=== PATIENT | male | born 1970 | race Caucasian/White ===

== ENCOUNTER 2019-09-17 13:46 | Inpatient (IN) | payer MEDICAID, SELFPAY ==
[2019-09-17] VITALS (8 sets, daily range): BP systolic 117–150; BP diastolic 64–104; PULSE 65–84; RESP 18–21; TEMP 36.4; O2SAT 92–99; BMI 21.2
--- NOTE | 2019-09-17 14:33 | XR_ITS ---
WS: [id number] PORTABLE CHEST HISTORY: chest pain COMPARISON: 06/18/[address] 09/17/2019 Mild pulmonary hyperexpansion. Changes of emphysema with mild thickening of the interstitium which is progressed since prior studies. Suspect pneumonitis or mild fluid overload. No nodule or pneumonia. No pleural effusion or pneumothorax. Cardiac size: Normal. Mediastinum/Aorta: Normal mediastinum. No osseous abnormality seen. XR/XR chest 1V portable [id number] IMPRESSION: 1. Mild interstitial edema versus pneumonitis. 2. No pneumonia. 3. Chronic emphysema.
--- NOTE | 2019-09-17 14:33 | CTR_ITS ---
PROCEDURE INFORMATION: Exam: CT Angiography Chest With Contrast Exam date and time: 09/17/2019 2:55 PM Age: 49 years old Clinical indication: Left-sided chest pain TECHNIQUE: Imaging protocol: Computed tomographic angiography of the chest with intravenous contrast. 3D rendering: MIP and/or 3D reconstructed images were created by the technologist. Radiation optimization: All CT scans at this facility use at least one of these dose optimization techniques: automated exposure control; mA and/or kV adjustment per patient size (includes targeted exams where dose is matched to clinical indication); or iterative reconstruction. Contrast material: OMNI 350; Contrast volume: 95 ml; Contrast route: LT AC; COMPARISON: No relevant prior studies available. RADIATION DOSE METRICS: Total DLP: 597.09 mGy-cm FINDINGS: Pulmonary arteries: There is no pulmonary embolus. Aorta: Unremarkable. No aortic aneurysm. No aortic dissection. Inferior vena cava: An enlarged lymph node anterior to the inferior vena cava image 535 measures 1.9 cm in short axis. Lungs: Nonspecific bibasilar consolidation is present, consistent with atelectasis, edema, or pneumonia. There is also interstitial and ground-glass prominence in the lungs compatible with mild diffuse pneumonitis or interstitial CHF. There are uugw-ni-yxikgzzx emphysematous changes. Pleural space: There are small to moderate size bilateral pleural effusions. Heart: Unremarkable. No cardiomegaly. No pericardial effusion. Mediastinum: A small hiatal hernia is present. Lymph nodes: There is adenopathy in the aortopulmonary window with a lymph node measuring 1.6 cm in short axis image 194. There is a precarinal lymph node that measures 1.8 cm in short axis. A subcarinal lymph node measures 2.5 cm in short axis. There is a 1.2 cm right infrahilar lymph node image 289. There is adenopathy in the upper abdomen including a 1.9 cm short axis lymph node anterior to the pancreas image 519. Multiple subcentimeter lymph nodes are noted in the visualized retroperitoneum. There is no axillary adenopathy. Spleen: The spleen is normal in size. Bones/joints: There is no acute fracture. There is coarsening of the bony trabecular pattern. This appearance is most typically identified with renal osteodystrophy. There are Schmorl's nodes and moderate degenerative changes in the spine. Soft tissues: Unremarkable. CT/CT angio chest PE protcl [id number] IMPRESSION: 1. There are small to moderate size bilateral pleural effusions. 2. There is no pulmonary embolus. 3. Nonspecific bibasilar consolidation is present, consistent with atelectasis, edema, or pneumonia. 4. There is also interstitial and ground-glass prominence in the lungs compatible with mild diffuse pneumonitis or interstitial CHF. 5. Mediastinal adenopathy. Adenopathy in the kilo hepatis. Radiation Dose CTDIVOL = (mGy): DLP = 597.09 (mGy-cm)
--- NOTE | 2019-09-17 14:34 | ECG_ITS ---
Measurements Intervals [place] Rate: 75 P: 64 VA: 145 QRS: 67 QRSD: 159 T: 244 QT: 449 QTc: 504 SINUS RHYTHM LEFT BUNDLE BRANCH BLOCK [120+ ms QRS DURATION, 80+ ms Q/S IN V1/V2, 85+ ms R IN I/aVL/V5/V6] INTERPRETATION BASED ON A DEFAULT AGE OF 40 YEARS No previous ECG available for comparison Electronically Signed On 09-17-2019 20:06:21 CDT by Jesse Galicia M.D. [id number]
--- NOTE | 2019-09-17 14:36 | ED_ITS ---
HPI - Chest Pain General: Chief Complaint: Shortness of Breath/Dyspnea Stated Complaint: cp,sob Time Seen by Provider: 09/17/19 14:23 History of Present Illness: HPI narrative: Patient reports episodic chest pain for the past 10 or 11 months. He says the pain feels like someone is pushing heavily down on his chest. There is no radiation. He gets short of breath and diaphoretic but has no nausea. MD complaint: chest pain, chest heaviness and chest discomfort Onset (ago): year(s) (1) Timing of current episode: episodic Prior episodes: Yes Onset: during rest and during exertion Pain location: substernal, left chest and parasternal Pain radiation: none Quality: tightness and heaviness Relieving factors: nothing Exacerbating factors: exertion Associated symptoms: Reports diaphoresis and dyspnea; Deny nausea or vomiting Treatment prior to arrival: none Review of Systems General: Reports: 10 or more systems reviewed and unremarkable except in HPI and below Const: Reports: diaphoresis Card: Reports: chest pain Resp: Reports: shortness of breath GI: Denies: nausea or vomiting PFS ED PFSH: Social History Smoking and tobacco status: current every day smoker Physical Exam Const: COMMON NORMALS: no apparent distress, average body habitus, oriented x3 and well nourished GENERAL APPEARANCE: cooperative and well developed HENMT: COMMON NORMALS: normocephalic HEAD & SCALP: normocephalic Neck/C-Spine: COMMON NORMALS: full ROM and no JVD Resp: COMMON NORMALS: normal respiratory effort, no retractions, no use of accessory muscles and clear to auscultation bilaterally AUSCULTATION: clear to auscultation bilaterally Cardio: COMMON NORMALS: no JVD, regular rate and regular rhythm RATE: regular rate RHYTHM: regular rhythm HEART SOUNDS: murmur systolic Extremity: COMMON NORMALS: normal to inspection and no clubbing, cyanosis or edema Neuro: COMMON NORMALS: oriented x3, CN's II-XII intact bilaterally, moves all extremities, no focal motor deficits and no sensory deficits noted Skin: COMMON NORMALS: no rashes or lesions noted, skin turgor normal and no jaundice GENERAL SKIN EXAM: no rashes or lesions noted and turgor normal Course Vital Signs: Vital signs: Vital Signs Temperature 97.6 F 09/17/19 13:51 Pulse Rate 66 09/17/19 14:46 Respiratory Rate 21 H 09/17/19 14:46 Blood Pressure 117/79 09/17/19 14:46 Pulse Oximetry 93 09/17/19 14:46 MDM - Chest Pain Lab Data: Labs: Lab Results 09/17/19 09/17/19 09/17/19 Range/Units 14:34 15:12 15:12 WBC 8.1 (4.0-10.0) 10^3/ uL RBC 5.47 H (4.1-5.3) 10^6/u L Hgb 14.9 (11.7-16.6) g/dL Hct 47.0 (42.0-52.0) % MCV 85.9 (80-94) fL MCH 27.2 L (28.0-34.0) pg MCHC 31.7 (30.0-36.0) g/dL RDW 14.0 (12.1-15.1) % Plt Count 258 (130-400) 10^3/c mm MPV 11.6 H (7.4-10.4) fL Neut % (Auto) 60.6 % Lymph % (Auto) 29.1 % [place] % (Auto) 6.7 % Eos % (Auto) 2.8 % Baso % (Auto) 0.6 % Neut # (Auto) 4.9 (1.8-7.7) 10^3/u L Lymph # (Auto) 2.4 (0.8-4.8) 10^3/u L [place] # (Auto) 0.5 (0.2-0.9) 10^3/u L Eos # (Auto) 0.2 (0.0-0.8) 10^3/u L Baso # (Auto) 0.1 (0.0-0.1) 10^3/u L Nucleated RBC % (a uto) 0 % Nucleated RBCs # 0.0 /100WBC PT (10.5-13.3) SECO NDS INR (0.8-1.2) Sodium 137 (136-145) mmol/L Potassium 4.4 (3.5-5.1) mmol/L Chloride 104 (98-107) mmol/L Carbon Dioxide 24 (22-29) mmol/L Anion Gap 13.4 (5-19) BUN 15 (6-20) mg/dL Creatinine 1.0 (0.7-1.2) mg/dL GFR Calculation 79.8 L (90-130) mL/min Glucose 93 (65-115) mg/dL Calculated Osmolal ity 280 L (285-295) mOsm/k g Calcium 9.0 (8.5-10.5) mg/dL Total Bilirubin 0.5 (0.15-1.2) mg/dL AST 34 (0-40) U/L ALT 79 H (0-41) U/L Alkaline Phosphata se 228 H (40-130) IU/L Troponin T Baselin e 21 H (0-15) ng/mL NT-Pro-B Natriuret Pep 3259 H (0-125) pg/mL Total Protein 6.4 L (6.6-8.7) g/dL Albumin 3.8 (3.5-5.2) g/dL Globulin 2.6 (1.3-4.6) g/dL /02/26 Range/Units 15:12 WBC (4.0-10.0) 10^3/ uL RBC (4.1-5.3) 10^6/u L Hgb (11.7-16.6) g/dL Hct (42.0-52.0) % MCV (80-94) fL MCH (28.0-34.0) pg MCHC (30.0-36.0) g/dL RDW (12.1-15.1) % Plt Count (130-400) 10^3/c mm MPV (7.4-10.4) fL Neut % (Auto) % Lymph % (Auto) % [place] % (Auto) % Eos % (Auto) % Baso % (Auto) % Neut # (Auto) (1.8-7.7) 10^3/u L Lymph # (Auto) (0.8-4.8) 10^3/u L [place] # (Auto) (0.2-0.9) 10^3/u L Eos # (Auto) (0.0-0.8) 10^3/u L Baso # (Auto) (0.0-0.1) 10^3/u L Nucleated RBC % (a uto) % Nucleated RBCs # /100WBC PT 14.50 H (10.5-13.3) SECO NDS INR 1.10 (0.8-1.2) Sodium (136-145) mmol/L Potassium (3.5-5.1) mmol/L Chloride (98-107) mmol/L Carbon Dioxide (22-29) mmol/L Anion Gap (5-19) BUN (6-20) mg/dL Creatinine (0.7-1.2) mg/dL GFR Calculation (90-130) mL/min Glucose (65-115) mg/dL Calculated Osmolal ity (285-295) mOsm/k g Calcium (8.5-10.5) mg/dL Total Bilirubin (0.15-1.2) mg/dL AST (0-40) U/L ALT (0-41) U/L Alkaline Phosphata se (40-130) IU/L Troponin T Baselin e (0-15) ng/mL NT-Pro-B Natriuret Pep (0-125) pg/mL Total Protein (6.6-8.7) g/dL Albumin (3.5-5.2) g/dL Globulin (1.3-4.6) g/dL Discharge Plan Discharge Patient Disposition: Admitted As Inpatient Clinical Impression: Unstable angina pectoris, Left bundle branch block Condition: Fair Coding Level of Care Code ED Supply Crib Attendant for Ren Fwd Exam Comprehensive
[2019-09-17 14:45] LABS: Basophils # 0.1 10^3/uL (0.0-0.1); Basophils % 0.6 %; Eosinophils # 0.2 10^3/uL (0.0-0.8); Eosinophils % 2.8 %; Hemoglobin 14.9 g/dL (11.7-16.6); Lymphocytes # 2.4 10^3/uL (0.8-4.8); Lymphocytes % 29.1 %; Mean Corpuscular HGB Conc 31.7 g/dL (30.0-36.0); Mean Corpuscular Hemoglobin 27.2 pg (28.0-34.0); Mean Corpuscular Volume 85.9 fL (80-94); Mean Platelet Volume 11.6 fL (7.4-10.4); Monocytes # 0.5 10^3/uL (0.2-0.9); Monocytes % 6.7 %; Neutrophils # 4.9 10^3/uL (1.8-7.7); Neutrophils % 60.6 %; Nucleated Red Blood Cells % 0 %; Platelet Count 258 10^3/cmm (130-400); Red Blood Count 5.47 10^6/uL (4.1-5.3); White Blood Count 8.1 10^3/uL (4.0-10.0)
[2019-09-17] MEDS: iohexol 350 mg/mL 100 mL Btl IV (14:56)
[2019-09-17 15:35] LABS: Troponin(5th) Baseline 21 ng/mL (0-15)
[2019-09-17 15:44] LABS: Alanine Aminotransferase 79 U/L (0-41); Albumin Level 3.8 g/dL (3.5-5.2); Alkaline Phosphatase 228 IU/L (40-130); Anion Gap 13.4 (5-19); Aspartate Amino Transferase 34 U/L (0-40); Blood Urea Nitrogen 15 mg/dL (6-20); Carbon Dioxide 24 mmol/L (22-29); Chloride 104 mmol/L (98-107); Globulin 2.6 g/dL (1.3-4.6); Glomerular Filtration Rate 79.8 mL/min (90-130); Glucose 93 mg/dL (65-115); NT Pro B Type Natriuretic Pept 3259 pg/mL (0-125); Osmolality Calculated 280 mOsm/kg (285-295); Potassium 4.4 mmol/L (3.5-5.1); Sodium 137 mmol/L (136-145); Total Bilirubin 0.5 mg/dL (0.15-1.2); Total Protein 6.4 g/dL (6.6-8.7)
[2019-09-17] MEDS: nitroglycerin 0.4 mg sublingual Tablet (16:06)
[2019-09-17 16:56] LABS: Troponin 5 2HR 22.62 ng/mL (0-15); Troponin 5 2HR Delta 1.62 ABS# (0-10)
--- NOTE | 2019-09-17 19:00 | PM.HP ---
Providers/Chief Complaint Admitting Physician: Kenia Loja MD Chief Complaint: cp,sob History of Present Illness Emory Real is a 49 year old male with no known past medical history is, does not really see medical practitioners in the past. He presents today complaining of chest pain that has worsened since yesterday evening. 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 He describes this as substernal to left-sided chest discomfort without any radiation. Describes intensity as 8 on 10 at its peak and 06/10/2009 at a minimum. States it is intermittent, though he is unable to state any exacerbating or relieving factors in particular. He complains of shortness of breath during episodes of chest pain, however states at other times he does not experience this. No history of orthopnea. He states that similar pain has been ongoing on and off for the past year or so, occurs at fairly frequent intervals of about once every month, however he has not sought any evaluation for this in the past. He is also noted to be coughing up on interview. He states that the cough has been going on at least several weeks. He is a chronic smoker but does not know if he has any history of COPD. He attributed this chronic cough to his smoking. He states that his pointed out to him he felt warm yesterday, however he has not checked his temperature. There is no his recent history of travel. 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 He is not aware of being in touch with anyone who has been sick or tested positive for COVID-19 recently. Diagnostics in the ER are notable for EKG with normal sinus rhythm LBBB of unclear chronicity, baseline troponin not elevated, CTA of the chest shows interstitial Ground-glass prominence in the lungs compatible with mild diffuse pneumonitis or interstitial CHF. There are [id number] emphysematous changes.P There are small to moderate size bilateral pleural effusions.and incidental note made of abdominal lymphadenopathy. Review of Systems General: Reports: 10 or more systems reviewed and unremarkable except in HPI and below Const: Denies: fever, chills or body aches Eyes: Denies: change in vision, blurry vision or photophobia ENMT: Denies: throat pain, enlarged tonsils, painful swallowing, hoarseness or nasal congestion Card: Reports: chest pain; Denies: palpitations, irregular heart rhythm, edema, swelling of feet/ankles, lightheadedness, pre-syncope, shortness of breath on exertion or shortness of breath when lying down Resp: Denies: shortness of breath, productive cough, non-productive cough, wheezing, stridor, pain on inspiration, change in phlegm color, coughing up blood or chest congestion GI: Denies: abdominal pain, nausea, vomiting, vomiting blood, coffee grounds in vomit, difficulty swallowing, heartburn/indigestion, diarrhea, constipation, cramping, change in stool character, blood in stool or black tarry stool : Denies: flank pain, painful urination, urinary frequency, urinary urgency, urinary hesitancy or blood in urine Musc: Denies: neck pain, back pain, extremity pain, joint swelling, joint warmth or deformity Neuro: Denies: headache, numbness in extremities, weakness in extremities, changes in sensation, difficulty walking, frequent falls, dizziness, vertigo, behavioral changes, slurred speech or seizure-like activity Psych: Denies: anxiety, depression, suicidal ideation or homicidal ideation Endo: Denies: excessive urination, excessive thirst, tired all the time, cold intolerance or hot flashes Luís/Lymph: Denies: easy bruising or easy bleeding Medications/Allergies Home Medications Medication Instructions Recorded Confirmed Last Taken Type No Known Home Medications 09/17/19 09/17/19 Unknown History Allergies Allergy/AdvReac Type Severity Reaction Status Date / Time No Known Allergies Allergy Verified 09/17/19 13:54 PFSH Acute PFSH: Social History Smoking and tobacco status: current every day smoker Vitals/I&O/Wt Last Vital Signs Temp 97.6 F 09/17/19 13:51 Pulse 65 09/17/19 18:58 Resp 18 09/17/19 18:58 BP 118/64 09/17/19 18:58 Pulse Ox 98 09/17/19 18:58 Weight last 48 hrs Weight 63.503 kg Physical Exam Narrative: EXAM NARRATIVE: GEN: Awake, alert and oriented, no acute distress CVS: S1S2 N RS: CTA B/L except few scattered crackles over bilateral lung bases. Abd: Soft, nt/nd , bs+ HOSPITAL MEDICAL BILLER: no focal neuro deficits Data : 09/17/19 14:34 09/17/19 15:12 A&P Assessment and plan (1) Unstable angina pectoris: Status: Acute (2) Left bundle branch block: Status: Acute (3) Pulmonary edema cardiac cause: Status: Acute (4) Nicotine dependence: Status: Acute (5) Suspected COVID-19 virus infection: Status: Acute Additional A&P Information Admit to CSU level of care. 1. Unstable angina pectoris Patient currently reports being chest pain-free, however states that chest pain has been ongoing for about a year now with some worsening since yesterday. Overall given that EKG shows LBBB pattern along with troponins that are not currently elevated on unremarkable delta's, suspect angina pectoris to be the most likely cause of chest pain. Patient will require a stress test to further work this up. However given that he is complaining of cough lasting the past few weeks along with possible fever yesterday and he is continuing to work and interact with other persons, who would be prudent to rule out COVID first. Once COVID is ruled out, we will go ahead and put in patient for a stress test. Will start patient on aspirin and atorvastatin for now along with nitroglycerin as needed. Avoiding beta-blockers for now given heart rate of 66 bpm. We will obtain echocardiogram Check HbA1c, lipid panel, TSH. #2 interstitial prominence noted on CTA chest together with crepitation on clinical exam appears to be consistent with pulmonary edema. Lasix 20 mg IV push x1. Since patient is Lasix na?ve would like to give a small dose first and then monitor KEI and renal function before proceeding any further. 3. Nicotine dependence patient has been counseled to cut back on smoking. Will offer nicotine patch while he is here in the hospital. Patient is full code DVT prophylaxis Lovenox. Attestations Medical Necessity Statement*: Anticipate greater than 2 midnight stay for COVID-19 rule out, stress test, management of pulmonary edema. 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
[2019-09-17 19:33] LABS: Chol HDL Ratio 6.35 mg/dL (1.0-5.00); Cholesterol 197 mg/dL (0-200); HDL Cholesterol 31 mg/dL (60-100); LDL Cholesterol Calculated 140 mg/dL (50-129); LDL HDL Ratio 4.52 RATIO (0.00-3.22); Thyroid Stimulating Hormone 1.76 uIU/mL (0.27-4.20); Triglycerides 128 mg/dL (0-150)
[2019-09-17 19:38] LABS: Estmated Average Glucose 143; Hemoglobin A1C 6.6 % (4.0-6.0)
[2019-09-17] MEDS: FUROsemide 10 mg/mL SDV 2mL 20 MG IVP (19:42)
[2019-09-17] MEDS: enoxaparin 40 mg/0.4 mL Syringe SUBCUT (19:44)
[2019-09-17] MEDS: morphine 4 mg/mL SDV 1 mL 2 MG IVP (19:44)
[2019-09-17] MEDS: aspirin 325 mg Tablet PO (19:44)
--- NOTE | 2019-09-17 20:34 | ECG_ITS ---
Measurements Intervals [place] Rate: 66 P: 53 NE: 145 QRS: 60 QRSD: 162 T: 228 QT: 463 QTc: 488 SINUS RHYTHM POSSIBLE LEFT ATRIAL ENLARGEMENT [-0.1mV P WAVE IN V1/V2] LEFT BUNDLE BRANCH BLOCK [120+ ms QRS DURATION, 80+ ms Q/S IN V1/V2, 85+ ms R IN I/aVL/V5/V6] No previous ECG available for comparison Electronically Signed On 09-17-2019 20:17:13 CDT by Jesse Galicia M.D. [email or web address]
[2019-09-17] MEDS: atorvastatin 40 mg Tablet PO (21:08)
[2019-09-18] VITALS (12 sets, daily range): BP systolic 101–134; BP diastolic 69–91; PULSE 62–80; RESP 13–20; TEMP 37; O2SAT 90–100
[2019-09-18] MEDS: aspirin 81 mg EC Tablet PO (09:15)
[2019-09-18 15:39] LABS: Coronavirus Lab Test PTC NOT DETECTED
--- NOTE | 2019-09-18 17:59 | PC.NURSE ---
TRANSFER TO ROOM 253-1 PERSONAL BELONGINGS WITH PT. DENIES ANY C/O REPORT CALLED TO [facility]RUFF
--- NOTE | 2019-09-18 20:42 | PM.PN ---
Subjective Subjective: Interval history: Patient has had a little bit of discomfort and some wheezing in his chest but not as bad as it had been. COVID testing did come back negative this afternoon. No other complaints Vitals/I&O/Wt Last Vital Signs Temp 98.6 F 09/18/19 20:00 Pulse 66 09/18/19 20:00 Resp 20 H 09/18/19 20:00 BP 124/79 09/18/19 20:00 Pulse Ox 98 09/18/19 20:00 09/18/19 09/18/19 09/18/19 06:59 14:59 22:59 Intake Total 480 / 480 360 / 840 Output Total 400 / 400 400 / 800 Balance 80 / 80 -40 / 40 Weight last 48 hrs Weight 63.503 kg Physical Exam Const: OTHER: Alert, oriented x3, cooperative HENMT: OTHER: Normocephalic atraumatic, mucous membranes moist Eye: OTHER: Pupils equally round and reactive to light Neck/C-Spine: OTHER: Supple Resp: OTHER: Clear to auscultation bilaterally no rales rhonchi or wheezes noted, no accessory muscle use noted Cardio: OTHER: Regular rate and rhythm, no murmurs gallops or rubs. Pulses 2+ and equal at both feet. GI: OTHER: Abdomen soft, nontender, nondistended, positive bowel sounds : OTHER: Deferred Extremity: NARRATIVE EXTREMITY EXAM: No cyanosis clubbing or edema Neuro: OTHER: Face symmetric, speech clear, handgrip equal, strength equal both feet Skin: NARRATIVE SKIN EXAM: Patient with multiple sores on both arms in different stages of healing but not appear to be infected Data : 09/17/19 14:34 09/19/19 03:20 A&P Assessment and plan (1) Suspected COVID-19 virus infection: Ruled out Status: Ruled-out (2) Unstable angina pectoris: Persistent reports of chest pain them starting to wonder if is not more from undiagnosed COPD Status: Acute (3) Left bundle branch block: New Status: Acute (4) Pulmonary edema cardiac cause: Presumptive diagnosis at the time of admission Status: Acute (5) Wheezing: Suspect he has some COPD related to tobacco use Status: Acute (6) Elevated hemoglobin A1c: Without a known history of diabetes Status: Acute (7) Dyslipidemia: With high LDL Status: Acute (8) Nicotine dependence: Status: Acute Qualifiers: Nicotine product type: cigarettes Substance use status: uncomplicated Qualified Code(s): F17.210 - Nicotine dependence, cigarettes, uncomplicated Additional A&P Information For stress test tomorrow We will check BNP as well as a repeat BMP Add albuterol Continue current aspirin, statin and as needed nitroglycerin Follow-up echocardiogram report Add sliding scale insulin and serial Accu-Cheks, to consider treatment regimens upon discharge Supportive care otherwise Full code Plans discussed with patient and he was given an opportunity to ask questions Attestations Medical Necessity Statement*: Requires ongoing inpatient stay post COVID testing so we can continue cardiac evaluation Coding Level of Care Code Acute Software Development Specialist for g Fwd Diagnoses Suspected COVID-19 virus infection Z20.828 Unstable angina pectoris I20.0 Left bundle branch block I44.7 Pulmonary edema cardiac cause I50.1 Wheezing R06.2 Elevated hemoglobin A1c R73.09 Dyslipidemia E78.5 Nicotine dependence F17.210 Nicotine product type: cigarettes Substance use status: uncomplicated
[2019-09-18] MEDS: enoxaparin 40 mg/0.4 mL Syringe SUBCUT (20:59)
[2019-09-18] MEDS: atorvastatin 40 mg Tablet PO (20:59)
[2019-09-18 21:38] LABS: Glucose Point of Care 100 mg/dL (70-110)
[2019-09-19] VITALS (9 sets, daily range): BP systolic 116–145; BP diastolic 71–87; PULSE 59–84; RESP 16–20; TEMP 36.3–37; O2SAT 95–97
[2019-09-19 05:05] LABS: Anion Gap 14.3 (5-19); Blood Urea Nitrogen 15 mg/dL (6-20); Calcium 9.6 mg/dL (8.5-10.5); Carbon Dioxide 25 mmol/L (22-29); Chloride 102 mmol/L (98-107); Glomerular Filtration Rate 71.4 mL/min (90-130); Glucose 109 mg/dL (65-115); Osmolality Calculated 281 mOsm/kg (285-295); Potassium 4.3 mmol/L (3.5-5.1); Sodium 137 mmol/L (136-145)
[2019-09-19 05:09] LABS: NT Pro B Type Natriuretic Pept 2811 pg/mL (0-125)
--- NOTE | 2019-09-19 06:00 | ECG_ITS ---
NAME OF STUDY: LEXISCAN SESTAMIBI STRESS TEST INDICATION: Chest Pain, PROCEDURE: At the baseline, the EKG revealed normal sinus rhythm with a left bundle branch block. Diffuse ST-T changes, possibly secondary to the LBBB. The baseline blood pressure was 115/57 mm Hg with a heart rate of 74 beats/min. Lexiscan was infused over a period of 20 seconds. A total of 0.4 milligrams of Lexiscan was infused. The stress phase was continued for a total of 5 minutes. Heart rate at the end of the stress phase was 86 with a blood pressure 114/84. The EKG at the peak infusion revealed no significant changes. Sestamibi was injected 20 seconds after the Lexiscan infusion. Blood pressure at the end of the recovery phase was 116/82 with a heart rate of 91 per minute. CONCLUSION: 1.The EKG changes with the Lexiscan infusion is uninterpretable due to baseline changes . 2. No LexiScan induced chest pain or cardiac arrhythmia 3. Normal blood pressure and heart rate response 4. Sestamibi/sestamibi perfusion scan pending; see separate report. Electronically Signed On 09-19-2019 13:20:32 CDT by Jesse Galicia M.D. [email or web address]
[2019-09-19 06:32] LABS: Glucose Point of Care 96 mg/dL (70-110)
--- NOTE | 2019-09-19 07:00 | NMCV_ITS ---
NM ifeanyi perf SPECT r/s* [id number] Emory Real Age: 49 Gender: M : 1970 Exam Date: 09/19/2019 07:28 Ordering Phys: Kenia Loja MD Technologist: ASHWIN Sanchez Exam Location: [facility] Indications: Chest pain, SOB STRESS TEST Please see separate stress test report in [facility] for full findings IMAGE PROTOCOL Rest/Stress 1 Lexiscan Day Radiopharmaceutical Dose (mCi) Administration Site Administered by Rest: Tc-99m 10.5 IV ASHWIN Muller Sestamibi Stress:Tc-99m 32.4 IV ASHWIN Sanchez Sestamisusan Rest: 19-Sep-2019 60 Discovery 630 Stress: 19-Sep-2019 45 Discovery 630 0.4mg Lexiscan. Images obtained in supine and prone position. SPECT RESULTS Technical Quality: Good Raw Data Analysis: Subdiaphragmatic activity Image Corrections: No attenuation or motion correction applied Summed Stress Score: 17 Summed Rest Score: 11 Summed Difference Score: 7 PERFUSION FINDINGS A moderate area of moderate to severely decreased tracer uptake was noted in the mid and apical anterior, mid and apical inferior, mid inferoseptal and all the apical segments. Some reversibility was noted in all the segments. FUNCTIONAL RESULTS (calculated via Gated SPECT) Stress Image LV EF (%): 15 Stress EDV (mL):243 TID: 1.09 Stress ESV (mL):206 FUNCTIONAL FINDINGS: Segmental wall motion analysis revealed severe diffuse hypokinesia of the anterior wall, apex and the septum. IMPRESSIONS 1. Myocardial perfusion imaging revealing a moderate area of moderate to severely decreased tracer uptake in the mid inferior, inferoseptal, mid anterior and all the apical segments with some reversibility, suggestive of myocardial scarring with ischemia in the distribution of all the 3 coronary arteries. 2. Markedly diminished LV ejection fraction of 15%. 3. Wall motion abnormalities as mentioned above. 4. Markedly dilated LV cavity. No similar previous studies are available for comparison Dr Jesse Galicia MD [facility] (Electronically Signed) Final Date: 19 Sep 2019 11:19 S
[2019-09-19] MEDS: regadenoson 0.4 Mg/5 ml Syringe IVP (08:19)
[2019-09-19] MEDS: aspirin 81 mg EC Tablet PO (09:41)
[2019-09-19 10:44] LABS: Glucose Point of Care 114 mg/dL (70-110)
--- NOTE | 2019-09-19 12:45 | PM.PN ---
Subjective Subjective: Interval history: Patient without any further episodes of chest pain. His breathing is better. Not coughing as much. Stress testing was done today. Unfortunately it has shown evidence of likely three-vessel disease and a significantly decreased ejection fraction. Further, patient has evidence of aortic stenosis on echocardiogram. Case was discussed with Dr. Galicia who will see him in consultation. I reviewed all of this with the patient himself. He does indicate that all of his brothers have a history of heart problems including stents. Vitals/I&O/Wt Last Vital Signs Temp 97.4 F L 09/19/19 11:00 Pulse 78 09/19/19 12:10 Resp 18 09/19/19 12:10 BP 121/75 09/19/19 11:00 Pulse Ox 96 09/19/19 12:10 09/18/19 09/19/19 09/19/19 22:59 06:59 14:59 Intake Total 600 / 1080 360 / 360 Output Total 400 / 800 Balance 200 / 280 360 / 360 Weight last 48 hrs Weight 63.503 kg Physical Exam Const: OTHER: Alert, oriented x3, cooperative HENMT: OTHER: Normocephalic atraumatic, mucous membranes moist Eye: OTHER: Pupils equally round and reactive to light Neck/C-Spine: OTHER: Supple Resp: OTHER: Clear to auscultation today anteriorly. No wheezes noted. Continues to have some crackles. Cardio: OTHER: Regular rate and rhythm, holosystolic murmur noted today on the right sternal border, pulses are equal GI: OTHER: Abdomen soft, nontender, nondistended, positive bowel sounds Extremity: NARRATIVE EXTREMITY EXAM: No pitting edema Neuro: OTHER: Face symmetric, speech clear, moves all extremities Psych: OTHER: Overall affect appears improved today Skin: NARRATIVE SKIN EXAM: Patient with multiple sores on both arms in different stages of healing but not appear to be infected Data : 09/17/19 14:34 09/19/19 03:20 A&P Assessment and plan (1) Abnormal nuclear stress test: Status: Acute (2) Critical aortic valve stenosis: Valve area of 0.45 cm? Status: Acute (3) Acute on chronic congestive heart failure: Ejection fraction 15% new finding and diagnosis for patient Status: Acute Qualifiers: Heart failure type: systolic Qualified Code(s): I50.23 - Acute on chronic systolic (congestive) heart failure (4) Unstable angina pectoris: Persistent reports of chest pain them and dyspnea prior to admission Status: Acute (5) Left bundle branch block: New Status: Acute (6) Wheezing: Suspect he has some COPD related to tobacco use, improved today without focused intervention Status: Acute (7) Elevated hemoglobin A1c: Without a known history of diabetes. Given comorbid conditions necessitates treatment for maximizing management of potentially modifiable risk factors. Suspect he will be able to be on an oral medication Status: Acute (8) Dyslipidemia: With high LDL, new diagnosis Status: Acute (9) Nicotine dependence: Educated on the importance of smoking cessation related to cardiac health Status: Chronic Qualifiers: Nicotine product type: cigarettes Substance use status: uncomplicated Qualified Code(s): F17.210 - Nicotine dependence, cigarettes, uncomplicated (10) Suspected COVID-19 virus infection: Ruled out Status: Ruled-out Additional A&P Information Appreciate Dr. Galicia's input, consult was obtained after results of stress testing Plan is for cardiac catheterization tomorrow Continue current aspirin, statin and as needed nitroglycerin Currently no IRIS inhibitor nor ARB secondary to severe aortic stenosis Status post 1 dose of IV Lasix this morning which does seem to have helped him clinically Currently will hold any further medication changes until we get a bit more information from cardiac cath On prophylactic dose Lovenox On sliding scale insulin and serial Accu-Cheks currently, given comorbid conditions elevated A1C necessitates treatment for maximizing management of potentially modifiable risk factors. Would likely benefit from oral medication while lifestyle modifications are instituted under the circumstances Continue PRN albuterol, has not required a dose thus far Supportive care otherwise Discussed with patient that he will be on multiple medications at the time of discharge which we will review with him. He said he was not surprised by this with everything that is been going on in his family history. Plans discussed with patient and he was given an opportunity to ask questions. I explained the possibility of having significant cardiovascular disease that may require further intervention. At the time I spoke with him I was not fully aware of the aortic stenosis. Dr. Galicia did review this with him. He will most likely require evaluation by cardiothoracic surgery in the very near future, and even possibly urgently, depending on what Dr. Galicia finds. Full code Attestations Medical Necessity Statement*: Requires ongoing inpatient stay secondary to significant cardiac issues as noted above. Requires further cardiac evaluation and will likely need additional invasive management on top of medication adjustments after results of cardiac catheterization tomorrow. At high risk of rapid clinical decline up to and including the possibility of . 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
[2019-09-19 16:29] LABS: Glucose Point of Care 81 mg/dL (70-110)
--- NOTE | 2019-09-19 17:43 | P.CONIM_ITS ---
Providers/Reason For Consult Consulting Physican/Specialty*: STEVEN Galicia MD/cardiology Reason for Consult*: Patient with abnormal stress test Attending Physician: Annia Beckham MD History of Present Illness History of Present Illness Emory Real is a 49 year old male with no significant past medical history is presenting with complaints of chest pain and shortness of breath. Patient apparently has been having episodes of chest pain since summer of last year. He has been having these episodes once or twice a month to begin with. But lately he has been having episodes of chest pain 2 or 3 times a week, depends on the level of activities. It usually last area from 10 to 15 minutes and then goes away by itself. Yesterday he was while working on his car, started having chest pain, described as pressure-like in nature on the left side of the chest. He had associated shortness of breath and radiation of pain to the left arm. The pain apparently persisted for more than an hour. At this point, he decided to come to the hospital. He did not have any associated nausea vomiting. No sweating, dizziness or syncopal episodes. He has no fever or chills. No significant cough. At the time of my examination, patient is pain-free. He has not had a recurrence of chest pain, since the hospital admission. Patient has no previous history for any coronary disease, myocardial infarction or congestive heart failure. He hardly goes to the doctor. 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 For the last several months, he has been having some amount of dyspnea on exertion. No orthopnea or PND. No significant leg swelling. He has not been taking medications on a long-term basis. Review of Systems Narrative: CONSTITUTIONAL: No fever or chills. Has been having some easy fatigability and dyspnea on exertion lately EYES: No blurring of vision or other visual disturbances lately. ENT: No hoarseness of voice, auditory disturbances or sore throat. CARDIOVASCULAR: Dyspnea on exertion and chest pain RESPIRATORY: No significant cough. GASTROINTESTINAL: No hematemesis or melena. GENITOURINARY: No dysuria or hematuria. INTEGUMENTARY: No skin rashes or history of skin cancer. NEURO: No transient ischemic attacks or amaurosis. PSYCHIATRIC: No history of psychosis or major depression. HEMATOLOGIC: No bleeding disorders or significant anemia. ENDOCRINE: No history of polyuria or polydipsia. MUSCULOSKELETAL: No recent joint pain or swelling. ALLERGY/IMMUNOLOGY: As mentioned above. Meds/Allergies Home Medications and Allergies Home Medications Medication Instructions Recorded Confirmed Last Taken Type No Known Home Medications 09/17/19 09/17/19 Unknown History Allergies Allergy/AdvReac Type Severity Reaction Status Date / Time No Known Allergies Allergy Verified 09/17/19 13:54 Current Medications Current Medications Generic Name Dose Route Start Last Admin Trade Name Freq PRN Reason Stop Dose Admin Aspirin 81 mg 09/18/19 09:00 09/19/19 09:41 Aspirin Ec PO 81 mg DAILY KELSIE Administration Atorvastatin Calcium 40 mg 09/17/19 21:00 09/18/19 20:59 Lipitor PO 40 mg BEDTIME KELSIE Administration Enoxaparin Sodium 40 mg 09/17/19 19:00 09/18/19 20:59 Lovenox SUBCUT 40 mg Q24H KELSIE Administration Insulin Aspart 0 unit 09/18/19 21:00 09/19/19 02:19 Novolog SUBCUT Not Given BEDTIME KELSIE Protocol Insulin Aspart 0 unit 09/19/19 08:00 09/19/19 17:06 Novolog SUBCUT Not Given TIDWM KELSIE Protocol Morphine Sulfate 2 mg 09/17/19 16:50 09/17/19 19:44 Morphine IVP 2 mg Q4H PRN Administration SEVERE PAIN PFSH Acute PFSH: Medical History (Updated 09/19/19 @ 19:08 by Jesse Galicia MD) Abnormal nuclear stress test Acute on chronic congestive heart failure Critical aortic valve stenosis Ischemic cardiomyopathy No pertinent past medical history Surgical History (Updated 09/18/19 @ 20:46 by Annia Beckham MD) No pertinent past surgical history Family History (Updated 09/19/19 @ 19:02 by Jesse Galicia MD) Father CAD (coronary artery disease), Onset Age: 32 His father of myocardial infarction in his 70s. He had open heart surgery. Brother CAD (coronary artery disease), Onset Age: 40 Patient has 4 brothers and all of them had a heart attack in their 40s and 50s. Grandfather Stroke Had a CVA? Social History (Updated 09/19/19 @ 19:02 by Jesse Galicia MD) Smoking and tobacco status: current every day smoker cigarettes Packs smoked per day: 1 Years cigarettes smoked: 20 Vitals/I&O/Wt Last Vital Signs Temp 98.3 F 09/19/19 15:24 Pulse 64 09/19/19 15:24 Resp 18 09/19/19 15:24 BP 117/79 09/19/19 15:24 Pulse Ox 95 09/19/19 15:24 09/19/19 09/19/19 09/19/19 06:59 14:59 22:59 Intake Total 360 / 360 360 / 720 Balance 360 / 360 360 / 720 Physical Exam Narrative: EXAM NARRATIVE: GENERAL: The patient is alert and oriented times three. Not in any acute distress. HEENT: No significant pallor, icterus or lymphadenopathy. The pupils are reactant to light. Oral cavity: There are no mucous membrane lesions. Funduscopic examination: The fundus is not visualized NECK: Trachea appears to be central. No masses noted. No JVD or thyromegaly appreciated. No carotid bruit. RESPIRATORY: Chest is symmetrical. No intercostals muscle retraction or any accessory muscle activation. There is no chest wall tenderness. Breath sounds are heard bilaterally. No rales or rhonchi heard. No evidence of any consolidation. BREASTS: Deferred. HEART: The PMI is in the 5th left intercostals space just inside the midclavicular line. No palpable precordial events. The S1 is normal. S2 is muffled. Ejection systolic murmur of grade 4/6 in the aortic area. No diastolic murmurs. No pericardial rub. ABDOMEN: No vessel pulsations or distention. No tenderness. No organomegaly appreciated. No abdominal bruit. Bowel sounds are normally heard. : Deferred. RECTAL: Deferred. LYMPHATIC: No lymphadenopathy noted in the neck or groin. EXTREMITIES: No edema or cyanosis. No clubbing. The pulses are symmetrical bilaterally. The radial, femoral, dorsalis pedis and the posterior tibial pulses are palpated and found to be in fairly good volume and amplitude. MUSCULOSKELETAL: No acute joint deformities or swelling SKIN: There are no significant scars or skin rash noted. NEUROPSYCHIATRIC: The patient is alert and oriented x3. Appears to be in a good mood. The higher functions are grossly within normal limits. No tremors or rigidity noted. Data Labs: Other Labs: Abnormal lab results 09/19/19 09/19/19 Range/Units 03:20 03:20 GFR Calculation 71.4 L (90-130) mL/min Calculated Osmolal ity 281 L (285-295) mOsm/k g NT-Pro-B Natriuret Pep 2811 H (0-125) pg/mL Imaging^: CT Chest: Radiologist's impression: 1. There are small to moderate size bilateral pleural effusions. 2. There is no pulmonary embolus. 3. Nonspecific bibasilar consolidation is present, consistent with atelectasis, edema, or pneumonia. 4. There is also interstitial and ground-glass prominence in the lungs compatible with mild diffuse pneumonitis or interstitial CHF. 5. Mediastinal adenopathy. Adenopathy in the kilo hepatis. Myocardial perfusion imaging: My impression: 1. Myocardial perfusion imaging revealing a moderate area of moderate to severely decreased tracer uptake in the mid inferior, inferoseptal, mid anterior and all the apical segments with some reversibility, suggestive of myocardial scarring with ischemia in the distribution of all the 3 coronary arteries. 2. Markedly diminished LV ejection fraction of 15%. 3. Wall motion abnormalities as mentioned above. 4. Markedly dilated LV cavity. No similar previous studies are available for comparison Echo: My impression: 1. Mildly dilated LV cavity with a diminished ejection fraction of 30 to 35%. 2. Multiple wall motion normalities as mentioned above. Features of grade 3 left ventricular diastolic dysfunction 3. Moderately dilated left atrium. 4. Critical aortic valve stenosis with a valve area of 0.45 cm squared.(Peak velocity of 4.69 m/s with a peak gradient of 84 and a mean gradient of 43 mmHg) 5. Mild aortic and mitral regurgitation. 6. Estimated pulmonary artery peak systolic pressure 25 mmHg 7. No intracardiac masses or any pericardial effusion 8. Normal RV size and ejection fraction. No similar previous studies are available for comparison CXR: My impression: Borderline cardiac silhouette. Increased interstitial markings in both lung rolon. Emphysematous appearance. EKG^: EKG 1: My Interpretation: The EKG showed sinus rhythm with a left bundle branch block pattern. Secondary ST-T changes. Possible left atrial enlargement. EKG 2: My Interpretation: Normal sinus rhythm with a left bundle branch block. Possible left atrial enlargement. Secondary ST-T changes. A&P Assessment and plan (1) Abnormal nuclear stress test: The abnormal myocardial perfusion imaging is suggestive of ischemia in the distribution of all the 3 coronary arteries. The multiple wall motion normalities and the diminished elevation fraction by echocardiogram also may suggest underlying coronary ischemia. For further evaluation of the patient's coronary status, she requires a cardiac catheterization. This was discussed with the patient in detail. The risk of bleeding, hematoma, vascular injury, myocardial infarction, CVA, renal failure and other concomitant complications were explained in detail. Patient understood this well and consented to proceed. We may go ahead and schedule the procedure as early as possible. In the meanwhile, he may continue on the current medications. Status: Acute (2) Critical aortic valve stenosis: Status: Acute (3) Ischemic cardiomyopathy: Patient appears to have severe LV systolic dysfunction. Coronary ischemia and severe aortic valve stenosis are contributing factors. He has stage II failure symptoms at this time. He may be carefully treated with diuretics. No previous studies are available. Status: Acute (4) Dyslipidemia: Patient may be continued with her medications. Status: Acute (5) Acute on chronic congestive heart failure: Patient may be carefully treated with IV diuretics. I may give him IV Lasix 20 mg now. Potassium 10 mg p.o. We will repeat the BMP in the morning. Status: Acute Qualifiers: Heart failure type: systolic Qualified Code(s): I50.23 - Acute on chronic systolic (congestive) heart failure Additional A&P Information History of smoking abuse After reviewing the results of the above test and also based on the patient clinical progress, further recommendations will be made. 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
--- NOTE | 2019-09-19 19:18 | USCV_ITS ---
Emory Real Age: 49 Gender: M : 1970 Exam Date: 09/19/2019 06:27 Ordering Phys: Kenia Loja MD Technologist: Angie Portillo [place] [facility] [place]: UNSTABLE ANGINA BP: 123 / 77 HR: 68 Rhythm: Sinus Technical Quality: Good MEASUREMENTS (Male / Female) Normal Values 2D ECHO LV Diastolic Diameter PLAX 5.1 cm 4.2 - 5.9 / 3.9 - 5.3 cm LV Systolic Diameter PLAX 4.0 cm LV Chamber Size 4.1 cm IVS Diastolic Thickness 1.2 cm 0.6 - 1.0 / 0.6 - 0.9 cm IVS Systolic Thickness 1.6 cm LVPW Diastolic Thickness 1.3 cm 0.6 - 1.0 / 0.6 - 0.9 cm LVPW Systolic Thickness 1.8 cm RV Chamber Size 2.6 cm LVOT Diameter 2.0 cm LV Ejection Fraction 2D Teich 42.0 % LV Ejection Fraction MOD 2C 44.5 % LV Ejection Fraction 2C AL 43.6 % LA Diameter 3.4 cm LA Width 3.4 cm LA Height 4.0 cm RA Width 3.3 cm RA Height 4.0 cm Aorta at Sinotubular Diameter 2.6 cm M-MODE LV Diastolic Diameter MM 5.8 cm 4.2 - 5.9 / 3.9 - 5.3 cm LV Systolic Diameter MM 4.5 cm LV Ejection Fraction MM Teich 44.6 % IVS Diastolic Thickness MM 1.0 cm 0.6 - 1.0 / 0.6 - 0.9 cm IVS Systolic Thickness MM 0.8 cm LVPW Diastolic Thickness MM 0.9 cm 0.6 - 1.0 / 0.6 - 0.9 cm LVPW Systolic Thickness MM 1.4 cm RV Diastolic Diameter MM 1.1 cm Aortic Annulus Diameter 2.8 cm LA Ao Ratio MM 1.2 MV E Point Septal Separation 1.4 cm DOPPLER AV Peak Velocity 459.0 cm/s LVOT Peak Velocity 70.0 cm/s AV Area Cont Eq vti 0.4 cm squared AV Area Cont Eq pk 0.5 cm squared MV Area PHT 5.0 cm squared Mitral E to A Ratio 1.3 MV E' Velocity 6.0 cm/s Mitral E to MV E' Ratio 15.7 Mitral E to LV E' Lateral Ratio 16.6 Mitral E to LV E' Septal Ratio 15.2 TR Peak Velocity 249.2 cm/s TR Peak Gradient 24.8 mmHg TR Mean Velocity 189.9 cm/s TR Mean Gradient 15.4 mmHg TR Velocity Time Integral 63.3 cm TV Peak E Velocity 55.0 cm/s Right Atrial Pressure 3.0 mmHg Pulmonary Artery Systolic Pressu 27.8 mmHg PV Peak Velocity 68.0 cm/s RV Acceleration Time 0.1 s RV Ejection Time 0.3 s RV AcT/ET 0.3 FINDINGS Left Ventricle Severe diffuse hypokinesia of the LV apex and inferior wall region. Mild concentric left renal hypertrophy. Moderate hypokinesia of the mid and apical anteroseptal and inferolateral wall segments. Features of grade 3 left ventricular diastolic dysfunction. Mildly dilated LV cavity. LV ejection fraction estimated to be around 30 to 35% Right Ventricle Normal right ventricular size and systolic function. Right Atrium Normal right atrial size. Left Atrium Moderately increased left atrial size. Mitral Valve Thickened mitral valve. Mild mitral valve regurgitation. Aortic Valve Thickened aortic valve. Mild aortic valve regurgitation. Critical aortic valve stenosis with a valve area of 0.45 cm squared. Peak velocity of 4.6 m/s with a peak gradient of 84 mmHg and a mean gradient of 43 mmHg. Tricuspid Valve No gross abnormalities noted Pulmonic Valve No gross abnormalities noted Pericardium No pericardial effusion. Aorta Normal aortic annulus size. CONCLUSIONS 1. Mildly dilated LV cavity with a diminished ejection fraction of 30 to 35%. 2. Multiple wall motion normalities as mentioned above. Features of grade 3 left ventricular diastolic dysfunction 3. Moderately dilated left atrium. 4. Critical aortic valve stenosis with a valve area of 0.45 cm squared.(Peak velocity of 4.69 m/s with a peak gradient of 84 and a mean gradient of 43 mmHg) 5. Mild aortic and mitral regurgitation. 6. Estimated pulmonary artery peak systolic pressure 25 mmHg 7. No intracardiac masses or any pericardial effusion 8. Normal RV size and ejection fraction. No similar previous studies are available for comparison Dr Jesse Galicia MD [facility] (Electronically Signed) Final Date: 19 Sep 2019 14:19 S
[2019-09-19] MEDS: enoxaparin 40 mg/0.4 mL Syringe SUBCUT (20:39)
[2019-09-19] MEDS: atorvastatin 40 mg Tablet PO (20:39)
[2019-09-19 21:15] LABS: Glucose Point of Care 102 mg/dL (70-110)
[2019-09-19] MEDS: FUROsemide 10 mg/mL SDV 2mL 20 MG IVP (21:43)
[2019-09-19] MEDS: sodium chloride 0.9% 1,000 ML 50 ML IV (22:55)
[2019-09-20] VITALS (27 sets, daily range): BP systolic 99–141; BP diastolic 68–107; PULSE 52–77; RESP 12–20; TEMP 36.4–36.9; O2SAT 93–100
[2019-09-20 06:51] LABS: Glucose Point of Care 95 mg/dL (70-110)
[2019-09-20] MEDS: diphenhydrAMINE 50 mg Capsule PO (07:42)
[2019-09-20] MEDS: aspirin 81 mg EC Tablet PO (07:42)
[2019-09-20] MEDS: sodium chloride 0.9% 1,000 ML 50 ML IV (07:44)
--- NOTE | 2019-09-20 08:12 | P.PN_ITS ---
Subjective Subjective: Interval history: Patient is feeling okay with no chest pain or chest tightness. No unusual shortness of breath. His vital signs are remaining stable. Denies any new symptoms. Medications: Reviewed: Yes Medication Review Details: Current Medications Acetaminophen (Tylenol) 650 mg PO Q6H PRN PRN Reason: Mild/Mod Pain Or Temp >/= 101 Albuterol Sulfate (Ventolin) 2 puff INHALATION Q4H.RESPIRATORY PRN PRN Reason: SHORTNESS OF BREATH Aspirin (Aspirin Ec) 81 mg PO DAILY [facility] Last Admin: 09/20/19 07:42 Dose: 81 mg Documented by: Atorvastatin Calcium (Lipitor) 40 mg PO BEDTIME KELSIE Last Admin: 09/19/19 20:39 Dose: 40 mg Documented by: Benzonatate (Tessalon Pearls) 100 mg PO TID PRN PRN Reason: COUGH Dextrose (D50w) 25 ml IVP ONCE PRN; Protocol PRN Reason: hypoglycemia protocol Dextrose (D50w) 50 ml IVP PRN PRN; Protocol PRN Reason: hypoglycemia protocol Enoxaparin Sodium (Lovenox) 40 mg SUBCUT Q24H [facility] Last Admin: 09/19/19 20:39 Dose: 40 mg Documented by: Glucagon (Glucagen) 1 mg IM ONCE PRN; Protocol PRN Reason: Adult Acute Hypoglycemia Prot. Dextrose (D5w) 500 mls @ 100 mls/hr IV ONCE PRN; Protocol PRN Reason: Adult Acute Hypoglycemia Prot Sodium Chloride (Sodium Chloride 0.9%) 1,000 mls @ 50 mls/hr IV .Q20H [facility] Last Admin: 09/20/19 07:44 Dose: 50 mls/hr Documented by: Sodium Chloride (Sodium Chloride 0.9%) 1,000 mls @ 50 mls/hr IV .Q20H ONE Stop: 09/20/19 15:10 Last Admin: 09/19/19 22:55 Dose: 50 mls/hr Documented by: Insulin Aspart (Novolog) 0 unit SUBCUT BEDTIME KELSIE; Protocol Last Admin: 09/19/19 22:41 Dose: Not Given Documented by: Insulin Aspart (Novolog) 0 unit SUBCUT TIDWM KELSIE; Protocol Last Admin: 09/20/19 07:40 Dose: Not Given Documented by: Morphine Sulfate (Morphine) 2 mg IVP Q4H PRN PRN Reason: SEVERE PAIN Last Admin: 09/17/19 19:44 Dose: 2 mg Documented by: Nicotine (Nicoderm 14 Mg Patch) 1 patch TRANSDERMA DAILY PRN PRN Reason: nicotine withdrawal Nitroglycerin (Nitrostat) 0.4 mg SUBLINGUAL Q5M PRN PRN Reason: CHEST PAIN Ondansetron HCl (Zofran) 4 mg IVP Q6H PRN PRN Reason: NAUSEA AND VOMITING Ondansetron HCl (Zofran) 4 mg IVP Q2M PRN PRN Reason: NAUSEA PT 14.50 SECONDS (10 .5-13.3) H 09/17/19 15:12 Vitals/I&O/Wt Last Vital Signs Temp 98.0 F 09/20/19 07:29 Pulse 77 09/20/19 07:29 Resp 18 09/20/19 07:29 BP 113/72 09/20/19 07:29 Pulse Ox 98 09/20/19 07:29 09/19/19 09/20/19 09/20/19 22:59 06:59 14:59 Intake Total 720 / 1080 Output Total 650 / 650 Balance 720 / 1080 -650 / 430 Physical Exam Narrative: EXAM NARRATIVE: GENERAL: The patient is alert and oriented times three. Not in any acute distress. HEENT: No significant pallor, icterus or lymphadenopathy. The pupils are reactant to light. Oral cavity: There are no mucous membrane lesions. NECK: Trachea appears to be central. No masses noted. No JVD or thyromegaly appreciated. No carotid bruit. RESPIRATORY: Chest is symmetrical. No intercostals muscle retraction or any accessory muscle activation. There is no chest wall tenderness. Breath sounds are heard bilaterally. No rales or rhonchi heard. No evidence of any consolidation. BREASTS: Deferred. HEART: The PMI is in the 5th left intercostals space just inside the midclavicular line. No palpable precordial events. The S1 is normal. S2 is muffled. Ejection systolic murmur of grade 4/6 in the aortic area. No diastolic murmurs. No pericardial rub. ABDOMEN: No vessel pulsations or distention. No tenderness. No organomegaly appreciated. No abdominal bruit. Bowel sounds are normally heard. : Deferred. RECTAL: Deferred. LYMPHATIC: No lymphadenopathy noted in the neck or groin. EXTREMITIES: No edema or cyanosis. No clubbing. The pulses are symmetrical bilaterally. The radial, femoral, dorsalis pedis and the posterior tibial pulses are palpated and found to be in fairly good volume and amplitude. MUSCULOSKELETAL: No acute joint deformities or swelling SKIN: There are no significant scars or skin rash noted. NEUROPSYCHIATRIC: The patient is alert and oriented x3. Appears to be in a good mood. The higher functions are grossly within normal limits. No tremors or rigidity noted. Data : 09/17/19 14:34 09/19/19 03:20 A&P Assessment and plan (1) Abnormal nuclear stress test: The abnormal myocardial perfusion imaging is suggestive of ischemia in the distribution of all the 3 coronary arteries. The multiple wall motion normalities and the diminished elevation fraction by echocardiogram also may suggest underlying coronary ischemia. For further evaluation of the patient's coronary status, she requires a cardiac catheterization. This was discussed with the patient in detail. The risk of bleeding, hematoma, vascular injury, myocardial infarction, CVA, renal failure and other concomitant complications were explained in detail. Patient understood this well and consented to proceed. Patient is scheduled for the cardiac authorization today. Based on the results, further recommendations will be made Status: Acute (2) Critical aortic valve stenosis: May continue on the current medications Status: Acute (3) Ischemic cardiomyopathy: Patient appears to have severe LV systolic dysfunction. Coronary ischemia and severe aortic valve stenosis are contributing factors. He has class II heart failure symptoms at this time. He may be carefully treated with diuretics. No previous studies are available. Status: Acute (4) Dyslipidemia: Patient may be continued with her medications. Status: Acute (5) Acute on chronic congestive heart failure: Clinically he seems to be compensated. Will check on the BMP today. Status: Acute Qualifiers: Heart failure type: systolic Qualified Code(s): I50.23 - Acute on chronic systolic (congestive) heart failure Additional A&P Information History of smoking abuse-patient is strongly advised to quit smoking After reviewing the results of the above test and also based on the patient clinical progress, further recommendations will be made. Thank you for the opportunity to evaluate this patient make these recommendations Attestations Medical Necessity Statement*: Patient requires continued hospital stay for close monitoring and further management Coding Level of Care Code Acute Precision Machine Operator for Rne Marquis Diagnoses Abnormal nuclear stress test R94.39 Critical aortic valve stenosis I35.0 Ischemic cardiomyopathy I25.5 Dyslipidemia E78.5 Acute on chronic congestive heart failure I50.23 Heart failure type: systolic
--- NOTE | 2019-09-20 08:30 | XACV_ITS ---
Exam Room: [facility] Ht: 173 cm Wt: 64 kg BSA: 1.74 m2 Gender: Male : 1970 Any Known Allergies: No known allergies Exam Priority: Routine Procedure(s): Procedure Description: Diagnostic procedure Procedure Description: PCI procedure Procedure Description: Right Heart Catheterization Procedure Description: O2 saturation Procedure Description: Drug Eluting Coronary Stent Procedure Description: Coronary Angiography Procedure Description: Pressure Wire Diagnostic Cath Status: Urgent Diagnostic Findings Proximal Left Anterior Descending Coronary Artery: Severe 75% stenosis, 12.00 mm in length, minimally calcified, eccentric plaque, minimal proximal segment tortuosity, moderately angulated segment, IMMANUEL: 3 flow, high/c lesion, FFR performed: ratio is 0.59. LM: The left anterior descending artery and the circumflex artery were found to have separate ostia.The left main is nonexistent. The left anterior descending artery is a medium caliber elongated vessel, wrap around the LV apex. There is a 60 to 70% tubular lesion at the mid segment of the artery, right after the first septal car shifter. Rest of the vessel was found to have mild diffuse disease. The left circumflex artery is a medium caliber dominant vessel which gives off multiple obtuse marginal branches. Mild diffuse disease was noted in the first and second obtuse marginal branches. The third obtuse marginal branch appears to be trifurcating. One of the trifurcation branches was found to be subtotally occluded. Left to left collaterals were noted filling up this vessel. The right coronary artery is a small calibered nondominant vessel with a moderate to severe ostial narrowing. No other significant stenotic lesions were noted. PCI Status: Elective PCI LVEF Assessed: No PCI Indication: CAD (without Ischemic Sx) Interventional Findings Initially FFR of the mid LAD lesion was performed. The pressure wire pressure actually ventricularized and the systolic pressure damped. Without administering adenosine the FFR was 0.59. Therefore I simply stented the artery. It is small. Decision for PCI with Surgical Consult: No PCI for Multi-vessel Disease: No Conclusions There is severe coronary artery disease with one vessel disease. This is a 49-year-old white male with no significant past medical history, except for the history of smoking abuse and a strong family history for premature atherosclerotic heart disease, presented with unstable anginal symptoms and shortness of breath. He had echocardiographic evidence of a severe aortic valve stenosis with a valve area of 0.45 cm2. His LV ejection fraction was around 30%. He had a myocardial perfusion imaging which revealed small to moderate area of ischemia around the LV apex involving the distribution of all the 3 coronary arteries. In view of the patient's clinical presentation, abnormal echocardiographic and myocardial perfusion imaging findings, in order to further evaluate his coronary status as well as the hemodynamics, a right and left heart catheterization with right and left coronary angiogram was recommended. The findings are as follows. Separate ostia for the left anterior descending artery and the circumflex arteries. Moderately severe disease in the mid LAD. Subtotal occlusion in 1 of the distal branches of the third obtuse marginal artery. Moderately severe ostial stenosis in the nondominant right coronary artery. Mild pulmonary hypertension. The right heart catheterization revealed PA pressure of 41/19 with a mean of 27 meters of mercury. RV pressure 41 millimeters of mercury and a right atrial mean pressure of 11 mmHg. The pulmonary capillary wedge pressure was 21 mmHg. Cardiac output 3 L/min with an index of 2L/m2. Based on the above angiographic findings and also the myocardial perfusion imaging results, it was thought to be appropriate to consider FFR of the LAD lesion. At this point I discussed the cardiac catheterization data with Dr. Khanna. He concurred with this plan. At this point Dr. Khanna took over further management of this patient. Recommendations Continue current medical management and risk factor modification. Diagnostic RX Recommendation: PCI w/o planned CABG Pressures Phase:Rest AO : 121 mmHg / 85 mmHg ( 101 mmHg ) @ 4::00 AM 116 mmHg / 83 mmHg ( 97 mmHg ) @ ::00 AM 131 mmHg / 85 mmHg ( 103 mmHg ) @ ::00 AM 126 mmHg / 82 mmHg ( 99 mmHg ) @ 5::00 AM 133 mmHg / 87 mmHg ( 105 mmHg ) @ :33:00 AM RV : 41 mmHg / 3 mmHg / @ ::00 AM PA : 41 mmHg / 19 mmHg ( 27 mmHg ) @ ::00 AM RA : a wave = v wave = mean = 11 mmHg @ ::00 AM O2 Content Phase:Rest PA : O2 Content O2: 65.2 % @ ::00 AM Saturations Phase:Rest AO : 99 % @ 5::00 AM RA : 68 % @ ::00 AM RV : 67 % @ ::00 AM PA : 65 % @ ::00 AM Cardiac Output Phase:Rest David : 3 l/min @ ::00 AM David Cardiac Index: 2 L/min/m2 @ ::00 AM Clinical Evaluation EBL: 5mL-10mL Procedural Details Current Diagnosis : Chest Pain. Procedure Consent Obtained. Pre-Procedure Time Out. Identified patient by full name and date of as verbalized by the patient/guarantor. Correct patient, site and procedure confirmed by cath team. Does the consent match the physician's order: Yes. Accurate & Complete Informed Consent: Yes. Inpatient/Outpatient History & Physical on Chart: Yes. If H&P is completed, is and addenduem needed: N/A; If yes, is the addendum complete: N/A. Visualize and Verify Site with Patient/Guarantor: N/A. Relevant Radiology Images available: Yes. Pre-op teaching completed and patient verbalized understanding. The risks, benefits, and alternatives of sedation and/or procedure were discussed by physician. The patient agrees to continue. Procedure started. [facility] Clinical Fraility Score: 3: Managing Well. 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 Chest Pain Symptom Assessment: Typical Angina Symptoms. Correct patient, site and procedure confirmed by cath team. Current diagnosis: Chest Pain. PERRLA. Strong, equal hand sheriffs bilaterally. Lungs clear x 5 lobes. IV Site on Arrival: 18 gauge in the left anticubital. IV Site on Arrival: 18 gauge in the right anticubital. IV Fluids: 0.9% NaCl at KVO. 500 mL infused prior to livestock laborer. Pre Procedural Pulses: bilateral dorsalis pedis was 2+. Pre Procedural Pulses: bilateral posterior tibial was 3+. Oxygen started at 2liters/min via nasal canula. right radial was prepped with chloroprep then draped in the usual sterile fashion. right groin was prepped with chloroprep then draped in the usual sterile fashion. Physician notified. Baseline sample Acquired. HR: 72 BPM. Patient's family unavailable due to hospital visitor policy. Physician arrived. Physician scrubbed in. Immediate Pre-Procedure Time Out. Correct Patient: Yes; Correct Procedure: Yes; Correct Site: Yes; Correct Patient Position: Yes; Correct Supplies: Yes; Dried Flammable Prep: Yes; Blood Products Available: N/A;. Lidocaine 1% infiltrated to the right brachial. sheath wire inserted through the brachial vein IV catheter. IV catheter removed OTW. [place] MON catheter inserted. Oximetry samples were obtained. Normal venous range: 60-85%. Normal arterial range: 95-100%. Pressure measurements obtained. [place] out. Blood drawn for lab. Lidocaine 1% infiltrated to the right radial. Unable to obtain radial access. MD attempting to gain access in the Femoral artery. Lidocaine 1% infiltrated to the right groin. Arterial access obtained with micropuncture set. A 5 ir[place] JL4 catheter in over wire. Multiple views taken of left coronary artery. Physician review of cine films. Lab arrived to belt picker blood. Catheter removed over the standard wire. A 5 iranian JR4 catheter in over wire. Multiple views taken of right coronary artery. Dr. Khanna called to review films. Catheter removed over the standard wire. Physician scrubbed out. Dr. Khanna arrived. Dr. Khanna scrubbed in to perform intervention. 6 iranian XB 3 guide catheter was inserted over the wire. Guide catheter out. 6 iranian XB 3 SH guide catheter was inserted over the wire. Guide catheter out. 6 iranian JL 3.5 SH guide catheter was inserted over the wire. Pressure wire inserted through the catheter and advanced to the Prox LAD. Fractional flow reserve measurements obtained. Results: 0.59. Pressure wire out. Freer guidewire was advanced through the guide catheter to lesion in the prox LAD. Inflation Number : 1 Nithya Scott YOLANDA 2.5X15 GERARDO -Lot Number# [id number] Exp: 03/08/2021 was prepped and advanced across the Prox LAD. The stent was deployed at 12 SAUL for 0:46 seconds. Stent balloon and wire out. Guide catheter out. Physician scrubbed out. Sheath(s) sutured into position with 2-0 silk and sterile 4x4's and Op-site applied over the site. No oozing or signs and symptoms of hematoma noted. A Manual Compression was unsuccessful obtaining hemostatsis at the Right Brachial Vein insertion site. A Suture was successful obtaining hemostatsis at the Right Radial artery insertion site. Post Procedure: Pulses reassessed and unchanged. PERRLA. Strong, equal hand sheriffs bilaterally. No VTE prophylaxis required. Total IV fluids: 200 mL. Contrast type used: Omnipaque 300 mgI/mL, 500 mL bottle. PCI Indication: CAD (without ischemic symptoms). Post-op diagnosis: Stent to the LAD. Medication's Wasted: Lidocaine 1% = 4 mL. Medication's Wasted: Fentanyl = 100 mg Versed: 2mcg Adenosine:90mg Nitro: 50mcg Verapamil: 5 mg. Complications: None. Estimated blood loss: 5mL-10mL. Procedure completed. Site: Right Brachial Vein Sheath Size: 6 Fr Hemostasis Method: Manual Compression Hemostasis Success: Unsuccessful Site: Right Radial artery Sheath Size: 6 Fr Hemostasis Method: Suture Hemostasis Success: Successful Complication Findings: No complications occurred during the procedure. Intra/Post-Procedure Events Stroke - Undetermined: No Cardiac Arrest: No Transfusion PCI: No Transfusion Surgical: No Procedure Medications Start: 8:52 AM Stop: 8:52 AM Medication: Versed Amount: 1 mg Route: I.V. Start: 8:53 AM Stop: 8:53 AM Medication: Fentanyl Amount: 50 mcg Route: I.V. Start: 8:54 AM Stop: 8:54 AM Medication: Versed Amount: 1 mg Route: I.V. Start: 9:04 AM Stop: 9:04 AM Medication: Versed Amount: 1 mg Route: I.V. Start: 9:27 AM Stop: 9:27 AM Medication: Versed Amount: 1 mg Route: I.V. Start: 9:27 AM Stop: 9:27 AM Medication: Heparin Amount: 1500 units Route: I.V. Start: 9:48 AM Stop: 9:48 AM Medication: Versed Amount: 1 mg Route: I.V. Start: 10:17 AM Stop: 10:17 AM Medication: Versed Amount: 1 mg Route: I.V. Start: 10:17 AM Stop: 10:17 AM Medication: Fentanyl Amount: 50 mcg Route: I.V. Start: 10:25 AM Stop: 10:25 AM Medication: Heparin Amount: 3500 units Route: I.V. Start: 10:39 AM Stop: 10:39 AM Medication: Plavix Amount: 600 mg Route: P.O. I, the attending physician, have reviewed and verified all procedure medications. Yes, all medications given per verbal order History/Risk Factors Hypertension: No Dyslipidemia: No Peripheral Arterial Disease (PAD): No Myocardial Infarction (AK): No Obesity: No Renal Disease: No Tobacco Use: Current/Recent(w/in 1 year) Prior Interventions PCI: No CABG: No Valve Surgery: No Report Signatures Diagnostic Workflow - Finalized by:Dr Jesse Galicia MD [facility] on 09/20/2019 7:42:58 PM Interventional Workflow - Finalized by: Dr. Demar Khanna MD on 09/20/2019 10:56:42 AM
--- NOTE | 2019-09-20 08:34 | W.PM.OPSUD ---
Surgery/Procedure H&P Update DATE OF PROCEDURE: September 20, 2019 DATE H&P PERFORMED: 09/19/19 H&P UPDATE INFORMATION: I have reviewed H&P completed within last 30 days, I have examined patient prior to procedure and No changes to prior documentation PLANNED PROCEDURE: Operation Date: 09/20/19 08:30 Proposed Procedures p Cardiac Catheterization(Left) - Jesse Galicia MD PATIENT REASSESSED PRIOR TO SEDATION, WITH NO CHANGE NOTED: Yes PHYSICAL EXAM: alert, oriented x 3, clear to auscultation bilaterally and regular rate & rhythm AIRWAY EVAL/ANESTHESIA PLAN: ASA III, Local Anesthesia, Risks, benefits & alternatives of sedation and/or procedure discussed and Patient agrees to continue as planned
--- NOTE | 2019-09-20 09:25 | PC.RESP ---
Smoking Cessation information and a schedule of classes to patient.
[2019-09-20 09:42] LABS: Anion Gap 11.3 (5-19); Blood Urea Nitrogen 15 mg/dL (6-20); Calcium 9.2 mg/dL (8.5-10.5); Carbon Dioxide 25 mmol/L (22-29); Chloride 104 mmol/L (98-107); Glomerular Filtration Rate 79.8 mL/min (90-130); Glucose 104 mg/dL (65-115); Osmolality Calculated 279 mOsm/kg (285-295); Potassium 4.3 mmol/L (3.5-5.1); Sodium 136 mmol/L (136-145)
--- NOTE | 2019-09-20 13:23 | PC.NURSE ---
At 1255 the sheath was pulled. Pressure was held for 20 minutes with no changes to the vital signs. At 1215 pressure was released amd occlusive dressing with gauze was placed over sheath insertion site. No bleeding or swelling was noted. The patient coughed lightly at about 3 minutes post pull and a quarter sized hematoma was noted. Dressing was immediately removed and manual pressure was placed at the site and the hold was restarted. 1337. Hemostasis achieved dressing in place. The small hemotoma has been expressed . No bleeding or swelling noted.
--- NOTE | 2019-09-20 15:01 | PC.NURSE ---
recd. from label remover. sheath out. dressing in place. good dorsalis pulse,weak p.t. cap refil4 sec. alert and oriented.
--- NOTE | 2019-09-20 16:41 | PC.NURSE ---
1515 no change from previous assessment
--- NOTE | 2019-09-20 16:41 | PC.NURSE ---
1530 no change from previous assessment to right groin.
--- NOTE | 2019-09-20 16:42 | PC.NURSE ---
1545 no change to right groin
--- NOTE | 2019-09-20 16:42 | PC.NURSE ---
1600. no change to right groin
--- NOTE | 2019-09-20 16:43 | PC.NURSE ---
1630 resting quietly. no change to right groin
--- NOTE | 2019-09-20 17:58 | PM.PN ---
Subjective Subjective: Interval history: Patient seen after cardiac catheterization. He had a stent placed in the distal LAD. Post procedure he coughed and had some bleeding in the right groin where access was obtained. He has been monitored this afternoon and has had no further issues. He has some mild tenderness in the groin but is otherwise doing okay. Dr. Galicia has discussed with him consideration for LifeVest which is being ordered. I have been told that there are discussions about consideration for TAVR as well. Patient's breathing is better and he has not had any chest pain. Tolerating oral intake. Medications: Reviewed: Yes Vitals/I&O/Wt Last Vital Signs Temp 98.0 F 09/20/19 07:29 Pulse 63 09/20/19 16:30 Resp 12 09/20/19 16:30 BP 117/77 09/20/19 16:30 Pulse Ox 100 09/20/19 16:30 09/20/19 09/20/19 09/20/19 06:59 14:59 22:59 Output Total 650 / 650 Balance -650 / 430 Physical Exam Const: OTHER: Alert, oriented x3, cooperative Neck/C-Spine: OTHER: Supple Resp: OTHER: Clear to auscultation bilaterally, no rhonchi nor wheezes is appreciated, still crackles at bases Cardio: OTHER: Regular, murmur of aortic stenosis unchanged GI: OTHER: Abdomen soft, nontender, nondistended, positive bowel sounds Extremity: NARRATIVE EXTREMITY EXAM: No pitting edema Neuro: OTHER: Face symmetric, speech clear, moves all extremities Psych: OTHER: Overall affect appears improved today Skin: NARRATIVE SKIN EXAM: No change to sores on arms Right groin with clean dressing intact, mildly tender to palpation but no extensive bruising noted at this point in time. He does have some dried blood on his gown from where he coughed. Personally reviewed methods for covering the groin when he has to cough in the future. Data : 09/17/19 14:34 09/20/19 09:25 A&P Assessment and plan (1) CAD (coronary artery disease): Status: Acute Qualifiers: Coronary Disease-Associated Artery/Lesion type: [place] artery [place] vs. transplanted heart: [place] heart Associated angina: with unstable angina Qualified Code(s): I25.110 - Atherosclerotic heart disease of [place] coronary artery with unstable angina pectoris (2) Critical aortic valve stenosis: Valve area of 0.45 cm? Status: Acute (3) Acute on chronic congestive heart failure: Ejection fraction 15% new finding and diagnosis for patient Status: Acute Qualifiers: Heart failure type: systolic Qualified Code(s): I50.23 - Acute on chronic systolic (congestive) heart failure (4) Abnormal nuclear stress test: Status: Acute (5) Unstable angina pectoris: Persistent reports of chest pain them and dyspnea prior to admission Status: Acute (6) Left bundle branch block: New Status: Acute (7) Elevated hemoglobin A1c: Without a known history of diabetes. Given comorbid conditions necessitates treatment for maximizing management of potentially modifiable risk factors. Suspect he will be able to be on an oral medication Status: Acute (8) Dyslipidemia: With high LDL, new diagnosis Status: Acute (9) Nicotine dependence: Educated on the importance of smoking cessation related to cardiac health Status: Chronic Qualifiers: Nicotine product type: cigarettes Substance use status: uncomplicated Qualified Code(s): F17.210 - Nicotine dependence, cigarettes, uncomplicated (10) Wheezing: Suspect he has some COPD related to tobacco use, improved today without focused intervention Status: Resolved (11) Suspected COVID-19 virus infection: Ruled out Status: Ruled-out Additional A&P Information Continue aspirin, Plavix Continue statin therapy We will add oral Lasix at low-dose Further medication changes to be recommended by cardiology Routine post cardiac cath care, keeping an eye on the right groin for any signs of bleeding Lovenox has been held for this evening LifeVest has been requested Dr. Galicia has been communicating with cardiothoracic surgery Has sliding scale insulin ordered but has not required much, can consider oral medications potentially Nicotine patch if needed Supportive care otherwise Full code Reviewed with patient the findings from cardiac catheterization and tentative plans currently in place. Also reviewed the various medicines he may be on as well as the importance of smoking cessation in terms of his overall cardiac health. Attestations Medical Necessity Statement*: Patient requires ongoing inpatient care for stabilization after being identified as having new diagnoses of coronary artery disease, critical aortic stenosis and systolic CHF as noted above. Further he had some bleeding from arteriogram site secondary to coughing today and requires close monitoring while we continue to watch this and adjust medications. Coding Level of Care Code Acute On Site Property Manager for Ren Marquis Diagnoses CAD (coronary artery disease) I25.110 Coronary Disease-Associated Artery/Lesion type: [place] artery [place] vs. transplanted heart: [place] heart Associated angina: with unstable angina Critical aortic valve stenosis I35.0 Acute on chronic congestive heart failure I50.23 Heart failure type: systolic Abnormal nuclear stress test R94.39 Unstable angina pectoris I20.0 Left bundle branch block I44.7 Elevated hemoglobin A1c R73.09 Dyslipidemia E78.5 Nicotine dependence F17.210 Nicotine product type: cigarettes Substance use status: uncomplicated Wheezing R06.2 Suspected COVID-19 virus infection Z20.828
[2019-09-20 18:04] LABS: Glucose Point of Care 88 mg/dL (70-110)
--- NOTE | 2019-09-20 19:21 | PC.NURSE ---
Dr. Beckham ordered to not give Lovenox that is due now.
--- NOTE | 2019-09-20 21:04 | PC.NURSE ---
Patient ambulated in [place] with nurse. VSS. No bleeding or hematoma noted to right groin. Will continue to monitor.
[2019-09-20 21:25] LABS: Glucose Point of Care 140 mg/dL (70-110)
[2019-09-20] MEDS: atorvastatin 40 mg Tablet PO (21:27)
[2019-09-21] VITALS (9 sets, daily range): BP systolic 105–125; BP diastolic 67–85; PULSE 66–89; RESP 13–20; TEMP 36.6–37; O2SAT 93–98
[2019-09-21 05:26] LABS: Basophils % 0.3 %; Eosinophils # 0.3 10^3/uL (0.0-0.8); Eosinophils % 3.3 %; Hematocrit 46.6 % (42.0-52.0); Hemoglobin 15.2 g/dL (11.7-16.6); Lymphocytes # 2.4 10^3/uL (0.8-4.8); Lymphocytes % 23.3 %; Mean Corpuscular HGB Conc 32.6 g/dL (30.0-36.0); Mean Corpuscular Hemoglobin 27.8 pg (28.0-34.0); Mean Corpuscular Volume 85.3 fL (80-94); Mean Platelet Volume 10.8 fL (7.4-10.4); Monocytes # 0.7 10^3/uL (0.2-0.9); Monocytes % 6.8 %; Neutrophils # 6.7 10^3/uL (1.8-7.7); Neutrophils % 66.1 %; Nucleated Red Blood Cells % 0 %; Platelet Count 257 10^3/cmm (130-400); Red Blood Count 5.46 10^6/uL (4.1-5.3); Red Cell Distribution Width 13.2 % (12.1-15.1); White Blood Count 10.1 10^3/uL (4.0-10.0)
[2019-09-21 05:44] LABS: Anion Gap 16.4 (5-19); Blood Urea Nitrogen 16 mg/dL (6-20); Calcium 9.7 mg/dL (8.5-10.5); Carbon Dioxide 23 mmol/L (22-29); Chloride 103 mmol/L (98-107); Glomerular Filtration Rate 79.8 mL/min (90-130); Glucose 104 mg/dL (65-115); Osmolality Calculated 283 mOsm/kg (285-295); Potassium 4.4 mmol/L (3.5-5.1); Sodium 138 mmol/L (136-145)
[2019-09-21 06:39] LABS: Glucose Point of Care 106 mg/dL (70-110)
--- NOTE | 2019-09-21 08:51 | PM.PN ---
Subjective Subjective: Interval history: The patient is feeling better. He has no chest pain or palpitations. The vital signs remained stable. No arrhythmias on the monitor. The heart rate is in the normal range. He underwent a cardiac catheterization yesterday. He was found to have severe disease in the mid LAD which was intervened. 1 of the obtuse marginal artery branches were found to be totally occluded. Moderately severe disease is noted in the nondominant right coronary artery at the ostium. He was found to have mild pulmonary hypertension, based on the right heart catheterization. Currently he is doing okay with no new symptoms. Medications: Reviewed: Yes Medication Review Details: Current Medications Acetaminophen (Tylenol) 650 mg PO Q6H PRN PRN Reason: Mild/Mod Pain Or Temp >/= 101 Albuterol Sulfate (Ventolin) 2 puff INHALATION Q4H.RESPIRATORY PRN PRN Reason: SHORTNESS OF BREATH Aspirin (Aspirin Ec) 81 mg PO DAILY [facility] Last Admin: 09/20/19 07:42 Dose: 81 mg Documented by: Atorvastatin Calcium (Lipitor) 40 mg PO BEDTIME [facility] Last Admin: 09/20/19 21:27 Dose: 40 mg Documented by: Benzonatate (Tessalon Pearls) 100 mg PO TID PRN PRN Reason: COUGH Clopidogrel Bisulfate (Plavix) 75 mg PO DAILY [facility] Enoxaparin Sodium (Lovenox) 40 mg SUBCUT Q24H [facility] Last Admin: 09/20/19 19:21 Dose: Not Given Documented by: Fentanyl (Sublimaze) 50 mcg IVP PRN PRN PRN Reason: Prior to sheath removal Furosemide (Lasix) 20 mg PO DAILY@0800 [facility] Sodium Chloride (Sodium Chloride 0.9%) 1,000 mls @ 100 mls/hr IV .Q10H [facility] Last Admin: 09/20/19 21:25 Dose: Not Given Documented by: Insulin Aspart (Novolog) 0 unit SUBCUT BEDTIME [facility]; Protocol Last Admin: 09/20/19 21:26 Dose: Not Given Documented by: Insulin Aspart (Novolog) 0 unit SUBCUT TIDWM [facility]; Protocol Last Admin: 09/21/19 07:17 Dose: Not Given Documented by: Morphine Sulfate (Morphine) 2 mg IVP Q4H PRN PRN Reason: SEVERE PAIN Last Admin: 09/17/19 19:44 Dose: 2 mg Documented by: Nicotine (Nicoderm 14 Mg Patch) 1 patch TRANSDERMA DAILY PRN PRN Reason: nicotine withdrawal Nitroglycerin (Nitrostat) 0.4 mg SUBLINGUAL Q5M PRN PRN Reason: CHEST PAIN Ondansetron HCl (Zofran) 4 mg IVP Q6H PRN PRN Reason: NAUSEA AND VOMITING Ondansetron HCl (Zofran) 4 mg IVP Q2M PRN PRN Reason: NAUSEA Potassium Chloride (Klor-Con 10) 10 meq PO DAILY [facility] Vitals/I&O/Wt Last Vital Signs Temp 97.9 F 09/21/19 08:00 Pulse 86 09/21/19 08:00 Resp 13 09/21/19 08:00 BP 125/85 09/21/19 08:00 Pulse Ox 96 09/21/19 04:00 09/20/19 09/21/19 09/21/19 22:59 06:59 14:59 Intake Total 240 / 240 300 / 540 480 / 480 Output Total 400 / 400 Balance -160 / -160 300 / 140 480 / 480 Physical Exam Narrative: EXAM NARRATIVE: GENERAL: The patient is alert and oriented times three. Not in any acute distress. HEENT: No significant pallor, icterus or lymphadenopathy. The pupils are reactant to light. Oral cavity: There are no mucous membrane lesions. NECK: Trachea appears to be central. No masses noted. No JVD or thyromegaly appreciated. No carotid bruit. RESPIRATORY: Chest is symmetrical. No intercostals muscle retraction or any accessory muscle activation. There is no chest wall tenderness. Breath sounds are heard bilaterally. No rales or rhonchi heard. No evidence of any consolidation. BREASTS: Deferred. HEART: The PMI is in the 5th left intercostals space just inside the midclavicular line. No palpable precordial events. The S1 is normal. S2 is muffled. Ejection systolic murmur of grade 4/6 in the aortic area. No diastolic murmurs. No pericardial rub. ABDOMEN: No vessel pulsations or distention. No tenderness. No organomegaly appreciated. No abdominal bruit. Bowel sounds are normally heard. : Deferred. RECTAL: Deferred. LYMPHATIC: No lymphadenopathy noted in the neck or groin. EXTREMITIES: No edema or cyanosis. No clubbing. The pulses are symmetrical bilaterally. The radial, femoral, dorsalis pedis and the posterior tibial pulses are palpated and found to be in fairly good volume and amplitude. The right groin has no hematoma or bleeding. MUSCULOSKELETAL: No acute joint deformities or swelling SKIN: There are no significant scars or skin rash noted. NEUROPSYCHIATRIC: The patient is alert and oriented x3. Appears to be in a good mood. The higher functions are grossly within normal limits. No tremors or rigidity noted. Const: COMMON NORMALS: alert Resp: COMMON NORMALS: clear to auscultation bilaterally AUSCULTATION: clear to auscultation bilaterally Neuro: SENSORIUM/ORIENTATION: Yes alert Data : 09/21/19 04:41 09/21/19 04:41 Other Labs: Abnormal lab results 09/20/19 09/21/19 09/21/19 Range/Units 09:25 04:41 04:41 WBC 10.1 H (4.0-10.0) 10^3/uL RBC 5.46 H (4.1-5.3) 10^6/uL MCH 27.8 L (28.0-34.0) pg MPV 10.8 H (7.4-10.4) fL GFR Calculation 79.8 L 79.8 L (90-130) mL/min Calculated Osmolality 279 L 283 L (285-295) mOsm/kg A&P Assessment and plan (1) Atherosclerotic heart disease [place] coronary artery w/angina pectoris: Patient status post PCI of the LAD lesion. Currently he seems to be stable. Further details of the coronary angiogram findings, please refer the report from 09/20/2019. He may continue on the Plavix, aspirin, statin and beta-radha. Status: Acute Qualifiers: [place] vs. transplanted heart: [place] heart Qualified Code(s): I25.119 - Atherosclerotic heart disease of [place] coronary artery with unspecified angina pectoris (2) Critical aortic valve stenosis: Patient would be a candidate for TAVR. I discussed his case with Dr. Peralta at the [facility]. Dr. Peralta and his team will be contacting the patient at home and make arrangements for him to be evaluated at the [facility]. Patient may go home with the CD of the cath report and the echocardiogram and the other relevant medical records Status: Acute (3) Ischemic cardiomyopathy: Patient's heart failure is fairly compensated at this time. I also will start him on carvedilol 3.25 mg p.o. twice daily and Cozaar 25 mg p.o. daily. Patient apparently does not have insurance and may not be able to afford Entresto. Status: Acute (4) Dyslipidemia: Patient may be continued with her medications. Status: Acute (5) Acute on chronic congestive heart failure: Patient may be continued on the current dose of Lasix. Status: Acute Qualifiers: Heart failure type: systolic Qualified Code(s): I50.23 - Acute on chronic systolic (congestive) heart failure Additional A&P Information Patient need to be seen in the [facility] next week by the nurse practitioner. May continue on the current medications as it is. I will be seeing him in the office in 3 weeks. Attestations Medical Necessity Statement*: Possible discharge home today Coding Level of Care Code Acute Motorcycle Builder for Ren Fwd Diagnoses Atherosclerotic heart disease [place] coronary artery w/angina pectoris I25.119 [place] vs. transplanted heart: [place] heart Critical aortic valve stenosis I35.0 Ischemic cardiomyopathy I25.5 Dyslipidemia E78.5 Acute on chronic congestive heart failure I50.23 Heart failure type: systolic
[2019-09-21] MEDS: clopidogrel 75 mg Tablet PO (09:39)
[2019-09-21] MEDS: FUROsemide 20 mg Tablet PO (09:39)
[2019-09-21] MEDS: aspirin 81 mg EC Tablet PO (09:40)
--- NOTE | 2019-09-21 11:18 | PC.CHAP ---
Pastoral Care Encounter/Spiritual Assessment Type of Contact [] Declined apprentice painter brush visit [] Patient/Family/Request visit [] Outpatient visit [] Follow-up visit [] Physician referral [] Code/Alert [x] Routine visit [] Staff referral [] Actively dying [] Patient sleeping [] Family support [] [] Out of room [] Palliative care [] [] Receiving care in room [] Pre-surgical visit [] Trauma [] Long length of stay [] ICU visit [] Other: Relational/Emotional Strength [x] Patient feels connected with others/family/visitors/staff [] Distress [] Loneliness/isolation [] Abandonment Spirituality of Patient [x] Person of [place] [] Attends Nondenominational of their [place] [x] Believes in Prayer [] Reads Bible or Gnosticist materials [] There are Spiritual issues to be addressed Otorhinolaryngologist Interventions [x] Prayer [x] Active listening [x] Non-anxious presence x[] Spiritual/emotional support [] Crisis/trauma care [x] Spiritual counseling [] Bereavement support [] Provided bereavement packet [] Provided Bible/devotional materials [] Provided toy/stuffed animal, coloring book to patient or family member [] Provided Communion [] Anointing/[place] [] Salvation [x] Completed spiritual assessment [] Other: Impact on Illness or Injury [] Angry [] Fearful [] Anxious [] Often cries [] Exhaustion [] Unable to work [] Unable to attend lutheran [] Unable to walk/stand [] Unable to read [] Unable to drive [] Unable to eat/drink [] Unable to sleep [] Unable to be with family [] Patient intubated [x] Other: n/a Summary Time spent with patient 10 minutes
[2019-09-21 11:39] LABS: Glucose Point of Care 116 mg/dL (70-110)
--- NOTE | 2019-09-21 13:19 | P.PN_ITS ---
Subjective Subjective: Interval history: Discussed case with Dr. Galicia this morning. Patient is stable for discharge home once he has his LifeVest. The orders have been faxed and we are awaiting determination of if that will come today or another day. I have completed the discharge medications that they can be obtained from the pharmacy operation for possible discharge later today versus tomorrow. Full note to follow later today Vitals/I&O/Wt Last Vital Signs Temp 98.4 F 09/21/19 11:45 Pulse 78 09/21/19 11:45 Resp 15 09/21/19 11:45 BP 122/81 09/21/19 11:45 Pulse Ox 98 09/21/19 11:45 09/20/19 09/21/19 09/21/19 22:59 06:59 14:59 Intake Total 240 / 240 300 / 540 480 / 480 Output Total 400 / 400 Balance -160 / -160 300 / 140 480 / 480 Data : 09/21/19 04:41 09/21/19 04:41 Attestations Medical Necessity Statement*: not applicable to this note Coding Level of Care Code Acute Cut Off Saw Operator Pipe Blanks for Ren Marquis
[2019-09-21] MEDS: losartan 50 mg Tablet 25 MG PO (18:01)
[2019-09-21] MEDS: carvedilol 3.125 mg Tablet PO (18:02)
[2019-09-21 18:29] LABS: Glucose Point of Care 168 mg/dL (70-110)
[2019-09-21 20:44] LABS: Glucose Point of Care 100 mg/dL (70-110)
[2019-09-21] MEDS: atorvastatin 40 mg Tablet PO (20:57)
--- NOTE | 2019-09-21 21:39 | P.PN_ITS ---
Subjective Subjective: Interval history: Patient was seen a couple of times today. Also discussed the case with Dr. Galicia. He had an LAD stent placed yesterday. Arrangements are underway for patient to be seen in [place] for consideration of TAVR. Dr. Galicia is working on trying to arrange a LifeVest for him. He is at high risk of ventricular fibrillation. He is handling all of the new diagnoses well. Given an opportunity to ask questions today. He did really have any but he was able to provide to me information about what Dr. Galicia's plans were as described Vitals/I&O/Wt Last Vital Signs Temp 98.6 F 09/21/19 20:00 Pulse 69 09/21/19 20:00 Resp 19 H 09/21/19 20:00 BP 105/67 09/21/19 20:00 Pulse Ox 96 09/21/19 20:00 09/21/19 09/21/19 09/21/19 06:59 14:59 22:59 Intake Total 300 / 540 480 / 480 360 / 840 Output Total 250 / 250 Balance 300 / 140 480 / 480 110 / 590 Physical Exam Const: OTHER: Alert, oriented x3, cooperative Resp: OTHER: Clear to auscultation bilaterally Cardio: OTHER: Regular,murmur of aortic stenosis unchanged GI: OTHER: Abdomen soft, nontender, nondistended, positive bowel sounds Extremity: NARRATIVE EXTREMITY EXAM: No pitting edema Neuro: OTHER: Face symmetric, speech clear, moves all extremities Skin: NARRATIVE SKIN EXAM: Right groin with clean dressing intact, less tender on examination Data : 09/21/19 04:41 09/21/19 04:41 A&P Assessment and plan (1) CAD (coronary artery disease): Status post LAD stent placement 09/20/2019 Status: Acute Qualifiers: Coronary Disease-Associated Artery/Lesion type: [place] artery [place] vs. transplanted heart: [place] heart Associated angina: with unstable angina Qualified Code(s): I25.110 - Atherosclerotic heart disease of [place] coronary artery with unstable angina pectoris (2) Critical aortic valve stenosis: Valve area of 0.45 cm? Status: Acute (3) Acute on chronic congestive heart failure: Ejection fraction 15% new finding and diagnosis for patient Status: Acute Qualifiers: Heart failure type: systolic Qualified Code(s): I50.23 - Acute on chronic systolic (congestive) heart failure (4) Abnormal nuclear stress test: Status: Acute (5) Unstable angina pectoris: Persistent reports of chest pain them and dyspnea prior to admission Status: Acute (6) Left bundle branch block: New Status: Acute (7) Elevated hemoglobin A1c: Without a known history of diabetes. Given comorbid conditions necessitates treatment for maximizing management of potentially modifiable risk factors. Suspect he will be able to be on an oral medication. Since admission, blood sugars have actually been well controlled. He has received a total of 2 units thus far. Status: Acute (8) Dyslipidemia: With high LDL, new diagnosis Status: Acute (9) Nicotine dependence: Educated on the importance of smoking cessation related to cardiac health Status: Chronic Qualifiers: Nicotine product type: cigarettes Substance use status: uncomplicated Qualified Code(s): F17.210 - Nicotine dependence, cigarettes, uncomplicated (10) Wheezing: Suspect he has some COPD related to tobacco use, improved today without focused intervention Status: Resolved (11) Suspected COVID-19 virus infection: Ruled out Status: Ruled-out Additional A&P Information Continue aspirin, Plavix Continue statin therapy Started on oral l Lasix at low-dose Carvedilol and losartan started today Arrangements underway for [place] if we are able to arrange it for him Working on getting medications from pharmacy Routine post cardiac cath care Resume [place] Had been thinking patient would require management for diabetes but blood sugars have normalized. A1c was right at the cutoff. Can probably just monitor for now particularly in light of all of the other medications that he has been recently started on and will go home with, all of which are new for him. Will educate on a consistent carbohydrate diet Nicotine patch if needed Supportive care otherwise Patient will have outpatient follow-up with cardiology in [place] for consideration of TAVR Will need follow-up with Dr. Galicia Will need established with a PCP Full code Attestations Medical Necessity Statement*: Requires ongoing inpatient stay for continued management for issues noted above. Coding Level of Care Code Acute Hoop Punch And Coiler Operator Helper for Ren Marquis Diagnoses CAD (coronary artery disease) I25.110 Coronary Disease-Associated Artery/Lesion type: [place] artery [place] vs. transplanted heart: [place] heart Associated angina: with unstable angina Critical aortic valve stenosis I35.0 Acute on chronic congestive heart failure I50.23 Heart failure type: systolic Abnormal nuclear stress test R94.39 Unstable angina pectoris I20.0 Left bundle branch block I44.7 Elevated hemoglobin A1c R73.09 Dyslipidemia E78.5 Nicotine dependence F17.210 Nicotine product type: cigarettes Substance use status: uncomplicated Wheezing R06.2 Suspected COVID-19 virus infection Z20.828
[2019-09-22] VITALS (8 sets, daily range): BP systolic 93–106; BP diastolic 62–74; PULSE 58–69; RESP 15–19; TEMP 36.2–36.8; O2SAT 94–97
[2019-09-22] MEDS: aspirin 81 mg EC Tablet PO (08:50)
[2019-09-22] MEDS: losartan 50 mg Tablet 25 MG PO (08:50)
[2019-09-22] MEDS: carvedilol 3.125 mg Tablet PO ×2 (08:51→17:41)
[2019-09-22] MEDS: FUROsemide 20 mg Tablet PO (08:51)
[2019-09-22] MEDS: clopidogrel 75 mg Tablet PO (08:51)
--- NOTE | 2019-09-22 09:35 | PM.PN ---
Subjective Subjective: Interval history: Patient is feeling okay. He has no chest pain or palpitations. He has been tolerating the medications so far well. He was started on the carvedilol and losartan yesterday. The blood pressure dropped into the 90s yesterday but today it stays above 100. Patient denies any specific complaints. Medications: Reviewed: Yes Medication Review Details: Current Medications Acetaminophen (Tylenol) 650 mg PO Q6H PRN PRN Reason: Mild/Mod Pain Or Temp >/= 101 Albuterol Sulfate (Ventolin) 2 puff INHALATION Q4H.RESPIRATORY PRN PRN Reason: SHORTNESS OF BREATH Aspirin (Aspirin Ec) 81 mg PO DAILY [facility] Last Admin: 09/20/19 07:42 Dose: 81 mg Documented by: Atorvastatin Calcium (Lipitor) 40 mg PO BEDTIME [facility] Last Admin: 09/20/19 21:27 Dose: 40 mg Documented by: Benzonatate (Tessalon Pearls) 100 mg PO TID PRN PRN Reason: COUGH Clopidogrel Bisulfate (Plavix) 75 mg PO DAILY [facility] Enoxaparin Sodium (Lovenox) 40 mg SUBCUT Q24H [facility] Last Admin: 09/20/19 19:21 Dose: Not Given Documented by: Fentanyl (Sublimaze) 50 mcg IVP PRN PRN PRN Reason: Prior to sheath removal Furosemide (Lasix) 20 mg PO DAILY@0800 [facility] Sodium Chloride (Sodium Chloride 0.9%) 1,000 mls @ 100 mls/hr IV .Q10H [facility] Last Admin: 09/20/19 21:25 Dose: Not Given Documented by: Insulin Aspart (Novolog) 0 unit SUBCUT BEDTIME [facility]; Protocol Last Admin: 09/20/19 21:26 Dose: Not Given Documented by: Insulin Aspart (Novolog) 0 unit SUBCUT TIDWM [facility]; Protocol Last Admin: 09/21/19 07:17 Dose: Not Given Documented by: Morphine Sulfate (Morphine) 2 mg IVP Q4H PRN PRN Reason: SEVERE PAIN Last Admin: 09/17/19 19:44 Dose: 2 mg Documented by: Nicotine (Nicoderm 14 Mg Patch) 1 patch TRANSDERMA DAILY PRN PRN Reason: nicotine withdrawal Nitroglycerin (Nitrostat) 0.4 mg SUBLINGUAL Q5M PRN PRN Reason: CHEST PAIN Ondansetron HCl (Zofran) 4 mg IVP Q6H PRN PRN Reason: NAUSEA AND VOMITING Ondansetron HCl (Zofran) 4 mg IVP Q2M PRN PRN Reason: NAUSEA Potassium Chloride (Klor-Con 10) 10 meq PO DAILY KELSIE Vitals/I&O/Wt Last Vital Signs Temp 98.2 F 09/22/19 04:00 Pulse 66 09/22/19 08:45 Resp 16 09/22/19 08:45 BP 106/67 09/22/19 08:50 Pulse Ox 96 09/22/19 08:45 09/21/19 09/22/19 09/22/19 22:59 06:59 14:59 Intake Total 360 / 840 300 / 1140 Output Total 250 / 250 400 / 650 Balance 110 / 590 -100 / 490 Weight last 48 hrs Weight 133 lb 3.2 oz Physical Exam Narrative: EXAM NARRATIVE: GENERAL: The patient is alert and oriented times three. Not in any acute distress. HEENT: No significant pallor, icterus or lymphadenopathy. The pupils are reactant to light. Oral cavity: There are no mucous membrane lesions. NECK: Trachea appears to be central. No masses noted. No JVD or thyromegaly appreciated. No carotid bruit. RESPIRATORY: Chest is symmetrical. No intercostals muscle retraction or any accessory muscle activation. There is no chest wall tenderness. Breath sounds are heard bilaterally. No rales or rhonchi heard. No evidence of any consolidation. BREASTS: Deferred. HEART: The PMI is in the 5th left intercostals space just inside the midclavicular line. No palpable precordial events. The S1 is normal. S2 is muffled. Ejection systolic murmur of grade 4/6 in the aortic area. No diastolic murmurs. No pericardial rub. ABDOMEN: No vessel pulsations or distention. No tenderness. No organomegaly appreciated. No abdominal bruit. Bowel sounds are normally heard. : Deferred. RECTAL: Deferred. LYMPHATIC: No lymphadenopathy noted in the neck or groin. EXTREMITIES: No edema or cyanosis. The right groin has no hematoma or bleeding. MUSCULOSKELETAL: No acute joint deformities or swelling SKIN: There are no significant scars or skin rash noted. NEUROPSYCHIATRIC: The patient is alert and oriented x3. Appears to be in a good mood. The higher functions are grossly within normal limits. No tremors or rigidity noted. Const: COMMON NORMALS: alert Resp: COMMON NORMALS: clear to auscultation bilaterally AUSCULTATION: clear to auscultation bilaterally Neuro: SENSORIUM/ORIENTATION: Yes alert Data : 09/21/19 04:41 09/21/19 04:41 A&P Assessment and plan (1) Atherosclerotic heart disease [place] coronary artery w/angina pectoris: Patient status post PCI of the LAD lesion. Currently he seems to be stable. Further details of the coronary angiogram findings, please refer the report from 09/20/2019. May continue the current medications. Status: Acute Qualifiers: [place] vs. transplanted heart: [place] heart Qualified Code(s): I25.119 - Atherosclerotic heart disease of [place] coronary artery with unspecified angina pectoris (2) Critical aortic valve stenosis: Patient would be a candidate for TAVR. I discussed his case with Dr. Peralta at the [facility]. Dr. Peralta and his team will be contacting the patient at home and make arrangements for him to be evaluated at the [facility]. Patient may go home with the CD of the cath report , echocardiogram and the other relevant medical records Status: Acute (3) Ischemic cardiomyopathy: May continue on the current medications for the time being. We may gradually advance the dose of the Coreg and the losartan as an outpatient. Patient is awaiting life Vest. Status: Acute (4) Dyslipidemia: Patient may be continued with her medications. Status: Acute (5) Acute on chronic congestive heart failure: Patient may be continued on the current dose of Lasix. Status: Acute Qualifiers: Heart failure type: systolic Qualified Code(s): I50.23 - Acute on chronic systolic (congestive) heart failure Additional A&P Information Patient need to be seen in the [facility] next week by the nurse practitioner. May continue on the current medications as it is. I will be seeing him in the office in 3 weeks. Attestations Medical Necessity Statement*: Possible discharge home today. Disposition as per the primary Coding Level of Care Code Acute Surveillance Supervisor for g Fwd Exam Expanded Problem Focused Diagnoses Atherosclerotic heart disease [place] coronary artery w/angina pectoris I25.119 [place] vs. transplanted heart: [place] heart Critical aortic valve stenosis I35.0 Ischemic cardiomyopathy I25.5 Dyslipidemia E78.5 Acute on chronic congestive heart failure I50.23 Heart failure type: systolic
--- NOTE | 2019-09-22 10:00 | ECG_ITS ---
Measurements Intervals [place] Rate: 67 P: 61 MO: 145 QRS: 57 QRSD: 154 T: 225 QT: 461 QTc: 488 SINUS RHYTHM LEFT BUNDLE BRANCH BLOCK [120+ ms QRS DURATION, 80+ ms Q/S IN V1/V2, 85+ ms R IN I/aVL/V5/V6] Compared to ECG 09/17/2019 16:32:54 No significant changes Electronically Signed On 09-22-2019 13:09:49 CDT by Demar Khanna M.D. [email or web address]
--- NOTE | 2019-09-22 10:54 | PC.CHAP ---
Pastoral Care Encounter/Spiritual Assessment Type of Contact [] Declined portable router operator visit [] Patient/Family/Request visit [] Outpatient visit [] Follow-up visit [] Physician referral [] Code/Alert [] Routine visit [] Staff referral [] Actively dying [x] Patient sleeping [] Family support [] [] Out of room [] Palliative care [] [] Receiving care in room [] Pre-surgical visit [] Trauma [] Long length of stay [] ICU visit [x] Other: Follow up needed Relational/Emotional Strength [] Patient feels connected with others/family/visitors/staff [] Distress [] Loneliness/isolation [] Abandonment Spirituality of Patient [] Person of [place] [] Attends Evangelical of their [place] [] Believes in Prayer [] Reads Bible or Episcopal materials [] There are Spiritual issues to be addressed Explosives Operator Interventions [] Prayer [] Active listening [] Non-anxious presence [] Spiritual/emotional support [] Crisis/trauma care [] Spiritual counseling [] Bereavement support [] Provided bereavement packet [] Provided Bible/devotional materials [] Provided toy/stuffed animal, coloring book to patient or family member [] Provided Communion [] Anointing/[place] [] Salvation [] Completed spiritual assessment [] Other: Impact on Illness or Injury [] Angry [] Fearful [] Anxious [] Often cries [] Exhaustion [] Unable to work [] Unable to attend voodoo [] Unable to walk/stand [] Unable to read [] Unable to drive [] Unable to eat/drink [] Unable to sleep [] Unable to be with family [] Patient intubated [] Other: Summary Follow up needed Explosives Operator Nurys Sorto Time spent with patient 2 minutes
--- NOTE | 2019-09-22 11:12 | PM.PN ---
Subjective Subjective: Interval history: Patient seen and examined. No new complaints. He denies chest pain or shortness of breath or increasing pain in his right groin. No reported issues per nursing. We continue to try to make arrangements for LifeVest. The company is calling him today to discuss arrangements for this. Disposition at this point in time is pending final arrangements and delivery of the LifeVest versus a decision by him to not get a LifeVest. I talked to him for quite a while explaining the medical reasons behind it being due to his heart failure and high propensity to have a ventricular arrhythmia that could lead to . I described this as abnormal heart rhythm like he might see on TV shows where they have to shock somebody. Describe how the coronary artery disease and aortic stenosis increase the potential likelihood of him having 1 of these arrhythmias. I further explained that the LifeVest is a temporary measure rather than proceeding directly to placement of an implanted defibrillator. Described that the hope is that if we can repair the valve as well as the coronary arteries that he might have some improvement and heart function that would not necessitate the need for a defibrillator. I wanted him to be fully informed before making a decision after communicating with the [email or web address] today. He stated understanding of all of the above knowing that our recommendation is to have a LifeVest. I emphasized that if he chose not to have one we would still treat him and provide medications and other management to help him through this. He did express understanding of that, the potential for and the need to follow recommendations for all newly diagnosed medical problems identified during this hospital stay. Disposition plan is pending LifeAquarisPLUS Int decision Medications: Reviewed: Yes Vitals/I&O/Wt Last Vital Signs Temp 98.2 F 09/22/19 04:00 Pulse 62 09/22/19 09:57 Resp 16 09/22/19 09:57 BP 106/67 09/22/19 09:57 Pulse Ox 97 09/22/19 09:57 09/21/19 09/22/19 09/22/19 22:59 06:59 14:59 Intake Total 360 / 840 300 / 1140 240 / 240 Output Total 250 / 250 400 / 650 Balance 110 / 590 -100 / 490 240 / 240 Weight last 48 hrs Weight 60.419 kg Data : 09/21/19 04:41 09/21/19 04:41 Attestations Medical Necessity Statement*: to be determined Coding Level of Care Code Acute Office Bookkeeper for Ren Marquis
[2019-09-22 11:35] LABS: Glucose Point of Care 135 mg/dL (70-110)
--- NOTE | 2019-09-22 16:00 | PC.NURSE ---
reinforced education provided by Doctor Beckham about the risks of going home without life vest in place; patient verbalized understanding of all risk including . patient still wants to go home.
--- NOTE | 2019-09-22 17:19 | P.DS_ITS ---
Discharge Providers Date of Admission: 09/17/19 16:51 Date of Discharge: September 22, 2019 Attending Provider at Admission: Kenia Loja MD Attending Provider at Discharge: Annia Beckham MD Diagnoses at Discharge Discharge Diagnosis (1) Atherosclerotic heart disease [place] coronary artery w/angina pectoris: Status: Acute Qualifiers: [place] vs. transplanted heart: [place] heart Qualified Code(s): I25.119 - Atherosclerotic heart disease of [place] coronary artery with unspecified angina pectoris (2) Critical aortic valve stenosis: Status: Acute Problem details: Valve area 0.45 cm? on 09/19/2019 (3) Ischemic cardiomyopathy: Status: Acute (4) Dyslipidemia: Status: Acute (5) Acute on chronic congestive heart failure: Status: Resolved Qualifiers: Heart failure type: systolic Qualified Code(s): I50.23 - Acute on chronic systolic (congestive) heart failure (6) Elevated hemoglobin A1c: Status: Acute (7) Nicotine dependence: Status: Chronic Qualifiers: Nicotine product type: cigarettes Substance use status: uncomplicated Qualified Code(s): F17.210 - Nicotine dependence, cigarettes, uncomplicated (8) Left bundle branch block: Status: Chronic Reason for Visit Reason for Visit: Reason For Visit: cp,sob Hospital Course Hospital Course: Mr. Real is a pleasant gentleman who presented to the emergency room with difficulty breathing and chest discomfort. He was found to have left bundle branch block. He was felt to have unstable angina from the emergency room based on evaluation. He had evidence however of cough and possible fever and was tested for COVID-19. After this stress testing was done. Stress test showed suggestion of multivessel disease. Echocardiogram revealed evidence of aortic stenosis as well as an ejection fraction of 15%. Cardiology was consulted for cardiac catheterization. This was performed on September 19. He was found to have severe stenosis in the proximal LAD and underwent stent placement. Attempts were made to arrange LifeVest for the patient post procedure. This will end up being an ongoing effort in the outpatient setting. Dr. Galicia discussed the case with Dr. Peralta in [place]. Patient will be referred to him for consideration for TAVR. Multiple new medications were added and reviewed with Mr. Real. Educational handouts were also provided. He seemed to take the multiple new diagnoses well. He has a strong family history and was afraid something like this would happen. Much time was spent throughout the hospital stay educating him on the importance of smoking cessation. He was noted to have an elevated hemoglobin A1c. Blood sugars here were within an appropriate range and he did not require more than a couple of units of insulin. I do think we need to probably address maximizing blood sugar control in light of his other newly diagnosed medical problems but with the multitude of medicines that I have ordered for him that are all new I have not initiated any of these presently. He may do better just with a focus on a healthy diet. This will need to be followed up in the outpatient setting. Lipid panel did reveal some dyslipidemia. He has been started on statin therapy. Patient's vital signs remained stable with adjustments of medications and he was felt stable for discharge home. Again we had hoped to get LifeVest arranged for him but were not able to complete this process prior to that happening. Patient was offered the opportunity to stay but he wanted to leave Physical Exam Const: OTHER: Alert, oriented x3, cooperative HENMT: OTHER: Normocephalic atraumatic, mucous membranes moist Eye: OTHER: Pupils equally round and reactive to light Neck/C-Spine: OTHER: Supple Resp: OTHER: Clear to auscultation bilaterally Cardio: OTHER: Regular,murmur unchanged GI: OTHER: Abdomen soft, nontender, nondistended, positive bowel sounds Extremity: NARRATIVE EXTREMITY EXAM: No pitting edema Neuro: OTHER: Face symmetric, speech clear, moves all extremities Skin: NARRATIVE SKIN EXAM: Right groin intact Discharge Data Data Completed and Pending: Completed Studies During Hospitalization Category Date Time Status CT angio chest PE protcl [id number] Stat Cat Scan 09/17/19 14:33 Completed IMPLEMENTATION PROJECT COORDINATOR request for service Routin e Exams 09/20/19 08:30 Completed Sestamibi Stress Test Request Routi ne Exams 09/19/19 06:00 Completed XR chest 1V kilo ble [id number] Stat Exams 09/17/19 14:33 Completed NM ifeanyi perf SPECT r/s* [id number] Routin e Nuc Med 09/19/19 07:00 Completed CV echo complete* [id number] Routine Ultrasound 09/19/19 19:18 Completed Labs from last 24 hours 09/22/19 09/21/19 09/21/19 11:32 20:34 18:20 POC Glucose 135 100 168 Vitals: Last Vital Signs Temp 97.1 F L 05/15/20 14:43 Pulse 63 09/22/19 14:43 Resp 18 09/22/19 14:43 BP 98/62 09/22/19 14:43 Pulse Ox 97 09/22/19 14:43 Discharge Plan Discharge Patient Disposition: Home, Self-Care Condition: Stable Prescriptions: New atorvastatin 40 mg Tablet 40 mg PO BEDTIME Qty: 30 RF: 1 acetaminophen 325 mg Tablet 650 mg PO Q6H PRN (Reason: Mild/Mod Pain Or Temp >/= 101) Qty: 120 RF: 0 potassium chloride 10 mEq Tablet Extended Release 10 meq PO DAILY Qty: 30 RF: 0 clopidogrel 75 mg Tablet 75 mg PO DAILY Qty: 30 RF: 1 aspirin 81 mg Tablet,Delayed Release (Dr/Ec) 81 mg PO DAILY Qty: 30 RF: 1 Nitrostat 0.4 mg Tablet, Sublingual 0.4 mg sublingual Q5M PRN (Reason: Chest Pain) Qty: 1 RF: 0 furosemide 20 mg Tablet 20 mg PO DAILY@0800 Qty: 30 RF: 0 Ventolin HFA 90 mcg/actuation Hfa Aerosol Inhaler 2 puff inhalation Q6H PRN (Reason: Shortness Of Breath) Qty: 18 RF: 1 carvedilol 3.125 mg tablet 3.125 mg PO BID Qty: 60 RF: 1 losartan 25 mg tablet 25 mg PO DAILY Qty: 30 RF: 0 Discharge Orders: Discharge Order (Routine); Ordered 09/22/19 Ordered By: Annia Beckham Referrals: Jesse Galicia MD [Physician] - 2 weeks (You will have an appointment with Dr. Galicia within 2 weeks. [facility] will be calling to arrange an appointment date and time if you don't hear from them soon please call the office. ) Castro Peralta MD [Physician] - 7-10 days (You will have an appointment with Dr. Peralta within 7-10 days. His office will be calling you with an appointment date and time. If you don't hear from them please call their office. ) Discharge Diet: Cardiac Discharge Activity: Limit activity as instructed Patient Instructions: Metoprolol (By mouth), Lisinopril (By mouth), Furosemide (By mouth), Albuterol (By breathing), Potassium Chloride (By mouth), Aspirin (By mouth), Nitroglycerin, Rapid Release (By mouth), Atorvastatin (By mouth), Clopidogrel (By mouth), Heart Failure (DC), Coronary Artery Disease (DC), Left Heart Catheterization (DC), Right Heart Catheterization (DC), Coronary Angioplasty (DC), Aortic Stenosis (GEN), How to Stop Smoking (DC), Cigarette S moking and Your Health (GEN) Activity Restrictions/Additional Instructions: You were found to have several new medical problems related to your heart. First you were found to have Coronary Artery Disease. You did not have a heart attack this hospital stay, but stress test and then arteriogram showed blocked arteries around your heart. You had a stent placed in your LAD artery. You need to take aspirin and plavix without missing these medicines unless okayed by cardiology. Your cholesterol was abnormal so cholesterol medicine has been prescribed. You were found to have critical aortic stenosis with a valve area of 0.45 cm2. You will be referred to cardiology in [place] for consideration of TAVR (transcatheter aortic valve replacement). Lastly, you were found to have evidence of some heart failure, where your heart does not pump as good as it used to. This is being treated with several medications such as lisinopril, metoprolol. Read medication information and information on medical conditions as supplied. If you have questions, you can discuss with Dr Galicia or Dr Peralta at follow up or on follow up phone calls provided by the hospital. You are at risk of sudden from an abnormal heart rhythm called ventricular fibrillation. We are in the process of arranging Life Vest, an external way to shock your heart should you have this abnormal rhythm. You have requested discharge before this could be finalized, understanding the risks. The process for getting a Life Vest has been started. The company should call you at number provided. Should you have recurrent chest pain, shortness of breath or other concerning symptoms, return to the ER for evaluation. Discharge Date/Time: 09/22/19 18:17 Discharge Attestations Time Spent in Discharge Care*: greater than 30 min Specific Discharge Activities: Specific discharge activities: educating patient, discussing with pcp/other providers, discussing with briefcase sewer/social workers/dc planners, documenting/other paperwork and evaluating patient/reviewing data Quality Metrics Clinical Quality Measures During this hospital stay, did patient experience: AMI Clinical Trial Partic ipant: No Contraindication to aspirin (AMI): Aspirin given Contraindication to statin: Statin prescribed Coding Level of Care Code Acute Document Control Supervisor for Chg Fwd Diagnoses Atherosclerotic heart disease [place] coronary artery w/angina pectoris I25.119 [place] vs. transplanted heart: [place] heart Critical aortic valve stenosis I35.0 Ischemic cardiomyopathy I25.5 Dyslipidemia E78.5 Acute on chronic congestive heart failure I50.23 Heart failure type: systolic Elevated hemoglobin A1c R73.09 Nicotine dependence F17.210 Nicotine product type: cigarettes Substance use status: uncomplicated Left bundle branch block I44.7
== END 2019-09-22 18:17 | disposition home or self-care (01) | DRG 246 ==
LOC: ER 16:44 → MEDSURG 17:11 → ICU 17:49 → MEDSURG 09-18 19:15 → ICU 09-20 13:57 → MEDSURG 09-20 19:09 → CSU 09-21 16:48
PROVIDERS: Family Medicine; Internal Medicine Cardiovascular Disease; Admitting Provider Student in an Organized Health Care Education/Training Program; Visit Provider Hospitalist
PROC: 027034Z Dilation of Coronary Artery, One Artery with Drug-eluting Intraluminal Device, Percutaneous Approach (ICD-10-PCS; principal; 2019-09-20 08:30)
DX: I25.119 Atherosclerotic heart disease of native coronary artery with unspecified angina pectoris (principal); I50.23 Acute on chronic systolic (congestive) heart failure; I44.7 Left bundle-branch block, unspecified; F17.210 Nicotine dependence, cigarettes, uncomplicated; E78.5 Hyperlipidemia, unspecified; I25.5 Ischemic cardiomyopathy; I35.0 Nonrheumatic aortic (valve) stenosis; Z20.828 Contact with and (suspected) exposure to other viral communicable diseases
CPT/HCPCS: 12345; 36415; 36416; 71045; 71275; 78452; 80048; 80053; 80061; 82962; 83036; 83880; 84443; 84484; 85025; 85610; 87635; 93005; 93017; 93306; 93454; 93571; 96372; 96375; 99282; A9500; C1751; C1769; C1874; C1887; C1894; C9600; J0153; J1644; J1650; J1815; J1940; J2001; J2250; J2270; J2785; J3010; J3490; J7030; Q0163; Q9967

== ENCOUNTER 2019-11-29 01:36 | Inpatient (IN) | payer MEDICAID, SELFPAY ==
[2019-11-29] VITALS (57 sets, daily range): BP systolic 72–157; BP diastolic 57–117; PULSE 60–148; RESP 10–33; TEMP 37; O2SAT 91–100; BMI 22.8
--- NOTE | 2019-11-29 01:40 | ECG_ITS ---
[facility] Test Date: 2019-11-29 Pat Name: Emory Real Department: Room: Gender: Male Smooth Plater: : 1970 Requested By: Bryant Carey Order Number: [id number] Alex MD: Jesse Galicia M.D. Measurements Intervals [place] Rate: 147 P: PA: -1 QRS: 69 QRSD: 154 T: 259 QT: 309 QTc: 483 Interpretive Statements ATRIAL flutter/FIBRILLATION WITH RAPID VENTRICULAR RESPONSE LEFT BUNDLE BRANCH BLOCK [120+ ms QRS DURATION, 80+ ms Q/S IN V1/V2, 85+ ms R IN I/aVL/V5/V6] Compared to ECG 09/22/2019 10:21:31 Sinus rhythm no longer present Electronically Signed On 11-29-2019 20:28:33 CDT by Jesse Galicia M.D. [email or web address]
--- NOTE | 2019-11-29 01:40 | XRR_ITS ---
PROCEDURE INFORMATION: Exam: XR Chest, 1 View Exam date and time: 11/29/2019 1:42 AM Age: 49 years old Clinical indication: Type not specified; Prior surgery; Surgery date: 6+ months; Surgery type: Cardiac angioplasty; Patient HX: Chest pain/tachycardia/diapharesis; Additional info: Cp TECHNIQUE: Imaging protocol: XR of the chest Views: 1 view. COMPARISON: CR XR chest 1V portable [id number] 09/17/2019 2:44 PM FINDINGS: Lungs: COPD and interstitial disease. Pleural space: No pleural effusion. Heart/Mediastinum: No cardiomegaly. Bones/joints: Unremarkable. XR/XR chest 1V portable [id number] IMPRESSION: COPD and interstitial disease.
--- NOTE | 2019-11-29 01:55 | W.ED.CHESTPA ---
HPI - Chest Pain General: Chief Complaint: Chest Pain Stated Complaint: cp Time Seen by Provider: 11/29/19 01:44 Source: patient Mode of arrival: ambulatory Limitations: no limitations History of Present Illness: HPI narrative: 49-year-old male who has an extensive cardiac history who had an LAD stent placed back in September. Patient states he is supposed to follow-up with a CT surgeon in [place] for possible open heart surgery and LifeVest. Patient never followed up. He states that 2 hours ago he started having a chest pain along with diaphoresis. Patient is pain currently and diaphoretic. Patient appears to be in V. tach on the monitor. Patient's blood pressure here is stable currently at 155/117. He has had no vomiting. MD complaint: chest pain Associated symptoms: Deny abdominal pain, dyspnea, fever(s), nausea or vomiting Review of Systems Const: Denies: fever(s), chills, body aches or change in appetite Eyes: Denies: blurry vision or eye discomfort ENMT: Denies: throat pain or dental pain Card: Reports: chest pain Resp: Denies: dyspnea GI: Denies: abdominal pain, nausea, vomiting or diarrhea : Denies: dysuria Musc: Denies: neck pain or back pain Skin/Breast: Denies: rash Neuro: Denies: headache(s) Psych: Denies: depression Luís/Lymph: Denies: easy bruising All/Imm: Denies: urticaria PFSH ED PFSH: Medical History (Updated 11/29/19 @ 03:15 by Charan Hui MD) CAD (coronary artery disease) LAD stent placement 09/20/2019 Combined congestive systolic and diastolic heart failure Critical aortic valve stenosis Valve area 0.45 cm? on 09/19/2019 Elevated hemoglobin A1c Ischemic cardiomyopathy Left bundle branch block Nicotine dependence Surgical History (Updated 09/25/19 @ 04:31 by Annia Beckham MD) History of heart artery stent Distal LAD, 09/20/2019 Family History (Updated 09/19/19 @ 19:02 by Jesse Galicia MD) Father CAD (coronary artery disease), Onset Age: 32 His father of myocardial infarction in his 70s. He had open heart surgery. Brother CAD (coronary artery disease), Onset Age: 40 Patient has 4 brothers and all of them had a heart attack in their 40s and 50s. Grandfather Stroke Had a CVA? Social History (Updated 09/19/19 @ 19:02 by Jesse Galicia MD) Smoking and tobacco status: current every day smoker cigarettes Packs smoked per day: 1 Years cigarettes smoked: 20 Physical Exam Const: COMMON NORMALS: patient oriented x3 and healthy appearing GENERAL APPEARANCE: in distress, ill appearing and diaphoretic HENMT: COMMON NORMALS: normocephalic and atraumatic HEAD & SCALP: normocephalic and atraumatic Eye: COMMON NORMALS: Equal, round and reactive pupils present and EOMs intact bilaterally PUPIL: Yes Equal, round and reactive pupils present Neck/C-Spine: COMMON NORMALS: full ROM and supple Chest: COMMONS NORMALS: normal inspection of the chest and normal palpation of entire chest wall Resp: COMMON NORMALS: normal respiratory effort, No retractions, No use of accessory muscles and clear to auscultation bilaterally AUSCULTATION: clear to auscultation bilaterally Cardio: COMMON NORMALS: regular rhythm and No murmurs present (Cardio) RATE: tachycardic RHYTHM: regular rhythm GI: COMMON NORMALS: Normal to inspection, nondistended, normoactive bowel sounds present, Soft to palpation, non-tender and no masses PALPATION: Yes Soft to palpation Extremity: COMMON NORMALS: normal to inspection and full ROM Neuro: COMMON NORMALS: patient oriented x3, moves all extremities and no focal motor deficits Psych: COMMON NORMALS: mental status grossly normal, Normal thought process present and cooperative THOUGHT PROCESS: Normal thought process present Skin: COMMON NORMALS: no rashes or lesions noted and no wounds GENERAL SKIN EXAM: no rashes or lesions noted Course Reevaluation(s): Reevaluation #1: Patient is completely pain-free at this time and resting comfortably with BiPAP. EKG does show a left bundle branch block. He has no chest pain at this time and blood pressure is normal. Time: 02:15 Reevaluation #2: Patient started to have nausea had to take BiPAP off and he threw up once. He still denies any chest pain. Repeat EKG shows left bundle branch block with possible discordance in lead V3. I have sent images to Dr. Beach and spoke to him and he is going to review these images at this time. Time: 03:20 Vital Signs: Vital signs: Vital Signs Temperature 98.6 F 11/29/19 01:49 Pulse Rate 84 11/29/19 03:15 Respiratory Rate 27 H 11/29/19 03:15 Blood Pressure 127/91 11/29/19 03:15 Pulse Oximetry 100 11/29/19 03:15 MDM - Chest Pain MDM Narrative: Medical decision making narrative: Patient presents here with chest pain and was in V. tach. Patient given amnio bolus along with amiodarone drip and patient is now in normal sinus rhythm. His EKG showed a left bundle branch block that is unchanged from previous. Patient placed on BiPAP as he has pulmonary edema as well and he is improved on BiPAP. I spoke to hospitalist and will admit to ICU Dr. Galicia of cardiology is consulted as well. Patient is currently pain-free. Dr. Beach reviewed patient's EKGs did not believe he met STEMI criteria. Patient here is been pain-free and transferred to the ICU. Lab Data: Labs: Lab Results 11/29/19 11/29/19 11/29/19 Range/Units 01:50 01:50 01:50 WBC 14.9 H (4.0-10.0) 10^3/ uL RBC 5.74 H (4.1-5.3) 10^6/u L Hgb 16.3 (11.7-16.6) g/dL Hct 50.5 (42.0-52.0) % MCV 88.0 (80-94) fL MCH 28.4 (28.0-34.0) pg MCHC 32.3 (30.0-36.0) g/dL RDW 13.2 (12.1-15.1) % Plt Count 289 (130-400) 10^3/c mm MPV 11.0 H (7.4-10.4) fL Neut % (Auto) 77.4 % Lymph % (Auto) 15.6 % [place] % (Auto) 5.8 % Eos % (Auto) 0.5 % Baso % (Auto) 0.3 % Neut # (Auto) 11.52 H (1.8-7.7) 10^3/u L Lymph # (Auto) 2.3 (0.8-4.8) 10^3/u L [place] # (Auto) 0.9 (0.2-0.9) 10^3/u L Eos # (Auto) 0.1 (0.0-0.8) 10^3/u L Baso # (Auto) 0.0 (0.0-0.1) 10^3/u L Nucleated RBC % (a uto) 0 % Nucleated RBCs # 0.0 /100WBC Sodium 136 (136-145) mmol/L Potassium 4.7 (3.5-5.1) mmol/L Chloride 104 (98-107) mmol/L Carbon Dioxide 18 L (22-29) mmol/L Anion Gap 18.7 (5-19) BUN 31 H (6-20) mg/dL Creatinine 1.4 H (0.7-1.2) mg/dL GFR Calculation 54.1 L (90-130) mL/min Glucose 229 H (65-115) mg/dL Calculated Osmolal ity 286 (285-295) mOsm/k g Calcium 9.2 (8.5-10.5) mg/dL Total Bilirubin 0.5 (0.15-1.2) mg/dL AST 66 H (0-40) U/L ALT 100 H (0-41) U/L Alkaline Phosphata se 207 H (40-130) IU/L Troponin T Baselin e 74 H (0-15) ng/L NT-Pro-B Natriuret Pep (0-125) pg/mL Total Protein 8.3 (6.6-8.7) g/dL Albumin 4.4 (3.5-5.2) g/dL Globulin 3.9 (1.3-4.6) g/dL 11/29/19 Range/Units 01:50 WBC (4.0-10.0) 10^3/ uL RBC (4.1-5.3) 10^6/u L Hgb (11.7-16.6) g/dL Hct (42.0-52.0) % MCV (80-94) fL MCH (28.0-34.0) pg MCHC (30.0-36.0) g/dL RDW (12.1-15.1) % Plt Count (130-400) 10^3/c mm MPV (7.4-10.4) fL Neut % (Auto) % Lymph % (Auto) % [place] % (Auto) % Eos % (Auto) % Baso % (Auto) % Neut # (Auto) (1.8-7.7) 10^3/u L Lymph # (Auto) (0.8-4.8) 10^3/u L [place] # (Auto) (0.2-0.9) 10^3/u L Eos # (Auto) (0.0-0.8) 10^3/u L Baso # (Auto) (0.0-0.1) 10^3/u L Nucleated RBC % (a uto) % Nucleated RBCs # /100WBC Sodium (136-145) mmol/L Potassium (3.5-5.1) mmol/L Chloride (98-107) mmol/L Carbon Dioxide (22-29) mmol/L Anion Gap (5-19) BUN (6-20) mg/dL Creatinine (0.7-1.2) mg/dL GFR Calculation (90-130) mL/min Glucose (65-115) mg/dL Calculated Osmolal ity (285-295) mOsm/k g Calcium (8.5-10.5) mg/dL Total Bilirubin (0.15-1.2) mg/dL AST (0-40) U/L ALT (0-41) U/L Alkaline Phosphata se (40-130) IU/L Troponin T Baselin e (0-15) ng/L NT-Pro-B Natriuret Pep 3920 H (0-125) pg/mL Total Protein (6.6-8.7) g/dL Albumin (3.5-5.2) g/dL Globulin (1.3-4.6) g/dL Imaging Data^: CXR: My impression: pulmonary edema with cardiomegaly EKG Data^: EKG 1: Attestation: I personally reviewed and interpreted this EKG as follows: EKG interpretation date: 11/29/19 EKG interpretation time: 01:55 Interpretation: vtach hr 147 qrs 154 qtc 393 EKG 2: Attestation: I personally reviewed and interpreted this EKG as follows: EKG interpretation date: 11/29/19 EKG interpretation time: 02:09 Interpretation: nsr hr 93 lbbb qrs 166 qtc 442 unchanged from previous ekg EKG 3: Attestation: I personally reviewed and interpreted this EKG as follows: EKG interpretation date: 11/29/19 EKG interpretation time: 03:24 Interpretation: lbbb hr 82 st depression in V3 changed from previous Critical Care Time Critical Care Time: Critical Care Time: Yes Total Critical Care Time: 36 Attestation: This case had a high probability of a clinically significant, sudden, or life threatening deterioration of this patient's condition which required my full and direct attention, intervention and personal management. Discharge Plan Discharge Patient Disposition: Admitted As Inpatient Admit Provider: Charan Hui Clinical Impression: V-tach Chest pain Qualifiers: Chest pain type: unspecified Qualified Code(s): R07.9 - Chest pain, unspecified Pulmonary edema Qualifiers: Chronicity: acute Qualified Code(s): J81.0 - Acute pulmonary edema Condition: Stable Coding Level of Care Code ED Dietitian Chief for [facility] Fwd Exam Comprehensive
[2019-11-29] MEDS: aspirin 81 mg Chew Tablet 324 MG PO (01:58)
[2019-11-29] MEDS: nitroglycerin 0.4 mg sublingual Tablet SUBLINGUAL ×2 (02:01→02:08)
[2019-11-29] MEDS: morphine 4 mg/mL SDV 1 mL IVP (02:01)
[2019-11-29 02:06] LABS: Basophils % 0.3 %; Eosinophils # 0.1 10^3/uL (0.0-0.8); Eosinophils % 0.5 %; Hematocrit 50.5 % (42.0-52.0); Hemoglobin 16.3 g/dL (11.7-16.6); Lymphocytes # 2.3 10^3/uL (0.8-4.8); Lymphocytes % 15.6 %; Mean Corpuscular HGB Conc 32.3 g/dL (30.0-36.0); Mean Corpuscular Hemoglobin 28.4 pg (28.0-34.0); Monocytes # 0.9 10^3/uL (0.2-0.9); Monocytes % 5.8 %; Neutrophils # 11.52 10^3/uL (1.8-7.7); Neutrophils % 77.4 %; Nucleated Red Blood Cells % 0 %; Platelet Count 289 10^3/cmm (130-400); Red Blood Count 5.74 10^6/uL (4.1-5.3); Red Cell Distribution Width 13.2 % (12.1-15.1); White Blood Count 14.9 10^3/uL (4.0-10.0)
[2019-11-29] MEDS: sodium chloride 0.9% 1,000 ML 999 ML IV (02:09)
[2019-11-29 02:21] LABS: Alanine Aminotransferase 100 U/L (0-41); Albumin Level 4.4 g/dL (3.5-5.2); Alkaline Phosphatase 207 IU/L (40-130); Anion Gap 18.7 (5-19); Aspartate Amino Transferase 66 U/L (0-40); Blood Urea Nitrogen 31 mg/dL (6-20); Calcium 9.2 mg/dL (8.5-10.5); Carbon Dioxide 18 mmol/L (22-29); Chloride 104 mmol/L (98-107); Globulin 3.9 g/dL (1.3-4.6); Glomerular Filtration Rate 54.1 mL/min (90-130); Glucose 229 mg/dL (65-115); Osmolality Calculated 286 mOsm/kg (285-295); Potassium 4.7 mmol/L (3.5-5.1); Sodium 136 mmol/L (136-145); Total Bilirubin 0.5 mg/dL (0.15-1.2); Total Protein 8.3 g/dL (6.6-8.7)
[2019-11-29 02:23] LABS: Troponin(5th) Baseline 74 ng/L (0-15)
[2019-11-29] MEDS: nitroglycerin 1 gm/inch oint Pkt 1 INCH TOPICAL (02:27)
--- NOTE | 2019-11-29 02:41 | PM.HP ---
Providers/Chief Complaint Chief Complaint: cp History of Present Illness Emory Real is a 49 year old male who carries history of ischemic cardiomyopathy EF 30 to 35%, mid LAD PCI IN 09/26, Severe aortic valve stenosis, was recommended to go to [facility] for consideration of TAVR, on previous admission he left AGAINST MEDICAL ADVICE before we could arrange his lifeVest coming in today for chief complaint of shortness of breath and chest pain. Patient is stating that he was watching television around 8 PM last night when he started experiencing substernal chest pain which he described as heaviness, this chest pain was radiating towards his jaw and left arm, he felt nauseous, he waited until 2 AM to come to the hospital, he is endorsing shortness of breath, orthopnea, PND. He has not noticed any fever at home, he smokes 1 pack/day, denies alcohol or illicit drug use. He ran out of his medications for about 2 weeks. His last dose of aspirin Plavix was about 10 to 14 days ago. When I asked him about hisLifeVest, he stated that he is not able to afford it. He went to [facility] for TAVR evaluation, he still waiting for see his laboratory technology teacher for scheduling the procedure. On arrival to the ED patient had wide-complex tachycardia heart rate 160s, systolic blood pressure was ranging between 1 40-1 50s, he was pale, diaphoretic started experiencing nausea and vomiting, he received sublingual nitroglycerin by EMS which relieved his chest pain, in the ER he received 1 inch of nitroglycerin, couple of doses of Zofran and loading dose of Plavix, he was given loading dose of amiodarone After review EKG with the ER physician I decided to start heparin drip along amiodarone, EKG has been sent to Dr. Beach and Dr. Galicia as well who are not convinced regarding Sgarbosa criteria. Currently heart rate is in 80s, systolic blood pressure 130s Review of Systems Const: Reports: chills, body aches and fatigue Eyes: Denies: change in vision ENMT: Denies: throat pain Card: Reports: chest pain, palpitations, irregular heart rhythm, dyspnea on exertion and orthopnea; Denies: swelling of feet/ankles, syncope or pre-syncope Resp: Reports: dyspnea and productive cough GI: Reports: nausea and vomiting; Denies: abdominal pain : Denies: flank pain or difficulty urinating Musc: Denies: neck pain or back pain Skin/Breast: Denies: rash or pruritus Neuro: Denies: headache(s) or dizziness Psych: Denies: anxiety Endo: Denies: polyuria Luís/Lymph: Denies: easy bruising All/Imm: Denies: urticaria Medications/Allergies Home Medications Medication Instructions Recorded Confirmed Last Taken Type acetaminophen 650 mg PO Q6H PRN #120 tab 09/21/19 Unknown Rx albuterol sulfate [Ventolin HFA] 2 puff INHALATION Q6H PRN #18 gm 09/21/19 Unknown Rx aspirin 81 mg PO DAILY #30 tab 09/21/19 Unknown Rx atorvastatin 40 mg PO BEDTIME #30 tab 09/21/19 Unknown Rx carvedilol 3.125 mg PO BID #60 tab 09/21/19 Unknown Rx clopidogrel 75 mg PO DAILY #30 tab 09/21/19 Unknown Rx furosemide 20 mg PO DAILY@0800 #30 tab 09/21/19 Unknown Rx losartan 25 mg PO DAILY #30 tab 09/21/19 Unknown Rx nitroglycerin [Nitrostat] 0.4 mg SUBLINGUAL Q5M PRN #1 vial 09/21/19 Unknown Rx potassium chloride 10 meq PO DAILY #30 tab 09/21/19 Unknown Rx Allergies Allergy/AdvReac Type Severity Reaction Status Date / Time No Known Allergies Allergy Verified 11/29/19 02:13 PFSH Acute PFSH: Medical History CAD (coronary artery disease) LAD stent placement 09/20/2019 Combined congestive systolic and diastolic heart failure Critical aortic valve stenosis Valve area 0.45 cm? on 09/19/2019 Elevated hemoglobin A1c Ischemic cardiomyopathy Left bundle branch block Nicotine dependence Surgical History History of heart artery stent Distal LAD, 09/20/2019 Family History Father CAD (coronary artery disease), Onset Age: 32 His father of myocardial infarction in his 70s. He had open heart surgery. Brother CAD (coronary artery disease), Onset Age: 40 Patient has 4 brothers and all of them had a heart attack in their 40s and 50s. Grandfather Stroke Had a CVA? Social History (Updated 11/29/19 @ 03:51 by Charan Hui MD) Smoking and tobacco status: heavy tobacco smoker cigarettes [ Other cigarette details: 1 pack/day for last 20 years ] Household members: spouse Housing: House Vitals/I&O/Wt Last Vital Signs Temp 98.6 F 11/29/19 01:49 Pulse 86 11/29/19 02:35 Resp 26 H 11/29/19 02:35 BP 117/86 11/29/19 02:35 Pulse Ox 97 11/29/19 02:35 11/28/19 11/28/19 11/29/19 14:59 22:59 06:59 Intake Total 552.55 / 552.55 Balance 552.55 / 552.55 Weight last 48 hrs Weight 68.039 kg Physical Exam Narrative: EXAM NARRATIVE: Head to toe examination Appears more than stated age Pale complexion Cold extremities Currently having recurrent episode of emesis Chest pain-free Heart rate 80s with left bundle branch block, Systolic blood pressure ranging between 1 20-1 40s 1 inch Nitropaste on left side of his chest Systolic aortic murmur radiating towards his neck, grade 3/6, clinically no overt signs of heart failure Lung auscultation reveals bilateral basilar crackles no active wheezing, Abdomen soft nontender nondistended bowel sounds sluggish Neurologically nonfocal exam Irritable mood anxious Lower extremity cold without any sign of ischemia gangrene or ulcer Data : 11/29/19 01:50 11/29/19 01:50 A&P Assessment and plan (1) V-tach: Status: Acute (2) Pulmonary edema: Status: Acute Qualifiers: Chronicity: acute Qualified Code(s): J81.0 - Acute pulmonary edema (3) Wide-complex tachycardia: Status: Acute (4) Combined congestive systolic and diastolic heart failure: Status: Acute (5) ROBERT (acute kidney injury): Status: Acute (6) Unstable angina: Status: Acute (7) Critical aortic valve stenosis: Status: Acute Additional A&P Information Wide-complex tachycardia with underlying left bundle branch block normal hemodynamics, awake alert oriented x3, chest pain-free, no active shortness of breath Responded well to amiodarone push Started him on amiodarone drip, check mag level Patient has established coronary disease, high risk for malignant arrhythmia Combined systolic/diastolic CHF exacerbation BNP 4000, no overt clinical signs of CHF, however endorsing orthopnea and PND, chest x-ray consistent with pulmonary congestion, hepatic congestion with abnormal transaminases Patient has not taken his Lasix for about 2 weeks, I would increase his Lasix dose to 40 mg a day I would not repeat echo as it was done recently Unstable angina (recent PCI 09/26) Patient is noncompliant, has not taken his medications for last 2 weeks Non-ST segment elevation SC, does not meet sgarbossa criteria for left bundle branch block and SC I would start him on heparin drip, he already received loading dose of aspirin, continue beta-radha, Plavix and statin Patient is high risk for malignant arrhythmia, Dr. Galicia has been consulted who has reviewed his EKG as well Dr. Beach reviewed his EKG and agree with above-mentioned findings, no acute indication for activation of [employer] Critical aortic valve stenosis waiting for TAVR Limited history because of his above-mentioned symptoms however is stating that he still due to see his laboratory technology teacher at [facility] for TAVR ROBERT secondary to CHF exacerbation: Anticipating improvement with diuresis Full code N.p.o. in case he requires urgent intervention DVT prophylaxis not indicated currently on heparin drip Considering multiple comorbid conditions and active state he might need to be transferred to [facility] for higher level of care, awaiting cardiology input in the morning Attestations Medical Necessity Statement*: Anticipating stay in the hospital cross more than 2 midnights continued heparin and amiodarone drip for his active symptoms Time Spent in Patient Care: (>than 50% of time spent in counselling and/or direct pt care on unit). 60 minutes Coding Level of Care Code Acute Lowerator Operator for g Fwd Diagnoses V-tach I47.2 Pulmonary edema J81.0 Chronicity: acute Wide-complex tachycardia I47.2 Combined congestive systolic and diastolic heart failure I50.40 ROBERT (acute kidney injury) N17.9 Unstable angina I20.0 Critical aortic valve stenosis I35.0
[2019-11-29 02:47] LABS: NT Pro B Type Natriuretic Pept 3920 pg/mL (0-125)
[2019-11-29] MEDS: ondansetron 2 mg/ML SDV 2 mL 4 MG IVP (03:23)
--- NOTE | 2019-11-29 03:40 | ECG_ITS ---
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 Measurements Intervals [place] Rate: 91 P: 63 [place]: 136 QRS: 76 QRSD: 166 T: 256 QT: 404 QTc: 497 Interpretive Statements SINUS RHYTHM LEFT ATRIAL ENLARGEMENT [-0.15mV P WAVE IN V1/V2] LEFT BUNDLE BRANCH BLOCK [120+ ms QRS DURATION, 80+ ms Q/S IN V1/V2, 85+ ms R IN I/aVL/V5/V6] Compared to ECG 11/29/2019 01:57:01 Atrial abnormality now present Electronically Signed On 11-29-2019 20:36:55 CDT by Jesse Galicia M.D. [id number]
[2019-11-29] MEDS: heparin 5,000 unit/mL INJ 1 mL IV ×2 (03:51→15:07)
[2019-11-29] MEDS: heparin drip 25,000 UNIT/500 ML PREMIX 25.9 UNIT IV (03:52)
[2019-11-29] MEDS: clopidogrel 300 mg Tablet PO (05:01)
[2019-11-29 05:35] LABS: Platelet Count 279 10^3/cmm (130-400)
[2019-11-29] MEDS: metoclopramide 5 mg/mL SDV 2 mL 10 MG IVP (05:37)
[2019-11-29 05:58] LABS: Troponin 5 2HR 155.2 ng/L (0-15)
[2019-11-29 06:01] LABS: Magnesium 2.3 mg/dL (1.7-2.3)
--- NOTE | 2019-11-29 06:01 | PC.NURSE ---
DR SHAZIA PT [facility] CALLED TO DR. CROW 155.2, NO NEW ORDERS.
--- NOTE | 2019-11-29 07:14 | PC.NURSE ---
recd. in resp. distress, on 100% n.r.b. o2 sat. 100%.
--- NOTE | 2019-11-29 07:34 | PC.NURSE ---
now on bipap
--- NOTE | 2019-11-29 07:36 | PC.NURSE ---
denies any chest pain. states he is restless and feels short of breath.
--- NOTE | 2019-11-29 07:40 | ECG_ITS ---
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 Measurements Intervals [place] Rate: 147 P: 83 NE: 88 QRS: 73 QRSD: 154 T: 256 QT: 310 QTc: 485 Interpretive Statements POSSIBLE ATRIAL FLUTTER with rapid ventricular rate LEFT BUNDLE BRANCH BLOCK [120+ ms QRS DURATION, 80+ ms Q/S IN V1/V2, 85+ ms R IN I/aVL/V5/V6] Compared to ECG 11/29/2019 01:55:18 Atrial fibrillation no longer present Electronically Signed On 11-29-2019 20:36:46 CDT by Jesse Galicia M.D. [id number]
--- NOTE | 2019-11-29 08:46 | USCV_ITS ---
Emory Real Age: 49 Gender: M : 1970 Exam Date: 11/29/2019 09:10 Ordering Phys: JAYASHREE Technologist: Therese Bermeo [place] [facility] [place]: abnormal rhythm, + troponin BP: 139 / 107 HR: 71 Rhythm: Other Technical Quality: Good MEASUREMENTS (Male / Female) Normal Values 2D ECHO LV Diastolic Diameter PLAX 5.7 cm 4.2 - 5.9 / 3.9 - 5.3 cm LV Systolic Diameter PLAX 5.4 cm IVS Diastolic Thickness 0.9 cm 0.6 - 1.0 / 0.6 - 0.9 cm IVS Systolic Thickness 1.0 cm LVPW Diastolic Thickness 0.9 cm 0.6 - 1.0 / 0.6 - 0.9 cm LVPW Systolic Thickness 1.1 cm LVOT Diameter 2.1 cm LV Ejection Fraction 2D Teich 11.7 % LV Ejection Fraction MOD 2C 33.5 % LV Ejection Fraction 2C AL 31.5 % LA Diameter 3.3 cm LA Width 3.4 cm LA Height 5.0 cm RA Width 3.4 cm RA Height 3.6 cm M-MODE LV Diastolic Diameter MM 6.5 cm 4.2 - 5.9 / 3.9 - 5.3 cm LV Systolic Diameter MM 5.5 cm LV Ejection Fraction MM Teich 31.4 % IVS Diastolic Thickness MM 1.2 cm 0.6 - 1.0 / 0.6 - 0.9 cm IVS Systolic Thickness MM 1.4 cm LVPW Diastolic Thickness MM 1.1 cm 0.6 - 1.0 / 0.6 - 0.9 cm LVPW Systolic Thickness MM 1.8 cm Aortic Annulus Diameter 2.1 cm LA Ao Ratio MM 1.6 FINDINGS Left Ventricle This is a 2D examination only. The ventricle is slightly enlarged. There is thinning of the mid to distal anterior wall and apex. Otherwise there is mild concentric left ventricular hypertrophy. There are wall motion disturbances noted to include severe hypokinesis of the mid to distal anterior wall and apex and moderate hypokinesis of the inferior, posterior and lateral liu. This is in addition to global hypokinesis. The ejection fraction is in the 20% range. Diastolic function was not assessed. Right Ventricle Normal right ventricular size and function Right Atrium Normal size Left Atrium Mildly increased left atrial size. Mitral Valve Structurally normal mitral valve. The valve was not interrogated Aortic Valve Structurally normal trileaflet aortic valve. Severe aortic valve calcification. There is restriction of leaflet motion and most certainly aortic stenosis though the valve was not interrogated. Tricuspid Valve Structurally normal tricuspid valve. Pulmonic Valve Pulmonic valve not well visualized. Pericardium Normal pericardium without effusion. Aorta Normal ascending aorta dimension. CONCLUSIONS This is a 2D examination only. The ventricle is slightly enlarged. There is thinning of the mid to distal anterior wall and apex. Otherwise there is mild concentric left ventricular hypertrophy. There are wall motion disturbances noted to include severe hypokinesis of the mid to distal anterior wall and apex and moderate hypokinesis of the inferior, posterior and lateral liu. This is in addition to global hypokinesis. The ejection fraction is in the 20% range. Diastolic function was not assessed. Structurally normal trileaflet aortic valve. Severe aortic valve calcification. There is restriction of leaflet motion and most certainly aortic stenosis though the valve was not interrogated. The previous study done 09/19/2019 revealed similar wall motion disturbances and findings of the left ventricle. The ejection fraction is likely slightly lower now then was noted on the previous study. Otherwise, there has been no change. Dr. Demar Khanna MD (Electronically Signed) Final Date: 29 November 2019 09:48 S
--- NOTE | 2019-11-29 08:53 | PM.CONSULT ---
Providers/Reason For Consult Consulting Physican/Specialty*: STEVEN Galicia MD/cardiology Reason for Consult*: Patient with chest pain/recent PCI Attending Physician: Trini Hernandez MD History of Present Illness History of Present Illness Emory Real is a 49 year old male with a history of coronary disease and severe aortic valve stenosis, presented with complaints of acute worsening of the shortness of breath last night. Apparently he has been having shortness of breath for a week or so. He had a PCI of the LAD in September of this year. He is known to have critical aortic valve stenosis for which he was seen by Dr. Peralta at the [facility] in [facility]. He has been waiting for a call from the [facility] regarding his valve surgery/intervention. According the patient, he ran out of all his medications 2 weeks ago. He started having shortness of breath a week ago and that has been progressively getting worse. He did not have any fever, chills or cough. No palpitation, dizziness or syncopal episodes. Last evening, his shortness of breath got acutely worse. He was brought to the emergency room by his . The emergency room, he was found to be in wide-complex tachycardia possibly V. tach. His blood pressure was elevated. He was started on IV amiodarone. He converted back to sinus rhythm. He also had features of acute pulmonary edema. He was placed on BiPAP. Currently his oxygenation has improved. He denies any abdominal pain or dysuria. No headache or blurring of vision. He has been fairly active. 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 He was found to have a moderately severe disease in the proximal to mid LAD. FFR on this lesion was 0.59. He underwent PCI of this lesion by Dr. Khanna.) Review of Systems Narrative: CONSTITUTIONAL: No fever or chills. EYES: No blurring of vision or other visual disturbances lately. ENT: No hoarseness of voice, auditory disturbances or sore throat. CARDIOVASCULAR: As mentioned above. RESPIRATORY: Shortness of breath as mentioned above GASTROINTESTINAL: No hematemesis or melena. GENITOURINARY: No dysuria or hematuria. INTEGUMENTARY: No skin rashes or history of skin cancer. NEURO: No transient ischemic attacks or amaurosis. PSYCHIATRIC: No history of psychosis or major depression. HEMATOLOGIC: No bleeding disorders or significant anemia. ENDOCRINE: No history of polyuria or polydipsia. MUSCULOSKELETAL: No recent joint pain or swelling. ALLERGY/IMMUNOLOGY: As mentioned above. Meds/Allergies Home Medications and Allergies Home Medications Medication Instructions Recorded Confirmed Last Taken Type acetaminophen 650 mg PO Q6H PRN #120 tab 09/21/19 Unknown Rx albuterol sulfate [Ventolin HFA] 2 puff INHALATION Q6H PRN #18 gm 09/21/19 Unknown Rx aspirin 81 mg PO DAILY #30 tab 09/21/19 Unknown Rx atorvastatin 40 mg PO BEDTIME #30 tab 09/21/19 Unknown Rx carvedilol 3.125 mg PO BID #60 tab 09/21/19 Unknown Rx clopidogrel 75 mg PO DAILY #30 tab 09/21/19 Unknown Rx furosemide 20 mg PO DAILY@0800 #30 tab 09/21/19 Unknown Rx losartan 25 mg PO DAILY #30 tab 09/21/19 Unknown Rx nitroglycerin [Nitrostat] 0.4 mg SUBLINGUAL Q5M PRN #1 vial 09/21/19 Unknown Rx potassium chloride 10 meq PO DAILY #30 tab 09/21/19 Unknown Rx Allergies Allergy/AdvReac Type Severity Reaction Status Date / Time No Known Allergies Allergy Verified 11/29/19 02:13 Current Medications Current Medications Generic Name Dose Route Start Last Admin Trade Name Freq PRN Reason Stop Dose Admin Heparin Sodium (Beef Lung) 0 unit 11/29/19 03:30 11/29/19 03:51 Heparin IV 3,400 unit PRN PRN Administration Heparin weight-base protocol Protocol Heparin Sodium/Sodium Chloride 25,000 unit in 500 mls @ 0 mls/hr 11/29/19 03:41 11/29/19 03:52 Heparin Drip IV 19 unit/kg/hr .Q0M KELSIE 25.9 mls/hr Administration Protocol Per Protocol Metoclopramide HCl 10 mg 11/29/19 05:25 11/29/19 05:37 Reglan IVP 10 mg ONCE PRN Administration NAUSEA AND VOMITING Nitroglycerin 0.4 mg 11/29/19 02:09 11/29/19 02:08 Nitrostat SUBLINGUAL 0.4 mg Q5M PRN Administration CHEST PAIN PFSH Acute PFSH: Medical History CAD (coronary artery disease) LAD stent placement 09/20/2019 Combined congestive systolic and diastolic heart failure Critical aortic valve stenosis Valve area 0.45 cm? on 09/19/2019 Elevated hemoglobin A1c Ischemic cardiomyopathy Left bundle branch block Nicotine dependence Surgical History History of heart artery stent Distal LAD, 09/20/2019 Family History Father CAD (coronary artery disease), Onset Age: 32 His father of myocardial infarction in his 70s. He had open heart surgery. Brother CAD (coronary artery disease), Onset Age: 40 Patient has 4 brothers and all of them had a heart attack in their 40s and 50s. Grandfather Stroke Had a CVA? Social History Smoking and tobacco status: heavy tobacco smoker cigarettes [ Other cigarette details: 1 pack/day for last 20 years ] Household members: spouse Housing: House Vitals/I&O/Wt Last Vital Signs Temp 98.6 F 11/29/19 01:49 Pulse 74 11/29/19 07:27 Resp 24 H 11/29/19 07:00 BP 118/93 11/29/19 07:00 Pulse Ox 99 11/29/19 07:27 11/28/19 11/29/19 11/29/19 22:59 06:59 14:59 Intake Total 552.55 / 552.55 Output Total 0 / 0 Balance 552.55 / 552.55 Weight last 48 hrs Weight 150 lb Physical Exam Narrative: EXAM NARRATIVE: GENERAL: The patient is alert and oriented times three. Slightly tachypneic HEENT: No significant pallor, icterus or lymphadenopathy. The pupils are reactant to light. Oral cavity: There are no mucous membrane lesions. Funduscopic examination: Fundus is not visualized NECK: Trachea appears to be central. No masses noted. No JVD or thyromegaly appreciated. No carotid bruit. RESPIRATORY: Chest is symmetrical. No intercostals muscle retraction or any accessory muscle activation. There is no chest wall tenderness. Breath sounds are heard bilaterally. Few fine rales at the bases. BREASTS: Deferred. HEART: The first heart sound is muffled. Ejection systolic murmur grade 4/6 in the aortic area with some transmission of the carotids. No diastolic murmurs. No pericardial rub. ABDOMEN: No vessel pulsations or distention. No tenderness. No organomegaly appreciated. No abdominal bruit. Bowel sounds are normally heard. : Deferred. RECTAL: Deferred. LYMPHATIC: No lymphadenopathy noted in the neck or groin. EXTREMITIES: Trace edema with no cyanosis. Peripheral pulses are weak bilaterally. MUSCULOSKELETAL: No acute joint deformities or swelling. SKIN: There are no significant scars or skin rash noted. NEUROPSYCHIATRIC: The patient is alert and oriented x3. Appears to be in a good mood. The higher functions are grossly within normal limits. No tremors or rigidity noted. Data Imaging^: Cardiac catheterization on 09/17/2019: My impression: The left anterior descending artery is a medium caliber elongated vessel, wrap around the LV apex. There is a 60 to 70% tubular lesion at the mid segment of the artery, right after the first septal aircraft part assembler. Rest of the vessel was found to have mild diffuse disease. The left circumflex artery is a medium caliber dominant vessel which gives off multiple obtuse marginal branches. Mild diffuse disease was noted in the first and second obtuse marginal branches. The third obtuse marginal branch appears to be trifurcating. One of the trifurcation branches was found to be subtotally occluded. Left to left collaterals were noted filling up this vessel. The right coronary artery is a small calibered nondominant vessel with a moderate to severe ostial narrowing. No other significant stenotic lesions were noted. Echo: My impression: 1. Mildly dilated LV cavity with a diminished ejection fraction of 30 to 35%. 2. Multiple wall motion normalities as mentioned above. Features of grade 3 left ventricular diastolic dysfunction 3. Moderately dilated left atrium. 4. Critical aortic valve stenosis with a valve area of 0.45 cm squared.(Peak velocity of 4.69 m/s with a peak gradient of 84 and a mean gradient of 43 mmHg) 5. Mild aortic and mitral regurgitation. 6. Estimated pulmonary artery peak systolic pressure 25 mmHg 7. No intracardiac masses or any pericardial effusion 8. Normal RV size and ejection fraction. No similar previous studies are available for comparison EKG^: EKG 1: My Interpretation: The EKG showed a wide complex tachycardia, possible a flutter with a 2-1 block. Underlying left bundle branch block. EKG 2: Core Blower Operator Interpretation: Normal sinus rhythm with a left bundle branch block. Further interpretation is not possible. Possible left atrial enlargement. A&P Assessment and plan (1) Acute on chronic systolic heart failure: Most likely the arrhythmia monitor contributed to the acute decompensated heart failure. The worsening of the LV systolic function also could be a contributing factor. This critical aortic valve stenosis may be playing a role as well Status: Acute (2) Wide-complex tachycardia: Most likely he may have atrial flutter with a rapid ventricular rate. Patient apparently was hemodynamically stable in the emergency room. He is on amiodarone IV. Currently in sinus rhythm. The amiodarone may be continued. Status: Acute (3) ROBERT (acute kidney injury): Most likely from the low output state. Status: Acute (4) Critical aortic valve stenosis: Patient has possibly bicuspid aortic valve. He requires valve intervention. Percutaneous valve replacement was discussed. Patient was seen by Dr. Peralta at the [facility]. I will be contacting him to discuss about this further. Status: Chronic (5) Ischemic cardiomyopathy: Patient has worsening of the LV systolic function. Possibility of reocclusion of the LAD lesion is a consideration. He may require a repeat coronary angiogram to reevaluate the coronary arteries, before proceeding with the valve surgery. Because of his high risk status, it may be appropriate to have it done at the [facility], prior to the valve intervention. Status: Chronic (6) Elevated troponin: This could be a type II OK, especially in view of the tachyarrhythmia. But restenosis of the LAD also is a possibility in view of his noncompliance to medication. This needs to be further evaluated. Status: Acute Additional A&P Information I discussed the patient's current status and the treatment options. He is willing for further evaluation and management. After discussing with Dr. Peralta, a final decision will be made. He may be kept on the IV heparin and amiodarone for the time being. Careful IV diuresis. Based on the clinical progress, further recommendations will be made. Coding Level of Care Code Acute Network Applications Specialist for [facility] Fwd Diagnoses Acute on chronic systolic heart failure I50.23 Wide-complex tachycardia I47.2 ROBERT (acute kidney injury) N17.9 Critical aortic valve stenosis I35.0 Ischemic cardiomyopathy I25.5 Elevated troponin R79.89
[2019-11-29] MEDS: carvedilol 3.125 mg Tablet PO (08:57)
[2019-11-29] MEDS: aspirin 81 mg EC Tablet PO (08:57)
[2019-11-29] MEDS: losartan 50 mg Tablet 25 MG PO (08:57)
[2019-11-29] MEDS: FUROsemide 10 mg/mL SDV 4mL 40 MG IVP (10:02)
[2019-11-29] MEDS: clopidogrel 75 mg Tablet PO (10:02)
[2019-11-29] MEDS: potassium chloride ER 10 mEq Tablet PO ×2 (10:05→10:12)
--- NOTE | 2019-11-29 10:07 | ECG_ITS ---
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 Measurements Intervals [place] Rate: 82 P: 57 IL: 128 QRS: 70 QRSD: 166 T: 235 QT: 410 QTc: 481 Interpretive Statements SINUS RHYTHM POSSIBLE LEFT ATRIAL ENLARGEMENT [-0.1mV P WAVE IN V1/V2] LEFT BUNDLE BRANCH BLOCK [120+ ms QRS DURATION, 80+ ms Q/S IN V1/V2, 85+ ms R IN I/aVL/V5/V6] Compared to ECG 11/29/2019 02:13:47 No significant changes Electronically Signed On 11-29-2019 20:29:35 CDT by Jesse Galicia M.D. [id number]
--- NOTE | 2019-11-29 10:12 | PC.NURSE ---
dr. duff in this am. plavix and iv lasix given. r.t. in fio2 on bipap to 30%, from 40%
[2019-11-29 10:49] LABS: Partial Thromboplastin Time 53.5 SECONDS (23.9-36.7)
--- NOTE | 2019-11-29 11:04 | PM.PN ---
Subjective Subjective: Interval history: Hemodynamically stable, requiring BiPAP, limited echo noted with ejection fraction of 20% and noted wall motion abnormalities. Labs noted. Reviewed notes from visit in September. Left AMA during that admission prior to setting up a LifeVest which he reports he cannot afford as he is uninsured. Case discussed with Dr. Galicia who has already spoken with Dr. Peralta. Plan is to transfer patient to [facility] for evaluation including cath and aortic valve replacement. Pending bed availability. Received dose of Lasix, blood pressure trending down. Medications: Reviewed: Yes Medication Review Details: Active Medications Generic Name Dose Route Start Last Admin Trade Name Freq PRN Reason Stop Dose Admin Aspirin 81 mg 11/29/19 09:00 11/29/19 08:57 Aspirin Ec PO 81 mg DAILY KELSIE Administration Atorvastatin Calci um 40 mg 11/29/19 21:00 Lipitor PO BEDTIME KELSIE Carvedilol 3.125 mg 11/29/19 09:00 11/29/19 08:57 Coreg PO 3.125 mg BID KELSIE Administration Clopidogrel Bisulf ate 75 mg 11/29/19 09:00 11/29/19 10:02 Plavix PO 75 mg DAILY KELSIE Administration Heparin Sodium (Be ef Lung) 0 unit 11/29/19 03:30 11/29/19 03:51 Heparin IV 3,400 unit PRN PRN Administration Heparin weight-ba se protocol Protocol Heparin Sodium/Sod ium Chloride 25,000 unit in 50 0 mls @ 0 mls/hr 11/29/19 03:41 11/29/19 03:52 Heparin Drip IV 19 unit/kg/hr .Q0M KELSIE 25.9 mls/hr Administration Protocol Per Protocol Amiodarone HCl 900 mg/ 518 mls @ 0 mls/h r 11/29/19 04:11 Dextrose/ IV Misce llaneous IV Supplies .Q0M KELSIE Protocol Per Protocol Losartan Potassium 25 mg 11/29/19 09:00 11/29/19 08:57 Cozaar PO 25 mg DAILY KELSIE Administration Metoclopramide HCl 10 mg 11/29/19 05:25 11/29/19 05:37 Reglan IVP 10 mg ONCE PRN Administration NAUSEA AND VOMITI NG Nitroglycerin 0.4 mg 11/29/19 02:09 11/29/19 02:08 Nitrostat SUBLINGUAL 0.4 mg Q5M PRN Administration CHEST PAIN Nitroglycerin 0.4 mg 11/29/19 04:11 Nitrostat SUBLINGUAL Q5M PRN Chest Pain Ondansetron HCl 4 mg 11/29/19 04:11 Zofran IVP Q6H PRN NAUSEA AND VOMITI NG Potassium Chloride 10 meq 11/29/19 09:00 11/29/19 10:12 Klor-Con 10 PO 10 meq DAILY KELSIE Administration No Known Allergies Allergy (Verified 11/29/19 02:13) Vitals/I&O/Wt Last Vital Signs Temp 98.6 F 11/29/19 01:49 Pulse 68 11/29/19 10:09 Resp 20 H 11/29/19 10:00 BP 124/96 11/29/19 10:00 Pulse Ox 100 11/29/19 10:09 11/28/19 11/29/19 11/29/19 22:59 06:59 14:59 Intake Total 552.55 / 552.55 312.525 / 312.525 Output Total 0 / 0 Balance 552.55 / 552.55 312.525 / 312.525 Weight last 48 hrs Weight 68.039 kg Physical Exam Const: COMMON NORMALS: no acute distress, patient oriented x3 and alert GENERAL APPEARANCE: cooperative and comfortable ORIENTATION/CONSCIOUSNESS: Yes awake HENMT: COMMON NORMALS: normocephalic, atraumatic and hearing grossly normal bilaterally HEAD & SCALP: normocephalic and atraumatic MOUTH: moist mucous membranes abnormal Details: parched Eye: COMMON NORMALS: Equal, round and reactive pupils present, EOMs intact bilaterally and conjunctivae normal CONJUNCTIVA: Yes conjunctivae normal PUPIL: Yes Equal, round and reactive pupils present Neck/C-Spine: COMMON NORMALS: full ROM GENERAL: Yes normal visual inspection and Yes trachea midline Resp: COMMON NORMALS: normal respiratory effort, No retractions, No use of accessory muscles and clear to auscultation bilaterally EFFORT & INSPECTION: Yes able to speak in complete sentences, Yes symmetric chest movement and No tachypneic AUSCULTATION: clear to auscultation bilaterally Cardio: COMMON NORMALS: regular rate, regular rhythm, S1 normal heart sound present and S2 normal heart sound present RATE: regular rate RHYTHM: regular rhythm HEART SOUNDS: S1 normal heart sound present, S2 normal heart sound present and Murmur heart sound present systolic OTHER: -hypotensive -on amiodarone and heparin drips GI: COMMON NORMALS: Normal to inspection, nondistended, normoactive bowel sounds present, Soft to palpation and non-tender PALPATION: Yes Soft to palpation Extremity: COMMON NORMALS: normal to inspection, full ROM and no clubbing, cyanosis or edema; negative for no pedal edema Neuro: COMMON NORMALS: patient oriented x3, moves all extremities, no focal motor deficits and no sensory deficits noted SENSORIUM/ORIENTATION: Yes alert Psych: COMMON NORMALS: mental status grossly normal, Normal thought process present, cooperative, normal affect and speech normal SPEECH: Yes normal speech THOUGHT PROCESS: Normal thought process present Skin: COMMON NORMALS: no rashes or lesions noted, no jaundice, no petechiae and no mottling GENERAL SKIN EXAM: no rashes or lesions noted Data : 11/29/19 05:15 11/29/19 01:50 A&P Assessment and plan (1) Unstable angina: -has known CAD s/p PCI of LAD in 09/2019 -noted troponins, ECGs -telemetry monitoring -started on heparin drip -on ASA, Plavix, statin -Cardiology consult by Dr. Galicia appreciated; discussed case with Dr. Peralta and will transfer to [facility] for cath and aortic valve replacement -close monitoring of vital signs -on Amiodarone due to noted wide complex tachycardia Status: Acute (2) Combined congestive systolic and diastolic heart failure: -Clinically decompensated as evidenced by shortness of breath, dyspnea on exertion, BNP elevation at 3920 -Limited echo shows worsening EF, dropped from 30 to 35% to 20% today -received dose of IV lasix this AM per Dr. Galicia -VSS; continue to monitor -currently requiring BiPAP -close monitoring of respiratory status Status: Chronic Qualifiers: Heart failure chronicity: acute on chronic Qualified Code(s): I50.43 - Acute on chronic combined systolic (congestive) and diastolic (congestive) heart failure (3) ROBERT (acute kidney injury): -baseline Cr wnl -ROBERT superimposed on CKD stage 2 -renally dose meds, avoid nephrotoxins Status: Acute (4) Ischemic cardiomyopathy: -Due to noted drop in ejection fraction had cardiac cath done during last visit in September and requires PCI of LAD lesion -worsening EF per limited Echo today -apparently ran out of medication about 10-14 days ago; resume ASA, Plavix, statin, BB, ARB Status: Chronic (5) Critical aortic valve stenosis: -referred to Dr. Peralta at [facility] for evaluation of possible TAVR; reportedly pending scheduling of surgery Status: Chronic (6) Dyslipidemia: -on statin Status: Chronic (7) Nicotine dependence: -chronic smoker, 1 PPD Status: Chronic Qualifiers: Nicotine product type: cigarettes Substance use status: uncomplicated Qualified Code(s): F17.210 - Nicotine dependence, cigarettes, uncomplicated Additional A&P Information -GI ppx with Famotidine -DVT ppx not needed as on heparin drip -Dispo: transfer to [facility] to be seen by Dr. Peralta -Code status: FULL code -ICU care due to low threshold for decompensation Attestations Medical Necessity Statement*: Patient requires hospitalization for continued management of unstable angina with known CAD, severe aortic stenosis. Pending transfer to [facility]. Time Spent in Patient Care: Greater than 35 minutes (>than 50% of time spent in counselling and/or direct pt care on unit). Coding Level of Care Code Acute Business Continuity Planning Director for [facility] Fwd Exam Comprehensive Diagnoses Unstable angina I20.0 Combined congestive systolic and diastolic heart failure I50.43 Heart failure chronicity: acute on chronic ROBERT (acute kidney injury) N17.9 Ischemic cardiomyopathy I25.5 Critical aortic valve stenosis I35.0 Dyslipidemia E78.5 Nicotine dependence F17.210 Nicotine product type: cigarettes Substance use status: uncomplicated
[2019-11-29] MEDS: sodium chloride 0.9% 250 ML IV (14:20)
[2019-11-29] MEDS: famotidine 20 mg/2 mL INJ IVP (14:25)
[2019-11-29 14:39] LABS: Partial Thromboplastin Time 45.6 SECONDS (23.9-36.7)
--- NOTE | 2019-11-29 15:19 | PM.TDS ---
Transfer Summary Providers Date of Admission: 11/29/19 02:34 Date of Discharge: 11/29/19 Attending Provider at Admission: Charan Hui MD Attending Provider at Transfer: Trini Hernandez MD Consults: Cardiology; Dr. Galicia Anticipated Date of Transfer: Anticipated date of transfer: 11/29/19 Receiving Facility & Provider: Receiving Provider: [Dr. Castro Peralta] Receiving facility: [[facility]] Diagnoses at Discharge Discharge Diagnosis (1) Unstable angina: Status: Acute Problem details: -has known CAD s/p PCI of LAD in 09/2019 -noted troponins, ECGs -telemetry monitoring -started on heparin drip -on ASA, Plavix, statin -Cardiology consult by Dr. Galicia appreciated; discussed case with Dr. 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 Galicia -VSS; continue to monitor -currently requiring BiPAP -close monitoring of respiratory status Qualifiers: Heart failure chronicity: acute on chronic Qualified Code(s): I50.43 - Acute on chronic combined systolic (congestive) and diastolic (congestive) heart failure (3) ROBERT (acute kidney injury): Status: Acute Problem details: -baseline Cr wnl -ROBERT superimposed on CKD stage 2 part of which could be perfusion related with low EF -renally dose meds, avoid nephrotoxins (4) Ischemic cardiomyopathy: Status: Chronic Problem details: -Due to noted drop in ejection fraction had cardiac cath done during last visit in September and requires PCI of LAD lesion -worsening EF per limited Echo today -apparently ran out of medication about 10-14 days ago; resume ASA, Plavix, statin, BB, ARB (5) Critical aortic valve stenosis: Status: Chronic Problem details: -Valve area 0.45 cm? on 09/19/2019 -referred to Dr. Peralta at [facility] for evaluation of possible TAVR; reportedly pending scheduling of surgery (6) Dyslipidemia: Status: Chronic Problem details: -on statin (7) Nicotine dependence: Status: Chronic Problem details: -chronic smoker, 1 PPD Qualifiers: Nicotine product type: cigarettes Substance use status: uncomplicated Qualified Code(s): F17.210 - Nicotine dependence, cigarettes, uncomplicated Reason for Visit Reason for Visit: Chest pain, shortness of breath Hospital Course Hospital Course: Patient was admitted to ICU due to noted unstable angina, wide complex tachycardia, acute CHF exacerbation with known ischemic cardiomyopathy, critical aortic valve stenosis. Patient has a complex underlying cardiac history and has been off his antiplatelet therapy and statin in addition to his oral antihypertensives for about 2 weeks having run out of them and being uninsured. There had been some discussion during previous admission in September 2019 about a LifeVest placement but unfortunately patient left AGAINST MEDICAL ADVICE and has not followed up. He is at high risk for arrhythmia, cardiac arrest in due to underlying cardiac comorbidities. Patient had followed up with Dr. Peralta at [facility] for evaluation of possible TAVR given his severe aortic stenosis. Dr. Galicia has reached out to Dr. Peralta who is willing to accept the patient in transfer for further evaluation and possible intervention. While here patient has been treated with amiodarone drip due to noted wide complex tachycardia, heparin drip due to concern for unstable angina. He has noted acute kidney injury part of which is secondary to hypoperfusion from ischemic cardiomyopathy. Limited echo was done earlier today with noted drop in ejection fraction to 20% with noted wall motion abnormalities. With noted acute CHF exacerbation he has had shortness of breath necessitating use of BiPAP. Blood pressure is low, heart rate is controlled, he has been afebrile. Copies of paperwork including imaging will be sent with the patient. He will be transferred to [facility] in [place] this afternoon. Discharge Summary: -Patient to be transferred to [facility] in [place] Physical Exam Const: COMMON NORMALS: no acute distress, patient oriented x3 and alert GENERAL APPEARANCE: cooperative and comfortable ORIENTATION/CONSCIOUSNESS: Yes awake HENMT: COMMON NORMALS: normocephalic, atraumatic and hearing grossly normal bilaterally HEAD & SCALP: normocephalic and atraumatic MOUTH: moist mucous membranes abnormal Details: parched Eye: COMMON NORMALS: Equal, round and reactive pupils present, EOMs intact bilaterally and conjunctivae normal CONJUNCTIVA: Yes conjunctivae normal PUPIL: Yes Equal, round and reactive pupils present Neck/C-Spine: COMMON NORMALS: full ROM GENERAL: Yes normal visual inspection and Yes trachea midline Resp: COMMON NORMALS: normal respiratory effort, No retractions, No use of accessory muscles and clear to auscultation bilaterally EFFORT & INSPECTION: Yes able to speak in complete sentences, Yes symmetric chest movement and No tachypneic AUSCULTATION: clear to auscultation bilaterally Cardio: COMMON NORMALS: regular rate, regular rhythm, S1 normal heart sound present and S2 normal heart sound present RATE: regular rate RHYTHM: regular rhythm HEART SOUNDS: S1 normal heart sound present, S2 normal heart sound present and Murmur heart sound present systolic OTHER: -hypotensive -on amiodarone and heparin drips GI: COMMON NORMALS: Normal to inspection, nondistended, normoactive bowel sounds present, Soft to palpation and non-tender PALPATION: Yes Soft to palpation Extremity: COMMON NORMALS: normal to inspection, full ROM and no clubbing, cyanosis or edema; negative for no pedal edema Neuro: COMMON NORMALS: patient oriented x3, moves all extremities, no focal motor deficits and no sensory deficits noted SENSORIUM/ORIENTATION: Yes alert Psych: COMMON NORMALS: mental status grossly normal, Normal thought process present, cooperative, normal affect and speech normal SPEECH: Yes normal speech THOUGHT PROCESS: Normal thought process present Skin: COMMON NORMALS: no rashes or lesions noted, no jaundice, no petechiae and no mottling GENERAL SKIN EXAM: no rashes or lesions noted TS Data Data Completed and Pending: Completed Studies During Hospitalization Category Date Time Status XR chest 1V [place]o ble 92514 Stat Exams 11/29/19 01:40 Completed CV echo limited 9 4161 Urgent Ultrasound 11/29/19 08:46 Completed Pending at discharge Category Date Time Status Basic Metabolic P denilson AM LABS Lab 11/30/19 04:00 Ordered Complete Blood Co unt w/Auto AM LABS Lab 11/30/19 04:00 Ordered Platelet Count Q2 D Lab 12/01/19 04:00 Ordered Platelet Count Q2 D Lab 12/03/19 04:00 Ordered Troponin(5th) 6 h our. Timed Lab 11/29/19 07:40 Ordered Labs from last 24 hours 11/29/19 11/29/19 11/29/19 14:16 10:04 05:15 WBC RBC Hgb Hct MCV MCH MCHC RDW Plt Count MPV Neut % (Auto) Lymph % (Auto) Harlan % (Auto) Eos % (Auto) Baso % (Auto) Neut # (Auto) Lymph # (Auto) Harlan # (Auto) Eos # (Auto) Baso # (Auto) Nucleated RBC % (a uto) Nucleated RBCs # APTT 45.6 H 53.5 H Sodium Potassium Chloride Carbon Dioxide Anion Gap BUN Creatinine GFR Calculation Glucose Calculated Osmolal ity Calcium Magnesium 2.3 Total Bilirubin AST ALT Alkaline Phosphata se Troponin T Baselin e Troponin T 120 Min lauri Delta Troponin T NT-Pro-B Natriuret Pep Total Protein Albumin Globulin 11/29/19 11/29/19 11/29/19 05:15 05:15 01:50 WBC RBC Hgb Hct MCV MCH MCHC RDW Plt Count 279 MPV Neut % (Auto) Lymph % (Auto) Harlan % (Auto) Eos % (Auto) Baso % (Auto) Neut # (Auto) Lymph # (Auto) Harlan # (Auto) Eos # (Auto) Baso # (Auto) Nucleated RBC % (a uto) Nucleated RBCs # APTT Sodium Potassium Chloride Carbon Dioxide Anion Gap BUN Creatinine GFR Calculation Glucose Calculated Osmolal ity Calcium Magnesium Total Bilirubin AST ALT Alkaline Phosphata se Troponin T Baselin e Troponin T 120 Min lauri 155.2 H Delta Troponin T TNP NT-Pro-B Natriuret Pep 3920 H Total Protein Albumin Globulin 11/29/19 11/29/19 11/29/19 01:50 01:50 01:50 WBC 14.9 H RBC 5.74 H Hgb 16.3 Hct 50.5 MCV 88.0 MCH 28.4 MCHC 32.3 RDW 13.2 Plt Count 289 MPV 11.0 H Neut % (Auto) 77.4 Lymph % (Auto) 15.6 Harlan % (Auto) 5.8 Eos % (Auto) 0.5 Baso % (Auto) 0.3 Neut # (Auto) 11.52 H Lymph # (Auto) 2.3 Harlan # (Auto) 0.9 Eos # (Auto) 0.1 Baso # (Auto) 0.0 Nucleated RBC % (a uto) 0 Nucleated RBCs # 0.0 APTT Sodium 136 Potassium 4.7 Chloride 104 Carbon Dioxide 18 L Anion Gap 18.7 BUN 31 H Creatinine 1.4 H GFR Calculation 54.1 L Glucose 229 H Calculated Osmolal ity 286 Calcium 9.2 Magnesium Total Bilirubin 0.5 AST 66 H ALT 100 H Alkaline Phosphata se 207 H Troponin T Baselin e 74 H Troponin T 120 Min lauri Delta Troponin T NT-Pro-B Natriuret Pep Total Protein 8.3 Albumin 4.4 Globulin 3.9 Vitals: Last Vital Signs Temp 98.6 F 11/29/19 01:49 Pulse 60 11/29/19 13:10 Resp 20 H 11/29/19 13:10 BP 80/64 11/29/19 13:10 Pulse Ox 97 11/29/19 13:10 TS Medications Medications Home Medications acetaminophen 650 mg PO Q6H PRN #120 tab 09/21/19 [Rx] albuterol sulfate [Ventolin HFA] 2 puff INHALATION Q6H PRN #18 gm 09/21/19 [Rx] aspirin 81 mg PO DAILY #30 tab 09/21/19 [Rx] atorvastatin 40 mg PO BEDTIME #30 tab 09/21/19 [Rx] carvedilol 3.125 mg PO BID #60 tab 09/21/19 [Rx] clopidogrel 75 mg PO DAILY #30 tab 09/21/19 [Rx] furosemide 20 mg PO DAILY@0800 #30 tab 09/21/19 [Rx] losartan 25 mg PO DAILY #30 tab 09/21/19 [Rx] nitroglycerin [Nitrostat] 0.4 mg SUBLINGUAL Q5M PRN #1 vial 09/21/19 [Rx] potassium chloride 10 meq PO DAILY #30 tab 09/21/19 [Rx] Active Medications Aspirin (Aspirin Ec) 81 mg PO DAILY [facility] Last Admin: 11/29/19 08:57 Dose: 81 mg Documented by: Atorvastatin Calcium (Lipitor) 40 mg PO BEDTIME [facility] Carvedilol (Coreg) 3.125 mg PO BID [facility] Last Admin: 11/29/19 08:57 Dose: 3.125 mg Documented by: Clopidogrel Bisulfate (Plavix) 75 mg PO DAILY [facility] Last Admin: 11/29/19 10:02 Dose: 75 mg Documented by: Famotidine (Pepcid Inj) 20 mg IVP Q12H [facility] Last Admin: 11/29/19 14:25 Dose: 20 mg Documented by: Heparin Sodium (Beef Lung) (Heparin) 0 unit IV PRN PRN; Protocol PRN Reason: Heparin weight-base protocol Last Admin: 11/29/19 15:07 Dose: 2,700 unit Documented by: Heparin Sodium/Sodium Chloride (Heparin Drip) 25,000 unit in 500 mls @ 0 mls/hr IV .Q0M [facility]; Protocol Last Admin: 11/29/19 03:52 Dose: 19 unit/kg/hr, 25.9 mls/hr Documented by: Amiodarone HCl 900 mg/Dextrose/ IV Miscellaneous Supplies 518 mls @ 0 mls/hr IV .Q0M [facility]; Protocol Losartan Potassium (Cozaar) 25 mg PO DAILY [facility] Last Admin: 11/29/19 08:57 Dose: 25 mg Documented by: Metoclopramide HCl (Reglan) 10 mg IVP ONCE PRN PRN Reason: NAUSEA AND VOMITING Last Admin: 11/29/19 05:37 Dose: 10 mg Documented by: Nitroglycerin (Nitrostat) 0.4 mg SUBLINGUAL Q5M PRN PRN Reason: CHEST PAIN Last Admin: 11/29/19 02:08 Dose: 0.4 mg Documented by: Nitroglycerin (Nitrostat) 0.4 mg SUBLINGUAL Q5M PRN PRN Reason: Chest Pain Ondansetron HCl (Zofran) 4 mg IVP Q6H PRN PRN Reason: NAUSEA AND VOMITING Potassium Chloride (Klor-Con 10) 10 meq PO DAILY [facility] Last Admin: 11/29/19 10:12 Dose: 10 meq Documented by: Discharge Plan Discharge Patient Disposition: Xfer Other Condition: Stable Prescriptions: Continued atorvastatin 40 mg Tablet 40 mg PO BEDTIME Qty: 30 RF: 1 acetaminophen 325 mg Tablet 650 mg PO Q6H PRN (Reason: Mild/Mod Pain Or Temp >/= 101) Qty: 120 RF: 0 potassium chloride 10 mEq Tablet Extended Release 10 meq PO DAILY Qty: 30 RF: 0 clopidogrel 75 mg Tablet 75 mg PO DAILY Qty: 30 RF: 1 aspirin 81 mg Tablet,Delayed Release (Dr/Ec) 81 mg PO DAILY Qty: 30 RF: 1 Nitrostat 0.4 mg Tablet, Sublingual 0.4 mg sublingual Q5M PRN (Reason: Chest Pain) Qty: 1 RF: 0 furosemide 20 mg Tablet 20 mg PO DAILY@0800 Qty: 30 RF: 0 Ventolin HFA 90 mcg/actuation Hfa Aerosol Inhaler 2 puff inhalation Q6H PRN (Reason: Shortness Of Breath) Qty: 18 RF: 1 carvedilol 3.125 mg tablet 3.125 mg PO BID Qty: 60 RF: 1 losartan 25 mg tablet 25 mg PO DAILY Qty: 30 RF: 0 Discharge Orders: Discharge Order (Routine); Ordered 11/29/19 Ordered By: Trini Hernandez Discharge Diet: Cardiac Discharge Activity: Increase activity as tolerated Transfer Attestations Time Spent in Transfer Care*: greater than 30 min Specific Discharge Activities: Specific discharge activities: educating patient, discussing with pcp/other providers, discussing with test case developer/social workers/dc planners, documenting/other paperwork and evaluating patient/reviewing data Status at Transfer: Cognitive status at transfer: cognitively intact, Behavioral status at transfer: cooperative, Functional status at transfer: independent ambulation Overall status at transfer: patient is not back to baseline Quality Metrics Clinical Quality Measures: During this hospital stay, did patient experience: None Coding Level of Care Code 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
--- NOTE | 2019-11-29 16:09 | PC.NURSE ---
transferred to [facility] on amiodarone and heparin. report called to jerri on 3e. at [facility]
--- NOTE | 2019-12-01 16:01 | PC.RESP ---
SMOKING CESSATION INFORMATION SENT TO PATIENT.
== END 2019-11-29 16:10 | disposition short-term general hospital (02) | DRG 302 ==
LOC: ER 01:44 → ICU 02:40
PROVIDERS: Emergency Medicine; Internal Medicine Cardiovascular Disease; Admitting Provider Internal Medicine; Visit Provider Family Medicine
DX: I25.110 Atherosclerotic heart disease of native coronary artery with unstable angina pectoris (principal); I50.43 Acute on chronic combined systolic (congestive) and diastolic (congestive) heart failure; J81.0 Acute pulmonary edema; N17.9 Acute kidney failure, unspecified; N18.2 Chronic kidney disease, stage 2 (mild); I25.5 Ischemic cardiomyopathy; Z95.5 Presence of coronary angioplasty implant and graft; Z79.82 Long term (current) use of aspirin; F17.210 Nicotine dependence, cigarettes, uncomplicated; E78.5 Hyperlipidemia, unspecified; I35.0 Nonrheumatic aortic (valve) stenosis; T45.526A Underdosing of antithrombotic drugs, initial encounter; Z91.120 Patient's intentional underdosing of medication regimen due to financial hardship; Y92.009 Unspecified place in unspecified non-institutional (private) residence as the place of occurrence of the external cause; R00.0 Tachycardia, unspecified
CPT/HCPCS: 12345; 36415; 71045; 80053; 83735; 83880; 84484; 85025; 85049; 85730; 93005; 93308; 94660; 96375; 99284; J0282; J1644; J1940; J2270; J2405; J2765; J3490; J7030; J7050; J7060

== ENCOUNTER 2020-08-22 23:32 | Inpatient (IN) | payer MEDICAID, SELFPAY ==
--- NOTE | 2020-08-22 23:35 | XR_ITS ---
WS: [id number] Portable AP upright chest, 08/22/2020 Clinical Data: sob Comparison: Portable chest, 11/29/2019. Findings: No nodules, masses or effusions are seen. The heart is slightly enlarged. The pulmonary vas cularity is not increased. No pneumonia or pneumothorax is seen. Minimal bibasilar opacities are pres ent which could represent atelectasis and/or pneumonia. Midline sternotomy sutures are present. XR/XR chest 1V portable [id number] Impression: 1. Cardiomegaly. 2. Minimal bilateral pulmonary basilar opacities which could represent atelecta sis and/or pneumonia.
--- NOTE | 2020-08-22 23:35 | ECG_ITS ---
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 Measurements Intervals [place] Rate: 41 P: VA: QRS: 118 QRSD: 130 T: 202 QT: 530 QTc: 438 Interpretive Statements SINUS RHYTHM WITH THIRD-DEGREE HEART BLOCK POSSIBLE RIGHT VENTRICULAR HYPERTROPHY [SOME/ALL OF: PROMINENT R IN V1, LATE TRANSITION, RAD, EBONIE, SSS] INFERIOR MYOCARDIAL INFARCTION [40+ ms Q WAVE AND/OR ST/T ABNORMALITY IN II/aVF], OF INDETERMINATE AGE ANTEROLATERAL MYOCARDIAL INFARCTION [40+ ms Q WAVE IN I/aVL/V3-V6], OF INDETERMINATE AGE Nonspecific T wave changes Compared to ECG 11/29/2019 03:10:40 Myocardial infarct finding now present Left bundle-branch block no longer present Electronically Signed On 08-23-2020 20:57:22 CDT by Jesse Galicia M.D. [id number]
[2020-08-22 23:38] VITALS: BP 198/79; PULSE 42; RESP 26; TEMP 36.4; O2SAT 96; BMI 20.5
[2020-08-22 23:48] LABS: Basophils # 0.1 10^3/uL (0.0-0.1); Basophils % 0.5 %; Eosinophils # 0.1 10^3/uL (0.0-0.8); Eosinophils % 1.4 %; Hematocrit 47.7 % (42.0-52.0); Hemoglobin 14.7 g/dL (11.7-16.6); Lymphocytes # 2.7 10^3/uL (0.8-4.8); Mean Corpuscular HGB Conc 30.8 g/dL (30.0-36.0); Mean Corpuscular Hemoglobin 24.7 pg (28.0-34.0); Mean Platelet Volume 10.7 fL (7.4-10.4); Monocytes # 0.7 10^3/uL (0.2-0.9); Monocytes % 7.4 %; Neutrophils # 6.04 10^3/uL (1.8-7.7); Neutrophils % 62.4 %; Nucleated Red Blood Cells % 0 %; Platelet Count 278 10^3/cmm (130-400); Red Blood Count 5.96 10^6/uL (4.1-5.3); Red Cell Distribution Width 15.3 % (12.1-15.1); White Blood Count 9.7 10^3/uL (4.0-10.0)
--- NOTE | 2020-08-22 23:55 | ED_ITS ---
HPI - SOB/Dyspnea General: Chief Complaint: Shortness of Breath/Dyspnea Stated Complaint: CHEST PAIN DIFFICULTY BREATHING Time Seen by Provider: 08/22/20 23:34 Source: patient Mode of arrival: ambulatory Limitations: no limitations History of Present Illness: HPI Narrative: 49-year-old male has history of coronary disease with stent placement a year ago along with an aortic valve replacement. He states that over the last week he has had a cough along with shortness of breath and wheezing. Feels like his allergies have been getting to him he is also a chronic smoker. He states he is never been diagnosed with COPD but is told he had bronchitis in the past and had a rescue inhaler later that he is ran out of recently. He states he started having some chest pain with his cough. He denies any nausea or diaphoresis. Denies any pain currently at rest. Associated symptoms: Reports chest pain; Deny abdominal pain, fever(s), nausea or vomiting Review of Systems Const: Denies: fever(s), chills, body aches or change in appetite Eyes: Denies: blurry vision or eye discomfort ENMT: Denies: throat pain or dental pain Card: Reports: chest pain Resp: Reports: dyspnea, non-productive cough and wheezing GI: Denies: abdominal pain, nausea, vomiting or diarrhea : Denies: dysuria Musc: Denies: neck pain or back pain Skin/Breast: Denies: rash Neuro: Denies: headache(s) Psych: Denies: depression Luís/Lymph: Denies: easy bruising All/Imm: Denies: urticaria PFSH ED PFSH: Medical History Acute on chronic systolic heart failure CAD (coronary artery disease) LAD stent placement 09/20/2019 Combined congestive systolic and diastolic heart failure -Clinically decompensated as evidenced by shortness of breath, dyspnea on exertion, BNP elevation at 3920 -Limited echo shows worsening EF, dropped from 30 to 35% to 20% today -received dose of IV lasix this AM per Dr. Grayson CastilloVSSrikanth; continue to monitor -currently requiring BiPAP -close monitoring of respiratory status Critical aortic valve stenosis -Valve area 0.45 cm? on 09/19/2019 -referred to [facility]. Peralta at [facility] [place] for [place] of possible TAVR; reportedly pending scheduling of surgery Dyslipidemia -on statin Elevated hemoglobin A1c Ischemic cardiomyopathy -Due to noted drop in ejection fraction had cardiac cath done during last visit in September and requires PCI of LAD lesion -worsening EF per limited Echo today -apparently ran out of medication about 10-14 days ago; resume ASA, Plavix, statin, BB, ARB Left bundle branch block Nicotine dependence -chronic smoker, 1 PPD Pulmonary edema V-tach Surgical History History of heart artery stent Distal LAD, 09/20/2019 Family History Father CAD (coronary artery disease), Onset Age: 32 His father of myocardial infarction in his 70s. He had open heart surgery. Brother CAD (coronary artery disease), Onset Age: 40 Patient has 4 brothers and all of them had a heart attack in their 40s and 50s. Grandfather Stroke Had a CVA? Social History Smoking and tobacco status: heavy tobacco smoker cigarettes [ Other cigarette details: 1 pack/day for last 20 years ] Household members: spouse Housing: House Physical Exam Const: COMMON NORMALS: no acute distress, patient oriented x3 and healthy appearing HENMT: COMMON NORMALS: normocephalic and atraumatic HEAD & SCALP: normocephalic and atraumatic Eye: COMMON NORMALS: Equal, round and reactive pupils present and EOMs intact bilaterally PUPIL: Yes Equal, round and reactive pupils present Neck/C-Spine: COMMON NORMALS: full ROM and supple Chest: COMMONS NORMALS: normal inspection of the chest and normal palpation of entire chest wall Resp: COMMON NORMALS: normal respiratory effort, No retractions and No use of accessory muscles AUSCULTATION: wheezes Cardio: COMMON NORMALS: regular rate, regular rhythm and No murmurs present (Cardio) RATE: regular rate RHYTHM: regular rhythm GI: COMMON NORMALS: Normal to inspection, nondistended, normoactive bowel sounds present, Soft to palpation, non-tender and no masses PALPATION: Yes Soft to palpation Extremity: COMMON NORMALS: normal to inspection and full ROM Neuro: COMMON NORMALS: patient oriented x3, moves all extremities and no focal motor deficits Psych: COMMON NORMALS: mental status grossly normal, Normal thought process present and cooperative THOUGHT PROCESS: Normal thought process present Skin: COMMON NORMALS: no rashes or lesions noted and no wounds GENERAL SKIN EXAM: no rashes or lesions noted Course Vital Signs: Vital signs: Vital Signs Temperature 97.6 F 08/22/20 23:38 Pulse Rate 38 L 08/23/20 01:23 Respiratory Rate 19 H 08/23/20 01:23 Blood Pressure 179/85 08/23/20 01:23 Pulse Oximetry 95 08/23/20 01:23 MDM - SOB/Dyspnea MDM Narrative: Medical decision making narrative: Emory presents here with dyspnea likely from congestive heart failure. Patient was found to be in a third-degree heart block here. He is stable with it and his blood pressures been normal. I spoke to Dr. Galicia of cardiology who is consulted. Patient has no signs of pulmonary embolism. He has no signs of acute coronary syndrome Lab Data: Labs: Lab Results 08/22/20 08/22/20 08/22/20 Range/Units 23:45 23:45 23:45 WBC 9.7 (4.0-10.0) 10^3/ uL RBC 5.96 H (4.1-5.3) 10^6/u L Hgb 14.7 (11.7-16.6) g/dL Hct 47.7 (42.0-52.0) % MCV 80.0 (80-94) fL MCH 24.7 L (28.0-34.0) pg MCHC 30.8 (30.0-36.0) g/dL RDW 15.3 H (12.1-15.1) % Plt Count 278 (130-400) 10^3/c mm MPV 10.7 H (7.4-10.4) fL Neut % (Auto) 62.4 % Lymph % (Auto) 28.0 % [place] % (Auto) 7.4 % Eos % (Auto) 1.4 % Baso % (Auto) 0.5 % Neut # (Auto) 6.04 (1.8-7.7) 10^3/u L Lymph # (Auto) 2.7 (0.8-4.8) 10^3/u L [place] # (Auto) 0.7 (0.2-0.9) 10^3/u L Eos # (Auto) 0.1 (0.0-0.8) 10^3/u L Baso # (Auto) 0.1 (0.0-0.1) 10^3/u L Nucleated RBC % (a uto) 0 % Nucleated RBCs # 0.0 /100WBC PT 21.60 H (12.1-14.9) SECO NDS INR 1.81 H (0.8-1.2) Sodium 140 (136-145) mmol/L Potassium 4.6 (3.5-5.1) mmol/L Chloride 105 (98-107) mmol/L Carbon Dioxide 24 (22-29) mmol/L Anion Gap 15.6 (5-19) BUN 21 H (6-20) mg/dL Creatinine 1.1 (0.7-1.2) mg/dL GFR Calculation 71.4 L (90-130) mL/min Glucose 104 (65-115) mg/dL Calculated Osmolal ity 293 (285-295) mOsm/k g Calcium 8.8 (8.5-10.5) mg/dL Total Bilirubin 0.6 (0.15-1.2) mg/dL AST 28 (0-40) U/L ALT 39 (0-41) U/L Alkaline Phosphata se 311 H (40-130) IU/L Troponin T Baselin e (0-15) ng/L Troponin T 120 Min [place] (0-15) ng/L Delta Troponin T (0-10) ABS# NT-Pro-B Natriuret Pep 26385 H (0-125) pg/mL Total Protein 7.3 (6.6-8.7) g/dL Albumin 4.1 (3.5-5.2) g/dL Globulin 3.2 (1.3-4.6) g/dL 08/22/20 08/23/20 Range/Units 23:45 01:29 WBC (4.0-10.0) 10^3/ uL RBC (4.1-5.3) 10^6/u L Hgb (11.7-16.6) g/dL Hct (42.0-52.0) % MCV (80-94) fL MCH (28.0-34.0) pg MCHC (30.0-36.0) g/dL RDW (12.1-15.1) % Plt Count (130-400) 10^3/c mm MPV (7.4-10.4) fL Neut % (Auto) % Lymph % (Auto) % [place] % (Auto) % Eos % (Auto) % Baso % (Auto) % Neut # (Auto) (1.8-7.7) 10^3/u L Lymph # (Auto) (0.8-4.8) 10^3/u L [place] # (Auto) (0.2-0.9) 10^3/u L Eos # (Auto) (0.0-0.8) 10^3/u L Baso # (Auto) (0.0-0.1) 10^3/u L Nucleated RBC % (a uto) % Nucleated RBCs # /100WBC PT (12.1-14.9) SECO NDS INR (0.8-1.2) Sodium (136-145) mmol/L Potassium (3.5-5.1) mmol/L Chloride (98-107) mmol/L Carbon Dioxide (22-29) mmol/L Anion Gap (5-19) BUN (6-20) mg/dL Creatinine (0.7-1.2) mg/dL GFR Calculation (90-130) mL/min Glucose (65-115) mg/dL Calculated Osmolal ity (285-295) mOsm/k g Calcium (8.5-10.5) mg/dL Total Bilirubin (0.15-1.2) mg/dL AST (0-40) U/L ALT (0-41) U/L Alkaline Phosphata se (40-130) IU/L Troponin T Baselin e 40 H (0-15) ng/L Troponin T 120 Min [place] 37.61 H (0-15) ng/L Delta Troponin T -2.39 L (0-10) ABS# NT-Pro-B Natriuret Pep (0-125) pg/mL Total Protein (6.6-8.7) g/dL Albumin (3.5-5.2) g/dL Globulin (1.3-4.6) g/dL Imaging Data^: CXR: Attestation: I personally reviewed and interpreted this imaging study as follows: My impression: no acute abnormality CT Chest: Attestation: I personally reviewed and interpreted this imaging study as follows: Radiologist's impression: [facility] [address] [address] Scan Report Signed Patient: Emory Real Unit #: [id number] : 1970 Age/Sex: 49 / M ADM Date: 08/22/20 Loc: ER Room/Bed: Attending Dr: Ordering Provider/Ordering MD: Bryant Carey MD Date of Service: 08/23/20 Procedure(s): CT angio chest PE protcl [id number] Accession Number(s): [id number] Report Number: [id number] PROCEDURE INFORMATION: Exam: CTA Chest With Contrast Exam date and time: 08/23/2020 12:28 AM Age: 49 years old Clinical indication: Shortness of breath; Prior surgery; Surgery type: Aortic valve; Patient HX: Chest pain with SOB. Elevated pt/inr. TECHNIQUE: Imaging protocol: Computed tomographic angiography of the chest with contrast. 3D rendering (Not supervised by radiologist): MIP and/or 3D reconstructed images were created by the technologist. Radiation optimization: All CT scans at this facility use at least one of these dose optimization techniques: automated exposure control; mA and/or kV adjustment per patient size (includes targeted exams where dose is matched to clinical indication); or iterative reconstruction. Contrast material: OMNI 350; Contrast volume: 95 ml; Contrast route: INTRAVENOUS (IV); COMPARISON: CT angio chest PE protcl [id number] 09/17/2019 2:54 PM RADIATION DOSE METRICS: Total DLP (mGy-cm): 590.21 FINDINGS: Pulmonary arteries: Normal. No pulmonary emboli. Aorta: Unremarkable. No aortic aneurysm. No aortic dissection. Veins: There is some reflux contrast into the inferior vena cava and hepatic veins, finding that could represent mild cardiac decompensation. Lungs: Some strandy and hazy opacities are present in the lower hemithoraces bilaterally and there is some mild bronchial wall thickening seen, findings that could represent pulmonary edema although superimposed bilateral basilar pneumonia cannot be entirely excluded. Pleural spaces: There are moderate bilateral pleural effusions. Heart: Unremarkable. No cardiomegaly. No pericardial effusion. Lymph nodes: Unremarkable. No enlarged lymph nodes. Bones/joints: Unremarkable. No acute fracture. Soft tissues: Unremarkable. CT/CT angio chest PE protcl [id number] IMPRESSION: 1. There is no evidence for pulmonary emboli. 2. Bilateral pleural effusions with superimposed strandy and hazy opacities and mild bronchial wall thickening, findings that may represent mild pulmonary edema. There is mild reflux of contrast into the inferior vena cava and hepatic veins, finding that may represent mild cardiac decompensation as well. Superimposed bilateral basilar pneumonia cannot be entirely excluded. EKG Data^: EKG 1: Attestation: I personally reviewed and interpreted this EKG as follows: EKG Interpretation Date: 08/22/20 EKG interpretation time: 23:49 Interpretation: third degree heart block heart rate [address] or T wave abnormalities QRS 135 QTc 444 EKG 2: Attestation: I personally reviewed and interpreted this EKG as follows: EKG Interpretation Date: 08/23/20 EKG interpretation time: 00:54 Interpretation: third degree heart block hr [address] or t wave abnormalities qrs 137 qtc 468 Critical Care Time Critical Care Time: Critical Care Time: Yes Total Critical Care Time: 35 Attestation: This case had a high probability of a clinically significant, sudden, or life threatening deterioration of this patient's condition which required my full and direct attention, intervention and personal management. Discharge Plan Discharge Patient Disposition: Admitted As Inpatient Clinical Impression: Third degree heart block Congestive heart failure Qualifiers: Heart failure type: unspecified Heart failure chronicity: acute Qualified Code(s): I50.9 - Heart failure, unspecified Dyspnea Qualifiers: Dyspnea type: unspecified Qualified Code(s): R06.00 - Dyspnea, unspecified Condition: Stable Coding Level of Care Code ED Supervisor Quality Control for [facility] Fwd Exam Comprehensive
[2020-08-23] VITALS (17 sets, daily range): BP systolic 132–184; BP diastolic 56–103; PULSE 38–87; RESP 12–27; TEMP 36.6–37; O2SAT 91–98
[2020-08-23 00:01] LABS: INR 1.81 (0.8-1.2)
[2020-08-23 00:09] LABS: Troponin(5th) Baseline 40 ng/L (0-15)
[2020-08-23 00:17] LABS: Alanine Aminotransferase 39 U/L (0-41); Albumin Level 4.1 g/dL (3.5-5.2); Alkaline Phosphatase 311 IU/L (40-130); Anion Gap 15.6 (5-19); Aspartate Amino Transferase 28 U/L (0-40); Blood Urea Nitrogen 21 mg/dL (6-20); Calcium 8.8 mg/dL (8.5-10.5); Carbon Dioxide 24 mmol/L (22-29); Chloride 105 mmol/L (98-107); Globulin 3.2 g/dL (1.3-4.6); Glomerular Filtration Rate 71.4 mL/min (90-130); Glucose 104 mg/dL (65-115); NT Pro B Type Natriuretic Pept 11190 pg/mL (0-125); Osmolality Calculated 293 mOsm/kg (285-295); Potassium 4.6 mmol/L (3.5-5.1); Sodium 140 mmol/L (136-145); Total Bilirubin 0.6 mg/dL (0.15-1.2); Total Protein 7.3 g/dL (6.6-8.7)
--- NOTE | 2020-08-23 00:26 | CTR_ITS ---
PROCEDURE INFORMATION: Exam: CTA Chest With Contrast Exam date and time: 08/23/2020 12:28 AM Age: 49 years old Clinical indication: Shortness of breath; Prior surgery; Surgery type: Aortic valve; Patient HX: Chest pain with SOB. Elevated pt/inr. TECHNIQUE: Imaging protocol: Computed tomographic angiography of the chest with contrast. 3D rendering (Not supervised by radiologist): MIP and/or 3D reconstructed images were created by the technologist. Radiation optimization: All CT scans at this facility use at least one of these dose optimization techniques: automated exposure control; mA and/or kV adjustment per patient size (includes targeted exams where dose is matched to clinical indication); or iterative reconstruction. Contrast material: OMNI 350; Contrast volume: 95 ml; Contrast route: INTRAVENOUS (IV); COMPARISON: CT angio chest PE protcl [id number] 09/17/2019 2:54 PM RADIATION DOSE METRICS: Total DLP (mGy-cm): 590.21 FINDINGS: Pulmonary arteries: Normal. No pulmonary emboli. Aorta: Unremarkable. No aortic aneurysm. No aortic dissection. Veins: There is some reflux contrast into the inferior vena cava and hepatic veins, finding that could represent mild cardiac decompensation. Lungs: Some strandy and hazy opacities are present in the lower hemithoraces bilaterally and there is some mild bronchial wall thickening seen, findings that could represent pulmonary edema although superimposed bilateral basilar pneumonia cannot be entirely excluded. Pleural spaces: There are moderate bilateral pleural effusions. Heart: Unremarkable. No cardiomegaly. No pericardial effusion. Lymph nodes: Unremarkable. No enlarged lymph nodes. Bones/joints: Unremarkable. No acute fracture. Soft tissues: Unremarkable. CT/CT angio chest PE protcl [id number] IMPRESSION: 1. There is no evidence for pulmonary emboli. 2. Bilateral pleural effusions with superimposed strandy and hazy opacities and mild bronchial wall thickening, findings that may represent mild pulmonary edema. There is mild reflux of contrast into the inferior vena cava and hepatic veins, finding that may represent mild cardiac decompensation as well. Superimposed bilateral basilar pneumonia cannot be entirely excluded. Radiation Dose CTDIVOL = (mGy): DLP = 590.21 (mGy-cm)
[2020-08-23] MEDS: ipratropium-albuterol 3 mL Neb INHALATION (00:37)
[2020-08-23] MEDS: morphine 4 mg/mL SDV 1 mL IVP (00:45)
[2020-08-23] MEDS: ondansetron 2 mg/ML SDV 2 mL 4 MG IVP (00:45)
[2020-08-23] MEDS: iohexol 350 mg/mL 100 mL Btl IV (01:08)
[2020-08-23] MEDS: FUROsemide 10 mg/mL SDV 4mL 40 MG IVP (01:21)
--- NOTE | 2020-08-23 01:35 | ECG_ITS ---
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 Measurements Intervals [place] Rate: 40 P: OR: QRS: 111 QRSD: 187 T: -82 QT: 546 QTc: 446 Interpretive Statements Sinus rhythm with third-degree heart block Possible junctional escape rhythm. Nonspecific IVCD. Nonspecific ST-T changes INTERPRETATION BASED ON A DEFAULT AGE OF 40 YEARS Compared to ECG 11/29/2019 03:10:40 Idioventricular rhythm now present Sinus rhythm no longer present Left bundle-branch block no longer present Electronically Signed On 08-23-2020 21:07:52 CDT by Jesse Galicia M.D. [email or web address] [email or web address]/store/[id number] f
[2020-08-23 01:56] LABS: Troponin 5 2HR 37.61 ng/L (0-15); Troponin 5 2HR Delta -2.39 ABS# (0-10)
--- NOTE | 2020-08-23 02:01 | PM.HP ---
Providers/Chief Complaint Chief Complaint: CHEST PAIN DIFFICULTY BREATHING History of Present Illness Emory Real is a 49 year old male who has history of aortic valve replacement last year by at [facility], currently on Coumadin, history of left bundle branch block, ischemic cardiomyopathy EF 30 to 35% presenting today with chief complaint of shortness of breath and chest pain. Patient is stating that he is leading a sedentary lifestyle after his aortic valve replacement, for last 1-1/2 weeks he has been experiencing shortness of breath, he is endorsing orthopnea, PND, dyspnea on exertion, does not use oxygen at baseline, 24 hours before his presentation to the ER he started experiencing left-sided chest discomfort which she is describing as pressure-like sensation which only last for 1 to 2 minutes and resolved spontaneously, he did not notice any fever, diaphoresis, nausea, vomiting, dizziness or syncopal events. Because of worsening of shortness of breath he decided to come to the hospital for further evaluation. Diagnostics in the ER revealed third-degree heart block, hypertensive urgency, afebrile,, no signs of pneumonia however chest x-ray showing mild pulmonary edema, worsening BNP, INR 1.8, CTA rule out PE At the time my evaluation patient was not complaining of active chest pain or shortness of breath he was laying comfortably in his bed with hypertensive episode EKG reviewed by Dr. Galicia who recommended pacemaker placement in the morning and monitoring overnight, will admit to CSU with pacer pads, avoid atropine and use temporary pacemaker if needed overnight In the ER he was given 40 mg IV Lasix along DuoNeb and morphine 4 mg Review of Systems Const: Denies: fever(s) or chills Eyes: Denies: change in vision ENMT: Denies: throat pain Card: Reports: chest pain, swelling of feet/ankles, dyspnea on exertion and orthopnea Resp: Reports: dyspnea and non-productive cough GI: Denies: abdominal pain : Denies: flank pain Musc: Denies: neck pain Skin/Breast: Denies: rash Neuro: Denies: headache(s) Psych: Denies: anxiety Endo: Denies: polyuria Luís/Lymph: Denies: easy bruising All/Imm: Denies: urticaria Medications/Allergies Home Medications Medication Instructions Recorded Confirmed Last Taken Type acetaminophen 650 mg PO Q6H PRN #120 tab 09/21/19 Unknown Rx albuterol sulfate [Ventolin HFA] 2 puff INHALATION Q6H PRN #18 gm 09/21/19 Unknown Rx atorvastatin 40 mg PO BEDTIME #30 tab 09/21/19 Unknown Rx carvedilol 3.125 mg PO BID #60 tab 09/21/19 Unknown Rx losartan 25 mg PO DAILY #30 tab 09/21/19 Unknown Rx Coumadin PO 05/13/20 05/13/20 Unknown History benzonatate 100 mg capsule 100 mg PO TID PRN #20 cap 05/13/20 05/13/20 Unknown Rx levofloxacin 500 mg tablet 500 mg PO Q24H 7 Days #7 tab 05/13/20 05/13/20 Unknown Rx Allergies Allergy/AdvReac Type Severity Reaction Status Date / Time No Known Allergies Allergy Verified 05/13/20 10:43 PFSH Acute PFSH: Medical History (Updated 08/23/20 @ 03:27 by Charan Hui MD) CAD (coronary artery disease) LAD stent placement 09/20/2019 Combined congestive systolic and diastolic heart failure Critical aortic valve stenosis Dyslipidemia -on statin Elevated hemoglobin A1c Ischemic cardiomyopathy Left bundle branch block Nicotine dependence -chronic smoker, 1 PPD Pulmonary edema Surgical History (Updated 08/23/20 @ 03:27 by Charan Hui MD) Aortic valve replaced History of heart artery stent Distal LAD, 09/20/2019 Family History Father CAD (coronary artery disease), Onset Age: 32 His father of myocardial infarction in his 70s. He had open heart surgery. Brother CAD (coronary artery disease), Onset Age: 40 Patient has 4 brothers and all of them had a heart attack in their 40s and 50s. Grandfather Stroke Had a CVA? Social History Smoking and tobacco status: heavy tobacco smoker cigarettes [ Other cigarette details: 1 pack/day for last 20 years ] Household members: spouse Housing: House Vitals/I&O/Wt Last Vital Signs Temp 97.6 F 08/22/20 23:38 Pulse 38 L 08/23/20 01:23 Resp 19 H 08/23/20 01:23 BP 179/85 08/23/20 01:23 Pulse Ox 95 08/23/20 01:23 Weight last 48 hrs Weight 61.235 kg Physical Exam Narrative: EXAM NARRATIVE: Pleasant cooperative middle-aged male, appears more than stated age Saturating well on room air hypertensive otherwise normal hemodynamics No active chest pain or shortness of breath He was able to lay flat without any active shortness of breath S1, S2 loud aortic valve murmur Clinically does not look fluid overloaded Bilateral breath sounds without active crackles or wheezing mild rhonchi at the bases Abdomen soft nontender bowel sound present Lower extremity no edema gangrene ulcer EOMI, PERRLA No neurological deficit No joint swelling Data : 08/22/20 23:45 08/22/20 23:45 A&P Assessment and plan (1) Congestive heart failure: Status: Acute Qualifiers: Heart failure chronicity: acute Heart failure type: unspecified Qualified Code(s): I50.9 - Heart failure, unspecified (2) Dyspnea: Status: Acute Qualifiers: Dyspnea type: unspecified Qualified Code(s): R06.00 - Dyspnea, unspecified (3) Third degree heart block: Status: Acute (4) Elevated troponin: Status: Acute (5) Acute on chronic systolic heart failure: Status: Acute Additional A&P Information Symptomatic third-degree heart block Last she had aortic valve replacement Complaining of shortness of breath and chest discomfort however not active at the time of my evaluation Will need permanent pacemaker Cardiology Dr. Galicia consulted and updated We will keep him n.p.o. Admit to CSU with pacer pads avoid atropine Currently hypotensive no need of dopamine or epinephrine drip If he becomes symptomatic overnight will activate cardiology Check TSH, stop Coreg Acute CHF exacerbation History of ischemic cardiomyopathy EF 30 to 35% Established coronary disease Troponin not significantly elevated EKG without ischemic or infarct changes however third-degree heart block noted Previous history of left bundle branch block, I will keep him on Lasix 20 mg daily to avoid sudden drop in blood pressure with bradycardia Chest x-ray and CTA reviewed, mild pulmonary edema no PE Severe aortic stenosis status post aortic valve replacement 2019 Hold Coumadin INR 1.8 N.p.o. DVT prophylaxis SCDs, hold Coumadin in anticipation of surgery INR 1.8, after his procedure he will need heparin to bridge with Coumadin, I would avoid adding heparin before surgery as it is 3:30 AM and heparin should be held 4 hours before surgery Full code Patient is an active smoker, will need extensive counseling before discharge as well Attestations Medical Necessity Statement*: Anticipating stay in the hospital cross more than 2 midnights for placement of permanent pacemaker for third-degree heart block which is symptomatic Time Spent in Patient Care: (>than 50% of time spent in counselling and/or direct pt care on unit). 40mins Coding Level of Care Code Acute [employer] Engraver Hand for [facility] Diagnoses Congestive heart failure I50.9 Heart failure chronicity: acute Heart failure type: unspecified Dyspnea R06.00 Dyspnea type: unspecified Third degree heart block I44.2 Elevated troponin R79.89 Acute on chronic systolic heart failure I50.23
--- NOTE | 2020-08-23 05:35 | ECG_ITS ---
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 Measurements Intervals [place] Rate: 39 P: RI: QRS: 116 QRSD: 137 T: 173 QT: 543 QTc: 439 Interpretive Statements Sinus rhythm with third-degree heart block. Possible junctional escape rhythm. Diffuse nonspecific ST-T changes. Nonspecific IVCD. Compared to ECG 08/22/2020 23:49:18 Idioventricular rhythm now present Sinus rhythm no longer present Myocardial infarct finding no longer present Electronically Signed On 08-23-2020 21:08:35 CDT by Jesse Galicia M.D. [id number]
[2020-08-23 06:40] LABS: Basophils % 0.3 %; Eosinophils # 0.2 10^3/uL (0.0-0.8); Eosinophils % 1.6 %; Hematocrit 43.6 % (42.0-52.0); Hemoglobin 13.7 g/dL (11.7-16.6); Lymphocytes % 30.1 %; Mean Corpuscular HGB Conc 31.4 g/dL (30.0-36.0); Mean Corpuscular Hemoglobin 24.8 pg (28.0-34.0); Mean Corpuscular Volume 78.8 fL (80-94); Mean Platelet Volume 10.6 fL (7.4-10.4); Monocytes # 0.7 10^3/uL (0.2-0.9); Monocytes % 7.1 %; Neutrophils # 6.06 10^3/uL (1.8-7.7); Neutrophils % 60.7 %; Nucleated Red Blood Cells % 0 %; Platelet Count 263 10^3/cmm (130-400); Red Blood Count 5.53 10^6/uL (4.1-5.3); Red Cell Distribution Width 15.2 % (12.1-15.1)
[2020-08-23 07:01] LABS: Anion Gap 14.4 (5-19); Blood Urea Nitrogen 21 mg/dL (6-20); Calcium 8.7 mg/dL (8.5-10.5); Carbon Dioxide 26 mmol/L (22-29); Chloride 100 mmol/L (98-107); Glomerular Filtration Rate 71.4 mL/min (90-130); Glucose 106 mg/dL (65-115); Osmolality Calculated 285 mOsm/kg (285-295); Potassium 4.4 mmol/L (3.5-5.1); Sodium 136 mmol/L (136-145)
--- NOTE | 2020-08-23 07:02 | PM.CONSULT ---
Providers/Reason For Consult Consulting Physican/Specialty*: STEVEN Galicia MD/cardiology Reason for Consult*: Patient with third-degree heart block and heart failure Attending Physician: Charan Hui MD History of Present Illness History of Present Illness Emory Real is a 49 year old male with a history of coronary artery disease, status post PCI of the LAD in September 2019, s/p aortic valve replacement in November 2019, now is presenting with complaints of shortness of breath and chest pain. Per the patient, he has been doing okay since his aortic valve surgery up until a week ago when he started having shortness of breath. The shortness of breath was somewhat progressive. Last evening, he started having chest pain. The pain was retrosternal and pressure-like in nature. It was mild to moderate intensity. Because of the persistent pain/discomfort, he decided to come to the hospital. He did not have any associated palpitation or dizziness. No syncopal episodes. No fever or chills. No cough. Had some amount of orthopnea. No abdominal pain. No headache or blurring of vision. He has been compliant with medications. He is on long-term oral anticoagulation with Coumadin. He has a history of atrial fibrillation/wide-complex tachycardia. He was on amiodarone for a while. Apparently he was taken off this medication after the open heart surgery. Details of the surgery is not known at this point. He had a PCI of the LAD in September of last year by Dr. Khanna. He has not had any chest pain since then, up until yesterday. He is known to have cardiomyopathy. His LV ejection fraction was around 20% by echocardiogram in November of last year. Apparently there was no discussion about defibrillator or pacemaker implantation in [place], according to the patient. Review of Systems Narrative: CONSTITUTIONAL: No fever or chills. EYES: No blurring of vision or other visual disturbances lately. ENT: No hoarseness of voice, auditory disturbances or sore throat. CARDIOVASCULAR: As mentioned above. RESPIRATORY: Shortness of breath as mentioned above GASTROINTESTINAL: No hematemesis or melena. GENITOURINARY: No dysuria or hematuria. INTEGUMENTARY: No skin rashes or history of skin cancer. NEURO: No transient ischemic attacks or amaurosis. PSYCHIATRIC: No history of psychosis or major depression. HEMATOLOGIC: No bleeding disorders or significant anemia. ENDOCRINE: No history of polyuria or polydipsia. MUSCULOSKELETAL: No recent joint pain or swelling. ALLERGY/IMMUNOLOGY: As mentioned above. Meds/Allergies Home Medications and Allergies Home Medications Medication Instructions Recorded Confirmed Last Taken Type acetaminophen [Tylenol Extra 1,000 mg PO PRN 08/23/20 08/23/20 Unknown History Strength] warfarin See Rx Instructions .ROUTE .COMPLEX 08/23/20 08/23/20 08/22/20 History Allergies Allergy/AdvReac Type Severity Reaction Status Date / Time No Known Allergies Allergy Verified 08/23/20 08:38 PFSH Acute PFSH: Medical History (Updated 08/23/20 @ 21:53 by Annia Beckham MD) Benign essential hypertension with target blood pressure below 140/90 CAD (coronary artery disease) LAD stent placement 09/20/2019 Combined congestive systolic and diastolic heart failure Dyslipidemia Elevated hemoglobin A1c History of atrial fibrillation Ischemic cardiomyopathy Left bundle branch block Nicotine dependence -chronic smoker, 1 PPD Pulmonary edema Surgical History (Updated 08/23/20 @ 21:55 by Annia Beckham MD) Aortic valve replaced (~11/2019) History of heart artery stent Distal LAD, 09/20/2019 Family History Father CAD (coronary artery disease), Onset Age: 32 His father of myocardial infarction in his 70s. He had open heart surgery. Brother CAD (coronary artery disease), Onset Age: 40 Patient has 4 brothers and all of them had a heart attack in their 40s and 50s. Grandfather Stroke Had a CVA? Social History Smoking and tobacco status: heavy tobacco smoker cigarettes [ Other cigarette details: 1 pack/day for last 20 years ] Household members: spouse Housing: House Vitals/I&O/Wt Last Vital Signs Temp 97.9 F 08/23/20 03:55 Pulse 39 L 08/23/20 04:11 Resp 17 08/23/20 04:11 BP 181/77 08/23/20 03:55 Pulse Ox 93 08/23/20 04:11 Weight last 48 hrs Weight 135 lb Physical Exam Narrative: EXAM NARRATIVE: GENERAL: The patient is alert and oriented times three. Not in any acute distress. HEENT: No significant pallor, icterus or lymphadenopathy. The pupils are symmetrical. Oral cavity: There are no mucous membrane lesions. Funduscopic examination: Fundus is not visualized NECK: Trachea appears to be central. No masses noted. No JVD or thyromegaly appreciated. No carotid bruit. RESPIRATORY: Chest is symmetrical. No intercostals muscle retraction or any accessory muscle activation. There is no chest wall tenderness. Breath sounds are heard bilaterally. No rales or rhonchi heard. No evidence of any consolidation. The sternotomy site appears to have healed well BREASTS: Deferred. HEART: The aortic valve opening and closing sounds are normal. Ejection systolic murmur of grade 3/6 in the aortic area. No diastolic murmurs. No pericardial rub. ABDOMEN: No vessel pulsations or distention. No tenderness. No organomegaly appreciated. No abdominal bruit. Bowel sounds are normally heard. : Deferred. RECTAL: Deferred. LYMPHATIC: No lymphadenopathy noted in the neck or groin. EXTREMITIES: No edema or cyanosis. No clubbing. The pulses are symmetrical bilaterally. The radial, femoral, dorsalis pedis and the posterior tibial pulses are palpated and found to be in good volume and amplitude. MUSCULOSKELETAL: No acute joint deformities or swelling SKIN: There are no significant scars or skin rash noted. NEUROPSYCHIATRIC: The patient is alert and oriented x3. Appears to be in a good mood. The higher functions are grossly within normal limits. No tremors or rigidity noted. Data Labs: Other Labs: Laboratory Last Values WBC 10.0 10^3/uL (4.0 -10.0) 08/23/20 06:31 RBC 5.53 10^6/uL (4.1 -5.3) H 08/23/20 06:31 Hgb 13.7 g/dL (11.7-1 6.6) 08/23/20 06:31 Hct 43.6 % (42.0-52.0 ) 08/23/20 06:31 MCV 78.8 fL (80-94) L 08/23/20 06:31 MCH 24.8 pg (28.0-34. 0) L 08/23/20 06:31 MCHC 31.4 g/dL (30.0-3 6.0) 08/23/20 06:31 RDW 15.2 % (12.1-15.1 ) H 08/23/20 06:31 Plt Count 263 10^3/cmm (130 -400) 08/23/20 06:31 MPV 10.6 fL (7.4-10.4 ) H 08/23/20 06:31 Neut % (Auto) 60.7 % 08/23/20 06:31 Lymph % (Auto) 30.1 % 08/23/20 06:31 [place] % (Auto) 7.1 % 08/23/20 06:31 Eos % (Auto) 1.6 % 08/23/20 06:31 Baso % (Auto) 0.3 % 08/23/20 06:31 Neut # (Auto) 6.06 10^3/uL (1.8 -7.7) 08/23/20 06:31 Lymph # (Auto) 3.0 10^3/uL (0.8- 4.8) 08/23/20 06:31 [place] # (Auto) 0.7 10^3/uL (0.2- 0.9) 08/23/20 06:31 Eos # (Auto) 0.2 10^3/uL (0.0- 0.8) 08/23/20 06:31 Baso # (Auto) 0.0 10^3/uL (0.0- 0.1) 08/23/20 06:31 Nucleated RBC % (a uto) 0 % 08/23/20 06:31 Nucleated RBCs # 0.0 /100WBC 08/23/20 06:31 PT 21.60 SECONDS (12 .1-14.9) H 08/22/20 23:45 INR 1.81 (0.8-1.2) H 08/22/20 23:45 Sodium 136 mmol/L (136-1 45) 08/23/20 06:31 Potassium 4.4 mmol/L (3.5-5 .1) 08/23/20 06:31 Chloride 100 mmol/L (98-10 7) 08/23/20 06:31 Carbon Dioxide 26 mmol/L (22-29) 08/23/20 06:31 Anion Gap 14.4 (5-19) 08/23/20 06:31 BUN 21 mg/dL (6-20) H 08/23/20 06:31 Creatinine 1.1 mg/dL (0.7-1. 2) 08/23/20 06:31 GFR Calculation 71.4 mL/min (90-1 30) L 08/23/20 06:31 Glucose 106 mg/dL (65-115 ) 08/23/20 06:31 Calculated Osmolal ity 285 mOsm/kg (285- 295) 08/23/20 06:31 Calcium 8.7 mg/dL (8.5-10 .5) 08/23/20 06:31 Total Bilirubin 0.6 mg/dL (0.15-1 .2) 08/22/20 23:45 AST 28 U/L (0-40) 08/22/20 23:45 ALT 39 U/L (0-41) 08/22/20 23:45 Alkaline Phosphata se 311 IU/L (40-130) H 08/22/20 23:45 Troponin T Baselin e 40 ng/L (0-15) H 08/22/20 23:45 Troponin T 120 Min lauri 37.61 ng/L (0-15) H 08/23/20 01:29 Delta Troponin T -2.39 ABS# (0-10) L 08/23/20 01:29 Troponin T Hi Sens 6Hr 42.30 ng/L (0-15) H 08/23/20 06:31 Troponin T Hi Sens 6Hr Delta 2.30 ng/L (0-12) 08/23/20 06:31 NT-Pro-B Natriuret Pep 32681 pg/mL (0-12 5) H 08/22/20 23:45 Total Protein 7.3 g/dL (6.6-8.7 ) 08/22/20 23:45 Albumin 4.1 g/dL (3.5-5.2 ) 08/22/20 23:45 Globulin 3.2 g/dL (1.3-4.6 ) 08/22/20 23:45 TSH 4.00 uIU/mL (0.27 -4.20) 08/22/20 23:45 EKG from 08/23/2020 revealed sinus rhythm with third-degree heart block. Possible junctional escape rhythm at the rate of 39 bpm. The sinus rate is 68 bpm Echo on 11/27/2019 This is a 2D examination only. The ventricle is slightly enlarged. There is thinning of the mid to distal anterior wall and apex. Otherwise there is mild concentric left ventricular hypertrophy. There are wall motion disturbances noted to include severe hypokinesis of the mid to distal anterior wall and apex and moderate hypokinesis of the inferior, posterior and lateral liu. This is in addition to global hypokinesis. The ejection fraction is in the 20% range. Diastolic function was not assessed. Structurally normal trileaflet aortic valve. Severe aortic valve calcification. There is restriction of leaflet motion and most certainly aortic stenosis though the valve was not interrogated. The previous study done 09/19/2019 revealed similar wall motion disturbances and findings of the left ventricle. The ejection fraction is likely slightly lower now then was noted on the previous study. Otherwise, there has been no change. Cardiac catheterization on 09/17/2019: My impression: The left anterior descending artery is a medium caliber elongated vessel, wrap around the LV apex. There is a 60 to 70% tubular lesion at the mid segment of the artery, right after the first septal lamp mechanic. Rest of the vessel was found to have mild diffuse disease. The left circumflex artery is a medium caliber dominant vessel which gives off multiple obtuse marginal branches. Mild diffuse disease was noted in the first and second obtuse marginal branches. The third obtuse marginal branch appears to be trifurcating. One of the trifurcation branches was found to be subtotally occluded. Left to left collaterals were noted filling up this vessel. The right coronary artery is a small calibered nondominant vessel with a moderate to severe ostial narrowing. No other significant stenotic lesions were noted. Echo on 09/19/2019 My impression: 1. Mildly dilated LV cavity with a diminished ejection fraction of 30 to 35%. 2. Multiple wall motion normalities as mentioned above. Features of grade 3 left ventricular diastolic dysfunction 3. Moderately dilated left atrium. 4. Critical aortic valve stenosis with a valve area of 0.45 cm squared.(Peak velocity of 4.69 m/s with a peak gradient of 84 and a mean gradient of 43 mmHg) 5. Mild aortic and mitral regurgitation. 6. Estimated pulmonary artery peak systolic pressure 25 mmHg 7. No intracardiac masses or any pericardial effusion 8. Normal RV size and ejection fraction. No similar previous studies are available for comparison A&P Assessment and plan (1) Third degree heart block: Patient apparently has not been take any medications to cause the heart block. There is no reversible causes for the heart block at this time. He requires a permanent pacer implantation, for further management. However because of the cardiomyopathy, he also may need a prophylactic defibrillator. His LV ejection fraction following the open heart surgery is not known. We may go ahead and do a repeat echocardiogram to follow-up on the ejection fraction. Based on the findings, further recommendations will be made. Status: Acute (2) Congestive heart failure: Patient may be carefully treated with IV diuretics. He has significant improvement of the shortness of breath, since coming to the hospital. Status: Chronic Qualifiers: Heart failure chronicity: acute Heart failure type: unspecified Qualified Code(s): I50.9 - Heart failure, unspecified (3) Ischemic cardiomyopathy: As mentioned above. Status: Chronic (4) Atherosclerotic heart disease [place] coronary artery w/angina pectoris: Patient chest pain improved after the IV Lasix. whether the heart failure was causing the chest pain or not he is no clear at this time. Since there is no evidence of myocardial injury, most likely chest discomfort could have been related to the decompensated heart failure. Status: Chronic Qualifiers: [place] vs. transplanted heart: [place] heart Qualified Code(s): I25.119 - Atherosclerotic heart disease of [place] coronary artery with unspecified angina pectoris (5) Benign essential hypertension with target blood pressure below 140/90: Currently the blood pressure is a stage II. I may go up on the dose of the losartan to 50 mg p.o. now and daily. Status: Chronic (6) History of atrial fibrillation: Patient currently has no atrial fibrillation. He was admitted to the hospital in November with features of atrial fibrillation with rapid ventricular rate and aberrant ventricular conduction. May continue on the current medication for the time being. Requires IV anticoagulation for the mechanical valve and possible A. fib. Coumadin is on hold at this point. Status: Chronic Additional A&P Information After reviewing the above and also based on the patient's clinical progress, further recommendations will be made. Thank you for the opportunity to eval this patient make these recommendations Consult Attestations Medical Necessity Statement: Patient requires continued hospital stay for close monitoring and further management Coding Level of Care Code Acute Cafe Cook for [facility] Diagnoses Third degree heart block I44.2 Congestive heart failure I50.9 Heart failure chronicity: acute Heart failure type: unspecified Ischemic cardiomyopathy I25.5 Atherosclerotic heart disease [place] coronary artery w/angina pectoris I25.119 [place] vs. transplanted heart: [place] heart Benign essential hypertension with target blood pressure below 140/90 I10 History of atrial fibrillation Z86.79
--- NOTE | 2020-08-23 07:10 | USCV_ITS ---
Emory Real Age: 49 Gender: M : 1970 Exam Date: 08/23/2020 07:26 Ordering Phys: Jesse Galicia MD ([email or web address]) Technologist: Angie Portillo Exam Location: [facility] [place] Indication: CHF HEART BLOCK AVR BP: 181 / 77 HR: 39 Rhythm: Sinus Technical Quality: Good MEASUREMENTS (Male / Female) Normal Values 2D ECHO LV Diastolic Diameter PLAX 5.3 cm 4.2 - 5.9 / 3.9 - 5.3 cm LV Systolic Diameter PLAX 3.7 cm LV Chamber Size 4.8 cm IVS Diastolic Thickness 1.4 cm 0.6 - 1.0 / 0.6 - 0.9 cm IVS Systolic Thickness 1.6 cm LVPW Diastolic Thickness 1.5 cm 0.6 - 1.0 / 0.6 - 0.9 cm LVPW Systolic Thickness 1.9 cm RV Chamber Size 4.1 cm LVOT Diameter 2.0 cm LV Ejection Fraction 2D Teich 57.6 % LV Ejection Fraction MOD 2C 62.2 % LV Ejection Fraction 2C AL 62.5 % LA Diameter 4.3 cm LA Width 3.1 cm LA Height 5.2 cm RA Width 4.0 cm RA Height 4.4 cm Aorta at Sinotubular Diameter 2.4 cm M-MODE LV Diastolic Diameter MM 5.4 cm 4.2 - 5.9 / 3.9 - 5.3 cm LV Systolic Diameter MM 4.2 cm LV Ejection Fraction MM Teich 44.7 % IVS Diastolic Thickness MM 1.1 cm 0.6 - 1.0 / 0.6 - 0.9 cm IVS Systolic Thickness MM 1.3 cm LVPW Diastolic Thickness MM 1.5 cm 0.6 - 1.0 / 0.6 - 0.9 cm LVPW Systolic Thickness MM 1.5 cm RV Diastolic Diameter MM 1.3 cm Aortic Annulus Diameter 3.0 cm LA Ao Ratio MM 1.6 MV E Point Septal Separation 1.3 cm DOPPLER AV Peak Velocity 287.7 cm/s LVOT Peak Velocity 79.7 cm/s AV Area Cont Eq vti 0.9 cm squared AV Area Cont Eq pk 0.9 cm squared MV Area PHT 2.9 cm squared Mitral E to A Ratio 1.0 MV E' Velocity 62.0 cm/s Mitral E to MV E' Ratio 20.8 Mitral E to LV E' Lateral Ratio 18.8 Mitral E to LV E' Septal Ratio 23.7 TR Peak Velocity 214.7 cm/s TR Peak Gradient 18.4 mmHg TR Mean Velocity 173.5 cm/s TR Mean Gradient 13.3 mmHg TR Velocity Time Integral 67.8 cm TV Peak E Velocity 80.0 cm/s Right Atrial Pressure 3.0 mmHg Pulmonary Artery Systolic Pressu 21.4 mmHg PV Peak Velocity 67.0 cm/s RV Acceleration Time 0.1 s RV Ejection Time 0.4 s RV AcT/ET 0.2 FINDINGS Left Ventricle Diffuse hypokinesis of the left ventricle with anejection fraction of 45%. Abnormal (paradoxical) septal motion consistent with postoperative status. Mildly dilated LV cavity.Grade II/IV diastolic dysfunction (abnormal relaxation filling pattern), normal to mildly elevated filling pressures. Right Ventricle The right ventricle is normal in size and function. Right Atrium Mildly increased right atrial size. Left Atrium Mildly increased left atrial size. Mitral Valve Thickened mitral valve. Aortic Valve Prosthetic valve at the aortic position appears to be well- seated. Peak velocity of the aortic valve is 3.14 m/s with a peak gradient of forty and a mean gradient of 16 mmHg. Valve area is calculated to be 0.8 cm squared based on VTI Tricuspid Valve Trace tricuspid valve regurgitation. Estimated pulmonary artery peak systolic pressure of 21 mmHg Pulmonic Valve Trace pulmonary valve regurgitation. Pericardium Normal pericardium without effusion. Aorta Normal ascending aorta dimension. CONCLUSIONS 1.Diffuse hypokinesis of the left ventricle with anejection fraction of 45%. Abnormal (paradoxical) septal motion consistent with postoperative status. Mildly dilated LV cavity.Grade II/IV diastolic dysfunction (abnormal relaxation filling pattern), normal to mildly elevated filling pressures. 2. Prosthetic valve at the aortic position appears to be well- seated. Peak velocity at the aortic valve is 3.14 m/s with a peak gradient of 40 and a mean gradient of 16 mmHg. Valve area is calculated to be 0.8 cm squared based on VTI. 3. Thickened mitral valve 4. Mild biatrial enlargement 5.Trace tricuspid valve regurgitation. Estimated pulmonary artery peak systolic pressure of 21 mmHg Compared to the study from 09/19/2019, the aortic valve appears replaced Dr Jesse Galicia MD [facility] (Electronically Signed) Final Date: 23 August 2020 20:28 S
--- NOTE | 2020-08-23 08:38 | PC.PHAR ---
pt states he takes care of his own medications-pt states he takes what mg was last filled of coumadin ext med history shows last filled on 08/21/20 26d/s-pt states he takes 2 tabs (8mg) on mon and 1 tabs (4mg) on ,wed,,wed,sat and sun-pt states he was suppose to be taking bp meds but hasnt taken since march 2020-pt states he was suppose to go back to his dr but hasnt so he stopped taking his bp meds-pt states he was suppose to have an inhaler but hasnt had for a while
[2020-08-23] MEDS: FUROsemide 20 mg Tablet PO (09:05)
[2020-08-23] MEDS: losartan 50 mg Tablet PO (09:05)
--- NOTE | 2020-08-23 11:06 | PC.RESP ---
Smoking Cessation and Pulmonary Rehab information sent to patient
--- NOTE | 2020-08-23 12:19 | PC.CHAP ---
Pastoral Care Encounter/Spiritual Assessment Type of Contact [] Declined sales expert visit [] Patient/Family/Request visit [] Outpatient visit [] Follow-up visit [] Physician referral [] Code/Alert [xx] Routine visit [] Staff referral [] Actively dying [] Patient sleeping [] Family support [] [] Out of room [] Palliative care [] [] Receiving care in room [] Pre-surgical visit [] Trauma [] Long length of stay [] ICU visit [] Other: Relational/Emotional Strength [xx] Patient feels connected with others/family/visitors/staff [] Distress [] Loneliness/isolation [] Abandonment Spirituality of Patient [xx] Person of [place] [] Attends Muslim of their [place] [xx] Believes in Prayer [xx] Reads Bible or Sabianist materials [] There are Spiritual issues to be addressed Home Maker Interventions [xx] Prayer [xx] Active listening [xx] Non-anxious presence [] Spiritual/emotional support [] Crisis/trauma care [] Spiritual counseling [] Bereavement support [] Provided bereavement packet [xx] Provided Bible/devotional materials [] Provided toy/stuffed animal, coloring book to patient or family member [] Provided Communion [] Anointing/[place] [] Salvation [xx] Completed spiritual assessment [] Other: Impact on Illness or Injury [] Angry [] Fearful [xx] Anxious [] Often cries [] Exhaustion [] Unable to work [xx] Unable to attend mormonism [] Unable to walk/stand [] Unable to read [] Unable to drive [] Unable to eat/drink [] Unable to sleep [] Unable to be with family [] Patient intubated [] Other: Summary Patient stated he anticipates a pacemaker being inserted and asked for prayer that all goes well. He is worried about it. Time spent with patient 6 minutes
--- NOTE | 2020-08-23 13:40 | P.PN_ITS ---
Subjective Subjective: Interval history: Patient without new complaints. Pacer pads are on. Heart rate is in the 40s. Wanting something to eat. Vitals/I&O/Wt Last Vital Signs Temp 98.6 F 08/23/20 08:00 Pulse 39 L 08/23/20 08:00 Resp 12 08/23/20 08:00 BP 168/78 08/23/20 09:05 Pulse Ox 92 08/23/20 08:00 Weight last 48 hrs Weight 61.235 kg Physical Exam Narrative: EXAM NARRATIVE: Awake and alert, smiling. Heart rate is in the 40s. Valve click noted. Lungs are clear to auscultation. Abdomen is soft. No pitting edema. Skin is dry. Data : 08/23/20 06:31 08/23/20 06:31 A&P Assessment and plan (1) Dyspnea: Status: Acute Qualifiers: Dyspnea type: unspecified Qualified Code(s): R06.00 - Dyspnea, unspecified (2) Third degree heart block: Status: Acute (3) Elevated troponin: Status: Acute (4) Congestive heart failure: Status: Chronic Qualifiers: Heart failure chronicity: acute Heart failure type: unspecified Qualified Code(s): I50.9 - Heart failure, unspecified (5) Chronic anticoagulation: Status: Chronic (6) History of mechanical aortic valve replacement: Status: Chronic (7) Benign essential hypertension with target blood pressure below 140/90: Status: Chronic Additional A&P Information Heparin drip started today Coumadin is held Monitor INR Pacer pads are on Dr. Wade participation in patient's care Plan is for permanent pacemaker placement in the next few days when INR has trended downward appropriately, anticipate Wednesday Will need bridging therapy as Coumadin is restarted IV diuresis ARB and statin therapy have been added this hospital stay Does have a history of atrial fibrillation previously requiring amiodarone Telemetry monitoring Treatment dose anticoagulation provides appropriate VTE prophylaxis Supportive care otherwise Plans were discussed with patient and his as well as with Dr. Galicia Would Attestations Medical Necessity Statement*: Anticipated stay greater than 2 midnights in a gentleman with a mechanical aortic valve fully anticoagulated with third-degree heart block needing a permanent pacemaker. 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
--- NOTE | 2020-08-23 13:46 | PC.NURSE ---
Received orders per Dr. Galicia to only give half of the initial loading dose on patient. Instead of 50units/kg it will be 25units/kg making the loading dose 1550 units.
[2020-08-23] MEDS: heparin 5,000 unit/mL INJ 1 mL IV ×2 (14:01→21:21)
--- NOTE | 2020-08-23 14:05 | PC.NURSE ---
Heparin drip started Initial loading bolus given per order from the doctor to give half dose of the protocol. Initial maintenance dose started per protocol and verified with TEE Hansen.
[2020-08-23] MEDS: heparin drip 25,000 UNIT/500 ML PREMIX 17 UNIT IV (14:06)
--- NOTE | 2020-08-23 19:18 | PC.NURSE ---
Patient has had two episodes of sinus pauses, one of which was about 4.5 seconds long. Doctor has been notified and placed patient on heparin gtt. Patient is scheduled Wednesday, at 0700 for a permanent pacemaker placement. Aside from this, patient has been asymptomatic throughout the day and has had an uneventful day.
[2020-08-23] MEDS: atorvastatin 40 mg Tablet PO (20:37)
[2020-08-23 20:56] LABS: Partial Thromboplastin Time 52.4 SECONDS (23.9-36.7)
[2020-08-24] VITALS (13 sets, daily range): BP systolic 130–154; BP diastolic 58–87; PULSE 36–45; RESP 16–24; TEMP 36.6–37.5; O2SAT 92–98
[2020-08-24 03:53] LABS: Partial Thromboplastin Time 49.4 SECONDS (23.9-36.7)
[2020-08-24 04:00] LABS: INR 2.11 (0.8-1.2)
[2020-08-24] MEDS: heparin 5,000 unit/mL INJ 1 mL IV (06:07)
[2020-08-24] MEDS: losartan 50 mg Tablet PO (08:06)
[2020-08-24] MEDS: FUROsemide 20 mg Tablet PO (08:07)
--- NOTE | 2020-08-24 08:50 | PM.PN ---
Subjective Subjective: Interval history: No new complaints Medications: Reviewed: Yes Medication Review Details: Current Medications Acetaminophen (Acetaminophen 325 Mg Tablet) 650 mg PO Q6H PRN PRN Reason: Mild/Mod Pain Or Temp >/= 101 Albuterol Sulfate (Albuterol 8 Gm Mdi) 2 puff INHALATION Q6H PRN PRN Reason: Shortness Of Breath Atorvastatin Calcium (Atorvastatin 40 Mg Tablet) 40 mg PO BEDTIME [facility] Last Admin: 08/23/20 20:37 Dose: 40 mg Documented by: Furosemide (Furosemide 20 Mg Tablet) 20 mg PO DAILY@0800 KELSIE Last Admin: 08/24/20 08:07 Dose: 20 mg Documented by: Heparin Sodium (Beef Lung) (Heparin 5,000 Unit/Ml Inj 1 Ml) 0 unit IV PRN PRN; Protocol PRN Reason: Heparin weight-base protocol Last Admin: 08/24/20 06:07 Dose: 1,200 unit Documented by: Heparin Sodium/Sodium Chloride (Heparin Drip) 25,000 unit in 500 mls @ 0 mls/hr IV .Q0M KELSIE; Protocol Last Titration: 08/24/20 06:07 Dose: 15.51 unit/kg/hr, 19 mls/hr Documented by: Sodium Chloride (Sodium Chloride 0.9%) 1,000 mls @ 75 mls/hr IV .[id number] [facility] Cefazolin Sodium 1,000 mg/ (Sodium Chloride) 50 mls @ 100 mls/hr IV WHEEL INSTALLER ONE; Protocol Stop: 08/26/20 06:29 Losartan Potassium (Losartan 50 Mg Tablet) 50 mg PO DAILY [facility] Last Admin: 08/24/20 08:06 Dose: 50 mg Documented by: Nitroglycerin (Nitroglycerin 0.4 Mg Sublingual Tablet) 0.4 mg SUBLINGUAL Q5M PRN PRN Reason: CHEST PAIN Vitals/I&O/Wt Last Vital Signs Temp 97.9 F 08/24/20 07:17 Pulse 37 L 08/24/20 07:17 Resp 18 08/24/20 07:17 BP 143/73 08/24/20 08:06 Pulse Ox 96 08/24/20 07:17 08/23/20 08/24/20 08/24/20 22:59 06:59 14:59 Intake Total 823.25 / 1173.25 407.8 / 1581.05 360 / 360 Output Total 400 / 400 200 / 600 300 / 300 Balance 423.25 / 773.25 207.8 / 981.05 60 / 60 Weight last 48 hrs Weight 135 lb Physical Exam Narrative: EXAM NARRATIVE: GENERAL: Averagely built and averagely nourished in no acute distress HEENT: Pupils equal round reactive to light. No pallor or icterus. NECK: central trachea, No JVD. No carotid bruit. CARDIOVASCULAR SYSTEM: S1-S2 regular. Bradycardia present. mechanical click heard. No murmur or gallops. RESPIRATORY SYSTEM: Chest clear to auscultation. No wheezes rhonchi or rubs heard. No use of accessory muscles. ABDOMEN: Soft, nontender and nondistended. Normal bowel sounds present. EXTREMITIES: No cyanosis or clubbing. No edema. COIN TELLER: Patient is alert oriented ?3. No focal neurological deficits. SKIN: Normal turgor and temperature. PSYCH: Normal insight and judgment. Data : 08/23/20 06:31 08/23/20 06:31 Echo: I personally reviewed and interpreted this imaging study as follows: My impression: CONCLUSIONS 1.Diffuse hypokinesis of the left ventricle with anejection fraction of 45%. Abnormal (paradoxical) septal motion consistent with postoperative status. Mildly dilated LV cavity.Grade II/IV diastolic dysfunction (abnormal relaxation filling pattern), normal to mildly elevated filling pressures. 2. Prosthetic valve at the aortic position appears to be well- seated. Peak velocity at the aortic valve is 3.14 m/s with a peak gradient of 40 and a mean gradient of 16 mmHg. Valve area is calculated to be 0.8 cm squared based on VTI. 3. Thickened mitral valve 4. Mild biatrial enlargement 5.Trace tricuspid valve regurgitation. Estimated pulmonary artery peak systolic pressure of 21 mmHg Compared to the study from 09/19/2019, the aortic valve appears replaced A&P Assessment and plan (1) Third degree heart block: Patient apparently has not been take any medications to cause the heart block. There is no reversible causes for the heart block at this time. He requires a permanent pacer implantation, for further management. -Currently asymptomatic. INR 2.1 this morning. -Plan for PPM on Wednesday based on INR. -Continue heparin drip. Status: Acute (2) Congestive heart failure: Patient may be carefully treated with IV diuretics. He has significant improvement of the shortness of breath, since coming to the hospital. Status: Chronic Qualifiers: Heart failure chronicity: acute Heart failure type: unspecified Qualified Code(s): I50.9 - Heart failure, unspecified (3) Ischemic cardiomyopathy: LVEF of 45% on recent echo. Status: Chronic (4) Atherosclerotic heart disease [place] coronary artery w/angina pectoris: S/p PCI of LAD in September 2019. -patient chest pain improved after the IV Lasix. Since there is no evidence of myocardial injury, most likely chest discomfort could have been related to the decompensated heart failure. Status: Chronic Qualifiers: [place] vs. transplanted heart: [place] heart Qualified Code(s): I25.119 - Atherosclerotic heart disease of [place] coronary artery with unspecified angina pectoris (5) Benign essential hypertension with target blood pressure below 140/90: Continue current medications. -May need to uptitrate based on blood pressure later today. Status: Chronic (6) History of atrial fibrillation: Patient currently has no atrial fibrillation. May continue on the current medication for the time being. Status: Chronic Additional A&P Information History of aortic stenosis s/p mechanical aortic valve replacement in November 2019 Attestations Medical Necessity Statement*: Needs hospital stay for third-degree heart block. Time Spent in Patient Care: 16 - 35 minutes (>than 50% of time spent in counselling and/or direct pt care on unit). Coding Level of Care Code Acute Benzene Operator for g Fwd Diagnoses Third degree heart block I44.2 Congestive heart failure I50.9 Heart failure chronicity: acute Heart failure type: unspecified Ischemic cardiomyopathy I25.5 Atherosclerotic heart disease [place] coronary artery w/angina pectoris I25.119 [place] vs. transplanted heart: [place] heart Benign essential hypertension with target blood pressure below 140/90 I10 History of atrial fibrillation Z86.79
[2020-08-24 12:33] LABS: Partial Thromboplastin Time 59.5 SECONDS (23.9-36.7)
[2020-08-24] MEDS: heparin drip 25,000 UNIT/500 ML PREMIX 19 UNIT IV (18:10)
[2020-08-24 18:11] LABS: Partial Thromboplastin Time 49.9 SECONDS (23.9-36.7)
--- NOTE | 2020-08-24 19:42 | PM.PN ---
Subjective Subjective: Interval history: No new complaints. Resting in bed. No chest pain or difficulty breathing. INR is at 2.11 today which is up. Vitals/I&O/Wt Last Vital Signs Temp 98.6 F 08/24/20 14:48 Pulse 41 L 08/24/20 18:15 Resp 24 H 08/24/20 18:15 BP 138/67 08/24/20 18:15 Pulse Ox 94 08/24/20 18:15 08/24/20 08/24/20 08/24/20 06:59 14:59 22:59 Intake Total 407.8 / 1581.05 600 / 600 580.533 / 1180.533 Output Total 200 / 600 300 / 300 350 / 650 Balance 207.8 / 981.05 300 / 300 230.533 / 530.533 Weight last 48 hrs Weight 61.235 kg Physical Exam Narrative: EXAM NARRATIVE: Asleep but arousable easily. Alert and oriented. Bradycardic. Speech clear and face is symmetric. Data : 08/23/20 06:31 08/23/20 06:31 A&P Assessment and plan (1) Dyspnea: Secondary to bradycardia and CHF, improved Status: Acute Qualifiers: Dyspnea type: unspecified Qualified Code(s): R06.00 - Dyspnea, unspecified (2) Third degree heart block: Status: Acute (3) Elevated troponin: Without significant delta. Known coronary artery disease status post previous percutaneous intervention. Status: Acute (4) Congestive heart failure: Ejection fraction 45%, was not on any diuresis or other medications at home Status: Chronic Qualifiers: Heart failure chronicity: acute Heart failure type: unspecified Qualified Code(s): I50.9 - Heart failure, unspecified (5) Chronic anticoagulation: Coumadin Status: Chronic (6) History of mechanical aortic valve replacement: Status: Chronic (7) Benign essential hypertension with target blood pressure below 140/90: Was not on any medications at home Status: Chronic Additional A&P Information Telemetry monitoring Continue pacer pads On heparin drip Coumadin is held Monitor INR Cardiology is following Plan is for permanent pacemaker placement on Wednesday Will need bridging therapy as Coumadin is restarted Currently on oral Lasix Was started on losartan at 50 mg a day yesterday as a new medication, will increase to 100 tomorrow Was put on statin therapy secondary to history but not taking regularly Does have a history of atrial fibrillation previously requiring amiodarone Treatment dose anticoagulation provides appropriate VTE prophylaxis Supportive care otherwise Current disposition plans are for home Full code Attestations Medical Necessity Statement*: Requires ongoing inpatient stay for continued monitoring of third-degree heart block while we wait for INR to trend down for pacemaker placement. He has a mechanical valve and will have to be placed back on Coumadin post procedure. Coding Level of Care Code Acute Fishing Rod Assembler for Ren Marquis Diagnoses Dyspnea R06.00 Dyspnea type: unspecified Third degree heart block I44.2 Elevated troponin R79.89 Congestive heart failure I50.9 Heart failure chronicity: acute Heart failure type: unspecified Chronic anticoagulation Z79.01 History of mechanical aortic valve replacement Z95.2 Benign essential hypertension with target blood pressure below 140/90 I10
[2020-08-24] MEDS: atorvastatin 40 mg Tablet PO (20:30)
[2020-08-25] VITALS (12 sets, daily range): BP systolic 145–178; BP diastolic 63–81; PULSE 38–43; RESP 14–26; TEMP 36.7–37.2; O2SAT 93–100
[2020-08-25 02:00] LABS: Partial Thromboplastin Time 51.2 SECONDS (23.9-36.7)
[2020-08-25] MEDS: heparin 5,000 unit/mL INJ 1 mL IV (04:19)
[2020-08-25 05:47] LABS: Basophils % 0.5 %; Eosinophils # 0.2 10^3/uL (0.0-0.8); Eosinophils % 1.8 %; Hematocrit 45.9 % (42.0-52.0); Hemoglobin 13.7 g/dL (11.7-16.6); Lymphocytes # 2.9 10^3/uL (0.8-4.8); Lymphocytes % 32.2 %; Mean Corpuscular HGB Conc 29.8 g/dL (30.0-36.0); Mean Corpuscular Hemoglobin 24.6 pg (28.0-34.0); Mean Corpuscular Volume 82.3 fL (80-94); Mean Platelet Volume 11.1 fL (7.4-10.4); Monocytes # 0.8 10^3/uL (0.2-0.9); Monocytes % 9.5 %; Neutrophils # 4.93 10^3/uL (1.8-7.7); Neutrophils % 55.4 %; Nucleated Red Blood Cells % 0 %; Platelet Count 232 10^3/cmm (130-400); Red Blood Count 5.58 10^6/uL (4.1-5.3); Red Cell Distribution Width 15.3 % (12.1-15.1); White Blood Count 8.9 10^3/uL (4.0-10.0)
[2020-08-25 05:55] LABS: INR 1.57 (0.8-1.2)
[2020-08-25 06:16] LABS: Anion Gap 11.6 (5-19); Blood Urea Nitrogen 28 mg/dL (6-20); Calcium 8.2 mg/dL (8.5-10.5); Carbon Dioxide 28 mmol/L (22-29); Chloride 104 mmol/L (98-107); Glomerular Filtration Rate 64.6 mL/min (90-130); Glucose 120 mg/dL (65-115); Osmolality Calculated 295 mOsm/kg (285-295); Potassium 4.6 mmol/L (3.5-5.1); Sodium 139 mmol/L (136-145)
[2020-08-25] MEDS: losartan 50 mg Tablet 100 MG PO (10:10)
[2020-08-25] MEDS: FUROsemide 20 mg Tablet PO (10:11)
[2020-08-25 11:30] LABS: Partial Thromboplastin Time 42.4 SECONDS (23.9-36.7)
--- NOTE | 2020-08-25 13:15 | PM.PN ---
Subjective Subjective: Interval history: Patient without complaints today. Remains bradycardic. Vitals/I&O/Wt Last Vital Signs Temp 98.0 F 08/25/20 11:03 Pulse 40 L 08/25/20 11:03 Resp 18 08/25/20 11:03 BP 171/81 08/25/20 11:03 Pulse Ox 97 08/25/20 11:03 08/24/20 08/25/20 08/25/20 22:59 06:59 14:59 Intake Total 630.533 / 1230.533 199.333 / 1429.866 525.2 / 525.2 Output Total 350 / 650 300 / 950 600 / 600 Balance 280.533 / 580.533 -100.667 / 479.866 -74.8 / -74.8 Physical Exam Narrative: EXAM NARRATIVE: Asleep but arousable easily. Alert and oriented. Lungs are clear to auscultation bilaterally. Bradycardic, valve click noted. Abdomen is soft. No pitting edema. Face is symmetric, moves all extremities. Data : 08/25/20 05:01 08/25/20 05:01 A&P Assessment and plan (1) Dyspnea: Secondary to bradycardia and CHF, resolved at rest Status: Acute Qualifiers: Dyspnea type: unspecified Qualified Code(s): R06.00 - Dyspnea, unspecified (2) Third degree heart block: With plan for pacemaker Status: Acute (3) Elevated troponin: Without significant delta. Known coronary artery disease status post previous percutaneous intervention. Status: Acute (4) Congestive heart failure: Ejection fraction 45%, was not on any diuresis or other medications at home Status: Chronic Qualifiers: Heart failure chronicity: acute Heart failure type: unspecified Qualified Code(s): I50.9 - Heart failure, unspecified (5) Chronic anticoagulation: Therapeutic Coumadin level at admission, slow downward trend Status: Chronic (6) History of mechanical aortic valve replacement: Chronically on Coumadin Status: Chronic (7) Benign essential hypertension with target blood pressure below 140/90: Was not on any medications at home Status: Chronic Additional A&P Information Telemetry monitoring Pacer pads On heparin drip for bridging therapy ting-procedure Coumadin is held with plan to resume post procedure Monitor INR Cardiology is following Plan is for permanent pacemaker placement tomorrow Oral Lasix 20 mg daily is a new medication Losartan, new medication, increased to 100 mg a day today BMP in the morning, is thus far not required any potassium limitation Statin therapy initiated at presentation, was not on at home, lipid panel pending Does have a history of atrial fibrillation previously requiring amiodarone, sinus bradycardia this stay Treatment dose anticoagulation provides appropriate VTE prophylaxis Supportive care otherwise Current disposition plans are for home Full code Attestations Medical Necessity Statement*: Requires ongoing inpatient stay due to third-degree heart block and need for pacemaker. INR will trending downward and plan to proceed with pacemaker placement tomorrow. Will require post procedure bridging therapy with Coumadin and heparin post procedure secondary to mechanical aortic valve. Coding Level of Care Code Acute Outdoor Advertising Leasing Agent for Ren Marquis Diagnoses Dyspnea R06.00 Dyspnea type: unspecified Third degree heart block I44.2 Elevated troponin R79.89 Congestive heart failure I50.9 Heart failure chronicity: acute Heart failure type: unspecified Chronic anticoagulation Z79.01 History of mechanical aortic valve replacement Z95.2 Benign essential hypertension with target blood pressure below 140/90 I10
[2020-08-25 15:56] LABS: Partial Thromboplastin Time 72.5 SECONDS (23.9-36.7)
--- NOTE | 2020-08-25 17:46 | PM.PN ---
Subjective Subjective: Interval history: He feels well denies any complaint. Medications: Reviewed: Yes Medication Review Details: Current Medications Acetaminophen (Acetaminophen 325 Mg Tablet) 650 mg PO Q6H PRN PRN Reason: Mild/Mod Pain Or Temp >/= 101 Albuterol Sulfate (Albuterol 8 Gm Mdi) 2 puff INHALATION Q6H PRN PRN Reason: Shortness Of Breath Atorvastatin Calcium (Atorvastatin 40 Mg Tablet) 40 mg PO BEDTIME [facility] Last Admin: 08/24/20 20:30 Dose: 40 mg Documented by: Furosemide (Furosemide 20 Mg Tablet) 20 mg PO DAILY@0800 KELSIE Last Admin: 08/25/20 10:11 Dose: 20 mg Documented by: Heparin Sodium (Beef Lung) (Heparin 5,000 Unit/Ml Inj 1 Ml) 0 unit IV PRN PRN; Protocol PRN Reason: Heparin weight-base protocol Last Admin: 08/25/20 04:19 Dose: 1,200 unit Documented by: Heparin Sodium/Sodium Chloride (Heparin Drip) 25,000 unit in 500 mls @ 0 mls/hr IV .Q0M [facility]; Protocol Last Titration: 08/25/20 12:05 Dose: 18.78 unit/kg/hr, 23 mls/hr Documented by: Sodium Chloride (Sodium Chloride 0.9%) 1,000 mls @ 75 mls/hr IV .[id number] [facility] Cefazolin Sodium 1,000 mg/ (Sodium Chloride) 50 mls @ 100 mls/hr IV BUSINESS PERFORMANCE SPECIALIST ONE; Protocol Stop: 08/26/20 06:29 Losartan Potassium (Losartan 50 Mg Tablet) 100 mg PO DAILY [facility] Last Admin: 08/25/20 10:10 Dose: 100 mg Documented by: Nitroglycerin (Nitroglycerin 0.4 Mg Sublingual Tablet) 0.4 mg SUBLINGUAL Q5M PRN PRN Reason: CHEST PAIN Vitals/I&O/Wt Last Vital Signs Temp 98.1 F 08/25/20 14:36 Pulse 40 L 08/25/20 14:36 Resp 20 H 08/25/20 14:36 BP 178/69 08/25/20 14:36 Pulse Ox 97 08/25/20 14:36 08/25/20 08/25/20 08/25/20 06:59 14:59 22:59 Intake Total 199.333 / 1429.866 525.2 / 525.2 240 / 765.2 Output Total 300 / 950 600 / 600 850 / 1450 Balance -100.667 / 479.866 -74.8 / -74.8 -610 / -684.8 Physical Exam Narrative: EXAM NARRATIVE: GENERAL: Averagely built and averagely nourished in no acute distress HEENT: Pupils equal round reactive to light. No pallor or icterus. NECK: central trachea, No JVD. No carotid bruit. CARDIOVASCULAR SYSTEM: S1-S2 regular. Bradycardia present. mechanical click heard. No murmur or gallops. RESPIRATORY SYSTEM: Chest clear to auscultation. No wheezes rhonchi or rubs heard. No use of accessory muscles. ABDOMEN: Soft, nontender and nondistended. Normal bowel sounds present. EXTREMITIES: No cyanosis or clubbing. No edema. SUPERVISOR ORDER TAKERS: Patient is alert oriented ?3. No focal neurological deficits. SKIN: Normal turgor and temperature. PSYCH: Normal insight and judgment. Data : 08/25/20 05:01 08/25/20 05:01 A&P Assessment and plan (1) Third degree heart block: No reversible causes for the heart block at this time. He requires a permanent pacer implantation, for further management. -Currently asymptomatic. INR 1.57 this morning. -Plan for PPM on Wednesday based on INR. -Continue heparin drip. Status: Acute (2) Congestive heart failure: Currently on low-dose Lasix. Status: Chronic Qualifiers: Heart failure chronicity: acute Heart failure type: unspecified Qualified Code(s): I50.9 - Heart failure, unspecified (3) Ischemic cardiomyopathy: LVEF of 45% on recent echo. Status: Chronic (4) Atherosclerotic heart disease [place] coronary artery w/angina pectoris: S/p PCI of LAD in September 2019. -patient chest pain improved after the IV Lasix. Since there is no evidence of myocardial injury, most likely chest discomfort could have been related to the decompensated heart failure. Status: Chronic Qualifiers: [place] vs. transplanted heart: [place] heart Qualified Code(s): I25.119 - Atherosclerotic heart disease of [place] coronary artery with unspecified angina pectoris (5) Benign essential hypertension with target blood pressure below 140/90: Continue current medications. -May need to uptitrate based on blood pressure later today. Status: Chronic (6) History of atrial fibrillation: Patient currently has no atrial fibrillation. May continue on the current medication for the time being. Status: Chronic Additional A&P Information History of aortic stenosis s/p mechanical aortic valve replacement in November 2019 Attestations Medical Necessity Statement*: Needs hospital stay for third-degree heart block. Time Spent in Patient Care: 16 - 35 minutes (>than 50% of time spent in counselling and/or direct pt care on unit). Coding Level of Care Code Acute Senior Planner for Chg Fwd Diagnoses Third degree heart block I44.2 Congestive heart failure I50.9 Heart failure chronicity: acute Heart failure type: unspecified Ischemic cardiomyopathy I25.5 Atherosclerotic heart disease [place] coronary artery w/angina pectoris I25.119 [place] vs. transplanted heart: [place] heart Benign essential hypertension with target blood pressure below 140/90 I10 History of atrial fibrillation Z86.79
[2020-08-25] MEDS: heparin drip 25,000 UNIT/500 ML PREMIX 23 UNIT IV (18:19)
[2020-08-25] MEDS: amlodipine 5 mg Tablet 2.5 MG PO (18:22)
[2020-08-25 18:46] LABS: Partial Thromboplastin Time 52.1 SECONDS (23.9-36.7)
--- NOTE | 2020-08-25 20:06 | PC.NURSE ---
Per Dr. Bauer order received to shut off heparin drip at 0100 in preparation for pacemaker instillation.
[2020-08-25] MEDS: atorvastatin 40 mg Tablet PO (20:07)
[2020-08-26] VITALS (11 sets, daily range): BP systolic 122–171; BP diastolic 63–83; PULSE 38–84; RESP 16–26; TEMP 36.4–36.8; O2SAT 94–97
--- NOTE | 2020-08-26 00:21 | PC.NURSE ---
Heparin drip stopped per telephone order with readback from Dr. Galicia
[2020-08-26 04:57] LABS: INR 1.22 (0.8-1.2)
[2020-08-26 05:03] LABS: Anion Gap 11.6 (5-19); Blood Urea Nitrogen 27 mg/dL (6-20); Calcium 8.6 mg/dL (8.5-10.5); Carbon Dioxide 27 mmol/L (22-29); Chloride 103 mmol/L (98-107); Chol HDL Ratio 3.24 mg/dL (1.0-5.00); Cholesterol 146 mg/dL (0-200); Glomerular Filtration Rate 79.8 mL/min (90-130); Glucose 140 mg/dL (65-115); HDL Cholesterol 45 mg/dL (60-100); LDL Cholesterol Calculated 81 mg/dL (50-129); Osmolality Calculated 291 mOsm/kg (285-295); Potassium 4.6 mmol/L (3.5-5.1); Sodium 137 mmol/L (136-145); Triglycerides 102 mg/dL (0-150)
[2020-08-26] MEDS: ceFAZolin 1,000 MG in sodium chloride 0.9% (plus) 50 ML 100 MG IV (06:01)
[2020-08-26] MEDS: sodium chloride 0.9% 1,000 ML 75 ML IV (06:02)
--- NOTE | 2020-08-26 06:30 | XACV_ITS ---
Exam Room: [facility] Ht: 178 cm Wt: 61 kg BSA: 1.73 m2 Gender: Male : 1970 Any Known Allergies: No known allergies Exam Priority: Routine Procedure(s): Procedure Description: Diagnostic procedure Procedure Description: Miscellaneous Procedure Description: Dual Chamber Pacemaker Implant Diagnostic Cath Status: Elective Conclusions 1. The left subclavian venogram was performed by injecting 20 cc of Omnipaque into the antecubital vein. 2. The subclavian vein was found to be joining the jugular yee the brachiocephalic trunk and then draining into the superior vena cava. The vein was found to be patent with no evidence of any obstruction.. Diagnostic RX Recommendation: none Clinical Evaluation EBL: 5mL-10mL Procedural Details Procedure Consent Obtained. Admit Source: In Patient. Pre-Procedure Time Out. Identified patient by full name and date of as verbalized by the patient/guarantor. Does the consent match the physician's order: Yes. Accurate & Complete Informed Consent: Yes. Inpatient/Outpatient History & Physical on Chart: Yes. If H&P is completed, is and addenduem needed: N/A; If yes, is the addendum complete: N/A. Visualize and Verify Site with Patient/Guarantor: N/A. Relevant Radiology Images available: N/A. Pre-op teaching completed and patient verbalized understanding. The risks, benefits, and alternatives of sedation and/or procedure were discussed by physician. The patient agrees to continue. Procedure started. Correct patient, site and procedure confirmed by cath team. PERRLA. Strong, equal hand customer greeter bilaterally. Lungs clear x 5 lobes. IV Site on Arrival: 20 gauge in the left upper arm. Oxygen started at 2liters/min via nasal canula. bilateral subclavian region was prepped with chloroprep then draped in the usual sterile fashion. bilateral groins was prepped with chloroprep then draped in the usual sterile fashion. Physician notified. Ancef 2g IV was given at [address]40 [address] Wrist reminders placed bilaterally on patient. Baseline sample Acquired. HR: 40 BPM. Physician arrived. Supplies: Cath pack, micropunture, bovie pen, 2-0 silk, 0 surgilon, 3-0 vicryl, 4-0 vicryl. Pre sponge count: 55. Pre instrument count: 11. Pre sharps count: 23. Physician scrubbed in. Time out performed with cath team. Lidocaine 1% infiltrated to Right groin area. Access obtained in right groin vein with micropuncture set. Inserted 6 fr. safe sheath into right groin vein. temporary pace maker inserted. suturing the machine with 2-0 silk. Lidocaine 1% infiltrated to Left subclavian area. 20 mL contrast injection was performed for subclavian visualization. Access obtained in left subclavian vein with micropuncture set. Inserted guidewire #1 into left subclavian vein. Incision and pacer pocket made in left subclavian region. more lidocaine 1% inserted. adding an instrument. adding a sharp. 2-0 silk used in pacer pocket. Access obtained in left subclavian vein with micropuncture set. Inserted guidewire #2 into left subclavian vein. Inserted 7 fr. safe sheath into left subclavian vein. 7F sheath out. going in with a 5F dialater. dialater out. 6F dialater inserted. 6F dialater out. Inserted 7 fr. safe sheath into left subclavian vein. sheath wire inserted through the sheath. Inserted Ventricular lead and tested. V lead retested. V lead retested. Safe sheath peeled away. Lead left intact. V lead retested. Ventricular lead sutured into place with surgilon. going in with second 7F sheath, inserted in the left subclavian area. Inserted Atrial lead and tested. A lead retested. Safe sheath peeled away. Lead left intact. A lead retested. Atrial lead sutured into place with surgilon. Antibiotic flush used to clean pacer pocket. V lead retested. Generator attached and tested. A lead retested. temporary pacemaker out. Generator secured with surgilon. Subcutaneous tissue closed with 3-0 vicryl. Generator Lot# [id number]. A Lead Lot# [id number]. V Lead Lot# [id number]. Cutaneous tissue closed with 4-0 vicryl. All final counts correct. sheath pulled and mannual pressure being held. left subclavian pocket dressed per physician order. Total IV fluids: 165 mL. Medication's Wasted: Lidocaine 1% = 10 mL. Medication's Wasted: Heparin = 1000 units. Shoulder immobilizer in place. Andrea wrap and 4x4's in place. No bleeding or hematoma noted at left subclavian pocket. Post Procedure: Pulses reassessed and unchanged. Procedure completed. Total fluoro time: 30.7 minutes. Total contrast: Omnipaque 300 20 mL. No VTE prophylaxis required. Post-op diagnosis: complete heart block. Vital chart was stopped. Estimated blood loss: 5mL-10mL. Complications: none. Procedure Medications Start: 7:21 AM Stop: 7:21 AM Medication: Versed Amount: 1 mg Route: I.V. Start: 7:21 AM Stop: 7:21 AM Medication: Fentanyl Amount: 50 mcg Route: I.V. Start: 7:27 AM Stop: 7:27 AM Medication: Versed Amount: 1 mg Route: I.V. Start: 7:27 AM Stop: 7:27 AM Medication: Fentanyl Amount: 50 mcg Route: I.V. Start: 7:46 AM Stop: 7:46 AM Medication: Versed Amount: 1 mg Route: I.V. Start: 7:46 AM Stop: 7:46 AM Medication: Fentanyl Amount: 50 mcg Route: I.V. Start: 8:12 AM Stop: 8:12 AM Medication: Versed Amount: 1 mg Route: I.V. Start: 8:12 AM Stop: 8:12 AM Medication: Fentanyl Amount: 50 mcg Route: I.V. Start: 8:33 AM Stop: 8:33 AM Medication: Versed Amount: 1 mg Route: I.V. Start: 8:33 AM Stop: 8:33 AM Medication: Fentanyl Amount: 50 mcg Route: I.V. Start: 8:59 AM Stop: 8:59 AM Medication: Versed Amount: 1 mg Route: I.V. Start: 8:59 AM Stop: 8:59 AM Medication: Fentanyl Amount: 50 mcg Route: I.V. Start: 9:01 AM Stop: 9:01 AM Medication: Hydralazine Amount: 10 mg Route: I.V. Start: 9:11 AM Stop: 9:11 AM Medication: Hydralazine Amount: 10 mg Route: I.V. I, the attending physician, have reviewed and verified all procedure medications. Yes, all medications given per verbal order History/Risk Factors Dyslipidemia: Yes Myocardial Infarction ([place]): Yes Tobacco Use: Current/Recent(w/in 1 year) Report Signatures Finalized by Dr Jesse Galicia MD [facility] on 08/30/2020 04:36 PM
--- NOTE | 2020-08-26 08:14 | PC.NURSE ---
off unit to rags laborer for pacemaker insertion. via bed.
--- NOTE | 2020-08-26 09:22 | W.PM.OPSUD ---
Surgery/Procedure H&P Update DATE OF PROCEDURE: August 26, 2020 DATE H&P PERFORMED: 08/23/20 H&P UPDATE INFORMATION: I have reviewed H&P completed within last 30 days, I have examined patient prior to procedure, No changes to prior documentation, Changes to prior documentation as noted here and H&P to be scanned into chart PREOP DIAGNOSIS: Third-degree heart block/symptomatic bradycardia PLANNED PROCEDURE: Operation Date: 08/26/20 07:00 Proposed Procedures p Pacemaker Insertion(Not Applicable) - Jesse Galicia MD PATIENT REASSESSED PRIOR TO SEDATION, WITH NO CHANGE NOTED: Yes PHYSICAL EXAM: alert AIRWAY EVAL/ANESTHESIA PLAN: normal airway, see other exam findings, ASA III, Monitored Anesthesia, Local Anesthesia and Risks, benefits & alternatives of sedation and/or procedure discussed
--- NOTE | 2020-08-26 09:51 | PM.OP ---
Operative Report Date of procedure: August 26, 2020 Pre-op Diagnosis: Third-degree heart block/symptomatic bradycardia Procedure: LOCATION: Cardiac catheterization lab PREOPERATIVE DIAGNOSES: Third-degree heart block/symptomatic bradycardia. POSTOPERATIVE DIAGNOSES: Same. COMPLICATIONS: None. ESTIMATED BLOOD LOSS: Around 5 milliliters. Procedures performed: 1. Insertion of a temporary pacer wire through the right femoral vein 2. Left subclavian venogram 3. Permanent dual-chamber pacemaker insertion through the left subclavian vein BRIEF HISTORY: This is a 49-year-old white male with history of aortic valve disease and cardiomyopathy, status post recent aortic valve replacement, presents with complaints of shortness of breath and weakness. He was found to be in third-degree heart block with a heart rate in the upper 30s. There was no reversible causes for the heart block. For further management of his condition, he requested a permanent pacemaker implantation. A normal-chamber permanent pacemaker implantation was recommended for AV synchrony and symptom relief. The procedure was explained to the patient in detail with the risks and benefits. The risks of bleeding, hematoma, vascular injury, infection, pneumothorax, myocardial perforation and other concomitant complications were explained in detail, which the patient understood well and consented to proceed. PROCEDURE DESCRIPTION: The patient was brought to the Cardiac Catheterization Lab. Because of the third-degree heart block, we decided to put a temporary pacer wire through the right groin. Under sterile technique, a 6 [place] venous sheath was inserted through the right femoral vein. A temporary pacer wire was advanced through the inferior vena cava and positioned to his the RV apex. Good pacing threshold was obtained. The venous sheath was secured to the place by suturing. The left and the right side of the neck and the subclavian area were cleaned and draped in a sterile fashion. 1% Xylocaine was used as the local anesthetic agent. A left subclavian venous access was obtained using a micropuncture needle system. Under venographic guidance, the patient was injected with 20 milliliters of Omnipaque through the left antecubital vein. A two-inch long incision was made 2.0 centimeters below the midclavicular region. By sharp and blunt dissection, a pacemaker pocket was made. A second venous access was obtained using another micropuncture needle system. Over the first guidewire, a 7-[place] venous sheath with dilator was advanced. The venous dilator and the guidewire were taken out. A screw-in ventricular lead was advanced through the venous sheath and was positioned towards the right ventricle. Under fluoroscopy guidance, the ventricular lead was positioned toward the right ventricular apex. Good pacing and sensing thresholds were obtained. The lead was secured to the endocardium by advancing the helix. The stability of the lead was tested by gentle twisting movements and also by asking the patient to take some deep breaths and cough. The venous sheath was peeled off, at this time. The lead was secured to the pectoralis fascia, by suturing with 1-0 Surgilon. Over the second guidewire, another 7-[place] venous sheath with dilator was advanced. The dilator and the guidewire were taken out. Under fluoroscopy guidance, an atrial lead (Medtronic), was advanced and positioned toward the right atrium. The lead was positioned in the right atrial appendage. Good pacing and sensing thresholds were obtained. The lead was secured to the endocardium by advancing the helix. Stability of the lead was tested by gentle twisting movements and also by asking the patient to take some deep breaths and cough. The venous sheath was peeled off, at this time. The lead was secured to the pectoralis fascia by suturing with 0-Surgilon. The pacemaker pocket was copiously irrigated with vancomycin solution. Complete hemostasis was achieved. Sponge counts were confirmed. The leads were attached to a Medtronic generator. The leads were positioned behind the generator and the generator was attached to the pectoralis fascia by suturing with 0-Surgilon. The pocket was closed in layers. Skin was approximated using 4-0 Vicryl. IMPLANTED DEVICES: ATRIAL LEAD: Model number: 5076/[id number] Serial number: [id number] Make: Medtronic VENTRICULAR LEAD: Model number: 5076/58 Serial number: [id number] Make: Medtronic GENERATOR Brand: [place] XT DR NINA Bass Model number: [id number] Serial number: [id number] Make: Medtronic IMPLANTATION DATA: With the pacing system analyzer, the R wave sensing was 8.7 millivolts with a lead impedance of 781 and a pacing threshold was .4 volts at 0.5 milliseconds. In the atrium, the sensing was 2.2 millivolts with a lead impedance of 604 ohms and a pacing threshold was 1.0 volts at 0.5 milliseconds. Through the device, the R-wave sensing was not obtained because of the pacer dependency. The lead impedance of 665 and a pacing threshold was 0.5 volts at 0.4 milliseconds. The atrial sensing was 3.3 millivolts with a lead impedance of 513 ohms and a pacing threshold of 0.5 volts at 0.4 milliseconds. The pacemaker was set for DDDR mode with upper rate of 130 and a lower rate of 60 A pressure dressing was applied over the pacemaker site. The patient was transferred to the Medical Floor in stable condition. A chest x-ray was ordered to confirm the lead position and also to rule out any pneumothorax.
--- NOTE | 2020-08-26 10:06 | P.PN_ITS ---
Subjective Subjective: Interval history: Patient denies any chest pain or chest tightness. No unusual shortness of breath. Vitals seems to be remaining stable. Medications: Reviewed: Yes Medication Review Details: Current Medications Acetaminophen (Acetaminophen 325 Mg Tablet) 650 mg PO Q6H PRN PRN Reason: Mild/Mod Pain Or Temp >/= 101 Albuterol Sulfate (Albuterol 8 Gm Mdi) 2 puff INHALATION Q6H PRN PRN Reason: Shortness Of Breath Amlodipine Besylate (Amlodipine 5 Mg Tablet) 2.5 mg PO DAILY [facility] Atorvastatin Calcium (Atorvastatin 40 Mg Tablet) 40 mg PO BEDTIME [facility] Last Admin: 08/25/20 20:07 Dose: 40 mg Documented by: Enoxaparin Sodium (Enoxaparin 30 Mg/0.3 Ml Syringe) 30 mg SUBCUT Q24H [facility] Furosemide (Furosemide 20 Mg Tablet) 20 mg PO DAILY@0800 [facility] Losartan Potassium (Losartan 50 Mg Tablet) 100 mg PO DAILY [facility] Last Admin: 08/25/20 10:10 Dose: 100 mg Documented by: Nitroglycerin (Nitroglycerin 0.4 Mg Sublingual Tablet) 0.4 mg SUBLINGUAL Q5M PRN PRN Reason: CHEST PAIN Vitals/I&O/Wt Last Vital Signs Temp 98 F 08/26/20 04:00 Pulse 65 08/26/20 09:29 Resp 22 H 08/26/20 04:00 BP 138/63 08/26/20 09:29 Pulse Ox 97 08/26/20 09:29 08/25/20 08/26/20 08/26/20 22:59 06:59 14:59 Intake Total 413.884 / 939.084 188.767 / 1127.851 Output Total 850 / 1450 300 / 1750 Balance -436.116 / -510.916 -111.233 / -622.149 Physical Exam Narrative: EXAM NARRATIVE: GENERAL: The patient is alert and oriented times three. Not in any acute distress. HEENT: No significant pallor, icterus or lymphadenopathy. NECK: Trachea appears to be central. No masses noted. No JVD or thyromegaly appreciated. No carotid bruit. RESPIRATORY: Chest is symmetrical. No intercostals muscle retraction or any accessory muscle activation. There is no chest wall tenderness. Breath sounds are heard bilaterally. No rales or rhonchi heard. No evidence of any consolidation. The sternotomy site appears to have healed well BREASTS: Deferred. HEART: The aortic valve opening and closing sounds are normal. Ejection systolic murmur of grade 3/6 in the aortic area. No diastolic murmurs. No pericardial rub. ABDOMEN: No vessel pulsations or distention. No tenderness. No organomegaly appreciated. No abdominal bruit. Bowel sounds are normally heard. : Deferred. RECTAL: Deferred. LYMPHATIC: No lymphadenopathy noted in the neck or groin. EXTREMITIES: No edema or cyanosis. No clubbing. The pulses are symmetrical bilaterally. T MUSCULOSKELETAL: No acute joint deformities or swelling SKIN: There are no significant scars or skin rash noted. NEUROPSYCHIATRIC: The patient is alert and oriented x3. Appears to be in a good mood. The higher functions are grossly within normal limits. No tremors or rigidity noted. Const: COMMON NORMALS: alert Neuro: SENSORIUM/ORIENTATION: Yes alert Data : 08/27/20 04:32 08/27/20 04:32 A&P Assessment and plan (1) Third degree heart block: Patient apparently has not been take any medications to cause the heart block. There is no reversible causes for the heart block at this time. The echocardiogram was reviewed. His LV ejection fraction around 45%. At this po int, the patient does not require any defibrillator. We will go ahead with the dual-chamber permanent pacer implantation. The risk of bleeding, hematoma, vascular injury, pneumothorax, infection, renal failure and other concomitant complications were explained in detail. The patient patient understood this well and consented to proceed. We will go ahead and schedule this procedure this morning. Status: Acute (2) Congestive heart failure: Patient may be carefully treated with IV diuretics. He has significant improvement of the shortness of breath, since coming to the hospital. Continue on the current medication. Because of the high BUN, I may hold off on the Lasix. Status: Chronic Qualifiers: Heart failure chronicity: acute Heart failure type: unspecified Qualified Code(s): I50.9 - Heart failure, unspecified (3) Ischemic cardiomyopathy: As mentioned above. Status: Chronic (4) Atherosclerotic heart disease [place] coronary artery w/angina pectoris: Patient chest pain improved after the IV Lasix. whether the heart failure was causing the chest pain or not he is no clear at this time. Since there is no evidence of myocardial injury, most likely chest discomfort could have been related to the decompensated heart failure. Status: Chronic Qualifiers: [place] vs. transplanted heart: [place] heart Qualified Code(s): I25.119 - Atherosclerotic heart disease of [place] coronary artery with unspecified angina pectoris (5) Benign essential hypertension with target blood pressure below 140/90: Currently the blood pressure is a stage II. I may go up on the dose of the losartan to 50 mg p.o. now and daily. Status: Chronic (6) History of atrial fibrillation: May go ahead and start the Coumadin this evening Status: Chronic Additional A&P Information History of aortic stenosis s/p mechanical aortic valve replacement in November 2019. Attestations Medical Necessity Statement*: Patient requires continued hospital stay for close monitoring and further management Coding Level of Care Code Acute [place] for g Fwd Exam Problem Focused Diagnoses Third degree heart block I44.2 Congestive heart failure I50.9 Heart failure chronicity: acute Heart failure type: unspecified Ischemic cardiomyopathy I25.5 Atherosclerotic heart disease [place] coronary artery w/angina pectoris I25.119 [place] vs. transplanted heart: [place] heart Benign essential hypertension with target blood pressure below 140/90 I10 History of atrial fibrillation Z86.79
--- NOTE | 2020-08-26 10:06 | XRR_ITS ---
PROCEDURE INFORMATION: Exam: XR Chest Exam date and time: 08/26/2020 10:19 AM Age: 49 years old Clinical indication: Device placement; Other: Post permanent pacemaker placement; Prior surgery; Surgery date: Post-operative (0-2 days); Additional info: Post permanent pacemaker placement; Visualize lead tip TECHNIQUE: Imaging protocol: XR of the chest. Views: 1 view. COMPARISON: CR XR chest 1V portable [id number] 08/22/2020 11:42 PM FINDINGS: Lungs: There is prominence and indistinctness of the pulmonary vasculature in association with increased interstitial markings, suggestive of mild pulmonary congestion. Pleural spaces: Unremarkable. No pleural effusion. No pneumothorax. Heart/Mediastinum: Prosthetic cardiac valve noted. Vasculature: Interval placement of dual lead pacemaker via left subclavian vein. Bones/joints: Median sternotomy changes seen. XR/XR chest 1V [id number] IMPRESSION: 1. Pacemaker in satisfactory position. 2. Mild pulmonary congestion. 3. No pneumothorax.
--- NOTE | 2020-08-26 10:10 | PC.NURSE ---
received a telephone orders readback from Dr. Galicia to start pt on post pacemaker antibiotic 2 g of cefazolin q8hrs for 3 doses and stat portable chest xray post pacemaker, start amlodipine, losartan and lasix now.
[2020-08-26] MEDS: acetaminophen 325 mg Tablet 650 MG PO ×2 (10:29→21:24)
[2020-08-26] MEDS: FUROsemide 20 mg Tablet PO (10:30)
[2020-08-26] MEDS: amlodipine 5 mg Tablet 2.5 MG PO (10:31)
[2020-08-26] MEDS: losartan 50 mg Tablet 100 MG PO (12:40)
--- NOTE | 2020-08-26 15:43 | P.PN_ITS ---
Subjective Subjective: Interval history: Patient was seen this morning, status post pacemaker placement, he tells me he is doing well, currently no chest pain, no shortness of breath, he tells me that he lives here in [place], with his , he has appropriate help at home Medications: Medication Review Details: Current Medications Acetaminophen (Acetaminophen 325 Mg Tablet) 650 mg PO Q6H PRN PRN Reason: Mild/Mod Pain Or Temp >/= 101 Albuterol Sulfate (Albuterol 8 Gm Mdi) 2 puff INHALATION Q6H PRN PRN Reason: Shortness Of Breath Amlodipine Besylate (Amlodipine 5 Mg Tablet) 2.5 mg PO DAILY [facility] Atorvastatin Calcium (Atorvastatin 40 Mg Tablet) 40 mg PO BEDTIME [facility] Last Admin: 08/25/20 20:07 Dose: 40 mg Documented by: Enoxaparin Sodium (Enoxaparin 30 Mg/0.3 Ml Syringe) 30 mg SUBCUT Q24H [facility] Furosemide (Furosemide 20 Mg Tablet) 20 mg PO DAILY@0800 [facility] Losartan Potassium (Losartan 50 Mg Tablet) 100 mg PO DAILY [facility] Last Admin: 08/25/20 10:10 Dose: 100 mg Documented by: Nitroglycerin (Nitroglycerin 0.4 Mg Sublingual Tablet) 0.4 mg SUBLINGUAL Q5M PRN PRN Reason: CHEST PAIN Vitals/I&O/Wt Last Vital Signs Temp 97.5 F L 08/26/20 12:00 Pulse 74 08/26/20 12:00 Resp 20 H 08/26/20 12:00 BP 122/75 08/26/20 12:40 Pulse Ox 96 08/26/20 12:00 08/26/20 08/26/20 08/26/20 06:59 14:59 22:59 Intake Total 188.767 / 1127.851 360 / 360 Output Total 300 / 1750 1900 / 1900 Balance -111.233 / -622.149 -1540 / -1540 Physical Exam Const: COMMON NORMALS: no acute distress and patient oriented x3 HENMT: COMMON NORMALS: normocephalic HEAD & SCALP: normocephalic Neck/C-Spine: COMMON NORMALS: no JVD Chest: OTHER: Left chest, binder in place Resp: COMMON NORMALS: normal respiratory effort, No retractions, No use of accessory muscles and clear to auscultation bilaterally AUSCULTATION: clear to auscultation bilaterally Cardio: COMMON NORMALS: no JVD, regular rate, regular rhythm, S1 normal heart sound present and S2 normal heart sound present RATE: regular rate RHYTHM: regular rhythm HEART SOUNDS: S1 normal heart sound present and S2 normal heart sound present GI: COMMON NORMALS: Normal to inspection, nondistended, normoactive bowel sounds present, Soft to palpation, non-tender, No hepatosplenomegaly present, no masses and no bruits PALPATION: Yes Soft to palpation and Yes No hepatos plenomegaly present Extremity: COMMON NORMALS: capillary refill normal, no clubbing, cyanosis or edema, no calf tenderness and no pedal edema Neuro: COMMON NORMALS: patient oriented x3 Psych: COMMON NORMALS: mental status grossly normal Data : 08/25/20 05:01 08/26/20 04:06 A&P Assessment and plan (1) Dyspnea: Secondary to bradycardia and CHF, resolved at rest Status: Acute Qualifiers: Dyspnea type: unspecified Qualified Code(s): R06.00 - Dyspnea, unspecified (2) Third degree heart block: With plan for pacemaker Status: Acute (3) Elevated troponin: Without significant delta. Known coronary artery disease status post previous percutaneous intervention. Status: Acute (4) Congestive heart failure: Ejection fraction 45%, was not on any diuresis or other medications at home Status: Chronic Qualifiers: Heart failure chronicity: acute Heart failure type: unspecified Qualified Code(s): I50.9 - Heart failure, unspecified (5) Chronic anticoagulation: Therapeutic Coumadin level at admission, slow downward trend Status: Chronic (6) History of mechanical aortic valve replacement: Chronically on Coumadin Status: Chronic (7) Benign essential hypertension with target blood pressure below 140/90: Was not on any medications at home Status: Chronic Additional A&P Information Telemetry monitoring Status post pacemaker placement, binder in place, PT OT Heparin drip discontinued, repeat INR tomorrow morning, bridge with Coumadin and Lovenox tomorrow morning Coumadin is held with plan to resume post procedure Monitor INR Cardiology is following Oral Lasix 20 mg daily is a new medication Losartan, new medication, increased to 100 mg a day today Statin therapy initiated at presentation, was not on at home, lipid panel HDL low at 45, triglycerides 102, cholesterol 146 Does have a history of atrial fibrillation previously requiring amiodarone, sinus bradycardia this stay Currently on SCDs for DVT prophylaxis Supportive care otherwise Current disposition plans are for home Full code Attestations Medical Necessity Statement*: Patient requires hospitalization for third- degree AV block status post pacemaker placement Coding Level of Care Code Acute [employer] for [employer] Fwd Diagnoses Dyspnea R06.00 Dyspnea type: unspecified Third degree heart block I44.2 Elevated troponin R79.89 Congestive heart failure I50.9 Heart failure chronicity: acute Heart failure type: unspecified Chronic anticoagulation Z79.01 History of mechanical aortic valve replacement Z95.2 Benign essential hypertension with target blood pressure below 140/90 I10
[2020-08-26] MEDS: atorvastatin 40 mg Tablet PO (21:25)
[2020-08-27] VITALS (8 sets, daily range): BP systolic 128–165; BP diastolic 88–93; PULSE 75–95; RESP 16–20; TEMP 36.7; O2SAT 95–96
[2020-08-27 05:06] LABS: Basophils % 0.3 %; Eosinophils # 0.2 10^3/uL (0.0-0.8); Eosinophils % 1.7 %; Hematocrit 50.6 % (42.0-52.0); Hemoglobin 15.7 g/dL (11.7-16.6); Lymphocytes % 21.6 %; Mean Corpuscular Volume 77.5 fL (80-94); Mean Platelet Volume 11.2 fL (7.4-10.4); Monocytes # 0.8 10^3/uL (0.2-0.9); Monocytes % 8.5 %; Neutrophils # 6.26 10^3/uL (1.8-7.7); Neutrophils % 67.5 %; Nucleated Red Blood Cells % 0 %; Platelet Count 245 10^3/cmm (130-400); Red Blood Count 6.53 10^6/uL (4.1-5.3); Red Cell Distribution Width 15.3 % (12.1-15.1); White Blood Count 9.3 10^3/uL (4.0-10.0)
[2020-08-27] MEDS: enoxaparin 30 mg/0.3 mL Syringe SUBCUT (05:12)
[2020-08-27 05:22] LABS: INR 1.12 (0.8-1.2)
[2020-08-27 05:35] LABS: Alanine Aminotransferase 25 U/L (0-41); Albumin Level 3.5 g/dL (3.5-5.2); Alkaline Phosphatase 257 IU/L (40-130); Anion Gap 11.3 (5-19); Aspartate Amino Transferase 23 U/L (0-40); Blood Urea Nitrogen 22 mg/dL (6-20); Calcium 8.6 mg/dL (8.5-10.5); Carbon Dioxide 25 mmol/L (22-29); Chloride 102 mmol/L (98-107); Globulin 3.6 g/dL (1.3-4.6); Glomerular Filtration Rate 79.8 mL/min (90-130); Glucose 110 mg/dL (65-115); Magnesium 1.9 mg/dL (1.7-2.3); Osmolality Calculated 282 mOsm/kg (285-295); Phosphorus 3.6 mg/dL (2.5-4.5); Potassium 4.3 mmol/L (3.5-5.1); Sodium 134 mmol/L (136-145); Total Bilirubin 0.6 mg/dL (0.15-1.2); Total Protein 7.1 g/dL (6.6-8.7)
--- NOTE | 2020-08-27 06:00 | ECG_ITS ---
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1970 Requested By: Jesse Galicia Order Number: [id number] Reading MD: OSITO WELLER Measurements Intervals [place] Rate: 72 P: 42 TN: 196 QRS: -62 QRSD: 175 T: 110 QT: 486 QTc: 535 Interpretive Statements ELECTRONIC VENTRICULAR PACEMAKER ABNORMAL RHYTHM ECG Compared to ECG 08/23/2020 00:54:23 Sinus rhythm no longer present ST (T wave) deviation no longer present Intraventricular conduction delay no longer present Electronically Signed On 08-27-2020 23:43:22 CDT by OSITO WELLER [id number]
[2020-08-27] MEDS: losartan 50 mg Tablet 100 MG PO (08:50)
[2020-08-27] MEDS: amlodipine 5 mg Tablet 2.5 MG PO (08:50)
[2020-08-27] MEDS: FUROsemide 20 mg Tablet PO (08:50)
[2020-08-27] MEDS: warfarin 5 mg Tablet PO (13:27)
--- NOTE | 2020-08-27 14:34 | P.PN_ITS ---
Subjective Subjective: Interval history: Patient was examined, he is doing well, no signs of bleeding from his pacemaker placement site, no chest pain, no shortness of breath, Medications: Medication Review Details: Current Medications Acetaminophen (Acetaminophen 325 Mg Tablet) 650 mg PO Q6H PRN PRN Reason: Mild/Mod Pain Or Temp >/= 101 Albuterol Sulfate (Albuterol 8 Gm Mdi) 2 puff INHALATION Q6H PRN PRN Reason: Shortness Of Breath Amlodipine Besylate (Amlodipine 5 Mg Tablet) 2.5 mg PO DAILY [facility] Atorvastatin Calcium (Atorvastatin 40 Mg Tablet) 40 mg PO BEDTIME [facility] Last Admin: 08/25/20 20:07 Dose: 40 mg Documented by: Enoxaparin Sodium (Enoxaparin 30 Mg/0.3 Ml Syringe) 30 mg SUBCUT Q24H [facility] Furosemide (Furosemide 20 Mg Tablet) 20 mg PO DAILY@0800 [facility] Losartan Potassium (Losartan 50 Mg Tablet) 100 mg PO DAILY [facility] Last Admin: 08/25/20 10:10 Dose: 100 mg Documented by: Nitroglycerin (Nitroglycerin 0.4 Mg Sublingual Tablet) 0.4 mg SUBLINGUAL Q5M PRN PRN Reason: CHEST PAIN Vitals/I&O/Wt Last Vital Signs Temp 98.0 F 08/27/20 11:10 Pulse 84 08/27/20 11:10 Resp 20 H 08/27/20 11:10 BP 143/88 08/27/20 11:10 Pulse Ox 96 08/27/20 11:10 08/26/20 08/27/20 08/27/20 22:59 06:59 14:59 Intake Total 340 / 700 200 / 900 600 / 600 Output Total 1450 / 3350 300 / 3650 400 / 400 Balance -1110 / -2650 -100 / -2750 200 / 200 Physical Exam Const: COMMON NORMALS: no acute distress and patient oriented x3 HENMT: COMMON NORMALS: normocephalic HEAD & SCALP: normocephalic Neck/C-Spine: COMMON NORMALS: no JVD Chest: OTHER: Left pacemaker placement site, clean and dry Resp: COMMON NORMALS: normal respiratory effort, No retractions, No use of accessory muscles and clear to auscultation bilaterally AUSCULTATION: clear to auscultation bilaterally Cardio: COMMON NORMALS: no JVD, regular rate, regular rhythm, S1 normal heart sound present and S2 normal heart sound present RATE: regular rate RHYTHM: regular rhythm HEART SOUNDS: S1 normal heart sound present and S2 normal heart sound present GI: COMMON NORMALS: Normal to inspection, nondistended, normoactive bowel gillian nds present, Soft to palpation, non-tender, No hepatosplenomegaly present, no masses and no bruits PALPATION: Yes Soft to palpation and Yes No hepatosplenomegaly present Extremity: COMMON NORMALS: capillary refill normal, no clubbing, cyanosis or edema, no calf tenderness and no pedal edema Neuro: COMMON NORMALS: patient oriented x3 Psych: COMMON NORMALS: mental status grossly normal Data : 08/27/20 04:32 08/27/20 04:32 A&P Assessment and plan (1) Dyspnea: Secondary to bradycardia and CHF, resolved at rest Status: Acute Qualifiers: Dyspnea type: unspecified Qualified Code(s): R06.00 - Dyspnea, unspecif ied (2) Third degree heart block: Status post pacemaker placement Status: Acute (3) Elevated troponin: Without significant delta. Known coronary artery disease status post previous percutaneous intervention. Status: Acute (4) Congestive heart failure: Ejection fraction 45%, was not on any diuresis or other medications at home Status: Chronic Qualifiers: Heart failure chronicity: acute Heart failure type: unspecified Qualified Code(s): I50.9 - Heart failure, unspecified (5) Chronic anticoagulation: Therapeutic Coumadin level at admission, slow downward trend Status: Chronic (6) History of mechanical aortic valve replacement: Chronically on Coumadin Status: Chronic (7) Benign essential hypertension with target blood pressure below 140/90: Was not on any medications at home Status: Chronic Additional A&P Information Telemetry monitoring Status post pacemaker placement, binder in place, PT OT On DVT prophylaxis Lovenox, resume Coumadin today, repeat INR tomorrow morning, bridge with Coumadin and therapeutic Lovenox tomorrow morning if no significant bleeding Monitor INR Cardiology is following Oral Lasix 20 mg daily is a new medication Losartan, new medication, increased to 100 mg a day today Statin therapy initiated at presentation, was not on at home, lipid panel HDL low at 45, triglycerides 102, cholesterol 146 Does have a history of atrial fibrillation previously requiring amiodarone, sin us bradycardia this stay Currently on SCDs and Lovenox for DVT prophylaxis Supportive care otherwise Current disposition plans are for home Full code Attestations Medical Necessity Statement*: Patient requires hospitalization for third- degree AV block status post pacemaker placement Coding Level of Care Code Acute Neuropsychology Service Director for Lukeg Fwd Diagnoses Dyspnea R06.00 Dyspnea type: unspecified Third degree heart block I44.2 Elevated troponin R79.89 Congestive heart failure I50.9 Heart failure chronicity: acute Heart failure type: unspecified Chronic anticoagulation Z79.01 History of mechanical aortic valve replacement Z95.2 Benign essential hypertension with target blood pressure below 140/90 I10
--- NOTE | 2020-08-27 17:29 | PM.PN ---
Subjective Subjective: Interval history: She is feeling okay. No chest pain or chest tightness. No fever or chills. No hematoma bleeding in the pacemaker insertion site . He is tolerating the antibiotic so far well Medications: Reviewed: Yes Medication Review Details: Current Medications Acetaminophen (Acetaminophen 325 Mg Tablet) 650 mg PO Q6H PRN PRN Reason: Mild/Mod Pain Or Temp >/= 101 Last Admin: 08/26/20 21:24 Dose: 650 mg Documented by: Albuterol Sulfate (Albuterol 8 Gm Mdi) 2 puff INHALATION Q6H PRN PRN Reason: Shortness Of Breath Amlodipine Besylate (Amlodipine 5 Mg Tablet) 2.5 mg PO DAILY [facility] Last Admin: 08/27/20 08:50 Dose: 2.5 mg Documented by: Atorvastatin Calcium (Atorvastatin 40 Mg Tablet) 40 mg PO BEDTIME [facility] Last Admin: 08/26/20 21:25 Dose: 40 mg Documented by: Enoxaparin Sodium (Enoxaparin 60 Mg/0.6 Ml Syringe) 60 mg SUBCUT Q12H [facility] Furosemide (Furosemide 20 Mg Tablet) 20 mg PO DAILY@0800 [facility] Last Admin: 08/27/20 08:50 Dose: 20 mg Documented by: Losartan Potassium (Losartan 50 Mg Tablet) 100 mg PO DAILY [facility] Last Admin: 08/27/20 08:50 Dose: 100 mg Documented by: Nitroglycerin (Nitroglycerin 0.4 Mg Sublingual Tablet) 0.4 mg SUBLINGUAL Q5M PRN PRN Reason: CHEST PAIN Warfarin Sodium (Warfarin 5 Mg Tablet) 5 mg PO DAILY@1400 [facility] Last Admin: 08/27/20 13:27 Dose: 5 mg Documented by: Vitals/I&O/Wt Last Vital Signs Temp 98.0 F 08/27/20 11:10 Pulse 95 08/27/20 15:03 Resp 18 08/27/20 15:03 BP 128/90 08/27/20 15:03 Pulse Ox 95 08/27/20 15:03 08/27/20 08/27/20 08/27/20 06:59 14:59 22:59 Intake Total 200 / 900 600 / 600 Output Total 300 / 3650 400 / 400 Balance -100 / -2750 200 / 200 Physical Exam Narrative: EXAM NARRATIVE: GENERAL: The patient is alert and oriented times three. Not in any acute distress. HEENT: No significant pallor, icterus or lymphadenopathy. NECK: Trachea appears to be central. No masses noted. No JVD or thyromegaly appreciated. No carotid bruit. RESPIRATORY: Chest is symmetrical. No intercostals muscle retraction or any accessory muscle activation. There is no chest wall tenderness. Breath sounds are heard bilaterally. No rales or rhonchi heard. No evidence of any consolidation. The sternotomy site appears to have healed well BREASTS: Deferred. HEART: The aortic valve opening and closing sounds are normal. Ejection systolic murmur of grade 3/6 in the aortic area. No diastolic murmurs. No pericardial rub. ABDOMEN: No vessel pulsations or distention. No tenderness. No organomegaly appreciated. No abdominal bruit. Bowel sounds are normally heard. : Deferred. RECTAL: Deferred. LYMPHATIC: No lymphadenopathy noted in the neck or groin. EXTREMITIES: No edema or cyanosis. No clubbing. The pulses are symmetrical bilaterally. T MUSCULOSKELETAL: No acute joint deformities or swelling SKIN: There are no significant scars or skin rash noted. NEUROPSYCHIATRIC: The patient is alert and oriented x3. Appears to be in a good mood. The higher functions are grossly within normal limits. No tremors or rigidity noted. Const: COMMON NORMALS: alert Neuro: SENSORIUM/ORIENTATION: Yes alert Data : 08/27/20 04:32 08/27/20 04:32 A&P Assessment and plan (1) Third degree heart block: Patient apparently has not been take any medications to cause the heart block. There is no reversible causes for the heart block at this time. The echocardiogram was reviewed. His LV ejection fraction around 45%. At this point, the patient does not require any defibrillator. We will go ahead with the dual-chamber permanent pacer implantation. The risk of bleeding, hematoma, vascular injury, pneumothorax, infection, renal failure and other concomitant complications were explained in detail. The patient patient understood this well and consented to proceed. We will go ahead and schedule this procedure this morning. Status: Acute (2) Congestive heart failure: Patient may be carefully treated with IV diuretics. He has significant improvement of the shortness of breath, since coming to the hospital. Continue on the current medication. Because of the high BUN, I may hold off on the Lasix. Status: Chronic Qualifiers: Heart failure chronicity: acute Heart failure type: unspecified Qualified Code(s): I50.9 - Heart failure, unspecified (3) Ischemic cardiomyopathy: As mentioned above. Status: Chronic (4) Atherosclerotic heart disease [place] coronary artery w/angina pectoris: Patient chest pain improved after the IV Lasix. whether the heart failure was causing the chest pain or not he is no clear at this time. Since there is no evidence of myocardial injury, most likely chest discomfort could have been related to the decompensated heart failure. Status: Chronic Qualifiers: [place] vs. transplanted heart: [place] heart Qualified Code(s): I25.119 - Atherosclerotic heart disease of [place] coronary artery with unspecified angina pectoris (5) Benign essential hypertension with target blood pressure below 140/90: Currently the blood pressure is a stage II. I may go up on the dose of the losartan to 50 mg p.o. now and daily. Status: Chronic (6) History of atrial fibrillation: May go ahead and start the Coumadin this evening Status: Chronic Additional A&P Information History of aortic stenosis s/p mechanical aortic valve replacement in November 2019. Attestations Medical Necessity Statement*: Patient requires continued hospital stay for close monitoring and further management Coding Level of Care Code Acute Jira Administrator for g Fwd Diagnoses Third degree heart block I44.2 Congestive heart failure I50.9 Heart failure chronicity: acute Heart failure type: unspecified Ischemic cardiomyopathy I25.5 Atherosclerotic heart disease [place] coronary artery w/angina pectoris I25.119 [place] vs. transplanted heart: [place] heart Benign essential hypertension with target blood pressure below 140/90 I10 History of atrial fibrillation Z86.79
--- NOTE | 2020-08-27 17:47 | P.DS_ITS ---
Discharge Providers Date of Admission: 08/23/20 01:33 Date of Discharge: August 27, 2020 Attending Provider at Admission: Charan Hui MD Attending Provider at Discharge: Yohan Figueroa MD Diagnoses at Discharge Discharge Diagnosis (1) Third degree heart block: Status: Acute (2) Congestive heart failure: Status: Chronic Qualifiers: Heart failure chronicity: acute Heart failure type: unspecified Qualified Code(s): I50.9 - Heart failure, unspecified (3) Ischemic cardiomyopathy: Status: Chronic (4) Atherosclerotic heart disease [place] coronary artery w/angina pectoris: Status: Chronic Qualifiers: [place] vs. transplanted heart: [place] heart Qualified Code(s): I25.119 - Atherosclerotic heart disease of [place] coronary artery with unspecified angina pectoris (5) Benign essential hypertension with target blood pressure below 140/90: Status: Chronic (6) History of atrial fibrillation: Status: Chronic Reason for Visit Reason for Visit: CHEST PAIN DIFFICULTY BREATHING Hospital Course Hospital Course This is a 49-year-old male with a past medical history of aortic valve replacement, on Coumadin, history of left bundle branch block, ischemic cardiomyopathy EF 30 to 35%, who presents to [facility] for shortness of breath and chest pain Patient was admitted to [facility] for dyspnea secondary to systolic CHF, received diuresis, clinically improved, discharged on Lasix 20 mg daily, with losartan 100 mg daily, with a follow-up with cardiology as outpatient Patient was also found to have third-degree AV block during his hospitalization, requiring pacemaker placement by Dr. Galicia, tolerated procedure well, follow-up with cardiology as outpatient For his Coumadin, he has received 5 mg of Coumadin on Wednesday, will receive 5 mg on Wednesday and . Will also be bridged with Lovenox 60 mg every 12 hours on Wednesday, Wednesday, , Wednesday morning. INR on discharge was 1.12. Recheck INR on Wednesday at Dr. Galicia's office. Dr. Galicia will determine further Coumadin dosing, and Lovenox bridging if required Physical Exam Const: COMMON NORMALS: no acute distress and patient oriented x3 HENMT: COMMON NORMALS: normocephalic HEAD & SCALP: normocephalic Neck/C-Spine: COMMON NORMALS: no JVD Chest: OTHER: Left pacemaker placement site, clean and dry Resp: COMMON NORMALS: normal respiratory effort, No retractions, No use of accessory muscles and clear to auscultation bilaterally AUSCULTATION: clear to auscultation bilaterally Cardio: COMMON NORMALS: no JVD, regular rate, regular rhythm, S1 normal heart sound present and S2 normal heart sound present RATE: regular rate RHYTHM: regular rhythm HEART SOUNDS: S1 normal heart sound present and S2 normal heart sound present GI: COMMON NORMALS: Normal to inspection, nondistended, normoactive bowel sounds present, Soft to palpation, non-tender, No hepatosplenomegaly present, no masses and no bruits PALPATION: Yes Soft to palpation and Yes No hepatosplenomegaly present Extremity: COMMON NORMALS: no calf tenderness and no pedal edema Neuro: COMMON NORMALS: patient oriented x3 Psych: COMMON NORMALS: mental status grossly normal Discharge Data Data Completed and Pending: Completed Studies During Hospitalization Category Date Time Status CT angio chest PE protcl [id number] Urge nt Cat Scan 08/23/20 00:26 Completed NUMERICAL TOOL PROGRAMMER request for service Routin e Exams 08/26/20 06:30 Completed XR chest 1V [id number] Stat Exams 08/26/20 10:06 Completed XR chest 1V kilo ble [id number] Stat Exams 08/22/20 23:35 Completed CV echo complete* [id number] Routine Ultrasound 08/23/20 07:10 Completed Pending at discharge Category Date Time Status Complete Blood Co unt w/Auto AM LABS Lab 08/28/20 04:00 Ordered Complete Blood Co unt w/Auto AM LABS Lab 08/29/20 04:00 Ordered Comprehensive Met abolic Panel AM LA BS Lab 08/28/20 04:00 Ordered Comprehensive Met abolic Panel AM LA BS Lab 08/29/20 04:00 Ordered Magnesium AM LABS Lab 08/28/20 04:00 Ordered Magnesium AM LABS Lab 08/29/20 04:00 Ordered Phosphorus AM LAB S Lab 08/28/20 04:00 Ordered Phosphorus AM LAB S Lab 08/29/20 04:00 Ordered Prothrombin Time INR AM LABS Lab 08/28/20 04:00 Ordered Prothrombin Time INR AM LABS Lab 08/29/20 04:00 Ordered Prothrombin Time INR AM LABS Lab 08/30/20 04:00 Ordered Labs from last 24 hours 08/27/20 08/27/20 08/27/20 04:32 04:32 04:32 WBC 9.3 RBC 6.53 H Hgb 15.7 Hct 50.6 MCV 77.5 L MCH 24.0 L MCHC 31.0 RDW 15.3 H Plt Count 245 MPV 11.2 H Neut % (Auto) 67.5 Lymph % (Auto) 21.6 [place] % (Auto) 8.5 Eos % (Auto) 1.7 Baso % (Auto) 0.3 Neut # (Auto) 6.26 Lymph # (Auto) 2.0 [place] # (Auto) 0.8 Eos # (Auto) 0.2 Baso # (Auto) 0.0 Nucleated RBC % (a uto) 0 Nucleated RBCs # 0.0 PT 14.80 INR 1.12 Sodium 134 L Potassium 4.3 Chloride 102 Carbon Dioxide 25 Anion Gap 11.3 BUN 22 H Creatinine 1.0 GFR Calculation 79.8 L Glucose 110 Calculated Osmolal ity 282 L Calcium 8.6 Phosphorus 3.6 Magnesium 1.9 Total Bilirubin 0.6 AST 23 ALT 25 Alkaline Phosphata se 257 H Total Protein 7.1 Albumin 3.5 Globulin 3.6 Vitals: Last Vital Signs Temp 98.0 F 08/27/20 11:10 Pulse 95 08/27/20 15:03 Resp 18 08/27/20 15:03 BP 128/90 08/27/20 15:03 Pulse Ox 95 08/27/20 15:03 Discharge Plan Discharge Patient Disposition: Home Condition: Stable Prescriptions: New atorvastatin 40 mg Tablet 40 mg PO BEDTIME 30 Days Qty: 30 RF: 0 nitroglycerin 0.4 mg Tablet, Sublingual 0.4 mg sublingual Q5M PRN (Reason: Chest Pain) 30 Days Qty: 30 RF: 0 enoxaparin 60 mg/0.6 mL Syringe 60 mg SUBCUT Q12H 10 Days Qty: 6 RF: 0 warfarin 5 mg Tablet 5 mg PO DAILY@1400 30 Days Qty: 30 RF: 0 albuterol sulfate [Ventolin HFA] 90 mcg/actuation Hfa Aerosol Inhaler 2 puff inhalation Q6H PRN (Reason: Shortness Of Breath) Qty: 8.5 RF: 0 amlodipine 5 mg Tablet 2.5 mg PO DAILY 30 Days Qty: 30 RF: 0 furosemide 20 mg Tablet 20 mg PO DAILY@0800 30 Days Qty: 30 RF: 0 losartan 50 mg Tablet 100 mg PO DAILY 30 Days Qty: 60 RF: 0 Discontinued Tylenol Extra Strength 500 mg Tablet 1,000 mg PO PRN RF: 0 warfarin 4 mg tablet See Rx Instructions .ROUTE .COMPLEX RF: 0 Discharge Orders: Discharge Order (Routine); Ordered 08/27/20 Ordered By: Yohan Figueroa Other Ambulatory Orders: Prothrombin Time INR (Routine) Timeframe: 20200830 Facility: [facility] - Location: Lab - Main Lab Ordered By: Yohan Figueroa Referrals: Jesse Galicia MD [Physician] - 08/30/20 (recheck INR) Joanne Walton DO [Physician] - 09/10/20 10:30 am Patient Instructions: Pacemaker (DC), Opioid Safety, Post Pacemaker - [place] Activity Restrictions/Additional Instructions: -Take 5 mg of Coumadin on Wednesday and -Take 60 mg of Lovenox subcu every 12 hours Wednesday and and Wednesday mo rning -Recheck INR on Wednesday at Dr. Galicia's office -Dr. Galicia will decide further Coumadin dosing, and if further Lovenox is required -Follow-up with primary care Discharge Attestations Time Spent in Discharge Care*: less than 30 min Status at Discharge: Cognitive status at discharge: cognitively intact , Behavioral status at discharge: cooperative , Quality Metrics Clinical Quality Measures During this hospital stay, did patient experience: None Coding Level of Care Code Acute Chg FW DC note Diagnoses Third degree heart block I44.2 Congestive heart failure I50.9 Heart failure chronicity: acute Heart failure type: unspecified Ischemic cardiomyopathy I25.5 Atherosclerotic heart disease [place] coronary artery w/angina pectoris I25.119 [place] vs. transplanted heart: [place] heart Benign essential hypertension with target blood pressure below 140/90 I10 History of atrial fibrillation Z86.79
[2020-08-27] MEDS: enoxaparin 60 mg/0.6 mL Syringe SUBCUT (18:00)
--- NOTE | 2020-08-27 18:34 | PC.NURSE ---
call placed to Dr gallo with concerns patient was unable to obtain medications for tonight instructions to give atorvastatin dose now
[2020-08-27] MEDS: atorvastatin 40 mg Tablet PO (18:49)
--- NOTE | 2020-08-27 19:00 | PC.NURSE ---
patient provided discharge instructions educated on new medications and follow care patient and spouse verbalized understanding of all instructions given. patient assisted to wheel chair accompanied to private vehicle
== END 2020-08-27 18:55 | disposition home or self-care (01) | DRG 242 ==
LOC: ER 08-23 01:38 → CSU 08-23 03:07
PROVIDERS: Hospitalist; Internal Medicine Cardiovascular Disease; Admitting Provider Internal Medicine; Emergency Provider Emergency Medicine; Visit Provider Family Medicine
DX: I44.2 Atrioventricular block, complete (principal); I50.43 Acute on chronic combined systolic (congestive) and diastolic (congestive) heart failure; Z95.2 Presence of prosthetic heart valve; I25.5 Ischemic cardiomyopathy; I16.0 Hypertensive urgency; I25.119 Atherosclerotic heart disease of native coronary artery with unspecified angina pectoris; Z95.5 Presence of coronary angioplasty implant and graft; I11.0 Hypertensive heart disease with heart failure; E78.5 Hyperlipidemia, unspecified; F17.210 Nicotine dependence, cigarettes, uncomplicated; I48.91 Unspecified atrial fibrillation
CPT/HCPCS: 33208; 33210; 36415; 71045; 71275; 80048; 80053; 80061; 83735; 83880; 84100; 84443; 84484; 85025; 85610; 85730; 93005; 93306; 94640; 96372; 96374; 96375; 97165; 99285; C1769; C1779; C1786; C1894; C1898; J0360; J0690; J1644; J1650; J1940; J2250; J2270; J2405; J3010; J7030; J7050; Q9967

== ENCOUNTER → 2020-09-10 10:57 | Outpatient (BNVA) | payer MEDICAID, SELFPAY | PROVIDERS: PCP Family Medicine; Visit Provider Family Medicine | DX: Z86.79 Personal history of other diseases of the circulatory system (principal) | CPT/HCPCS: 85610 ==

== ENCOUNTER → 2020-11-26 15:02 | Outpatient (BNVA) | payer MEDICAID, SELFPAY | PROVIDERS: PCP Family Medicine; Visit Provider Internal Medicine Cardiovascular Disease | DX: I25.119 Atherosclerotic heart disease of native coronary artery with unspecified angina pectoris (principal); E78.5 Hyperlipidemia, unspecified | CPT/HCPCS: 80061; 80076 ==

== ENCOUNTER → 2021-01-27 08:54 | Outpatient (BNVA) | payer MEDICAID, SELFPAY | PROVIDERS: PCP Family Medicine; Visit Provider Internal Medicine Cardiovascular Disease | DX: I25.5 Ischemic cardiomyopathy (principal); I25.119 Atherosclerotic heart disease of native coronary artery with unspecified angina pectoris; E78.00 Pure hypercholesterolemia, unspecified; Z95.2 Presence of prosthetic heart valve; I42.0 Dilated cardiomyopathy; I50.23 Acute on chronic systolic (congestive) heart failure; I11.0 Hypertensive heart disease with heart failure | CPT/HCPCS: 80061; 80076 ==

== ENCOUNTER → 2021-04-10 15:37 | Outpatient (BNVA) | payer MEDICAID, SELFPAY | PROVIDERS: PCP Family Medicine; Visit Provider Family Medicine | DX: I10 Essential (primary) hypertension (principal); Z79.01 Long term (current) use of anticoagulants | CPT/HCPCS: 80053; 82043; 85610 ==

== ENCOUNTER 2021-04-22 17:13 | Observation (INO) | payer MEDICAID, SELFPAY ==
[2021-04-22] VITALS (7 sets, daily range): BP systolic 104–118; BP diastolic 62–84; PULSE 71–85; RESP 16–24; O2SAT 95–98; BMI 20.7; BMI 21.9
--- NOTE | 2021-04-22 17:47 | XRR_ITS ---
PROCEDURE INFORMATION: Exam: XR Chest Exam date and time: 04/22/2021 5:47 PM Age: 50 years old Clinical indication: Dyspnea TECHNIQUE: Imaging protocol: XR of the chest. Views: 1 view. COMPARISON: CR XR chest 1V [id number] 08/26/2020 10:27 AM FINDINGS: Tubes, catheters and devices: A cardiac pacing device is again seen projecting over the left chest. Lungs: There is mildly increased lung markings, suggestive of pulmonary congestion. Pneumonia should be excluded clinically. No large pleural effusion or pneumothorax. Pleural spaces: See Lungs finding. Heart/Mediastinum: Stable cardiomediastinal silhouette. Bones/joints: Median sternotomy changes seen. XR/XR chest 1V portable [id number] IMPRESSION: Imaging findings suggestive of mild pulmonary congestion. Pneumonia should be excluded clinically.
--- NOTE | 2021-04-22 17:47 | ECG_ITS ---
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 Measurements Intervals [place] Rate: 82 P: 68 ME: 195 QRS: -64 QRSD: 201 T: 106 QT: 485 QTc: 567 Interpretive Statements ELECTRONIC VENTRICULAR PACEMAKER ABNORMAL RHYTHM ECG Compared to ECG 08/27/2020 06:11:09 No significant changes Electronically Signed On 04-23-2021 0:14:34 METROLOGY ENGINEER by Jesse Galicia M.D. [id number]
[2021-04-22 18:04] LABS: Basophils % 0.4 %; Eosinophils # 0.2 10^3/uL (0.0-0.8); Eosinophils % 3.5 %; Hematocrit 37.5 % (42.0-52.0); Hemoglobin 11.2 g/dL (11.7-16.6); Lymphocytes # 1.9 10^3/uL (0.8-4.8); Lymphocytes % 28.1 %; Mean Corpuscular HGB Conc 29.9 g/dL (30.0-36.0); Mean Corpuscular Hemoglobin 24.7 pg (28.0-34.0); Mean Corpuscular Volume 82.6 fl (80-94); Mean Platelet Volume 11.3 fL (7.4-10.4); Monocytes # 0.6 10^3/uL (0.2-0.9); Monocytes % 8.1 %; Neutrophils # 4.06 10^3/uL (1.8-7.7); Neutrophils % 59.5 %; Nucleated Red Blood Cells % 0 %; Platelet Count 259 10^3/cmm (130-400); Red Blood Count 4.54 10^6/uL (4.1-5.3); Red Cell Distribution Width 15.1 % (12.1-15.1); White Blood Count 6.8 10^3/uL (4.0-10.0)
[2021-04-22] MEDS: aspirin 325 mg Tablet PO (18:10)
--- NOTE | 2021-04-22 18:10 | ED_ITS ---
HPI - General Adult General: Chief complaint: Shortness of Breath/Dyspnea Stated complaint: CHEST PAIN Time Seen by Provider: 04/22/21 17:47 History of Present Illness: HPI narrative: CC: Chest Pain HPI: This is a [50] yo patient hx of DM, HTN, HLD CAD s/p stent x 1, mechanical aortic value replacement, atrial fibrillation on warfarin, EF of 20% on pacemaker only followed by Dr. Galicia presenting to the ED complaining of acute sudden onset intermittent chest pain today without exertion. Describes 2 episodes of chest pain each lasting for 15 to 20 minutes. Most recently, patient had an episode of rest while he was asleep around 5:30 PM. +Associated with shortness of breath, chest pain and patient reports worsneing dyspnea on exertion. Pain is not tearing in nature and does not radiate to the back. Pain not associated with vomiting or PO intake. Denies any recent sympathomimetic drug use. Patient denies any cough. Denies palpitations, dysphagia, diaphoresis, radiation of pain to bilateral arms, jaw. Denies F/N/V/D. Patient denies any recent immobility, surgery, unilateral leg swelling, or prior PE. Patient denies any orthopnea. Onset: Today Duration: two episodes lasting for 15 minutes each Location: home Severity: mild/moderate Review of Systems Narrative: Constitutional: No fever, no chills. HEENT: No vision changes, no sore throat. CV: +chest pain, no palpitations. PULM: No cough, +dyspnea. GI: No abdominal pain, no N/V/D. : No dysuria, no frequency, no hematuria. MSKEL: No arthralgias, no edema. SKIN: No new rashes, no lesions. NEURO: No headache, no focal weakness. HEME: No easy bleeding or bruising. PSYCH: No change in mood or affect. PFS ED PFSH: Medical History Benign essential hypertension with target blood pressure below 140/90 CAD (coronary artery disease) LAD stent placement 09/20/2019 Combined congestive systolic and diastolic heart failure Dyslipidemia Elevated hemoglobin A1c History of atrial fibrillation Ischemic cardiomyopathy Left bundle branch block Nicotine dependence -chronic smoker, 1 PPD Pacemaker Pulmonary edema Surgical History Aortic valve replaced (~11/2019) History of heart artery stent Distal LAD, 09/20/2019 Family History Father CAD (coronary artery disease), Onset Age: 32 His father of myocardial infarction in his 70s. He had open heart surgery. Diabetes Dementia Brother CAD (coronary artery disease), Onset Age: 40 Patient has 4 brothers and all of them had a heart attack in their 40s and 50s. Cancer Lung disease Grandfather Stroke Had a CVA? Mother Stroke Denies family history of Clotting disorder Chronic kidney disease (CKD) Suicide Anesthesia complication Bleeding disorder Social History Smoking and tobacco status: current every day smoker cigarettes Packs smoked p er day: 0.5 Alcohol intake: never Household members: spouse Housing: House Physical Exam Narrative: EXAM NARRATIVE: Head: Atraumatic, normocephalic Eyes: PERRL, EOMI, conjunctiva without injection ENT: Throat without erythema, lesions or exudate, MMM NECK: Supple, trachea midline, no JVD LUNGS: LCTA CV: RRR, S1,S2, no murmurs, rubs, gallops. 2+ peripheral pulses in UEs ABDOMEN: Soft, nontender, nondistended, BS x4, no rigidity, no guarding, no rebound EXTREMITY: Normal ROM, no pitting edema, no calf tenderness to palpation SKIN: No rash or erythema NEURO: Awake and alert. No focal motor deficits. PSYCH: Normal mood and affect. Course Vital Signs: Vital signs: Vital Signs Pulse Rate 82 04/22/21 18:41 Respiratory Rate 24 H 04/22/21 18:38 Blood Pressure 111/63 04/22/21 18:38 Pulse Oximetry 98 04/22/21 18:38 MDM - General Adult MDM Narrative: Medical decision making narrative: [50]yo patient w/ hx of aortic valve repair, afib on warfarin, presenting to the ED with evaluation of new onset chest pain at rest x 2 episodes. HDS, pulse 2+ radially bilaterally, no signs of fluid overload, AAOx3, neuro exam intact. Given History and Exam today I have no suspicion for ACS, Pneumothorax, Pneumonia, Pulmonary Embolus, Tamponade, Aortic Dissection or other emergent problems as a cause for this presentation. Workup: ECG, CXR, CBC, BMP, Troponin x 2 Interventions: ASA and observation Findings: ECG: Paced rhythm, no findings of Sgarbossa criteria Other Labs unremarkable for emergent problems. CXR: Without PTX, PNA, or widened mediastinum [0618] On reassessment, the patient is HDS, no complaints of persistent chest pain in the ED after evaluation. ECG showed paced rhythm, no findings of Sgarbossa criteria. Patient has not had any recent cath report. Will be admitted for evaluation. Disposition: Admission Lab Data: Labs: Lab Results 04/22/21 04/22/21 04/22/21 17:46 17:46 17:46 WBC 6.8 10^3/uL 10^3/ uL (4.0-10.0) RBC 4.54 10^6/uL 10^6 /uL (4.1-5.3) Hgb 11.2 g/dL L g/dL (11.7-16.6) Hct 37.5 % L % (42.0-52.0) MCV 82.6 fl fl (80-94) MCH 24.7 pg L pg (28.0-34.0) MCHC 29.9 g/dL L g/dL (30.0-36.0) RDW 15.1 % % (12.1-15.1) Plt Count 259 10^3/cmm 10^3 /cmm (130-400) MPV 11.3 fL H fL (7.4-10.4) Neut % (Auto) 59.5 % % Lymph % (Auto) 28.1 % % [place] % (Auto) 8.1 % % Eos % (Auto) 3.5 % % Baso % (Auto) 0.4 % % Neut # (Auto) 4.06 10^3/uL 10^3 /uL (1.8-7.7) Lymph # (Auto) 1.9 10^3/uL 10^3/ uL (0.8-4.8) [place] # (Auto) 0.6 10^3/uL 10^3/ uL (0.2-0.9) Eos # (Auto) 0.2 10^3/uL 10^3/ uL (0.0-0.8) Baso # (Auto) 0.0 10^3/uL 10^3/ uL (0.0-0.1) Nucleated RBC % (a uto) 0 % % Nucleated RBCs # 0.0 /100WBC /100W BC PT INR APTT Sodium 143 mmol/L mmol/L (136-145) Potassium 4.3 mmol/L mmol/L (3.5-5.1) Chloride 109 mmol/L H mmol /L (98-107) Carbon Dioxide 22 mmol/L mmol/L (22-29) Anion Gap 16.3 (5-19) BUN 25 mg/dL H mg/dL (6-20) Creatinine 1.3 mg/dL H mg/dL (0.7-1.2) GFR Calculation 58.7 mL/min L mL/ min (90-130) Glucose 109 mg/dL mg/dL (65-115) Calculated Osmolal ity 301 mOsm/kg H mOs m/kg (285-295) Calcium 8.3 mg/dL L mg/dL (8.5-10.5) Troponin T Baselin e 24 ng/L H ng/L (0-15) 04/22/21 17:46 WBC RBC Hgb Hct MCV MCH MCHC RDW Plt Count MPV Neut % (Auto) Lymph % (Auto) [place] % (Auto) Eos % (Auto) Baso % (Auto) Neut # (Auto) Lymph # (Auto) [place] # (Auto) Eos # (Auto) Baso # (Auto) Nucleated RBC % (a uto) Nucleated RBCs # PT 22.10 SECONDS H S ECONDS (12.1-14.9) INR 1.89 H (0.8-1.2) APTT 39.6 SECONDS H SE CONDS (23.9-36.7) Sodium Potassium Chloride Carbon Dioxide Anion Gap BUN Creatinine GFR Calculation Glucose Calculated Osmolal ity Calcium Troponin T Baselin e Discharge Plan Discharge Patient Disposition: Admitted As Inpatient Clinical Impression: Chest pain, Dyspnea Condition: Stable Coding Level of Care Code ED Director Of Business Applications for Ren Marquis
[2021-04-22 18:17] LABS: Troponin(5th) Baseline 24 ng/L (0-15)
[2021-04-22 18:18] LABS: Anion Gap 16.3 (5-19); Blood Urea Nitrogen 25 mg/dL (6-20); Calcium 8.3 mg/dL (8.5-10.5); Carbon Dioxide 22 mmol/L (22-29); Chloride 109 mmol/L (98-107); Glomerular Filtration Rate 58.7 mL/min (90-130); Glucose 109 mg/dL (65-115); Osmolality Calculated 301 mOsm/kg (285-295); Potassium 4.3 mmol/L (3.5-5.1); Sodium 143 mmol/L (136-145)
[2021-04-22 19:04] LABS: INR 1.89 (0.8-1.2)
[2021-04-22 19:05] LABS: Partial Thromboplastin Time 39.6 SECONDS (23.9-36.7)
--- NOTE | 2021-04-22 19:47 | ECG_ITS ---
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 Measurements Intervals [place] Rate: 86 P: 28 [place]: 168 QRS: -28 QRSD: 190 T: 86 QT: 446 QTc: 536 Interpretive Statements ELECTRONIC VENTRICULAR PACEMAKER ABNORMAL RHYTHM ECG Compared to ECG 04/22/2021 17:18:12 No significant changes Electronically Signed On 04-23-2021 22:09:41 LEARNING AND DEVELOPMENT OFFICER by Jesse Galicia M.D. [id number]
[2021-04-22 21:18] LABS: Troponin 5 2HR 23.08 ng/L (0-15)
[2021-04-22 21:27] LABS: Troponin 5 2HR Delta -0.92 ABS# (0-10)
--- NOTE | 2021-04-22 23:46 | PM.HP ---
Providers/Chief Complaint Admitting Physician: Kenia Loja MD Primary Care Provider: Joanne Walton DO Chief Complaint: CHEST PAIN History of Present Illness Emory Real is a 50 year old male with PMH third degree heart block s/p PPM 08/2020, CHF, ischemic cardiomyopathy, atherosclerotic heart disease s/p PCI of the LAD in September 2019 , benign essential hypertension and hx of Afib, severe aortic valve stenosis s/p AV replacement in [place], on a/c with Coumadin. Last known EF September 2019, EF at 20%, improved to 45% in 08/2020. He has been experiencing intermittent left sided chest discomfort since August 2020, last followed with cardiology 11/2020. Presents to ER today with left sided intermittent chest pain which started at rest at 5:30pm at rest without specific exacerbating or relieving factors. Does report worsened dyspnea since onset of pain. EKG show paced rhythm. Baseline troponin 24, 2 hr at 23.08 with negative delta. 6 hr troponin pending at this time. CXR shows mild pulmonary congestion. BNP pending. Review of Systems General: Reports: 10 or more systems reviewed and unremarkable except in HPI and below Const: Denies: fever(s), chills or body aches Eyes: Denies: change in vision, blurry vision or photophobia ENMT: Reports: hoarseness; Denies: throat pain, enlarged tonsils, odynophagia or nasal congestion Card: Reports: chest pain; Denies: palpitations, irregular heart rhythm, edema, swelling of feet/ankles, lightheadedness, pre-syncope, dyspnea on exertion or orthopnea Resp: Denies: dyspnea, productive cough, non-productive cough, wheezing, stridor, pain on inspiration, change in phlegm color, hemoptysis or chest congestion GI: Denies: abdominal pain, nausea, vomiting, hematemesis, coffee ground emesis, dysphagia, heartburn, diarrhea, constipation, GI cramping, change in stool character, hematochezia or melena : Denies: flank pain, dysuria, urinary frequency, urinary urgency, urinary hesitancy or hematuria Musc: Denies: neck pain, back pain, extremity pain, joint swelling, joint warmth or deformity Neuro: Denies: headache(s), numbness in extremities, weakness in extremities, sensory changes, difficulty walking, frequent falls, dizziness, vertigo, behavioral changes, Slurred speech present or seizure-like activity Psych: Denies: anxiety, depression, suicidal ideation or homicidal ideation Endo: Denies: polyuria, polydipsia, tired all the time, cold intolerance or hot flashes Luís/Lymph: Denies: easy bruising or easy bleeding Medications/Allergies Home Medications Medication Instructions Recorded Confirmed Last Taken Type albuterol sulfate 90 mcg/actuation 2 puff INHALATION QID PRN #8.5 g 04/10/21 04/10/21 Unknown Rx aerosol inhaler furosemide 20 mg tablet See Rx Instructions .ROUTE 04/10/21 04/10/21 Unknown Rx .COMPLEX #30 tablet losartan 50 mg tablet 50 mg PO BID 30 Days #60 tab 04/10/21 04/10/21 Unknown Rx nitroglycerin 0.4 mg sublingual 0.4 mg SUBLINGUAL Q5M PRN 30 Days 04/10/21 04/10/21 Unknown Rx tablet #30 tab potassium chloride 10 mEq 5 meq PO DAILY 30 Days #15 tab 04/10/21 04/10/21 Unknown Rx tablet,extended release rosuvastatin 10 mg tablet 10 mg PO DAILY #30 tab 04/10/21 04/10/21 Unknown Rx warfarin 5 mg tablet See Rx Instructions .ROUTE 04/10/21 04/10/21 Unknown Rx .COMPLEX #30 tablet Allergies Allergy/AdvReac Type Severity Reaction Status Date / Time No Known Allergies Allergy Verified 04/10/21 15:03 PFSH Acute PFSH: Medical History Benign essential hypertension with target blood pressure below 140/90 CAD (coronary artery disease) LAD stent placement 09/20/2019 Combined congestive systolic and diastolic heart failure Dyslipidemia Elevated hemoglobin A1c History of atrial fibrillation Ischemic cardiomyopathy Left bundle branch block Nicotine dependence -chronic smoker, 1 PPD Pacemaker Pulmonary edema Surgical History Aortic valve replaced (~11/2019) History of heart artery stent Distal LAD, 09/20/2019 Family History Father CAD (coronary artery disease), Onset Age: 32 His father of myocardial infarction in his 70s. He had open heart surgery. Diabetes Dementia Brother CAD (coronary artery disease), Onset Age: 40 Patient has 4 brothers and all of them had a heart attack in their 40s and 50s. Cancer Lung disease Grandfather Stroke Had a CVA? Mother Stroke Denies family history of Clotting disorder Chronic kidney disease (CKD) Suicide Anesthesia complication Bleeding disorder Social History Smoking and tobacco status: current every day smoker cigarettes Packs smoked per day: 0.5 Alcohol intake: never Household members: spouse Housing: House Vitals/I&O/Wt Last Vital Signs Pulse 85 04/22/21 21:58 Resp 24 H 04/22/21 21:58 BP 116/84 04/22/21 21:58 Pulse Ox 96 04/22/21 21:58 Weight last 48 hrs Weight 67.188 kg Weight 63.503 kg Physical Exam Narrative: EXAM NARRATIVE: General: No acute distress, AO x3 HEENT: PERRLA, pupils bilaterally equal and reactive, pallors not present Chest: Normal vesicular breath sounds, no added sounds, equal good air entry bilaterally CVS: S1-S2 regular, no murmurs, no tachycardia, no gallops, no rubs Abdomen: Soft, nontender, no organomegaly, bowel sounds present Neuro: No focal deficits, no facial deformity, AO x3, power 5/5 in all limbs Data : 04/22/21 17:46 04/22/21 17:46 Attestation for Other Data: I personally reviewed and interpreted the following: Other data: Laboratory Results WBC 6.8 10^3/uL (4.0-10.0) 04/22/21 17:46 RBC 4.54 10^6/uL (4.1-5.3) 04/22/21 17:46 Hgb 11.2 g/dL (11.7-16.6) L 04/22/21 17:46 Hct 37.5 % (42.0-52.0) L 04/22/21 17:46 MCV 82.6 fl (80-94) 04/22/21 17:46 MCH 24.7 pg (28.0-34.0) L 04/22/21 17:46 MCHC 29.9 g/dL (30.0-36.0) L 04/22/21 17:46 RDW 15.1 % (12.1-15.1) 04/22/21 17:46 Plt Count 259 10^3/cmm (130-400) 04/22/21 17:46 MPV 11.3 fL (7.4-10.4) H 04/22/21 17:46 Neut % (Auto) 59.5 % 04/22/21 17:46 Lymph % (Auto) 28.1 % 04/22/21 17:46 [place] % (Auto) 8.1 % 04/22/21 17:46 Eos % (Auto) 3.5 % 04/22/21 17:46 Baso % (Auto) 0.4 % 04/22/21 17:46 Neut # (Auto) 4.06 10^3/uL (1.8-7.7) 04/22/21 17:46 Lymph # (Auto) 1.9 10^3/uL (0.8-4.8) 04/22/21 17:46 [place] # (Auto) 0.6 10^3/uL (0.2-0.9) 04/22/21 17:46 Eos # (Auto) 0.2 10^3/uL (0.0-0.8) 04/22/21 17:46 Baso # (Auto) 0.0 10^3/uL (0.0-0.1) 04/22/21 17:46 Nucleated RBC % (auto) 0 % 04/22/21 17:46 Nucleated RBCs # 0.0 /100WBC 04/22/21 17:46 PT 22.10 SECONDS (12.1-14.9) H 04/22/21 17:46 INR 1.89 (0.8-1.2) H 04/22/21 17:46 APTT 39.6 SECONDS (23.9-36.7) H 04/22/21 17:46 Sodium 143 mmol/L (136-145) 04/22/21 17:46 Potassium 4.3 mmol/L (3.5-5.1) 04/22/21 17:46 Chloride 109 mmol/L (98-107) H 04/22/21 17:46 Carbon Dioxide 22 mmol/L (22-29) 04/22/21 17:46 Anion Gap 16.3 (5-19) 04/22/21 17:46 BUN 25 mg/dL (6-20) H 04/22/21 17:46 Creatinine 1.3 mg/dL (0.7-1.2) H 04/22/21 17:46 GFR Calculation 58.7 mL/min (90-130) L 04/22/21 17:46 Glucose 109 mg/dL (65-115) 04/22/21 17:46 Calculated Osmolality 301 mOsm/kg (285-295) H 04/22/21 17:46 Calcium 8.3 mg/dL (8.5-10.5) L 04/22/21 17:46 Troponin T Baseline 24 ng/L (0-15) H 04/22/21 17:46 Troponin T 120 Minute 23.08 ng/L (0-15) H 04/22/21 20:48 Delta Troponin T -0.92 ABS# (0-10) L 04/22/21 20:48 Impressions Chest X-Ray 04/22/21 17:47 IMPRESSION: Imaging findings suggestive of mild pulmonary congestion. Pneumonia should be excluded clinically. Date of Service: 08/23/20 Procedure(s): CV echo complete* [id number] CONCLUSIONS 1.Diffuse hypokinesis of the left ventricle with anejection fraction of 45%. Abnormal (paradoxical) septal motion consistent with postoperative status. Mildly dilated LV cavity.Grade II/IV diastolic dysfunction (abnormal relaxation filling pattern), normal to mildly elevated filling pressures. 2. Prosthetic valve at the aortic position appears to be well- seated. Peak velocity at the aortic valve is 3.14 m/s with a peak gradient of 40 and a mean gradient of 16 mmHg. Valve area is calculated to be 0.8 cm squared based on VTI. 3. Thickened mitral valve 4. Mild biatrial enlargement 5.Trace tricuspid valve regurgitation. Estimated pulmonary artery peak systolic pressure of 21 mmHg Compared to the study from 09/19/2019, the aortic valve appears replaced A&P Assessment and plan (1) Chest pain: Status: Acute Qualifiers: Chest pain type: precordial pain Qualified Code(s): R07.2 - Precordial pain (2) History of atrial fibrillation: Status: Chronic (3) Congestive heart failure: Status: Chronic Qualifiers: Heart failure chronicity: acute Heart failure type: unspecified Qualified Code(s): I50.9 - Heart failure, unspecified (4) History of mechanical aortic valve replacement: Status: Chronic (5) Ischemic dilated cardiomyopathy: Status: Acute Additional A&P Information Patient with significant cardiac PMH as noted above in HPI p/w intermittent chest pain over few months, made worse this evening. EKG with paced rhythm, troponin series negative at 2 hrs , pending 6 hr Mild pulmonary congestion on CXR, check BNP, lasix 40mg iv x 1 now, monitor urine output Per discussion with ERP, case was discussed with Dr. Galicia, recommended echocardiogram to evaluate for serial changes , cardiology consult in am received ASA 325mg thus far, chest pain improved Monitor on telemetry overnight, pacemaker interrogation Holding warfarin for now though INR 1.8 in case angiogram needed after cardiology and echocardiographic assessment. Attestations Medical Necessity Statement*: observation admission, anticipate less than 2 midnight stay currently Coding Level of Care Code Acute Promotions Associate for Chg Fwd Diagnoses Chest pain R07.2 Chest pain type: precordial pain History of atrial fibrillation Z86.79 Congestive heart failure I50.9 Heart failure chronicity: acute Heart failure type: unspecified History of mechanical aortic valve replacement Z95.2 Ischemic dilated cardiomyopathy I25.5; I42.0
--- NOTE | 2021-04-22 23:47 | ECG_ITS ---
[facility] Test Date: 2021-04-23 Pat Name: Emroy Real Department: Room: 256 Gender: Male Paper Baler: : 1970 Requested By: Jarrod Verduzco Order Number: [id number] Alex MD: Jesse Galicia M.D. Measurements Intervals [place] Rate: 81 P: 47 CT: 180 QRS: -59 QRSD: 194 T: 98 QT: 462 QTc: 538 Interpretive Statements ELECTRONIC VENTRICULAR PACEMAKER ABNORMAL RHYTHM ECG Compared to ECG 04/22/2021 20:55:24 No significant changes Electronically Signed On 04-23-2021 22:09:49 QUALITY AUDIT REPRESENTATIVE by Jesse Galicia M.D. [id number]
[2021-04-23] VITALS (10 sets, daily range): BP systolic 100–137; BP diastolic 58–88; PULSE 64–87; RESP 16–20; TEMP 36.4–36.9; O2SAT 94–98
--- NOTE | 2021-04-23 00:27 | USCV_ITS ---
Emory Real Age: 50 Gender: M : 1970 Exam Date: 04/23/2021 06:21 Ordering Phys: Kenia Loja MD Technologist: [place] [facility] [place]ication: PROS AO VALVE EF BP: 127 / 69 HR: 75 Rhythm: Sinus Technical Quality: Adequate MEASUREMENTS (Male / Female) Normal Values 2D ECHO LV Diastolic Diameter PLAX 6.2 cm 4.2 - 5.9 / 3.9 - 5.3 cm LV Systolic Diameter PLAX 4.6 cm IVS Diastolic Thickness 1.1 cm 0.6 - 1.0 / 0.6 - 0.9 cm IVS Systolic Thickness 2.2 cm LVPW Diastolic Thickness 1.1 cm 0.6 - 1.0 / 0.6 - 0.9 cm LVPW Systolic Thickness 1.7 cm LVOT Diameter 2.1 cm LV Ejection Fraction 2D Teich 49.7 % LV Ejection Fraction MOD 2C 39.2 % LV Ejection Fraction 2C AL 36.3 % LA Diameter 4.0 cm LA Width 5.4 cm LA Height 5.7 cm RA Width 4.0 cm RA Height 4.5 cm M-MODE MV E Point Septal Separation 2.3 cm DOPPLER AV Peak Velocity 228.8 cm/s LVOT Peak Velocity 74.0 cm/s AV Area Cont Eq vti 1.2 cm squared AV Area Cont Eq pk 1.1 cm squared MV Area PHT 5.4 cm squared Mitral E to A Ratio 1.9 MV E' Velocity 60.5 cm/s Mitral E to MV E' Ratio 16.5 Mitral E to LV E' Lateral Ratio 12.9 Mitral E to LV E' Septal Ratio 23.4 TR Peak Velocity 333.0 cm/s TR Peak Gradient 44.4 mmHg TV Peak E Velocity 109.0 cm/s Right Atrial Pressure 3.0 mmHg Pulmonary Artery Systolic Pressu 47.4 mmHg FINDINGS Left Ventricle Moderately increased left ventricular cavity size. Severely decreased left ventricular systolic function. Global left ventricular hypokinesis. Left ventricular ejection fraction is estimated at 30 %. There appeared to be septal dyskinesis which could be secondary to pacing.Grade II/IV diastolic dysfunction, moderately elevated filling pressures. Right Ventricle Pacemaker wire is noted in the right ventricle. Normal right ventricular systolic function. RVSP could not be calculated due to incomplete tricuspid regurgitation velocity profile. Right Atrium Pacemaker wire is noted. Normal right atrial size. Catheter/pacemaker wire in the right atrial cavity. Left Atrium Moderately increased left atrial size. Mirror artifact of the aortic valve prosthesis was noted Mitral Valve Structurally normal mitral valve without significant stenosis or prolapse. There is no mitral regurgitation. Aortic Valve Mechanical prosthetic valve setting and normal position opening and closing fine, there appeared to be no significant aortic valve regurgitation Tricuspid Valve [id number]-[id number] tricuspid valve regurgitation. Pulmonic Valve No gross abnormalities noted Pericardium Normal pericardium without effusion. Aorta Normal ascending aorta dimension. CONCLUSIONS 1-Moderately increased left ventricular cavity size. Severely decreased left ventricular systolic function. Global left ventricular hypokinesis. Left ventricular ejection fraction is estimated at 30 %. There appeared to be septal dyskinesis which could be secondary to pacing.Grade II/IV diastolic dysfunction, moderately elevated filling pressures. 2-Pacemaker wire is noted in the right ventricle. Normal right ventricular systolic function. RVSP could not be calculated due to incomplete tricuspid regurgitation velocity profile. 3-Pacemaker wire is noted. Normal right atrial size. Catheter/pacemaker wire in the right atrial cavity. 4-Moderately increased left atrial size. Mirror artifact of the aortic valve prosthesis was noted 5-Structurally normal mitral valve without significant stenosis or prolapse. There is no mitral regurgitation. 6-Mechanical prosthetic valve setting and normal position opening and closing fine, there appeared to be no significant aortic valve regurgitation 8-Flck-jg-moderate tricuspid valve regurgitation. 8-There is no pericardial effusion. 9-When compared to the prior echocardiogram dated 23 August 2020 there is worsening of LV function from moderately depressed 40% to severely depressed 30% now. Charan Silva MD (Electronically Signed) Final Date: 23 April 2021 21:09 S
[2021-04-23 00:49] LABS: NT Pro B Type Natriuretic Pept 4337 pg/mL (0-125)
[2021-04-23] MEDS: FUROsemide 10 mg/mL SDV 4mL 40 MG IVP ×2 (01:38→16:22)
[2021-04-23 06:21] LABS: Basophils % 0.4 %; Eosinophils # 0.3 10^3/uL (0.0-0.8); Hematocrit 38.3 % (42.0-52.0); Lymphocytes # 2.3 10^3/uL (0.8-4.8); Lymphocytes % 28.3 %; Mean Corpuscular HGB Conc 31.3 g/dL (30.0-36.0); Mean Corpuscular Hemoglobin 25.4 pg (28.0-34.0); Mean Platelet Volume 10.9 fL (7.4-10.4); Monocytes # 0.6 10^3/uL (0.2-0.9); Monocytes % 7.8 %; Neutrophils # 4.75 10^3/uL (1.8-7.7); Neutrophils % 59.2 %; Nucleated Red Blood Cells % 0 %; Platelet Count 282 10^3/cmm (130-400); Red Blood Count 4.73 10^6/uL (4.1-5.3); Red Cell Distribution Width 15.1 % (12.1-15.1)
[2021-04-23 06:46] LABS: Alanine Aminotransferase 49 U/L (0-41); Albumin Level 3.7 g/dL (3.5-5.2); Alkaline Phosphatase 223 IU/L (40-130); Anion Gap 19.2 (5-19); Aspartate Amino Transferase 29 U/L (0-40); Blood Urea Nitrogen 26 mg/dL (6-20); Calcium 8.3 mg/dL (8.5-10.5); Carbon Dioxide 21 mmol/L (22-29); Chloride 106 mmol/L (98-107); Glomerular Filtration Rate 58.7 mL/min (90-130); Glucose 98 mg/dL (65-115); Osmolality Calculated 299 mOsm/kg (285-295); Potassium 4.2 mmol/L (3.5-5.1); Sodium 142 mmol/L (136-145); Total Bilirubin 0.5 mg/dL (0.15-1.2); Total Protein 6.7 g/dL (6.6-8.7)
[2021-04-23] MEDS: pantoprazole DR 40 mg Tablet PO (08:11)
--- NOTE | 2021-04-23 09:00 | P.CONIM_ITS ---
Providers/Reason For Consult Consulting Physician/Specialty*: STEVEN Galicia MD/cardiology Reason for Consult*: Patient with chest pain, history of coronary disease and aortic valve surgery Attending Physician: Yohan Figueroa MD Primary Care Provider: Joanne Walton DO History of Present Illness History of Present Illness Emory Real is a 50 year old male with a history of coronary disease, aortic valve stenosis, status post aortic valve replacement, intermittent atrial fibrillation, is present with complaints of progressive shortness of breath. Apparently this patient has been in his baseline state of health up until 3 days prior to the hospital admission. He started having shortness of breath with a cough which has progressively gotten worse. He he has a productive sputum bringing up yellowish and occasionally blood-tinged sputum. Denies any fever, chills. No unusual chest pain. No palpitation, dizziness or syncopal episode. Has dyspnea on exertion. No orthopnea. No leg swelling. No other specific complaints. In September of this year, patient had a cardiac catheterization which revealed a high-grade lesion of the mid LAD. Patient underwent a PCI of this lesion. In November of this year, he had aortic valve replacement at the [facility]. He had a recent follow-up appointment in [place] for the aortic valve surgery. The details are not available. Patient also is known to have intermittent atrial fibrillation. He is on long- term oral anticoagulation. He also has a history of COPD, dyslipidemia and essential benign hypertension. He has been compliant with medications. No recent medication changes. Review of Systems Narrative: CONSTITUTIONAL: No fever or chills. EYES: No blurring of vision or other visual disturbances lately. ENT: No hoarseness of voice, auditory disturbances or sore throat. CARDIOVASCULAR: As mentioned above. RESPIRATORY: Cough and shortness of breath as mentioned above GASTROINTESTINAL: No hematemesis or melena. GENITOURINARY: No dysuria or hematuria. INTEGUMENTARY: No skin rashes or history of skin cancer. NEURO: No transient ischemic attacks or amaurosis. PSYCHIATRIC: No history of psychosis or major depression. HEMATOLOGIC: No bleeding disorders or significant anemia. ENDOCRINE: No history of polyuria or polydipsia. MUSCULOSKELETAL: No recent joint pain or swelling. ALLERGY/IMMUNOLOGY: As mentioned above. Meds/Allergies Home Medications and Allergies Home Medications Medication Instructions Recorded Confirmed Last Taken Type albuterol sulfate 90 mcg/actuation 2 puff INHALATION QID PRN #8.5 g 04/10/21 04/23/21 Unknown Rx aerosol inhaler furosemide 20 mg tablet See Rx Instructions .ROUTE 04/10/21 04/23/21 Unknown Rx .COMPLEX #30 tablet losartan 50 mg tablet 50 mg PO BID 30 Days #60 tab 04/10/21 04/23/21 Unknown Rx nitroglycerin 0.4 mg sublingual 0.4 mg SUBLINGUAL Q5M PRN 30 Days 04/10/21 04/23/21 Unknown Rx tablet #30 tab potassium chloride 10 mEq 5 meq PO DAILY 30 Days #15 tab 04/10/21 04/23/21 Unknown Rx tablet,extended release rosuvastatin 10 mg tablet 10 mg PO DAILY #30 tab 04/10/21 04/23/21 Unknown Rx warfarin 5 mg tablet See Rx Instructions .ROUTE 04/10/21 04/23/21 Unknown Rx .COMPLEX #30 tablet Allergies Allergy/AdvReac Type Severity Reaction Status Date / Time No Known Allergies Allergy Verified 04/10/21 15:03 Current Medications Current Medications Generic Name Dose Route Start Last Admin Trade Name Freq PRN Reason Stop Dose Admin Albuterol Sulfate 2.5 mg 04/23/21 00:29 04/23/21 08:21 Albuterol 2.5 Mg/0.5 Ml Neb INHALATION 2.5 mg Q4H.RESPIRATORY PRN Administration SHORTNESS OF BREATH Pantoprazole Sodium 40 mg 04/23/21 09:00 04/23/21 08:[address] 40 Mg Tablet PO 40 mg DAILY KELSIE Administration PFSH Acute PFSH: Medical History (Updated 04/23/21 @ 13:11 by Jesse Galicia MD) Benign essential hypertension with target blood pressure below 140/90 CAD (coronary artery disease) LAD stent placement 09/20/2019 Combined congestive systolic and diastolic heart failure Dyslipidemia Elevated hemoglobin A1c History of atrial fibrillation Ischemic cardiomyopathy Left bundle branch block Nicotine dependence -chronic smoker, 1 PPD Pacemaker Pulmonary edema Surgical History Aortic valve replaced (~11/2019) History of heart artery stent Distal LAD, 09/20/2019 Family History Father CAD (coronary artery disease), Onset Age: 32 His father of myocardial infarction in his 70s. He had open heart surgery. Diabetes Dementia Brother CAD (coronary artery disease), Onset Age: 40 Patient has 4 brothers and all of them had a heart attack in their 40s and 50s. Cancer Lung disease Grandfather Stroke Had a CVA? Mother Stroke Denies family history of Clotting disorder Chronic kidney disease (CKD) Suicide Anesthesia complication Bleeding disorder Social History Smoking and tobacco status: current every day smoker cigarettes Packs smoked per day: 0.5 Alcohol intake: never Household members: spouse Housing: House Vitals/I&O/Wt Last Vital Signs Temp 97.6 F 04/23/21 07:41 Pulse 81 04/23/21 08:26 Resp 17 04/23/21 08:21 BP 119/78 04/23/21 07:41 Pulse Ox 98 04/23/21 08:21 04/22/21 04/23/21 04/23/21 22:59 06:59 14:59 Intake Total 320 / 320 Output Total 1100 / 1100 Balance 320 / 320 -1100 / -1100 Weight last 48 hrs Weight 143 lb 12.8 oz Weight 148 lb 2 oz Weight 140 lb Physical Exam Narrative: EXAM NARRATIVE: GENERAL: The patient is alert and oriented times three. Not in any acute distress. HEENT: No significant pallor, icterus or lymphadenopathy. The pupils are reactant to light. Oral cavity: There are no mucous membrane lesions. Funduscopic examination: The fundus is not visualized NECK: Trachea appears to be central. No masses noted. No JVD or thyromegaly appreciated. No carotid bruit. RESPIRATORY: Chest is symmetrical. No intercostals muscle retraction or any accessory muscle activation. There is no chest wall tenderness. Breath sounds are heard bilaterally. Few fine rales at the base no evidence of any consolidation. BREASTS: Deferred. HEART: The PMI could not be palpated. No palpable precordial events. The aortic valve opening and closing sounds are normal. No S3 or S4 heard. Short systolic murmur at the base of the heart. No diastolic murmurs. No pericardial rub or any click heard. ABDOMEN: No vessel pulsations or distention. No tenderness. No organomegaly appreciated. No abdominal bruit. Bowel sounds are normally heard. : Deferred. RECTAL: Deferred. LYMPHATIC: No lymphadenopathy noted in the neck or groin. EXTREMITIES: No edema or cyanosis. No clubbing. The pulses are symmetrical bilaterally. The radial, femoral, dorsalis pedis and the posterior tibial pulses are palpated and found to be in good volume and amplitude. MUSCULOSKELETAL: No acute joint deformities or swelling SKIN: There are no significant scars or skin rash noted. NEUROPSYCHIATRIC: The patient is alert and oriented x3. Appears to be in a good mood. The higher functions are grossly within normal limits. No tremors or rigidity noted. Data Labs: Other Labs: Laboratory Last Values WBC 8.0 10^3/uL (4.0- 10.0) 04/23/21 06:00 RBC 4.73 10^6/uL (4.1 -5.3) 04/23/21 06:00 Hgb 12.0 g/dL (11.7-1 6.6) 04/23/21 06:00 Hct 38.3 % (42.0-52.0 ) L 04/23/21 06:00 MCV 81.0 fl (80-94) 04/23/21 06:00 MCH 25.4 pg (28.0-34. 0) L 04/23/21 06:00 MCHC 31.3 g/dL (30.0-3 6.0) 04/23/21 06:00 RDW 15.1 % (12.1-15.1 ) 04/23/21 06:00 Plt Count 282 10^3/cmm (130 -400) 04/23/21 06:00 MPV 10.9 fL (7.4-10.4 ) H 04/23/21 06:00 Neut % (Auto) 59.2 % 04/23/21 06:00 Lymph % (Auto) 28.3 % 04/23/21 06:00 Webb % (Auto) 7.8 % 04/23/21 06:00 Eos % (Auto) 4.0 % 04/23/21 06:00 Baso % (Auto) 0.4 % 04/23/21 06:00 Neut # (Auto) 4.75 10^3/uL (1.8 -7.7) 04/23/21 06:00 Lymph # (Auto) 2.3 10^3/uL (0.8- 4.8) 04/23/21 06:00 Webb # (Auto) 0.6 10^3/uL (0.2- 0.9) 04/23/21 06:00 Eos # (Auto) 0.3 10^3/uL (0.0- 0.8) 04/23/21 06:00 Baso # (Auto) 0.0 10^3/uL (0.0- 0.1) 04/23/21 06:00 Nucleated RBC % (a uto) 0 % 04/23/21 06:00 Nucleated RBCs # 0.0 /100WBC 04/23/21 06:00 PT 22.10 SECONDS (12 .1-14.9) H 04/22/21 17:46 INR 1.89 (0.8-1.2) H 04/22/21 17:46 APTT 39.6 SECONDS (23. 9-36.7) H 04/22/21 17:46 Sodium 142 mmol/L (136-1 45) 04/23/21 06:00 Potassium 4.2 mmol/L (3.5-5 .1) 04/23/21 06:00 Chloride 106 mmol/L (98-10 7) 04/23/21 06:00 Carbon Dioxide 21 mmol/L (22-29) L 04/23/21 06:00 Anion Gap 19.2 (5-19) H 04/23/21 06:00 BUN 26 mg/dL (6-20) H 04/23/21 06:00 Creatinine 1.3 mg/dL (0.7-1. 2) H 04/23/21 06:00 GFR Calculation 58.7 mL/min (90-1 30) L 04/23/21 06:00 Glucose 98 mg/dL (65-115) 04/23/21 06:00 Calculated Osmolal ity 299 mOsm/kg (285- 295) H 04/23/21 06:00 Calcium 8.3 mg/dL (8.5-10 .5) L 04/23/21 06:00 Total Bilirubin 0.5 mg/dL (0.15-1 .2) 04/23/21 06:00 AST 29 U/L (0-40) 04/23/21 06:00 ALT 49 U/L (0-41) H 04/23/21 06:00 Alkaline Phosphata se 223 IU/L (40-130) H 04/23/21 06:00 Troponin T Baselin e 24 ng/L (0-15) H 04/22/21 17:46 Troponin T 120 Min lauri 23.08 ng/L (0-15) H 04/22/21 20:48 Delta Troponin T -0.92 ABS# (0-10) L 04/22/21 20:48 Troponin T Hi Sens 6Hr 23.30 ng/L (0-15) H 04/22/21 23:35 Troponin T Hi Sens 6Hr Delta -0.70 ng/L (0-12) L 04/22/21 23:35 NT-Pro-B Natriuret Pep 4337 pg/mL (0-125 ) H 04/23/21 Unknown Total Protein 6.7 g/dL (6.6-8.7 ) 04/23/21 06:00 Albumin 3.7 g/dL (3.5-5.2 ) 04/23/21 06:00 Globulin 3.0 g/dL (1.3-4.6 ) 04/23/21 06:00 A&P Assessment and plan (1) Ischemic dilated cardiomyopathy: The worsening of the LV systolic function could be made contributing factor for his current symptomatology. Has features of acute on chronic systolic heart failure. We will try to continue to optimize his medical treatment. Patient may be a candidate for Entresto. Status: Acute (2) History of mechanical aortic valve replacement: The aortic valve area was calculated to be 1.2 cm?. He had the aortic valve replaced in February 2021. Status: Chronic (3) Benign essential hypertension with target blood pressure below 140/90: Currently the blood pressure is under control. Patient may continue on the current medications. Status: Chronic (4) Pacemaker: Patient is current with the follow-up evaluation of the pacemaker. The most recent evaluation revealed normal pacemaker function. No new arrhythmias are noted. Battery life is satisfactory. Advised to continue on the current follow-up schedule. The current status was discussed with the patient Status: Acute (5) Acute on chronic systolic heart failure: Since the heart failure seems to be getting compensated, patient may not require any specific intervention. Advised to continue on the current measures. Status: Acute Additional A&P Information Patient the patient's clinical progress and the results of the above, further recommendations will be made. Consult Attestations Medical Necessity Statement: Patient requires continued hospital stay for close monitoring and further management Coding Level of Care Code Acute Mid Level Provider for Ren Fwmaxim History Detailed Exam Detailed Medical Decision Making High Complexity Diagnoses Ischemic dilated cardiomyopathy I25.5; I42.0 History of mechanical aortic valve replacement Z95.2 Benign essential hypertension with target blood pressure below 140/90 I10 Pacemaker Z95.0 Acute on chronic systolic heart failure I50.23
--- NOTE | 2021-04-23 10:13 | PC.CHAP ---
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 [] Patient/Family/Request visit [] Outpatient visit [] Follow-up visit [] Physician referral [] Code/Alert [x] Routine visit [] Staff referral [] Actively dying [] Patient sleeping [] Family support [] [] Out of room [] Palliative care [] [] Receiving care in room [] Pre-surgical visit [] Trauma [] Long length of stay [] ICU visit [] Other: Relational/Emotional Strength [x] Patient feels connected with others/family/visitors/staff [] Distress [] Loneliness/isolation [] Abandonment Spirituality of Patient [x] Person of [place] [] Attends Religious of their [place] [x] Believes in Prayer [] Reads Bible or Sabianism materials [] There are Spiritual issues to be addressed Proposal Consultant Interventions x[x] Prayer [x] Active listening [x] Non-anxious presence [x] Spiritual/emotional support [] Crisis/trauma care [] Spiritual counseling [] Bereavement support [] Provided bereavement packet [] Provided Bible/devotional materials [] Provided toy/stuffed animal, coloring book to patient or family member [] Provided Communion [] Anointing/[place] [] Salvation [x] Completed spiritual assessment [] Other: Impact on Illness or Injury [] Angry [] Fearful [] Anxious [] Often cries [] Exhaustion [x] Unable to work [] Unable to attend tenriism [] Unable to walk/stand [] Unable to read [] Unable to drive [] Unable to eat/drink [] Unable to sleep [] Unable to be with family [] Patient intubated [] Other: Summary Time spent with patient 10 min
--- NOTE | 2021-04-23 10:23 | US_ITS ---
WS: [id number] ULTRASOUND ABDOMEN LIMITED CLINICAL INFORMATION: pain COMPARISON: None. FINDINGS: Liver Size: Normal. Craniocaudal length: 15.6 cm. Echogenicity: Normal. Surface nodularity: None. Mass (size and location): None. Bile ducts Intrahepatic ducts: Normal. Common bile duct diameter: 0.2 cm. Gallbladder Gallbladder is contracted. Gallstones: None. Gallbladder sludge: None. Gallbladder wall thickening: Mild 4.0 mm Pericholecystic fluid: None. Sonographic Mason sign: Absent. Pancreas Normal as visualized. Right kidney: Normal. Hydronephrosis: None. Size: 10.4 cm x 4.5 cm x 4.6 cm. Abdominal aorta and IVC Visualized portions are normal. Ascites: None. US/US gall bladder 14389 IMPRESSION: 1. Gallbladder is contracted. No cholelithiasis. Mild gallbladder wall thicken ing measuring 4 mm. No pericholecystic fluid or edema. Gallbladder function can be further evaluated with HIDA scan if clinically indicated. 2. Normal liver. 3. No hydronephrosis in right kidney. 4. Normal common bile duct
[2021-04-23 11:28] LABS: Lipase 17 U/L (13-60)
[2021-04-23 13:05] LABS: Gamma Glutamyl Transferase 209 U/L (8-61)
[2021-04-23] MEDS: potassium chloride ER 20 mEq Tablet PO (16:22)
[2021-04-23] MEDS: sacubitril/valsartan 24-26 mg Tablet 1 EACH PO (16:22)
--- NOTE | 2021-04-23 17:50 | PM.PN ---
Subjective Subjective: Interval history: Patient was seen this morning, currently denies any chest pain, no palpitations, denies any abdominal pain complaints, denies drinking alcohol, Vitals/I&O/Wt Last Vital Signs Temp 98.0 F 04/23/21 15:56 Pulse 83 04/23/21 15:56 Resp 17 04/23/21 15:56 BP 135/84 04/23/21 15:56 Pulse Ox 97 04/23/21 15:56 04/23/21 04/23/21 04/23/21 06:59 14:59 22:59 Intake Total 320 / 320 Output Total 1100 / 1100 Balance 320 / 320 -1100 / -1100 Weight last 48 hrs Weight 65.227 kg Weight 67.188 kg Weight 63.503 kg Physical Exam Const: COMMON NORMALS: no acute distress and patient oriented x3 Resp: COMMON NORMALS: normal respiratory effort, No retractions, No use of accessory muscles and clear to auscultation bilaterally AUSCULTATION: clear to auscultation bilaterally Cardio: COMMON NORMALS: regular rate, regular rhythm, S1 normal heart sound present and S2 normal heart sound present RATE: regular rate RHYTHM: regular rhythm HEART SOUNDS: S1 normal heart sound present and S2 normal heart sound present GI: COMMON NORMALS: Normal to inspection, nondistended, normoactive bowel sounds present, Soft to palpation and non-tender PALPATION: Yes Soft to palpation Extremity: COMMON NORMALS: no pedal edema Neuro: COMMON NORMALS: patient oriented x3 Psych: COMMON NORMALS: mental status grossly normal Data : 04/23/21 06:00 04/23/21 06:00 A&P Assessment and plan (1) Chest pain: Status: Acute Qualifiers: Chest pain type: precordial pain Qualified Code(s): R07.2 - Precordial pain (2) History of atrial fibrillation: Status: Chronic (3) Congestive heart failure: Status: Chronic Qualifiers: Heart failure chronicity: acute Heart failure type: unspecified Qualified Code(s): I50.9 - Heart failure, unspecified (4) History of mechanical aortic valve replacement: Status: Chronic (5) Ischemic dilated cardiomyopathy: Status: Acute Additional A&P Information Patient with significant cardiac PMH as noted above in HPI p/w intermittent chest pain over few months, made worse this evening. EKG with paced rhythm, troponin series negative at 2 hrs , 6-hour troponin 23.3, delta 0.7, BNP 4337 Mild pulmonary congestion on CXR, check BNP, lasix 40mg iv x 1 , monitor urine output, creatinine 1.3 Cardiology consulted, echocardiogram pending Does have elevated alk phos, elevated AST and ALT, will obtain a right upper quadrant ultrasound received ASA 325mg thus far, chest pain improved Monitor on telemetry overnight, pacemaker interrogation Holding warfarin for now though INR 1.8 in case angiogram needed after cardiology and echocardiographic assessment. Attestations Medical Necessity Statement*: Patient requires hospitalization for chest pain Coding Level of Care Code Acute Tractor Expert for [facility] Fwd Diagnoses Chest pain R07.2 Chest pain type: precordial pain History of atrial fibrillation Z86.79 Congestive heart failure I50.9 Heart failure chronicity: acute Heart failure type: unspecified History of mechanical aortic valve replacement Z95.2 Ischemic dilated cardiomyopathy I25.5; I42.0
[2021-04-23] MEDS: aspirin 81 mg EC Tablet PO (18:11)
[2021-04-23] MEDS: warfarin 5 mg Tablet PO (21:53)
[2021-04-23] MEDS: atorvastatin 40 mg Tablet PO (21:55)
[2021-04-24] VITALS (11 sets, daily range): BP systolic 97–133; BP diastolic 61–80; PULSE 70–100; RESP 16–20; TEMP 36.4–37; O2SAT 90–98
[2021-04-24] MEDS: potassium chloride ER 20 mEq Tablet PO ×2 (02:15→13:51)
[2021-04-24] MEDS: FUROsemide 10 mg/mL SDV 4mL 40 MG IVP ×2 (02:15→13:51)
[2021-04-24 05:48] LABS: Basophils % 0.4 %; Eosinophils # 0.3 10^3/uL (0.0-0.8); Hematocrit 44.1 % (42.0-52.0); Lymphocytes # 2.1 10^3/uL (0.8-4.8); Lymphocytes % 21.8 %; Mean Corpuscular HGB Conc 31.7 g/dL (30.0-36.0); Mean Corpuscular Hemoglobin 24.8 pg (28.0-34.0); Mean Corpuscular Volume 78.1 fl (80-94); Mean Platelet Volume 10.7 fL (7.4-10.4); Monocytes # 0.7 10^3/uL (0.2-0.9); Monocytes % 7.1 %; Neutrophils % 67.5 %; Nucleated Red Blood Cells % 0 %; Platelet Count 331 10^3/cmm (130-400); Red Blood Count 5.65 10^6/uL (4.1-5.3); Red Cell Distribution Width 14.7 % (12.1-15.1); White Blood Count 9.6 10^3/uL (4.0-10.0)
[2021-04-24 06:05] LABS: INR 2.11 (0.8-1.2)
[2021-04-24 06:07] LABS: Alanine Aminotransferase 37 U/L (0-41); Albumin Level 3.6 g/dL (3.5-5.2); Alkaline Phosphatase 211 IU/L (40-130); Anion Gap 19.4 (5-19); Aspartate Amino Transferase 19 U/L (0-40); Blood Urea Nitrogen 30 mg/dL (6-20); Calcium 8.6 mg/dL (8.5-10.5); Carbon Dioxide 22 mmol/L (22-29); Chloride 102 mmol/L (98-107); Globulin 3.4 g/dL (1.3-4.6); Glomerular Filtration Rate 58.7 mL/min (90-130); Glucose 114 mg/dL (65-115); Magnesium 1.9 mg/dL (1.7-2.3); Osmolality Calculated 295 mOsm/kg (285-295); Phosphorus 2.9 mg/dL (2.5-4.5); Potassium 4.4 mmol/L (3.5-5.1); Sodium 139 mmol/L (136-145); Total Bilirubin 0.6 mg/dL (0.15-1.2)
[2021-04-24 06:48] LABS: NT Pro B Type Natriuretic Pept 3203 pg/mL (0-125)
--- NOTE | 2021-04-24 07:21 | ECG_ITS ---
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 Interpretive Statements NAME OF STUDY: LEXISCAN SESTAMIBI STRESS TEST INDICATION: CHF, PROCEDURE: At the baseline, the EKG revealed a sensed V paced rhythm. The baseline blood pressure was 121/71 mm Hg with a heart rate of 72 beats/min. Lexiscan was infused over a period of 20 seconds. A total of 0.4 milligrams of Lexiscan was infused. The stress phase was continued for a total of 5 minutes. Heart rate at the end of the stress phase was 94 with a blood pressure 136/78. The EKG at the peak infusion revealed no significant changes. Sestamibi was injected 20 seconds after the Lexiscan infusion. Blood pressure at the end of the recovery phase was 129/73 with a heart rate of 83 per minute. CONCLUSION: 1. No significant EKG changes with the LexiScan infusion 2. No LexiScan induced chest pain or cardiac arrhythmia 3. Normal blood pressure and heart rate response 4. Sestamibi/sestamibi perfusion scan pending; see separate report. Electronically Signed On 04-25-2021 2:11:18 NURSING CENTER TUTOR by Jesse Galicia M.D. [id number]
[2021-04-24] MEDS: ondansetron 2 mg/ML SDV 2 mL 4 MG IVP (07:52)
[2021-04-24] MEDS: regadenoson 0.4 Mg/5 ml Syringe IVP (07:52)
[2021-04-24] MEDS: aspirin 81 mg EC Tablet PO (10:06)
[2021-04-24] MEDS: pantoprazole DR 40 mg Tablet PO (10:06)
[2021-04-24] MEDS: sacubitril/valsartan 24-26 mg Tablet 1 EACH PO ×2 (10:06→18:07)
[2021-04-24] MEDS: warfarin 5 mg Tablet PO (13:51)
--- NOTE | 2021-04-24 13:51 | P.PN_ITS ---
Vitals/I&O/Wt Last Vital Signs Temp 98.2 F 04/24/21 11:20 Pulse 71 04/24/21 11:20 Resp 18 04/24/21 11:20 BP 112/69 04/24/21 11:20 Pulse Ox 96 04/24/21 11:20 04/23/21 04/24/21 04/24/21 22:59 06:59 14:59 Intake Total 440 / 440 980 / 1420 240 / 240 Output Total 800 / 1900 1750 / 3650 Balance -360 / -1460 -770 / -2230 240 / 240 Weight last 48 hrs Weight 62.324 kg Weight 65.227 kg Weight 67.188 kg Weight 63.503 kg Physical Exam Const: COMMON NORMALS: no acute distress and patient oriented x3 Resp: COMMON NORMALS: normal respiratory effort, No retractions, No use of accessory muscles and clear to auscultation bilaterally AUSCULTATION: clear to auscultation bilaterally Cardio: COMMON NORMALS: regular rate, regular rhythm, S1 normal heart sound present and S2 normal heart sound present RATE: regular rate RHYTHM: regular rhythm HEART SOUNDS: S1 normal heart sound present and S2 normal heart sound present GI: COMMON NORMALS: Normal to inspection, nondistended, normoactive bowel sounds present, Soft to palpation and non-tender PALPATION: Yes Soft to palpation Extremity: COMMON NORMALS: no pedal edema Neuro: COMMON NORMALS: patient oriented x3 Psych: COMMON NORMALS: mental status grossly normal Data : 04/24/21 05:29 04/24/21 05:29 A&P Assessment and plan (1) Chest pain: Status: Acute Qualifiers: Chest pain type: precordial pain Qualified Code(s): R07.2 - Precordial pain (2) History of atrial fibrillation: Status: Chronic (3) Congestive heart failure: Status: Chronic Qualifiers: Heart failure chronicity: acute Heart failure type: unspecified Qualified Code(s): I50.9 - Heart failure, unspecified (4) History of mechanical aortic valve replacement: Status: Chronic (5) Ischemic dilated cardiomyopathy: Status: Acute Additional A&P Information Patient with significant cardiac PMH as noted above in HPI p/w intermittent chest pain over few months, made worse this evening. EKG with paced rhythm, troponin series negative at 2 hrs , 6-hour troponin 23.3, delta 0.7, BNP 4337 Mild pulmonary congestion on CXR, check BNP, lasix 40mg iv Q12h , monitor urine output, creatinine 1.3 Cardiology consulted echocardiogram 1-Moderately increased left ventricular cavity size. Severely decreased left ventricular systolic function. Global left ventricular hypokinesis. Left ventricular ejection fraction is estimated at 30 %. There appeared to be septal dyskinesis which could be secondary to pacing.Grade II/IV diastolic dysfunction, moderately elevated filling pressures. 2-Pacemaker wire is noted in the right ventricle. Normal right ventricular systolic function. RVSP could not be calculated due to incomplete tricuspid regurgitation velocity profile. 3-Pacemaker wire is noted. Normal right atrial size. Catheter/pacemaker wire in the right atrial cavity. 4-Moderately increased left atrial size. Mirror artifact of the aortic valve prosthesis was noted 5-Structurally normal mitral valve without significant stenosis or prolapse. There is no mitral regurgitation. 6-Mechanical prosthetic valve setting and normal position opening and closing fine, there appeared to be no significant aortic valve regurgitation 7-Bkfy-vr-moderate tricuspid valve regurgitation. 8-There is no pericardial effusion. 9-When compared to the prior echocardiogram dated 23 August 2020 there is worsening of LV function from moderately depressed 40% to severely depressed 30% now. -cardiac stress test is pending Does have elevated alk phos, elevated AST and ALT 1. Gallbladder is contracted. No cholelithiasis. Mild gallbladder wall thickening measuring 4 mm. No pericholecystic fluid or edema. Gallbladder function can be further evaluated with HIDA scan if clinically indicated. 2. Normal liver. 3. No hydronephrosis in right kidney. 4. Normal common bile duct received ASA 325mg thus far, chest pain improved Monitor on telemetry overnight, pacemaker interrogation Resume comadin INR 2.11 in case angiogram needed after cardiology and echocardiographic assessment. 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
--- NOTE | 2021-04-24 16:02 | NMCV_ITS ---
NM ifeanyi perf SPECT r/s* [id number] [address] Age: 50 Gender: M : 1970 Exam Date: 04/24/2021 16:02 Ordering Phys: Jesse Galicia MD ([email or web address]) Technologist: ASHWIN Sanchez Exam Location: [facility] Indications: Chest pain STRESS TEST Please see separate stress test report in [facility] for full findings IMAGE PROTOCOL Rest/Stress 1 Lexiscan Day Radiopharmaceutical Dose (mCi) Administration Site Administered by Rest: Tc-99m 10.9 IV ASHWIN Sanchez Sestamibi Stress:Tc-99m 32.6 IV ASHWIN Sanchez Sestamibi Rest: 24-Apr-2021 60 Discovery 630 Stress: 24-Apr-2021 45 Discovery 630 0.4mg Lexiscan. Images obtained in supine and prone position. SPECT RESULTS Technical Quality: Good Raw Data Analysis: Normal Image Corrections: Patient motion artifact - motion correction applied to rest images Summed Stress Score: 16 Summed Rest Score: 23 Summed Difference Score: 0 PERFUSION FINDINGS Areas of moderate degree 6 uptake in the mid anterior, anteroseptal, inferoseptal and inferior wall regions. No severe reversibility was noted in these regions. Severely decreases uptake was noted in all the apical segments with no significant reversibility FUNCTIONAL RESULTS (calculated via Gated SPECT) Stress Image LV EF (%): 27 Stress EDV (mL):264 TID: 1.05 Stress ESV (mL):193 FUNCTIONAL FINDINGS: Segmental wall motion analysis revealing severe diffuse hypokinesia of the apex, septum and inferior wall regions. IMPRESSIONS 1. Myocardial perfusion imaging revealing moderate areas of moderate to severely decreased persistent tracer uptake in the mid and apical anterior, mid and apical inferior, mid anteroseptal and all the apical segments with no simple reversibility, suggesting extensive myocardial scarring in the distribution of all the 3 coronary arteries, involving 37% of the total myocardium. 2. Demonstrate ejection fraction 27%. 3. Multiple wall motion normalities as mentioned above. 4. Markedly dilated LV cavity with an end-systolic volume of 193 ml No significant coronary ischemia, based on the above findings Compared to the study from a 09/19/2019, the LV ejection fraction has improved from 15% to 27%. The current study shows no significant reversible defects Dr Jesse Galicia MD FACC (Electronically Signed) Final Date: 24 April 2021 15:44 S
--- NOTE | 2021-04-24 16:58 | P.PN_ITS ---
Subjective Subjective: Interval history: Patient had a myocardial perfusion imaging today. He was found to have moderate to large areas of fixed defects in the LV apex and adjacent myocardium, encompassing 34% of the total myocardium. The patient is feeling much better. The shortness of breath is significantly improved. Medications: Reviewed: Yes Medication Review Details: Current Medications Acetaminophen (Acetaminophen 325 Mg Tablet) 650 mg PO Q6H PRN PRN Reason: Mild/Mod Pain Or Temp >/= 101 Albuterol Sulfate (Albuterol 2.5 Mg/0.5 Ml Neb) 2.5 mg INHALATION Q4H.RESPIRATORY PRN PRN Reason: SHORTNESS OF BREATH Last Admin: 04/23/21 08:21 Dose: 2.5 mg Documented by: Aminophylline (Aminophylline 25 Mg/Ml Sdv 10 Ml) 25 mg IVP Q2M PRN PRN Reason: see dose instructions Stop: 04/25/21 07:20 Aspirin (Aspirin 81 Mg Ec Tablet) 81 mg PO DAILY KELSIE Last Admin: 04/24/21 10:06 Dose: 81 mg Documented by: Atorvastatin Calcium (Atorvastatin 40 Mg Tablet) 40 mg PO BEDTIME KELSIE Last Admin: 04/23/21 21:55 Dose: 40 mg Documented by: Furosemide (Furosemide 40 Mg Tablet) 40 mg PO BID@16 KELSIE Morphine Sulfate (Morphine 4 Mg/Ml Sdv 1 Ml) 2 mg IVP Q6H PRN PRN Reason: SEVERE PAIN Naloxone HCl (Naloxone 0.4 Mg/Ml Sdv) 0.1 mg IVP Q2M PRN PRN Reason: OPIATERV Nitroglycerin (Nitroglycerin 1 Gm/Inch Oint Pkt) 0.5 inch TOPICAL Q6H PRN PRN Reason: chest pain Nitroglycerin (Nitroglycerin 0.4 Mg Sublingual Tablet) 0.4 mg SUBLINGUAL Q5M PRN PRN Reason: CHEST PAIN Stop: 04/25/21 07:20 Ondansetron HCl (Ondansetron 2 Mg/Ml Sdv 2 Ml) 4 mg IVP Q8H PRN PRN Reason: vomiting, or N/V if npo Ondansetron HCl (Ondansetron 2 Mg/Ml Sdv 2 Ml) 4 mg IVP Q2M PRN PRN Reason: NAUSEA Last Admin: 04/24/21 07:52 Dose: 4 mg Documented by: Pantoprazole Sodium (Pantoprazole Dr 40 Mg Tablet) 40 mg PO DAILY [facility] Last Admin: 04/24/21 10:06 Dose: 40 mg Documented by: Potassium Chloride (Potassium Chloride Er 20 Meq Tablet) 20 meq PO DAILY [facility] Sacubitril/Valsartan (Sacubitril/Valsartan 24-26 Mg Tablet) 1 each PO BID [facility] Last Admin: 04/24/21 10:06 Dose: 1 each Documented by: Spironolactone (Spironolactone 25 Mg Tablet) 25 mg PO DAILY [facility] Warfarin Sodium (Warfarin 5 Mg Tablet) 5 mg PO QD@1400 [facility] Last Admin: 04/24/21 13:51 Dose: 5 mg Documented by: Vitals/I&O/Wt Last Vital Signs Temp 97.5 F L 04/24/21 16:06 Pulse 76 04/24/21 16:06 Resp 16 04/24/21 16:06 BP 97/61 04/24/21 16:06 Pulse Ox 90 04/24/21 16:06 04/24/21 04/24/21 04/24/21 06:59 14:59 22:59 Intake Total 980 / 1420 240 / 240 Output Total 1750 / 3650 Balance -770 / -2230 240 / 240 Weight last 48 hrs Weight 137 lb 6.4 oz Weight 143 lb 12.8 oz Weight 148 lb 2 oz Weight 140 lb Physical Exam Narrative: EXAM NARRATIVE: GENERAL: The patient is alert and oriented times three. Not in any acute distress. HEENT: No significant pallor, icterus or lymphadenopathy. The pupils are reactant to light. Oral cavity: There are no mucous membrane lesions. NECK: Trachea appears to be central. No masses noted. No JVD or thyromegaly appreciated. No carotid bruit. RESPIRATORY: Chest is symmetrical. No intercostals muscle retraction or any accessory muscle activation. There is no chest wall tenderness. Breath sounds are heard bilaterally. Few fine rales at the base no evidence of any consolidation. BREASTS: Deferred. HEART: The PMI could not be palpated. No palpable precordial events. The aortic valve opening and closing sounds are normal. No S3 or S4 heard. Short systolic murmur at the base of the heart. No diastolic murmurs. No pericardial rub or any click heard. ABDOMEN: No vessel pulsations or distention. No tenderness. No organomegaly appreciated. No abdominal bruit. Bowel sounds are normally heard. : Deferred. RECTAL: Deferred. LYMPHATIC: No lymphadenopathy noted in the neck or groin. EXTREMITIES: No edema or cyanosis. No clubbing. MUSCULOSKELETAL: No acute joint deformities or swelling SKIN: There are no significant scars or skin rash noted. NEUROPSYCHIATRIC: The patient is alert and oriented x3. Appears to be in a good mood. The higher functions are grossly within normal limits. No tremors or rigidity noted. Data : 04/24/21 05:29 04/24/21 05:29 A&P Assessment and plan (1) Ischemic dilated cardiomyopathy: The worsening of the LV systolic function could be made contributing factor for his current symptomatology. Has features of acute on chronic systolic heart failure. We will try to continue to optimize his medical treatment. Patient seems to be tolerating the Entresto so far well. The dose will be gradually advanced as an outpatient. Status: Acute (2) History of mechanical aortic valve replacement: The aortic valve area was calculated to be 1.2 cm?. He had the aortic valve replaced in February 2021. Status: Chronic (3) Benign essential hypertension with target blood pressure below 140/90: Currently the blood pressure is under control. Patient may continue on the current medications. Status: Chronic (4) Pacemaker: Patient is current with the follow-up evaluation of the pacemaker. The most recent evaluation revealed normal pacemaker function. No new arrhythmias are noted. Battery life is satisfactory. Advised to continue on the current follow-up schedule. The current status was discussed with the patient Status: Acute (5) Acute on chronic systolic heart failure: Since the heart failure seems to be getting compensated, patient may not require any specific intervention. I will discontinue the IV Lasix and start him on p.o. Lasix 40 mg twice daily. I also may start him on spironolactone 25 mg p.o. daily. Dose of the potassium was cut back to 20 mg p.o. daily. Status: Acute Additional A&P Information If the patient continues remain stable, may be discharged home tomorrow. [facility] in a week by the nurse practitioner. Appointment with me in the office in 1 month. Attestations Medical Necessity Statement*: Possible discharge home tomorrow Coding Level of Care Code Acute Bee Breeder for Chg Fwd History Detailed Medical Decision Making Moderate Complexity Diagnoses Ischemic dilated cardiomyopathy I25.5; I42.0 History of mechanical aortic valve replacement Z95.2 Benign essential hypertension with target blood pressure below 140/90 I10 Pacemaker Z95.0 Acute on chronic systolic heart failure I50.23
[2021-04-24] MEDS: atorvastatin 40 mg Tablet PO (19:36)
[2021-04-25] VITALS: BP 113/70; PULSE 85; RESP 18; TEMP 37; O2SAT 94
[2021-04-25 03:58] VITALS: PULSE 71
[2021-04-25 04:00] VITALS: BP 112/71; PULSE 75; RESP 19; TEMP 36.6; O2SAT 96
[2021-04-25 06:39] LABS: Basophils % 0.4 %; Eosinophils # 0.3 10^3/uL (0.0-0.8); Eosinophils % 3.5 %; Hematocrit 44.1 % (42.0-52.0); Hemoglobin 13.6 g/dL (11.7-16.6); Lymphocytes # 2.5 10^3/uL (0.8-4.8); Lymphocytes % 27.2 %; Mean Corpuscular HGB Conc 30.8 g/dL (30.0-36.0); Mean Corpuscular Hemoglobin 24.5 pg (28.0-34.0); Mean Corpuscular Volume 79.5 fl (80-94); Mean Platelet Volume 10.8 fL (7.4-10.4); Monocytes # 0.7 10^3/uL (0.2-0.9); Monocytes % 7.7 %; Neutrophils # 5.59 10^3/uL (1.8-7.7); Nucleated Red Blood Cells % 0 %; Platelet Count 345 10^3/cmm (130-400); Red Blood Count 5.55 10^6/uL (4.1-5.3); Red Cell Distribution Width 14.3 % (12.1-15.1); White Blood Count 9.2 10^3/uL (4.0-10.0)
[2021-04-25 07:03] LABS: Alanine Aminotransferase 28 U/L (0-41); Albumin Level 3.4 g/dL (3.5-5.2); Alkaline Phosphatase 172 IU/L (40-130); Anion Gap 16.1 (5-19); Aspartate Amino Transferase 15 U/L (0-40); Blood Urea Nitrogen 31 mg/dL (6-20); Calcium 8.1 mg/dL (8.5-10.5); Carbon Dioxide 24 mmol/L (22-29); Chloride 99 mmol/L (98-107); Globulin 3.1 g/dL (1.3-4.6); Glomerular Filtration Rate 49.7 mL/min (90-130); Glucose 117 mg/dL (65-115); NT Pro B Type Natriuretic Pept 885 pg/mL (0-125); Osmolality Calculated 288 mOsm/kg (285-295); Phosphorus 2.9 mg/dL (2.5-4.5); Potassium 4.1 mmol/L (3.5-5.1); Sodium 135 mmol/L (136-145); Total Bilirubin 0.3 mg/dL (0.15-1.2); Total Protein 6.5 g/dL (6.6-8.7)
[2021-04-25 07:50] VITALS: BP 112/71; PULSE 79; RESP 16; TEMP 36.9; O2SAT 93
[2021-04-25] MEDS: aspirin 81 mg EC Tablet PO (08:01)
[2021-04-25] MEDS: sacubitril/valsartan 24-26 mg Tablet 1 EACH PO (08:01)
[2021-04-25] MEDS: FUROsemide 40 mg Tablet PO (08:01)
[2021-04-25] MEDS: pantoprazole DR 40 mg Tablet PO (08:01)
[2021-04-25] MEDS: potassium chloride ER 20 mEq Tablet PO (08:01)
[2021-04-25] MEDS: spironolactone 25 mg Tablet PO (08:01)
[2021-04-25 09:22] VITALS: PULSE 70; RESP 16; O2SAT 95
[2021-04-25 11:43] VITALS: BP 109/71; PULSE 76; RESP 16; TEMP 36.9; O2SAT 98
--- NOTE | 2021-04-25 12:49 | PM.DCS ---
Discharge Providers Date of Admission: 04/22/21 21:10 Date of Discharge: April 25, 2021 Attending Provider at Admission: Kenia Loja MD Attending Provider at Discharge: Yohan Figueroa MD Primary Care Provider: Joanne Walton DO Diagnoses at Discharge Discharge Diagnosis (1) Ischemic dilated cardiomyopathy: Status: Acute (2) History of mechanical aortic valve replacement: Status: Chronic (3) Benign essential hypertension with target blood pressure below 140/90: Status: Chronic (4) Pacemaker: Status: Acute (5) Acute on chronic systolic heart failure: Status: Acute Reason for Visit Reason for Visit: CHEST PAIN Hospital Course Hospital Course This is a 50-year-old male with a past medical history of third degree heart block s/p PPM 08/2020, CHF, ischemic cardiomyopathy, atherosclerotic heart disease s/p PCI of the LAD in September 2019 , benign essential hypertension, history of Afib, severe aortic valve stenosis s/p AV replacement in [place], on a/c with Coumadin. Last known EF September 2019, EF at 20%, improved to 45% in 08/2020. He has been experiencing intermittent left sided chest discomfort since August 2020, last followed with cardiology 11/2020. Who presents to [facility] for chest pain Patient was admitted to [facility] for chest pain, EKG showed paced rhythm, no acute ST-T wave changes, 6-hour troponin was 23.3, down to 0.7, BNP over 4000, chest x-ray showing pulmonary congestion, patient received diuresis, cardiology was consulted, had work-up as below Cardiac echocardiogram showed 1-Moderately increased left ventricular cavity size. Severely decreased left ventricular systolic function. Global left ventricular hypokinesis. Left ventricular ejection fraction is estimated at 30 %. There appeared to be septal dyskinesis which could be secondary to pacing.Grade II/IV diastolic dysfunction, moderately elevated filling pressures. 2-Pacemaker wire is noted in the right ventricle. Normal right ventricular systolic function. RVSP could not be calculated due to incomplete tricuspid regurgitation velocity profile. 3-Pacemaker wire is noted. Normal right atrial size. Catheter/pacemaker wire in the right atrial cavity. 4-Moderately increased left atrial size. Mirror artifact of the aortic valve prosthesis was noted 5-Structurally normal mitral valve without significant stenosis or prolapse. There is no mitral regurgitation. 6-Mechanical prosthetic valve setting and normal position opening and closing fine, there appeared to be no significant aortic valve regurgitation 5-Bsak-jx-moderate tricuspid valve regurgitation. 8-There is no pericardial effusion. 9-When compared to the prior echocardiogram dated 23 August 2020 there is worsening of LV function from moderately depressed 40% to severely depressed 30% now. Nuclear stress test showed 1. Myocardial perfusion imaging revealing moderate areas of moderate to severely decreased persistent tracer uptake in the mid and apical anterior, mid and apical inferior, mid anteroseptal and all the apical segments with no simple reversibility, suggesting extensive myocardial scarring in the distribution of all the 3 coronary arteries, involving 37% of the total myocardium. 2. Demonstrate ejection fraction 27%. 3. Multiple wall motion normalities as mentioned above. 4. Markedly dilated LV cavity with an end-systolic volume of 193 ml No significant coronary ischemia, based on the above findings Compared to the study from a 09/19/2019, the LV ejection fraction has improved from 15% to 27%. The current study shows no significant reversible defects Patient symptomatology improved with diuresis, Entresto, spironolactone. Patient will be discharged on Lasix 40 mg daily, spironolactone 50 mg twice daily, Entresto 24-28 twice daily, with a recheck of creatinine on Wednesday, close follow-up with cardiology. For his Coumadin dosing for aortic valve replacement and atrial fibrillation, INR at discharge was 3, continue home Coumadin, recheck INR through primary care physician's office Physical Exam Const: COMMON NORMALS: no acute distress and patient oriented x3 Resp: COMMON NORMALS: normal respiratory effort, No retractions, No use of accessory muscles and clear to auscultation bilaterally AUSCULTATION: clear to auscultation bilaterally Cardio: COMMON NORMALS: regular rate, regular rhythm, S1 normal heart sound present and S2 normal heart sound present RATE: regular rate RHYTHM: regular rhythm HEART SOUNDS: S1 normal heart sound present, S2 normal heart sound present and Clicking heart sound present GI: COMMON NORMALS: Normal to inspection, nondistended, normoactive bowel sounds present and Soft to palpation PALPATION: Yes Soft to palpation Extremity: COMMON NORMALS: no pedal edema Neuro: COMMON NORMALS: patient oriented x3 Psych: COMMON NORMALS: mental status grossly normal Discharge Data Data Completed and Pending: Completed Studies During Hospitalization Category Date Time Status Cardiac Stress Te st MIBI [Sestamibi Stress Test Reque st Exams 04/24/21 07:21 Completed ] Routine XR chest 1V kilo ble [id number] Stat Exams 04/22/21 17:47 Completed NM ifeanyi perf SPECT r/s* [id number] Urgent Nuc Med 04/24/21 16:02 Completed CV. echo complete * [id number] Routine Ultrasound 04/23/21 00:27 Completed US gall bladder 7 [id number] Routine Ultrasound 04/23/21 10:23 Completed Pending at discharge Category Date Time Status Complete Blood Co unt w/Auto AM LABS Lab 04/26/21 04:00 Ordered Comprehensive Met abolic Panel AM LA BS Lab 04/26/21 04:00 Ordered Magnesium AM LABS Lab 04/26/21 04:00 Ordered NT Pro B Type Rosa riuretic Pept QAM Lab 04/26/21 06:00 Ordered Phosphorus AM LAB S Lab 04/26/21 04:00 Ordered Prothrombin Time INR AM LABS Lab 04/26/21 04:00 Ordered Prothrombin Time INR AM LABS Lab 04/27/21 04:00 Ordered Labs from last 24 hours 04/25/21 04/25/21 04/25/21 05:20 05:20 05:20 WBC 9.2 RBC 5.55 H Hgb 13.6 Hct 44.1 MCV 79.5 L MCH 24.5 L MCHC 30.8 RDW 14.3 Plt Count 345 MPV 10.8 H Neut % (Auto) 61.0 Lymph % (Auto) 27.2 [place] % (Auto) 7.7 Eos % (Auto) 3.5 Baso % (Auto) 0.4 Neut # (Auto) 5.59 Lymph # (Auto) 2.5 [place] # (Auto) 0.7 Eos # (Auto) 0.3 Baso # (Auto) 0.0 Nucleated RBC % (a uto) 0 Nucleated RBCs # 0.0 PT 31.70 H D INR 3.00 H Sodium 135 L Potassium 4.1 Chloride 99 Carbon Dioxide 24 Anion Gap 16.1 BUN 31 H Creatinine 1.5 H GFR Calculation 49.7 L Glucose 117 H Calculated Osmolal ity 288 Calcium 8.1 L Phosphorus 2.9 Magnesium 2.0 Total Bilirubin 0.3 AST 15 ALT 28 Alkaline Phosphata se 172 H NT-Pro-B Natriuret Pep 885 H Total Protein 6.5 L Albumin 3.4 L Globulin 3.1 Vitals: Last Vital Signs Temp 98.4 F 12/17/21 11:43 Pulse 76 04/25/21 11:43 Resp 16 04/25/21 11:43 BP 109/71 04/25/21 11:43 Pulse Ox 98 04/25/21 11:43 Discharge Plan Discharge Patient Disposition: Home Condition: Stable Prescriptions: New spironolactone 25 mg Tablet 25 mg PO DAILY 30 Days Qty: 30 RF: 0 Entresto 24-26 mg Tablet 1 ea PO BID 30 Days Qty: 60 RF: 0 potassium chloride [Klor-Con M20] 20 mEq Tablet,Er Particles/Crystals 20 meq PO DAILY 30 Days Qty: 30 RF: 0 Continued nitroglycerin [Nitrostat] 0.4 mg tablet, sublingual 0.4 mg sublingual Q5M PRN (Reason: chest pain) 30 Days Qty: 30 RF: 0 albuterol sulfate [Ventolin HFA] 90 mcg/actuation HFA aerosol inhaler 2 puff inhalation QID PRN (Reason: shortness of breath or wheezing) Qty: 8.5 RF: 3 warfarin 5 mg tablet See Rx Instructions .ROUTE .COMPLEX Qty: 30 RF: 5 losartan 50 mg tablet 50 mg PO BID 30 Days Qty: 60 RF: 5 potassium chloride 10 mEq tablet extended release 5 meq PO DAILY 30 Days Qty: 15 RF: 5 rosuvastatin 10 mg tablet 10 mg PO DAILY Qty: 30 RF: 5 Changed furosemide 20 mg tablet 40 mg PO DAILY 30 Days Qty: 60 RF: 0 Discharge Orders: Discharge Order (Routine); Ordered 04/25/21 Ordered By: Yohan Figueroa Referrals: Jesse Galicia MD [Physician] - 7-10 days Joanne Walton DO [Primary Care Provider] - 1-3 days Discharge Diet: Cardiac Discharge Activity: Resume usual activity Patient Instructions: Opioid Safety Activity Restrictions/Additional Instructions: -Continue home Coumadin dose, INR discharged with 3, recheck INR on Wednesday through Dr. Walton's office, follow-up with Dr. Walton on Wednesday -Discharged on Lasix 40 mg p.o. daily, recheck creatinine on Wednesday -Follow-up with cardiology in the next week -If you have recurrent chest pain please go to the emergency room Discharge Attestations Time Spent in Discharge Care*: less than 30 min Status at Discharge: Cognitive status at discharge: cognitively intact, Behavioral status at discharge: cooperative, Quality Metrics Clinical Quality Measures During this hospital stay, did patient experience: None Coding Level of Care Code Acute g FW DC note Diagnoses Ischemic dilated cardiomyopathy I25.5; I42.0 History of mechanical aortic valve replacement Z95.2 Benign essential hypertension with target blood pressure below 140/90 I10 Pacemaker Z95.0 Acute on chronic systolic heart failure I50.23
--- NOTE | 2021-04-25 14:49 | PC.CHAP ---
Pastoral Care Encounter/Spiritual Assessment Type of Contact [] Declined radioisotope technologist visit [] Patient/Family/Request visit [] Outpatient visit [xx] Follow-up visit [] Physician referral [] Code/Alert [xx] Routine visit [] Staff referral [] Actively dying [] Patient sleeping [] Family support [] [] Out of room [] Palliative care [] [] Receiving care in room [] Pre-surgical visit [] Trauma [] Long length of stay [] ICU visit [] Other: Relational/Emotional Strength [xx] Patient feels connected with others/family/visitors/staff [] Distress [] Loneliness/isolation [] Abandonment Spirituality of Patient [xx] Person of [place] [] Attends Scientologist of their [place] [xx] Believes in Prayer [] Reads Bible or Episcopalian materials [] There are Spiritual issues to be addressed Crabbing Machine Operator Interventions [xx] Prayer [xx] Active listening [xx] Non-anxious presence [] Spiritual/emotional support [] Crisis/trauma care [] Spiritual counseling [] Bereavement support [] Provided bereavement packet [] Provided Bible/devotional materials [] Provided toy/stuffed animal, coloring book to patient or family member [] Provided Communion [] Anointing/[place] [] Salvation [xx] Completed spiritual assessment [] Other: Impact on Illness or Injury [] Angry [] Fearful [] Anxious [] Often cries [] Exhaustion [] Unable to work [] Unable to attend scientology [] Unable to walk/stand [] Unable to read [] Unable to drive [] Unable to eat/drink [] Unable to sleep [] Unable to be with family [] Patient intubated [] Other: Summary Patient and his were not very talkative but agareed to prayer. He expects to be discharged by end of today. Time spent with patient 3 minutes
--- NOTE | 2021-04-25 19:22 | PM.PN ---
Subjective Subjective: Interval history: Says feeling better denies any complaint Medications: Reviewed: Yes Medication Review Details: Current Medications Acetaminophen (Acetaminophen 325 Mg Tablet) 650 mg PO Q6H PRN PRN Reason: Mild/Mod Pain Or Temp >/= 101 Albuterol Sulfate (Albuterol 2.5 Mg/0.5 Ml Neb) 2.5 mg INHALATION Q4H.RESPIRATORY PRN PRN Reason: SHORTNESS OF BREATH Last Admin: 04/23/21 08:21 Dose: 2.5 mg Documented by: Aminophylline (Aminophylline 25 Mg/Ml Sdv 10 Ml) 25 mg IVP Q2M PRN PRN Reason: see dose instructions Stop: 04/25/21 07:20 Aspirin (Aspirin 81 Mg Ec Tablet) 81 mg PO DAILY [facility] Last Admin: 04/24/21 10:06 Dose: 81 mg Documented by: Atorvastatin Calcium (Atorvastatin 40 Mg Tablet) 40 mg PO BEDTIME [facility] Last Admin: 04/23/21 21:55 Dose: 40 mg Documented by: Furosemide (Furosemide 40 Mg Tablet) 40 mg PO BID@ [facility] Morphine Sulfate (Morphine 4 Mg/Ml Sdv 1 Ml) 2 mg IVP Q6H PRN PRN Reason: SEVERE PAIN Naloxone HCl (Naloxone 0.4 Mg/Ml Sdv) 0.1 mg IVP Q2M PRN PRN Reason: OPIATERV Nitroglycerin (Nitroglycerin 1 Gm/Inch Oint Pkt) 0.5 inch TOPICAL Q6H PRN PRN Reason: chest pain Nitroglycerin (Nitroglycerin 0.4 Mg Sublingual Tablet) 0.4 mg SUBLINGUAL Q5M PRN PRN Reason: CHEST PAIN Stop: 04/25/21 07:20 Ondansetron HCl (Ondansetron 2 Mg/Ml Sdv 2 Ml) 4 mg IVP Q8H PRN PRN Reason: vomiting, or N/V if npo Ondansetron HCl (Ondansetron 2 Mg/Ml Sdv 2 Ml) 4 mg IVP Q2M PRN PRN Reason: NAUSEA Last Admin: 04/24/21 07:52 Dose: 4 mg Documented by: Pantoprazole Sodium (Pantoprazole Dr 40 Mg Tablet) 40 mg PO DAILY [facility] Last Admin: 04/24/21 10:06 Dose: 40 mg Documented by: Potassium Chloride (Potassium Chloride Er 20 Meq Tablet) 20 meq PO DAILY [facility] Sacubitril/Valsartan (Sacubitril/Valsartan 24-26 Mg Tablet) 1 each PO BID ON [facility] Last Admin: 04/24/21 10:06 Dose: 1 each Documented by: Spironolactone (Spironolactone 25 Mg Tablet) 25 mg PO DAILY [facility] Warfarin Sodium (Warfarin 5 Mg Tablet) 5 mg PO QD@1400 ON [facility] Last Admin: 04/24/21 13:51 Dose: 5 mg Documented by: Vitals/I&O/Wt Last Vital Signs Temp 98.4 F 04/25/21 11:43 Pulse 76 04/25/21 11:43 Resp 16 04/25/21 11:43 BP 109/71 04/25/21 11:43 Pulse Ox 98 04/25/21 11:43 04/25/21 04/25/21 04/25/21 06:59 14:59 22:59 Intake Total 720 / 720 Output Total 625 / 625 Balance 95 / 95 Weight last 48 hrs Weight 137 lb 6.4 oz Physical Exam Narrative: EXAM NARRATIVE: GENERAL: Patient is alert, awake and oriented x3. NECK: No jugular vein distension. HEENT: No cyanosis. No icterus. No pallor. HEART: Regular S1 and S2. No murmur, rub or gallop. LUNGS: Clear to auscultate bilaterally. ABDOMEN: Soft, nontender and nondistended. Positive bowel sounds. No guarding, rebound or tenderness. CENTRAL NERVOUS SYSTEM: Grossly nonfocal. EXTREMITIES: Lower extremities without edema bilaterally. Data : 04/25/21 05:20 04/25/21 05:20 A&P Assessment and plan (1) Ischemic dilated cardiomyopathy: Well compensated. Continue current regimen including Entresto Status: Acute (2) History of mechanical aortic valve replacement: S/p AVR appeared to be stable . Status: Chronic (3) Benign essential hypertension with target blood pressure below 140/90: Well-controlled continue meds Status: Chronic (4) Pacemaker: Pacemaker is working in a normal condition. Continue to follow-up with pacemaker clinic and cardiology Status: Acute (5) Acute on chronic systolic heart failure: Well compensated continue current regimen Status: Acute Additional A&P Information If the patient continues remain stable, may be discharged home tomorrow. [facility] be [facility] in a week by the nurse practitioner. Appointment with me in the office in 1 month. 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
== END 2021-04-25 15:27 | disposition home or self-care (01) ==
LOC: ER 18:39 → MEDSURG 21:11
PROVIDERS: Admitting Provider Student in an Organized Health Care Education/Training Program; Emergency Provider Emergency Medicine; PCP Family Medicine; Visit Provider Family Medicine
DX: I25.5 Ischemic cardiomyopathy (principal); I11.0 Hypertensive heart disease with heart failure; I50.23 Acute on chronic systolic (congestive) heart failure; R07.2 Precordial pain; I25.10 Atherosclerotic heart disease of native coronary artery without angina pectoris; R09.89 Other specified symptoms and signs involving the circulatory and respiratory systems; E78.5 Hyperlipidemia, unspecified; E11.9 Type 2 diabetes mellitus without complications; Z79.01 Long term (current) use of anticoagulants; F17.210 Nicotine dependence, cigarettes, uncomplicated; Z79.82 Long term (current) use of aspirin; Z95.0 Presence of cardiac pacemaker; Z95.2 Presence of prosthetic heart valve; Z82.49 Family history of ischemic heart disease and other diseases of the circulatory system
CPT/HCPCS: 36415; 71045; 76705; 78452; 80048; 80053; 82977; 83690; 83735; 83880; 84100; 84484; 85025; 85610; 85730; 93005; 93017; 93306; 94640; 96374; 99285; A9500; G0378; J1940; J2405; J2785; J7611

== ENCOUNTER → 2021-04-28 11:24 | Outpatient (BNVA) | payer MEDICAID, SELFPAY | PROVIDERS: PCP Family Medicine; Visit Provider Family Medicine | DX: I50.9 Heart failure, unspecified (principal); Z13.6 Encounter for screening for cardiovascular disorders; Z79.01 Long term (current) use of anticoagulants | CPT/HCPCS: 82565; 85610 ==

== ENCOUNTER → 2021-05-01 15:40 | Outpatient (BNVA) | payer MEDICAID, SELFPAY | PROVIDERS: PCP Family Medicine; Visit Provider Nurse Practitioner Family | DX: I25.5 Ischemic cardiomyopathy (principal); I42.0 Dilated cardiomyopathy | CPT/HCPCS: 80048 ==

== ENCOUNTER → 2021-06-02 12:14 | Outpatient (BNVA) | payer MEDICAID, SELFPAY | PROVIDERS: PCP Family Medicine; Visit Provider Family Medicine | DX: Z79.01 Long term (current) use of anticoagulants (principal) | CPT/HCPCS: 85610 ==

== ENCOUNTER → 2021-10-16 15:13 | Outpatient (BNVA) | payer MEDICAID, SELFPAY | PROVIDERS: PCP Family Medicine; Visit Provider Family Medicine | DX: I10 Essential (primary) hypertension (principal); R06.2 Wheezing; Z86.79 Personal history of other diseases of the circulatory system; I25.5 Ischemic cardiomyopathy; I42.0 Dilated cardiomyopathy; Z79.01 Long term (current) use of anticoagulants | CPT/HCPCS: 80053; 85025; 85610 ==

== ENCOUNTER 2021-11-07 09:59 | Outpatient (CLI) | payer MEDICAID, SELFPAY ==
--- NOTE | 2021-11-07 10:15 | USCV_ITS ---
Emory Real Age: 51 Gender: M : 1970 Exam Date: 11/07/2021 10:11 Ordering Phys: Jesse Galicia MD ([email or web address]) Technologist: TERESA Exam Location: [facility] [place] Indication: LOW EF. PRIOR 04/29, 30% BP: 122 / 76 HR: 67 Rhythm: Sinus Technical Quality: MEASUREMENTS (Male / Female) Normal Values 2D ECHO LV Diastolic Diameter PLAX 5.6 cm 4.2 - 5.9 / 3.9 - 5.3 cm LV Systolic Diameter PLAX 4.6 cm IVS Diastolic Thickness 1.7 cm 0.6 - 1.0 / 0.6 - 0.9 cm IVS Systolic Thickness 1.6 cm LVPW Diastolic Thickness 1.3 cm 0.6 - 1.0 / 0.6 - 0.9 cm LVPW Systolic Thickness 1.6 cm LVOT Diameter 2.0 cm LV Ejection Fraction 2D Teich 37.1 % LV Ejection Fraction MOD 2C 35.9 % LV Ejection Fraction 2C AL 36.9 % LA Diameter 3.9 cm Aorta at Sinotubular Diameter 2.6 cm M-MODE Aortic Annulus Diameter 1.9 cm LA Ao Ratio MM 2.1 MV E Point Septal Separation 1.3 cm FINDINGS Left Ventricle Mildly dilated left ventricle. Moderate diffuse hypokinesis anterior wall and LV apex. LV ejection fraction around 36% Right Ventricle Possibly of normal size and ejection fraction.catheter/pacemaker wire in the right ventricular cavity. Right Atrium Mildly increased right atrial size. Catheter/pacemaker wire in the right atrial appendage. Left Atrium Mildly increased left atrial size. Mildly increased left atrial size. Mitral Valve Thickened mitral valve. Aortic Valve The prosthetic valve at the aortic position appears to be well- seated. The leaflets could not be visualized Tricuspid Valve No gross abnormalities noted Pulmonic Valve Pulmonic valve not well visualized. Pericardium No pericardial effusion. Aorta Normal aortic annulus size. IVC Appears to be of normal size. CONCLUSIONS Mildly dilated left ventricle. Moderate diffuse hypokinesia of the anterior wall and LV apex. LV ejection fraction around 36%. Mild biatrial enlargement. Pacemaker/defibrillator wire is noted in the right atrium and ventricle Thickened mitral valve. The prosthetic valve at the aortic position appears to be well- seated. The leaflets could not be visualized. There are no intracardiac masses. There is no pericardial effusion. Compared to the study from 04/23/2021, there seems to be a slight improvement in the LV ejection fraction Dr Jesse Galicia MD FAC (Electronically Signed) Final Date: 11 November 2021 09:05 S
== END 2021-11-07 10:00 | disposition home or self-care (01) ==
PROVIDERS: PCP Family Medicine; Visit Provider Internal Medicine Cardiovascular Disease
DX: I25.5 Ischemic cardiomyopathy (principal); I42.0 Dilated cardiomyopathy
CPT/HCPCS: 93308

== ENCOUNTER → 2021-11-27 14:13 | Outpatient (BNVA) | payer MEDICAID, SELFPAY | PROVIDERS: PCP Family Medicine; Visit Provider Internal Medicine Cardiovascular Disease | DX: I25.5 Ischemic cardiomyopathy (principal); I42.0 Dilated cardiomyopathy; Z95.2 Presence of prosthetic heart valve; I11.0 Hypertensive heart disease with heart failure; I50.33 Acute on chronic diastolic (congestive) heart failure; I25.119 Atherosclerotic heart disease of native coronary artery with unspecified angina pectoris; Z95.0 Presence of cardiac pacemaker; I48.91 Unspecified atrial fibrillation; Z79.01 Long term (current) use of anticoagulants; F17.210 Nicotine dependence, cigarettes, uncomplicated | CPT/HCPCS: 36415; 80048; 83880; 99214 ==

== ENCOUNTER → 2021-12-26 10:22 | Outpatient (BNVA) | payer MEDICAID, SELFPAY | PROVIDERS: PCP Family Medicine; Visit Provider Internal Medicine Cardiovascular Disease | DX: Z45.010 Encounter for checking and testing of cardiac pacemaker pulse generator [battery] (principal) | CPT/HCPCS: 93280 ==

== ENCOUNTER → 2022-03-05 16:35 | Outpatient (BNVA) | payer MEDICAID, SELFPAY | PROVIDERS: PCP Family Medicine; Visit Provider Internal Medicine Cardiovascular Disease | DX: I25.118 Atherosclerotic heart disease of native coronary artery with other forms of angina pectoris (principal); I25.5 Ischemic cardiomyopathy; I42.0 Dilated cardiomyopathy; Z95.0 Presence of cardiac pacemaker; Z95.2 Presence of prosthetic heart valve; Z86.79 Personal history of other diseases of the circulatory system; Z79.01 Long term (current) use of anticoagulants; F17.219 Nicotine dependence, cigarettes, with unspecified nicotine-induced disorders; R94.31 Abnormal electrocardiogram [ECG] [EKG]; I10 Essential (primary) hypertension | CPT/HCPCS: 36415; 80048; 83880; 99214 ==

== ENCOUNTER 2022-08-27 09:10 | Outpatient (CLI) | payer MEDICAID, SELFPAY ==
--- NOTE | 2022-08-27 | ECG_ITS ---
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 Interpretive Statements NAME OF STUDY: LEXISCAN SESTAMIBI STRESS TEST INDICATION: Chest Pain RESULTS TO HAILY MONTEMAYOR PROCEDURE: At the baseline, the EKG revealed 100% a sensed, V paced rhythm with a rate of 65 bpm. The baseline heart was 65 bpm with a blood pressue of 143/88 mm of Hg Lexiscan was infused over a period of 20 seconds. A total of 0.4 milligrams of Lexiscan was infused. The stress phase was continued for a total of 5 minutes. Heart rate at the end of the stress phase was 78 bpm with a blood pressure 156/109 mm of Hg. The EKG at the peak infusion revealed no significant changes. Sestamibi was injected 20 seconds after the Lexiscan infusion. Heart rate at the end of the recovery phase was 75 bpm with a blood pressure of 155/94 mm of Hg. CONCLUSION: 1. The EKG response to Lexiscan infusion is uninterpretable due to the pacing artifact 2. No LexiScan induced chest pain or cardiac arrhythmia 3. Normal blood pressure and heart rate response 4. Sestamibi/sestamibi perfusion scan pending; see separate report. Electronically Signed On 08-30-2022 18:09:42 CDT by Jesse Galicia M.D. [id number]
[2022-08-27 09:43] VITALS: BMI 24.3
--- NOTE | 2022-08-27 09:44 | NMCV_ITS ---
NM ifeanyi perf SPECT r/s* [id number] Emory Real Age: 51 Gender: M : 1970 Exam Date: 08/27/2022 10:22 Ordering Phys: Jesse Galicia MD ([email or web address]) Technologist: ASHWIN Muller Exam Location: [facility] Indications: CORONARY ANGIOPLASTY STATUS, HYPERTENSION, ATHEROSCLEROTIC HEART DISEASE STRESS TEST [facility] for [facility] IMAGE PROTOCOL Rest/Stress 1 Lexiscan Day Radiopharmaceutical Dose (mCi) Administration Site Administered by Rest: Tc-99m 10.7 IV ASHWIN Muller Sestamibi Stress:Tc-99m 32.3 IV ASHWIN Sanchez Sestamibi Rest: 27-Aug-2022 60 Discovery 630 Stress: 27-Aug-2022 30 Discovery 630 0.4mg Lexiscan. Images obtained in supine and prone position. SPECT RESULTS Technical Quality: Excellent Raw Data Analysis: Normal Image Corrections: No attenuation or motion correction applied Summed Stress Score: 17 Summed Rest Score: 20 Summed Difference Score: 0 PERFUSION FINDINGS Moderate to severely decreased eccentric in the mid inferior and all the apical segments including the LV apex. No significant reversibility was noted in these regions. FUNCTIONAL RESULTS (calculated via Gated SPECT) Stress Image LV EF (%): 31 Stress EDV (mL):254 TID: 1.03 Stress ESV (mL):175 FUNCTIONAL FINDINGS: Segmental wall motion analysis revealing severe diffuse hypokinesia of the LV apex, inferior wall and septum IMPRESSIONS 1. Myocardial perfusion imaging revealing moderate area of persistent decreased tracer uptake involving the inferior and apical regions suggesting myocardial scarring in the distribution of all the 3 coronary arteries. 2. The initial ejection fraction of 31%. 3. LV wall motion analysis revealing multiple wall motion normalities as mentioned above 4. Markedly dilated LV cavity with end-systolic volume of 175 mL Low probability for coronary ischemia, based on the above findings Dr Jesse Galicia MD FACC (Electronically Signed) Final Date: 27 August 2022 14:22 S
[2022-08-27] MEDS: regadenoson 0.4 Mg/5 ml Syringe IVP (11:04)
[2022-08-27 11:25] VITALS: BP 125/67; PULSE 62
== END 2022-08-27 09:11 | disposition home or self-care (01) ==
LOC: CDL 09:12
PROVIDERS: PCP Family Medicine; Visit Provider Internal Medicine Cardiovascular Disease
DX: R07.9 Chest pain, unspecified (principal)
CPT/HCPCS: 36415; 78452; 85610; 93017; 96374; 99214; A9500; J2785

== ENCOUNTER → 2022-08-31 14:40 | Outpatient (BNVA) | payer MEDICAID, SELFPAY | PROVIDERS: PCP Family Medicine; Visit Provider Internal Medicine Cardiovascular Disease | DX: Z79.01 Long term (current) use of anticoagulants (principal) | CPT/HCPCS: 85610 ==

== ENCOUNTER → 2022-12-11 09:30 | Outpatient (BNVA) | payer MEDICAID, SELFPAY | PROVIDERS: PCP Family Medicine; Visit Provider Family Medicine | DX: Z79.01 Long term (current) use of anticoagulants (principal) | CPT/HCPCS: 85610 ==

== ENCOUNTER → 2023-01-12 10:05 | Outpatient (BNVA) | payer MEDICAID, SELFPAY | PROVIDERS: PCP Family Medicine; Visit Provider Internal Medicine Cardiovascular Disease | DX: Z95.2 Presence of prosthetic heart valve (principal) | CPT/HCPCS: 36415; 85610 ==

== ENCOUNTER → 2023-01-20 09:58 | Outpatient (BNVA) | payer MEDICAID, SELFPAY | PROVIDERS: PCP Family Medicine; Visit Provider Internal Medicine Cardiovascular Disease | DX: Z95.2 Presence of prosthetic heart valve (principal) | CPT/HCPCS: 85610 ==

== ENCOUNTER → 2023-02-03 10:07 | Outpatient (BNVA) | payer MEDICAID, SELFPAY | PROVIDERS: PCP Family Medicine; Visit Provider Internal Medicine Cardiovascular Disease | DX: Z95.2 Presence of prosthetic heart valve (principal) | CPT/HCPCS: 85610 ==

== ENCOUNTER 2023-03-03 09:51 | Outpatient (CLI) | payer MEDICAID, SELFPAY | END 2023-03-03 09:52 | disposition home or self-care (01) | LOC: LAB 09:53 | PROVIDERS: PCP Family Medicine; Visit Provider Internal Medicine Cardiovascular Disease | DX: Z95.2 Presence of prosthetic heart valve (principal) | CPT/HCPCS: 36415; 85610 ==

== ENCOUNTER 2023-03-11 13:42 | Outpatient (CLI) | payer MEDICAID, SELFPAY ==
[2023-03-11 14:41] LABS: INR 1.39 (0.8-1.2)
== END 2023-03-11 13:43 | disposition home or self-care (01) ==
LOC: LAB 13:42
PROVIDERS: PCP Family Medicine; Visit Provider Internal Medicine Cardiovascular Disease
DX: Z95.2 Presence of prosthetic heart valve (principal)
CPT/HCPCS: 36415; 85610

== ENCOUNTER 2023-03-18 10:44 | Outpatient (CLI) | payer MEDICAID, SELFPAY ==
[2023-03-18 11:19] LABS: INR 1.71 (0.83-1.21); Prothrombin Time (Patient) 20.7 Seconds (12.0-15.1)
== END 2023-03-18 10:45 | disposition home or self-care (01) ==
PROVIDERS: PCP Family Medicine; Visit Provider Internal Medicine Cardiovascular Disease
DX: Z95.2 Presence of prosthetic heart valve (principal)
CPT/HCPCS: 36415; 85610

== ENCOUNTER 2023-03-26 09:50 | Outpatient (CLI) | payer MEDICAID, SELFPAY ==
[2023-03-26 10:28] LABS: INR 3.84 (0.8-1.2)
== END 2023-03-26 09:51 | disposition home or self-care (01) ==
LOC: LAB 09:51
PROVIDERS: PCP Family Medicine; Visit Provider Internal Medicine Cardiovascular Disease
DX: Z79.01 Long term (current) use of anticoagulants (principal)
CPT/HCPCS: 36415; 85610

== ENCOUNTER 2023-04-19 10:02 | Outpatient (CLI) | payer MEDICAID, SELFPAY ==
[2023-04-19 10:37] LABS: INR 2.27 (0.8-1.2)
== END 2023-04-19 10:03 | disposition home or self-care (01) ==
LOC: LAB 10:02
PROVIDERS: PCP Family Medicine; Visit Provider Internal Medicine Cardiovascular Disease
DX: Z95.2 Presence of prosthetic heart valve (principal)
CPT/HCPCS: 36415; 85610

== ENCOUNTER 2023-05-28 13:47 | Outpatient (CLI) | payer MEDICARE, MEDICAID, SELFPAY ==
[2023-05-28 14:52] LABS: INR 5.17 (0.8-1.2)
== END 2023-05-28 13:48 | disposition home or self-care (01) ==
LOC: LAB 13:48
PROVIDERS: PCP Family Medicine; Visit Provider Internal Medicine Cardiovascular Disease
DX: Z95.2 Presence of prosthetic heart valve (principal)
CPT/HCPCS: 85610